=== PATIENT | male | born 1960 | race Caucasian/White ===

== ENCOUNTER 2018-01-10 09:41 | Day surgery (SDC) | payer MEDICARE ==
[~2018-01-10 09:41] MED LIST: LIDOCAINE 2% INJ 100 MG/5 ML SDV (FOR ANES.) As Ordered; PROPOFOL 200 MG/20 ML VIAL As Ordered; ROCURONIUM BROMIDE 50 MG/5 ML VIAL As Ordered
[2018-01-10] MEDS ORDERED: ROPIvacaine 0.5% 30 ML INJECTION (J2795 PER 1MG) (09:42)
[2018-01-10] MEDS ORDERED: dexameTHASONE 10 MG/1 ML VIAL PRES.FREE (J1100) (09:42)
[2018-01-10] MEDS ORDERED: EPINEPHrine INJ 1 MG/ML 1ML AMP (09:42)
[2018-01-10] MEDS: LR 1,000 ML IV (10:15)
[2018-01-10 10:29] LABS: BEDSIDE GLUCOSE 118 MG/DL (70-105)
[2018-01-10] MEDS ORDERED: MIDAZOLAM INJ 2 MG/2 ML VIAL (J2250) As Ordered (10:45)
[2018-01-10] MEDS ORDERED: fentaNYL 100 MCG/2 ML INJECTION (J3010) As Ordered ×2 (10:45→12:10)
[2018-01-10] MEDS: fentaNYL 100 MCG/2 ML INJECTION (J3010) IV ×2 (11:10→11:15)
[2018-01-10] MEDS: MIDAZOLAM INJ 2 MG/2 ML VIAL (J2250) IV (11:10)
[2018-01-10] MEDS ORDERED: METOCLOPRAMIDE INJ 10MG/2ML VIAL (J2765) As Ordered (12:23)
[2018-01-10] MEDS ORDERED: ePHEDrine SULFATE 25 MG/5 ML(5MG/ML) SYRINGE As Ordered (12:32)
[2018-01-10] MEDS ORDERED: GLYCOPYRROLATE INJ 0.2 MG/ML 2 ML VIAL As Ordered (13:15)
[2018-01-10] MEDS ORDERED: ONDANSETRON 4MG/2ML VIAL (J2405) As Ordered (13:15)
[2018-01-10] MEDS: EPINEPHrine 1MG/ML INJ 30ML MD-VIAL As Ordered (13:17)
[2018-01-10] MEDS ORDERED: PROPOFOL 200 MG/20 ML VIAL As Ordered (14:54)
[2018-01-10] MEDS ORDERED: LR 1,000 ML IV ×2 (16:00)
[2018-01-10] MEDS ORDERED: ONDANSETRON 4MG/2ML VIAL (J2405) IV (16:00)
[2018-01-10] MEDS ORDERED: PERCOCET 5MG/325MG TAB PO (16:00)
[2018-01-10] MEDS ORDERED: fentaNYL 100 MCG/2 ML INJECTION (J3010) IV (16:00)
[2018-01-10] MEDS ORDERED: HYDROmorphone HCL 1 MG/ML SYRINGE (J1170) IV (16:00)
== END 2018-01-10 17:05 | disposition home or self-care (01) ==
LOC: M SDC 09:41
DX: M19.011 Primary osteoarthritis, right shoulder (principal); M75.121 Complete rotator cuff tear or rupture of right shoulder, not specified as traumatic; S43.431A Superior glenoid labrum lesion of right shoulder, initial encounter; I10 Essential (primary) hypertension; E11.9 Type 2 diabetes mellitus without complications; K21.9 Gastro-esophageal reflux disease without esophagitis; Z91.018 Allergy to other foods; Z91.041 Radiographic dye allergy status
CPT/HCPCS: 29823

== ENCOUNTER → 2018-09-14 | Outpatient (CLI) | payer MEDICARE ==
[~2018-09-14] MED LIST changes: +FAMO40TA3 PO; +GEMF600T5 PO; +GLIP2.5T6 PO; +GLYB25TA PO; +HYDR-3713 PO; +HYDR25TAB PO; +IBUP200C25 PO; +INVO100T PO; +LIDO5DIS41 TD; -LIDOCAINE 2% INJ 100 MG/5 ML SDV (FOR ANES.) As Ordered; +LISI10TA4 PO; +LOVA40TA PO; +LUNE3TAB36 PO; +METF10004 PO; +MIRA3350 PO; +MORP30TASA PO; +MULTCAP PO; +NEXI40CA PO; +NUCY100T16 PO; +PAME25CA PO; -PROPOFOL 200 MG/20 ML VIAL As Ordered; -ROCURONIUM BROMIDE 50 MG/5 ML VIAL As Ordered; +SOMA350T PO; +TOPA50TA8 PO; +TOUJ1.2I SC
[2018-09-14 16:47] LABS: ALBUMIN 4.1 GM/DL (3.2-5.2); ALT/SGPT 26 U/L (12-78); BILIRUBIN,TOTAL 0.6 MG/DL (0.2-1.0); BLOOD UREA NITROGEN 17 MG/DL (7-18); CALCIUM LEVEL 9.3 MG/DL (8.5-10.1); CARBON DIOXIDE LEVEL 23 MEQ/L (21-32); CHLORIDE LEVEL 105 MEQ/L (98-107); CHOLESTEROL LEVEL 145 MG/DL (<200); CHOLESTEROL RISK RATIO 3.625 (<5); CREATININE FOR GFR 0.97 MG/DL (0.70-1.30); GLOMERULAR FILTRATION RATE > 60.0 (>56); GLUCOSE, FASTING 144 MG/DL (70-100); HDL CHOLESTEROL 40 MG/DL (>40); LDL CHOLESTEROL 65 MG/DL (<100); NON-HDL-C 105 MG/DL; SODIUM LEVEL 138 MEQ/L (136-145); TOTAL PROTEIN 7.6 GM/DL (6.4-8.2); TRIGLYCERIDES LEVEL 201 MG/DL (<150)
[2018-09-14 17:19] LABS: BASO # 0.1 10^3/uL (0.0-0.2); BASO % 0.8 % (0.0-1.0); EOS # 0.1 10^3/uL (0.0-0.50); HEMATOCRIT 45.5 % (42.0-52.0); HEMOGLOBIN 15.2 g/dl (13.5-17.5); LYMPH # 2.3 10^3/uL (1.5-4.5); LYMPH % 20.3 % (24.0-44.0); MEAN CORPUSCULAR HEMOGLOBIN 29.5 pg (27.0-33.0); MEAN CORPUSCULAR HGB CONC 33.4 g/dl (32.0-36.5); MEAN CORPUSCULAR VOLUME 88.3 fl (80.0-96.0); MONO # 0.8 10^3/uL (0.0-0.8); MONO % 7.2 % (0.0-5.0); NEUTROPHILS # 7.9 10^3/uL (1.8-7.7); NEUTROPHILS % 70.4 % (36.0-66.0); PLATELET COUNT, AUTOMATED 245 10^3/uL (150-450); RED BLOOD COUNT 5.15 10^6/uL (4.30-6.10); WHITE BLOOD COUNT 11.2 10^3/uL (4.0-10.0)
[2018-09-14 17:28] LABS: HEMOGLOBIN A1c 6.6 %
== END ==
LOC: M LRY 10:16
PROVIDERS: ATTEND Nurse Practitioner Family
DX: E11.9 Type 2 diabetes mellitus without complications (principal); I10 Essential (primary) hypertension; E78.49 Other hyperlipidemia

== ENCOUNTER → 2018-11-21 | Outpatient (REF) | payer MEDICARE | LOC: M SFHCLERA 10:04 | PROVIDERS: ATTEND Nurse Practitioner Family | DX: J02.9 Acute pharyngitis, unspecified (principal) ==

== ENCOUNTER → 2018-12-30 | Outpatient (REF) | payer MEDICARE ==
[~2018-12-30] MED LIST changes: +HYDR-2541 PO; -HYDR25TAB PO
== END ==
LOC: M SFHCLERA 10:34
PROVIDERS: ATTEND Nurse Practitioner Family
DX: J02.9 Acute pharyngitis, unspecified (principal)

== ENCOUNTER → 2020-12-14 | Outpatient (CLI) | payer MEDICARE ==
[~2020-12-14] MED LIST changes: +GLYB2.5T7 PO; -GLYB25TA PO; +HYDR-3490 PO; +JARD1TAB PO; +LISI10TA22 PO; -LISI10TA4 PO; +LOPI600T PO; +MELO15TA28 PO
== END ==
LOC: M LABSMTC 09:14
PROVIDERS: ATTEND Anesthesiology
DX: Z01.812 Encounter for preprocedural laboratory examination (principal); Z20.822 Contact with and (suspected) exposure to COVID-19

== ENCOUNTER → 2021-01-10 | Outpatient (CLI) | payer MEDICARE | LOC: M LABSMTC 10:50 | PROVIDERS: ATTEND Anesthesiology | DX: Z01.818 Encounter for other preprocedural examination (principal); Z20.822 Contact with and (suspected) exposure to COVID-19 ==

== ENCOUNTER 2021-01-15 07:21 | Day surgery (SDC) | payer MEDICARE, OTHER ==
[~2021-01-15] VITALS: Ht 177.8 cm; Wt 125.6 kg
[~2021-01-15 07:21] MED LIST changes: +NS 1,000 ML IV ONE
[2021-01-15] MEDS ORDERED: LIDOCAINE 2% 100MG/5ML SDV (FOR ANES.) As Ordered ONE (09:44)
[2021-01-15] MEDS ORDERED: propofoL 500 MG/50 ML VIAL As Ordered ONE ×2 (09:44→09:56)
[2021-01-15] MEDS ORDERED: propofoL 200 MG/20 ML VIAL As Ordered ONE (10:05)
--- NOTE | 2021-01-15 10:15 | ROOR ---
Patient Name: Raffi Cadet Procedure Date: 01/15/2021 9:29 AM Date of : 1960 Age: 60 Room: [facility] Gender: Male Note Status: Finalized Procedure: Colonoscopy Indications: High risk colon cancer surveillance: Personal history of colonic polyps Providers: Dawood CASTILLO MD Referring MD: Kayleen Aguilar NP Requesting Provider: Medicines: Monitored Anesthesia Care Complications: No immediate complications. Procedure: Pre-Anesthesia Assessment: - The heart rate, respiratory rate, oxygen saturations, blood pressure, adequacy of pulmonary ventilation, and response to care were monitored throughout the procedure. The Colonoscope was introduced through the anus and advanced to the cecum, identified by appendiceal orifice and ileocecal valve. The colonoscopy was technically difficult and complex due to a redundant colon. The patient tolerated the procedure well. The quality of the bowel preparation was good. Findings: The perianal and digital rectal examinations were normal. Three sessile polyps were found in the sigmoid colon and splenic flexure. The polyps were 5 to 7 mm in size. These polyps were removed with a cold snare. Resection and retrieval were complete. Internal hemorrhoids were found during retroflexion. The hemorrhoids were moderate. The exam was otherwise without abnormality on direct and retroflexion views. Impression: - Three 5 to 7 mm polyps in the sigmoid colon and at the splenic flexure, removed with a cold snare. Resected and retrieved. - Internal hemorrhoids. - The examination was otherwise normal on direct and retroflexion views. Recommendation: - Repeat colonoscopy in 3 years for surveillance. Procedure Code(s): --- Professional --- 20282, Colonoscopy, flexible; with removal of tumor(s), polyp(s), or other lesion(s) by snare technique Diagnosis Code(s): --- Professional --- K64.8, Other hemorrhoids K63.5, Polyp of colon Z86.010, Personal history of colonic polyps CPT copyright 2019 [employer]. All rights reserved. The codes documented in this report are preliminary and upon shank burnisher review may be revised to meet current compliance requirements. Dawood Castillo MD Dawood CASTILLO MD 01/15/2021 10:14:42 AM Electronically signed by Dawood CASTILLO MD Number of Addenda: 0 Note Initiated On: 01/15/2021 9:29 AM Estimated Blood Loss: Estimated blood loss: none.
[2021-01-15 10:30] VITALS: BP 184/108
== END 2021-01-15 10:38 | disposition home or self-care (01) ==
LOC: M OPP 07:21
PROVIDERS: ATTEND Internal Medicine Gastroenterology
DX: Z12.11 Encounter for screening for malignant neoplasm of colon (principal); Z86.010 Personal history of colon polyps; Z80.0 Family history of malignant neoplasm of digestive organs; K63.5 Polyp of colon; K64.8 Other hemorrhoids; E11.9 Type 2 diabetes mellitus without complications; F17.210 Nicotine dependence, cigarettes, uncomplicated; Z79.84 Long term (current) use of oral hypoglycemic drugs; Z79.891 Long term (current) use of opiate analgesic; Z79.899 Other long term (current) drug therapy; Z88.8 Allergy status to other drugs, medicaments and biological substances; Z91.018 Allergy to other foods; Z91.048 Other nonmedicinal substance allergy status

== ENCOUNTER → 2021-03-04 | Outpatient (CLI) | payer OTHER ==
[~2021-03-04] MED LIST changes: -NS 1,000 ML IV ONE; +PROHANCE 279.3MG/ML 15ML VIAL As Ordered ONE; +PROHANCE 279.3MG/ML 5ML VIAL As Ordered ONE
--- NOTE | 2021-03-05 09:02 | REP ---
INDICATION: MASS LIKE LESION IN KIDNEYS. COMPARISON: [facility] 02/27/2021. TECHNIQUE: Multiple sequences obtained in the axial coronal planes prior to and following the intravenous administration of 20 mL ProHance. FINDINGS: There is an enhancing solid mass in the lower pole of the right kidney consistent with renal cell carcinoma. This measures approximately 6.0 x 4.1 cm. In the mid right kidney there are 2 benign nonenhancing cysts measuring 1 cm in diameter. In the left kidney there are several benign nonenhancing cysts, the largest is bilobed and exophytic in the lower pole and measures 5.4 cm in maximum diameter. There is no hydronephrosis bilaterally. The visualized liver demonstrates diffuse fatty infiltration. The gallbladder is grossly unremarkable. There is no intrahepatic or extrahepatic biliary dilatation. The visualized spleen is unremarkable. The adrenals and pancreas demonstrate no abnormality. I see no significant adenopathy in the visualized abdomen. There is no free fluid. IMPRESSION: There is an enhancing solid mass in the lower pole of the right kidney consistent with renal cell carcinoma. This measures approximately 6.0 x 4.1 cm. Multiple bilateral renal cysts. No adenopathy. <Electronically signed by Shekhar Culp > 03/05/21 [id number]
== END ==
LOC: M RAD 07:33
PROVIDERS: ATTEND Nurse Practitioner Family
DX: N28.89 Other specified disorders of kidney and ureter (principal)
CPT/HCPCS: 74183; A9576

== ENCOUNTER → 2021-05-27 | Outpatient (CLI) | payer OTHER ==
[~2021-05-27] MED LIST changes: -PROHANCE 279.3MG/ML 15ML VIAL As Ordered ONE; -PROHANCE 279.3MG/ML 5ML VIAL As Ordered ONE
--- NOTE | 2021-05-27 15:56 | REP ---
INDICATION: RT THYROID NODULE. COMPARISON: CT cervical spine 03/05/2021. TECHNIQUE: Real-time sonographic evaluation of thyroid performed. FINDINGS: Right lobe measures 5.2 x 2.5 x 2.0 cm and left lobe 5.5 x 2.3 x 1.6 cm. In the mid right lobe there is a cyst with mild wall thickening and a few tiny echogenic foci in the wall. This measures 2.9 x 1.5 x 2.0 cm. In the left lower pole there is a hypoechoic nodule which measures 7 x 8 x 6 mm containing low-level echoes. There is an adjacent heterogeneous nodule mixed echogenicity measuring 1.2 x 1.0 x 1.0 cm. IMPRESSION: Cyst in the right lobe of the thyroid demonstrates mild wall thickening and a few echogenic punctate calcifications in the wall of the cyst. This appears benign. Extremely hypoechoic nodule in the left lower pole could represent a complex cyst or solid nodule, measuring 8 mm in maximum diameter. Utilizing TI-RADS criteria this is at most a TR 4 lesion, and given its subcentimeter size no follow-up is needed. Heterogeneous nodule in the left lower pole 1.2 cm in diameter is relatively isoechoic. This is a TR 3 lesion and since it is less than 1.5 cm no follow-up is needed. <Electronically signed by Shekhar Culp > 05/27/21 [id number]
== END ==
LOC: M RAD 15:10
PROVIDERS: ATTEND Internal Medicine Hematology & Oncology
DX: E04.2 Nontoxic multinodular goiter (principal)

== ENCOUNTER 2021-07-28 02:37 | Emergency (ER) | payer OTHER ==
[~2021-07-28] VITALS: Ht 177.8 cm; Wt 120.9 kg
--- OUTSIDE RECORDS SUMMARY | 2021-07-28 02:43 | CCD | Continuity of Care Document ---
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 Onset: 04/18/2020 Essential hypertension RYAN Ward, PNP Onset: 2019 Pure hypercholesterolemia RYAN Ward, PNP Onset: Gastroesophageal reflux disease RYAN Ward, PNP Onse t: 04/18/2020 Secondary erectile dysfunction RYAN Ward, PNP Onset : 04/18/2020 Taking medication RYAN Ward, PNP Onset: 0 Right side sciatica RYAN Ward, PNP Onset: 0 Secondary erectile dysfunction RYAN Ward, PNP Onset : 10/21/2020 Social History Type Date Description Comments Sex Unknown Tobacco Use Start: Unknown End: Quit Tobacco Use Start: Unknown Never Smoked Cigars Tobacco Use Start: Unknown Never Smoked A Pipe Tobacco Use Start: Unknown Never Used Smokeless Tobacco ETOH Use Denies alcohol use Recreational Drug Use Denies Drug Use Tobacco Use Start: Unknown End: Unknown Patient is a former smoker Allergies and adverse reactions Active Allergies Criticality Reaction | Severity Comments Date Iodinated Diagnostic Agents Unable to assess criticality 06/13/2019 Medications Active Medications SIG Qnty Indications Ordering Provide r Date Fenofibrate 145mg Tablets 1 tablet by mouth every day for triglycerides 90tabs Steve hunt MD 01/27/2021 Glipizide ER 10mg Tablets ER 24HR Take 1 Tablet By Mouth Once A Day 30tabs Tawnya lopez M.D. 01/27/2021 Trazodone HCL 50mg Tablets take 1 tab by mouth at bedtime. 30tabs Steve Riley MD 01/20/2021 Blood Pressure Kit/Oscillating/Digital Kit Use as directed to monitor blood pressure twice a day 1units Steve Riley MD 01/20/2021 Lisinopril 10mg Tablets take two tablets by mouth in the morning and 1 tab at bed time 90tabs Hira Riley MD 01/20/2021 Jardiance 25mg Tablets take one by mouth once a day 90tabs RYAN Ward, PNP 07/21/20 20 Carisoprodol 350mg Tablets 1 by mouth at bedtime as needed Unknown Blood Glucose Test Strips please provide glucose test strips, covered by pt insurance for twice daily bs test dx: e11.65 E11.65 Unknown Blood Glucose Monitoring System W/Device Kit for three times a day blood sugar testing dx: e11.65 E 11.65 Unknown Mucinex 600mg Tablets ER 12HR 1 by mouth twice a day as needed Unknown Omeprazole 20mg Capsules DR 1 by mouth every day Written by Dr Muro Unknown Topamax 50mg Tablets 1 by mouth twice a day for headaches 180tabs RYAN Ward, PNP Novolog 100Unit/ML Solution 10-15 units at bedtime per sliding scale Unknown [employer] Lancing Device Misc Unknown Hydrochlorothiazide 25mg Tablets take one tablet by mouth every day 90tabs RYAN Ward, PN P Lovastatin 40mg Tablets take one tablet by mouth every evening with meal 90tabs RYAN Ward , PNP Metformin HCL 1000mg Tablets take one tablet by mouth twice a day with food 180tabs RYAN Ward, PNP Meloxicam 15mg Tablets take one tablet by mouth every day 90tabs DURAN Ward-BC, PNP Sildenafil Citrate 20mg Tablets Take One Tablet By Mouth as Directed Unknown Pharmacist Choice Ultra Thin Lancets 31G 31G Misc Unknown Hydrocodone-Acetaminophen 5-325mg Tablets Take One Tablet By Mouth Every 4 Hours Maximum Daily Dose [address] Muro Unknown Immunizations Description No Information Available Vital Signs Date Vital Result Comment 07/13/2021 1:29pm BP Systolic 150 mmHg BP Diastolic 82 mmHg Heart Rate 76 /min Body Temperature 98.7 F Respiratory Rate 16 /min O2 % BldC Oximetry 96 % Weight 266.00 lb Weight 120.658 kg Height 70 inches 5'10" BMI (Body Mass Index) 38.2 kg/m2 BSA (Body Surface Area) 2.36 m2 04/22/2021 8:07am BP Systolic 154 mmHg BP Diastolic 92 mmHg Heart Rate 70 /min Body Temperature 98.1 F Respiratory Rate 16 /min O2 % BldC Oximetry 97 % Weight 266.50 lb Weight 120.884 kg Height 70 inches 5'10" BMI (Body Mass Index) 38.2 kg/m2 BSA (Body Surface Area) 2.36 m2 Results Test Acquired Date Facility Test Result H/L Range Note RSV Dna Probe 07/13/2021 [facility] RSV Antigen POSITIVE Abnormal Normal: Negative RSV Antigen Reenter POSITIVE Abnormal Normal: Negative 1 Laboratory test finding 07/13/2021 [facility] Coronavirus Covid-19 Not Detected Not Detected 2 Covid-19 06/12/2021 [facility] Sars-CoV-2, Juanita Not Detected Not Detected 3 Sars-CoV-2, Juanita 2 Day Tat Performed CBC With Differential 05/13/2021 [facility] White Blood Count 8.5 10 Normal 4.0-10.0 Red Blood Count 4.80 10 Normal 4.30-6.10 Hemoglobin 14.5 g/dL Normal 13.5-17.5 Hematocrit 43.8 % Normal 42.0-52.0 Mean Corpuscular Volume 91.3 fl Normal 80.0-96.0 Mean Corpuscular Hemoglobin 30.2 pg Normal 27.0-33.0 Mean Corpuscular HGB Conc 33.1 g/dL Normal 32.0-36.5 Red Cell Distribution Width 14.0 % Normal 11.5-14.5 Platelet Count, Automated 238 10 Normal 150-450 Neutrophils % 57.8 % Normal 36.0-66.0 Lymph % 27.3 % Normal 24.0-44.0 [place] % 11.2 % High 2.0-8.0 Eos % 2.3 % Normal 0.0-3.0 Baso % 1.2 % High 0.0-1.0 Immature Granulocyte % 0.2 % Normal 0-3.0 Nucleated Red Blood Cell % 0.0 % Normal 0-0 Neutrophils # 4.9 10 Normal 1.5-8.5 Lymph # 2.3 10 Normal 1.5-5.0 [place] # 1.0 10 High 0.0-0.8 Eos # 0.2 10 Normal 0.0-0.5 Baso # 0.1 10 Normal 0.0-0.2 Comprehensive Metabolic Profil 05/13/2021 [facility] Glucose, Fasting 112 mg/dL High 70-100 Blood Urea Nitrogen 31 mg/dL High 7-18 Creatinine For GFR 2.36 mg/dL High 0.70-1.30 Glomerular Filtration Rate 30.0 Low >49 4 Sodium Level 140 mEq/L Normal 136-145 Potassium Serum 3.9 mEq/L Normal 3.5-5.1 Chloride Level 109 mEq/L High 98-107 Carbon Dioxide Level 23 mEq/L Normal 21-32 Anion Gap 8 mEq/L Normal 8-16 Calcium Level 9.7 mg/dL Normal 8.8-10.2 Ast/Sgot 15 U/L Normal 7-37 Alt/SGPT 26 U/L Normal 12-78 Alkaline Phosphatase 67 U/L Normal 45-117 Bilirubin,Total 0.4 mg/dL Normal 0.2-1.0 Total Protein 8.0 GM/DL Normal 6.4-8.2 Albumin 4.3 GM/DL Normal 3.2-5.2 Albumin/Globulin Ratio 1.2 Normal Comprehensive Metabolic Panel 05/04/2021 [facility] Comprehensive Metabo (SEE NOTE) 5, 6 Sodium 139 mEq/L 134 - 153 Potassium 4.4 mEq/L 3.6 - 5.0 Chloride 105 mEq/L 98 - 107 Co2 22 mEq/L 22 - 30 Glucose 143 mg/dL High 70 - 99 BUN 26 mg/dL High 7 - 21 Creatinine 2.1 mg/dL High 0.7 - 1.5 BUN/Creat 12 8 - 27 Total Protein 6.9 g/dL 6.3 - 8.2 Albumin 4.5 g/dL 3.9 - 5.0 Globulin 2.4 GM/DL 2.4 - 3.2 A/G Ratio 1.9 0.8 - 2.0 Calcium 9.8 mg/dL 8.4 - 10.2 Total Bili <0.7 mg/dL 0.2 - 1.3 Alkaline Phos 53 U/L 38 - 126 Sgot/Ast 16 U/L 5 - 40 SGPT/Alt 12 U/L 7 - 56 Anion Gap 12.0 mmol/L 8.0 - 16.0 Age 60 yrs Non-Aa GFR 34 mL/min Afr Amer GFR 42 mL/min 7 Lipid Panel 04/22/2021 [facility] Cve Panel (SEE NOTE) 8, 9 Cholesterol 208 mg/dL High 131 - 200 Triglycerides 328 mg/dL High 35 - 160 HDL 42 mg/dL 29 - 86 LDL 123 mg/dL 65 - 175 Risk Factor 5.0 High 3.4 - 4.9 LDL/HDL 2.93 1.00 - 3.55 10 Laboratory test finding 04/22/2021 [facility] l TSH Highly Sensitive 0.57 uIU/mL 0.47 - 5.01 PSA - Diagnostic 1.05 ng/mL 0.00 - 4.00 11 Laboratory test finding 04/22/2021 [facility] Hgba1c 6.0 % 4.4 - 6.1 12 CMP W/Egfr 04/22/2021 [facility] Comprehensive Metabo (SEE NOTE) 13 Sodium 138 mEq/L 134 - 153 Potassium 4.5 mEq/L 3.6 - 5.0 Chloride 104 mEq/L 98 - 107 Co2 21 mEq/L Low 22 - 30 Glucose 134 mg/dL High 70 - 99 BUN 31 mg/dL High 7 - 21 Creatinine 2.1 mg/dL High 0.7 - 1.5 BUN/Creat 15 8 - 27 Total Protein 7.7 g/dL 6.3 - 8.2 Albumin 4.9 g/dL 3.9 - 5.0 Globulin 2.8 GM/DL 2.4 - 3.2 A/G Ratio 1.8 0.8 - 2.0 Calcium 10.4 mg/dL High 8.4 - 10.2 Total Bili <0.7 mg/dL 0.2 - 1.3 Alkaline Phos 66 U/L 38 - 126 Sgot/Ast 15 U/L 5 - 40 SGPT/Alt 11 U/L 7 - 56 Anion Gap 13.0 mmol/L 8.0 - 16.0 Age 60 yrs Non-Aa GFR 34 mL/min Afr Amer GFR 42 mL/min 14 CBC W/Auto Differential 04/22/2021 [facility] CBC W/Automated Diff (SEE NOTE) 15 WBC 8.2 10^3/uL 4.2 - 11.0 RBC 4.95 10^6/uL 4.50 - 6.30 Hemoglobin 15.0 g/dL 14.0 - 16.0 Hematocrit 45.8 % 41.0 - 51.0 MCV 92.5 fL 80.0 - 94.0 MCH 30.3 pg 27.0 - 34.0 MCHC 32.8 g/dL 31.0 - 36.0 RDW 13.7 % 11.5 - 14.8 Platelets 257 10^3/uL 150 - 450 MPV 10.8 fL High 7.4 - 10.4 Neut 68.1 % 37.0 - 80.0 Lymph 18.6 % Low 25.0 - 40.0 [place] 8.3 % High 3.0 - 8.0 Eos 2.8 % 0.0 - 7.0 Baso 1.8 % 0.0 - 2.0 %Ig 0.4 % High 0.0 - 0.0 %NRBC 0.0 % 0.0 - 0.0 #Neut 5.57 10^3/uL 2.00 - 6.90 #Lymph 1.52 10^3/uL 0.60 - 3.40 #[place] 0.68 10^3/uL 0.00 - 0.90 #Eos 0.23 10^3/uL 0.00 - 0.70 #Baso 0.15 10^3/uL 0.00 - 0.20 #Ig 0.03 10^3/uL 0.00 - 0.10 #NRBC 0.00 10^3/uL 0.00 - 0.00 Manual Diff NOT INDICATED RBC Morph NOT INDICATED CBC W/Auto Differential 01/20/2021 [facility] CBC W/Automated Diff (SEE NOTE) 16 WBC 9.3 10^3/uL 4.2 - 11.0 RBC 5.69 10^6/uL 4.50 - 6.30 Hemoglobin 17.4 g/dL High 14.0 - 16.0 Hematocrit 51.0 % 41.0 - 51.0 MCV 89.6 fL 80.0 - 94.0 MCH 30.6 pg 27.0 - 34.0 MCHC 34.1 g/dL 31.0 - 36.0 RDW 12.6 % 11.5 - 14.8 Platelets 221 10^3/uL 150 - 450 MPV 9.7 fL 7.4 - 10.4 Neut 64.4 % 37.0 - 80.0 Lymph 23.2 % Low 25.0 - 40.0 [place] 8.4 % High 3.0 - 8.0 Eos 2.3 % 0.0 - 7.0 Baso 1.4 % 0.0 - 2.0 %Ig 0.3 % High 0.0 - 0.0 %NRBC 0.0 % 0.0 - 0.0 #Neut 6.01 10^3/uL 2.00 - 6.90 #Lymph 2.16 10^3/uL 0.60 - 3.40 #[place] 0.78 10^3/uL 0.00 - 0.90 #Eos 0.21 10^3/uL 0.00 - 0.70 #Baso 0.13 10^3/uL 0.00 - 0.20 #Ig 0.03 10^3/uL 0.00 - 0.10 #NRBC 0.00 10^3/uL 0.00 - 0.00 Manual Diff NOT INDICATED RBC Morph NOT INDICATED CMP W/Egfr 01/20/2021 [facility] Comprehensive Metabo (SEE NOTE) 17 Sodium 137 mEq/L 134 - 153 Potassium 3.9 mEq/L 3.6 - 5.0 Chloride 99 mEq/L 98 - 107 Co2 25 mEq/L 22 - 30 Glucose 166 mg/dL High 70 - 99 BUN 19 mg/dL 7 - 21 Creatinine 1.0 mg/dL 0.7 - 1.5 BUN/Creat 19 8 - 27 Total Protein 7.8 g/dL 6.3 - 8.2 Albumin 4.8 g/dL 3.9 - 5.0 Globulin 3.0 GM/DL 2.4 - 3.2 A/G Ratio 1.6 0.8 - 2.0 Calcium 10.2 mg/dL 8.4 - 10.2 Total Bili 0.7 mg/dL 0.2 - 1.3 Alkaline Phos 84 U/L 38 - 126 Sgot/Ast 29 U/L 5 - 40 SGPT/Alt 29 U/L 7 - 56 Anion Gap 13.0 mmol/L 8.0 - 16.0 Age 60 yrs Non-Aa GFR >60 mL/min Afr Amer GFR >60 mL/min 18 Laboratory test finding 01/20/2021 [facility] Hgba1c 7.1 % High 4.4 - 6.1 19 Lipid Panel 01/20/2021 [facility] Cve Panel (SEE NOTE) 20 Cholesterol 182 mg/dL 131 - 200 Triglycerides 304 mg/dL High 35 - 160 HDL 44 mg/dL 29 - 86 LDL 105 mg/dL 65 - 175 Risk Factor 4.1 3.4 - 4.9 LDL/HDL 2.39 1.00 - 3.55 21 Laboratory test finding 01/20/2021 [facility] TSH Highly Sensitive 0.69 uIU/mL 0.47 - 5.01 Laboratory test finding 01/20/2021 [facility] PSA - Diagnostic 0.71 ng/mL 0.00 - 4.00 22 1 { PROCEDURAL CONTROL VALID ) { KIT LOT # [id number] ) { KIT EXP DATE 12/30/21 ) 2 This nucleic acid amplificat ion test was developed and its performance characteristics determined by [employer]. Nucleic acid amplification tests include RT-PCR and TMA. This test has not been FDA cleared or approved. This test has been authorized by FDA under an Emergency Use Authorization (EUA). This test is only authorized for the duration of time the declaration that circumstances exist justifying the authorization of the emergency use of in vitro diagnostic tests for detection of SARS-CoV-2 virus and/or diagnosis of COVID-19 infection under section 564(b)(1) of the Act, 21 U.S.C. 360bbb-3(b) (1), unless the authorizatio n is terminated or revoked sooner. When diagnostic testing is negative, the possibility of a false negative result should be considered in the context of a patient's recent exposures and the presence of clinical signs and symptoms consistent with COVID-19. An individual without symptoms of COVID-19 and who is not shedding SARS-CoV-2 virus would expect to have a negative (not detected) result in this assay. 3 This nucleic acid amplificat ion test was developed and its performance characteristics determined by [employer]. Nucleic acid amplification tests include RT-PCR and TMA. This test has not been FDA cleared or approved. This test has been authorized by FDA under an Emergency Use Authorization (EUA). This test is only authorized for the duration of time the declaration that circumstances exist justifying the authorization of the emergency use of in vitro diagnostic tests for detection of SARS-CoV-2 virus and/or diagnosis of COVID-19 infection under section 564(b)(1) of the Act, 21 U.S.C. 360bbb-3(b) (1), unless the authorizatio n is terminated or revoked sooner. When diagnostic testing is negative, the possibility of a false negative result should be considered in the context of a patient's recent exposures and the presence of clinical signs and symptoms consistent with COVID-19. An individual without symptoms of COVID-19 and who is not shedding SARS-CoV-2 virus would expect to have a negative (not detected) result in this assay. 4 Units are mL/min/1.73 m2 Chronic Kidney Disease Staging per NKF: Stage I & II GFR >=60 Normal to Mildly Decreased Stage III GFR 30-59 Moderately Decreased Stage IV GFR 15-29 Severely Decreased Stage V GFR <15 Very Little GFR Left ESRD GFR <15 on ASSOCIATE EDITOR 5 Is patient fasting? N 6 COMPREHENSIVE METABOLIC PANE L 7 Male GFR Interprentation 20-49 yrs >60 mL/min Normal 50-59 yrs >56 mL/min Normal 60-69 yrs >49 mL/min Normal 70-79yrs >42 mL/min Normal 80 and above >35 mL/min Normal Female GFR Interpretation 20-39 yrs >60 mL/min Normal 40-49 yrs >58 mL/min Normal 50-59 yrs >51 mL/min Normal 60-69 yrs >45 mL/min Normal 70-79 yrs >39 mL/min Normal 80 and above >32 mL/min Normal 8 Is patient fasting? Y 9 LIPID PANEL 10 CVE RISK CHOL/HDL LDL/HDL MEN: 1/2 AVERAGE 3.43 1.00 AVERAGE 4.97 3.55 2X AVERAGE 9.55 6.25 3X AVERAGE 23.99 7.99 WOMEN: 1/2 AVERAGE 3.27 1.47 AVERAGE 4.44 3.22 2X AVERAGE 7.05 5.03 3X AVERAGE 11.04 6.14 11 \\BLDo\\PSA INTERPRETATION\\BLD x\\ The PSA assay should not be used alone for a screening test or diagnosis for presence or absence of malignant disease. Predictions of disease recurrence should not be based solely on values obtained from serial patient serum values. The PSA result was determined by "[employer]", on the [employer] KATHERINE 6000. Values obtained with different assay methods or kits cannot be used interchangeably. 12 {A1] {HB] 13 COMPREHENSIVE METABOLIC PANE L 14 Male GFR Interprentation 20-49 yrs >60 mL/min Normal 50-59 yrs >56 mL/min Normal 60-69 yrs >49 mL/min Normal 70-79yrs >42 mL/min Normal 80 and above >35 mL/min Normal Female GFR Interpretation 20-39 yrs >60 mL/min Normal 40-49 yrs >58 mL/min Normal 50-59 yrs >51 mL/min Normal 60-69 yrs >45 mL/min Normal 70-79 yrs >39 mL/min Normal 80 and above >32 mL/min Normal 15 COMPLETE BLOOD COUNT 16 COMPLETE BLOOD COUNT 17 COMPREHENSIVE METABOLIC PANE L 18 Male GFR Interprentation 20-49 yrs >60 mL/min Normal 50-59 yrs >56 mL/min Normal 60-69 yrs >49 mL/min Normal 70-79yrs >42 mL/min Normal 80 and above >35 mL/min Normal Female GFR Interpretation 20-39 yrs >60 mL/min Normal 40-49 yrs >58 mL/min Normal 50-59 yrs >51 mL/min Normal 60-69 yrs >45 mL/min Normal 70-79 yrs >39 mL/min Normal 80 and above >32 mL/min Normal 19 {A1] {HB] 20 LIPID PANEL 21 CVE RISK CHOL/HDL LDL/HDL MEN: 1/2 AVERAGE 3.43 1.00 AVERAGE 4.97 3.55 2X AVERAGE 9.55 6.25 3X AVERAGE 23.99 7.99 WOMEN: 1/2 AVERAGE 3.27 1.47 AVERAGE 4.44 3.22 2X AVERAGE 7.05 5.03 3X AVERAGE 11.04 6.14 22 \\BLDo\\PSA INTERPRETATION\\BLD x\\ The PSA assay should not be used alone for a screening test or diagnosis for presence or absence of malignant disease. Predictions of disease recurrence should not be based solely on values obtained from serial patient serum values. The PSA result was determined by "[employer]", on the [employer] KATHERINE 6000. Values obtained with different assay methods or kits cannot be used interchangeably. Procedures Date Code Description Status 07/13/2021 09087 Office/Outpatient Established Mo d MDM 30-39 Min Completed 04/23/2021 42970 Office/Outpatient Established SF MDM 10-19 Min Completed 04/22/2021 82522 Office/Outpatient Established Mo d MDM 30-39 Min Completed 01/27/2021 66805 Office/Outpatient Established Mo d MDM 30-39 Min Completed 01/20/2021 25955 Office/Outpatient Established Mo d MDM 30-39 Min Completed 01/20/2021 03510 Electrocardiogram Complete Compl eted Medical Devices Description No Information Available Encounters Description No Information Available Assessments Date Code Description Provider 07/13/2021 R05.9 Cough, unspecified Kayleen Nevills , [facility] 07/13/2021 Z11.52 Encounter for screening for Covi d-19 Kayleen Nevills, [facility] 07/13/2021 I10 Essential (primary) hypertension Kayleen Nevills, [facility] 05/04/2021 E11.65 Type 2 diabetes mellitus with hy perglycemia [facility] 05/04/2021 E78.00 Pure hypercholesterolemia, unspe cified [facility] 04/23/2021 E11.65 Type 2 diabetes mellitus with hy perglycemia Kayleen Nevills, [facility] 04/23/2021 E78.00 Pure hypercholesterolemia, unspe cified Kayleen Nevills, [facility] 04/23/2021 I10 Essential (primary) hypertension Kayleen Nevills, [facility] 04/23/2021 K21.9 Gastro-esophageal reflux disease without esophagitis Kayleen Nevills, [facility] 04/23/2021 R91.1 Solitary pulmonary nodule Kayleen Nevills, [facility] 04/23/2021 G47.33 Obstructive sleep apnea (adult) (pediatric) Kayleen Nevills, [facility] 04/23/2021 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, except renal pelvis Kayleen Nevills, [facility] 04/23/2021 Z79.899 Other terminal 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 (current) drug t herapy Kayleen Nevills, [employer] 04/22/2021 E11.65 Type 2 diabetes mellitus with hy perglycemia Kayleen Nevills, [employer] 04/22/2021 E78.00 Pure hypercholesterolemia, unspe cified Kayleen Nevills, [employer] 04/22/2021 Z12.5 Encounter for screening for indu gnant neoplasm of prostate Kayleen Nevills, [employer] 04/22/2021 I10 Essential (primary) hypertension Kayleen Nevills, [employer] 04/22/2021 K21.9 Gastro-esophageal reflux disease without esophagitis Kayleen Nevills, [employer] 04/22/2021 R91.1 Solitary pulmonary nodule Kayleen Nevills, [facility] 04/22/2021 G47.33 Obstructive sleep apnea (adult) (pediatric) Kayleen Nevills, [employer] 04/22/2021 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, except renal pelvis Kayleen Nevills, [facility] 04/22/2021 Z79.899 Other terminal 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 (current) drug t herapy Kayleen Nevills, [employer] 01/27/2021 E11.65 Type 2 diabetes mellitus with hy perglycemia Kayleen Nevills, [employer] 01/27/2021 E78.00 Pure hypercholesterolemia, unspe cified Kayleen Nevills, [employer] 01/27/2021 I10 Essential (primary) hypertension Kayleen Nevills, [employer] 01/27/2021 N52.1 Erectile dysfunction due to dise ases classified elsewhere Kayleen Nevills, [employer] 01/27/2021 R07.89 Other chest pain Kayleen Nevills, [employer] 01/27/2021 K21.9 Gastro-esophageal reflux disease without esophagitis Kayleen Nevills, [facility] 01/27/2021 Z79.899 Other terminal 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 (current) drug t herapy Kayleen Nevills, [employer] 01/20/2021 E11.65 Type 2 diabetes mellitus with hy perglycemia Kayleen Nevills, [employer] 01/20/2021 E78.00 Pure hypercholesterolemia, unspe cified Kayleen Nevills, [employer] 01/20/2021 Z79.899 Other terminal 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 (current) drug t herapy Kayleen Nevills, [facility] 01/20/2021 Z12.5 Encounter for screening for indu gnant neoplasm of prostate Kayleen Aguilar, [facility] 01/20/2021 Z68.41 Body mass index [BMI]40.0-44.9, adult Kayleen Aguilar, [facility] 01/20/2021 N52.1 Erectile dysfunction due to dise ases classified elsewhere Kayleen Aguilar, [facility] 01/20/2021 I10 Essential (primary) hypertension Kayleen Aguilar, [facility] 01/20/2021 R07.89 Other chest pain NA Hand Plan of Treatment Future Appointment(s):* 07/30/2021 8:20 am - NA Hand at [facility] * 07/23/2021 8:00 am - [facility] 07/13/2021 - NA Hand* R05.9 Cough, unspecified* Comments:* He had the labs done to test for RSV.Continue with Tesalon Leonardo as needed for cough.Further plans to follow the lab results.We will continue to monitor. * Follow up:* Patient to be contacted as soon as results are back. IF CONDITIONS WORSEN NEEDED * Z11.52 Encounter for screening for Covid-19* Comments:* He had the swabs done to test for COVID.Further plans to follow the lab results.We will continue to monitor. * I10 Essential (primary) hypertension* Comments:* His BP was noted at 150/82.The patient was advised to continue with the current line of therapies. He will benefit from maintaining a low-sodium diet. We will continue to monitor. Functional Status Description No Information Available Mental Status Description No Information Available Referrals Refer to Reason for Referral Status Appt Date Irvin Bunch Patient requesting referral for pain management of chronic neck and back pain. Sent [address] [place] [address] [phone] Judy Golden, Patient s/p recent right nep hectomy. Post op creatinine elevated at 2.1 on two separate occasions. Please evaluate. Thank you! 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 Closed 05/13/2021 [address] [place] [address] [phone] [facility] chest 02/27/2021 bruno ws evidence for bilateral pleural plaquing consistent ith previous asbestos exposure. There is also a nodular density superior segment LLL which warrants follow up study. Please evaluate. Thank you. Closed 03/06/[address] [place] [address] [phone] Please evaluate finding of m asslike lesion in the lower pole of the right kidney and systic lesions in the left kidney per imaging. MRI of the Abdomen and Pelvis with and without contrast states most likely a large renal cell carcinoma.PT will hand deliver discs at appt. PLEASE EVALUATE AND TREAT SOON POSSIBLE. THANK YOU. Closed 03/10/2021 Ayo Giordano MD Chest pain. HTN. Current EKG showing PVC's . Closed 03/03/2021 [address] [place] [address] [phone]
--- OUTSIDE RECORDS SUMMARY | 2021-07-28 02:43 | CCD | Continuity of Care Document ---
Author Author [facility] Organization Unknown Address [address] [place] [address] [address] [place] [address] Phone [phone] Care Team Providers Care Supervising Editor Trailer Name Role Phone [facility] AUTM [phone] Michael Russ AUTM [phone] Kayleen Aguilar AUTM [phone] Problems Active Problems Provider Date Type II diabetes mellitus uncontrolled RYAN Ward P ACCOUNTING ANALYST Onset: 04/18/2020 Essential hypertension RYAN Ward PNP Onset: 2019 Pure hypercholesterolemia RYAN Ward, PNP Onset: Gastroesophageal reflux disease RYAN Ward PNP Onse t: 04/18/2020 Secondary erectile dysfunction RYAN Ward PNP Onset : 04/18/2020 Taking medication RYAN [...] SIG Qnty Indications Ordering Provide r Date Zithromax Z-Ryan 250mg Tablets take as directed. complete all of antibiotic as directed. 1tabs Steve I. Riley, MD 07/20/2021 Tessalon Perles 100mg Capsules take 1 cap by mouth every 8 hours as needed for cough 30caps Caty Riley MD 07/20/2021 Glipizide ER 10mg Tablets ER 24HR Take 1 Tablet By Mouth Once A Day 30tabs Tawnya lopez M.D. 01/27/2021 Fenofibrate 145mg Tablets 1 tablet by mouth every day for triglycerides 90tabs Steve hunt MD 01/27/2021 Trazodone HCL 50mg Tablets take 1 [...] by mouth every day 90tabs RYAN Ward, PNP 00 Sildenafil Citrate 20mg Tablets Take One Tablet [...] Date Facility Test Result H/L Range Note Laboratory test finding 07/23/2021 [facility] Hgba1c <pending> Laboratory test finding 07/23/2021 [facility] TSH Highly Sensitive <pending> RSV Dna Probe 07/13/2021 [facility] RSV Antigen POSITIVE Abnormal Normal: Negative RSV Antigen Reenter POSITIVE Abnormal Normal: Negative 1 Laboratory test finding 07/13/2021 [facility] Coronavirus Covid-19 Not Detected Not Detected 2 Covid-19 06/12/2021 [facility] Sars-CoV-2, Juanita Not Detected Not Detected 3 Sars-CoV-2, Juanita 2 Day Tat Performed CBC With Differential 05/13/2021 [facility] White Blood Count 8.5 10 Normal 4.0-10.0 [...] 36.0-66.0 Lymph % 27.3 % Normal 24.0-44.0 [place] % 11.2 % High 2.0-8.0 Eos % 2.3 % Normal 0.0-3.0 Baso % 1.2 % High 0.0-1.0 Immature Granulocyte % 0.2 % Normal 0-3.0 Nucleated Red Blood Cell % 0.0 % Normal 0-0 Neutrophils # 4.9 10 Normal 1.5-8.5 Lymph # 2.3 10 Normal 1.5-5.0 [place] # 1.0 10 High 0.0-0.8 Eos # 0.2 10 Normal 0.0-0.5 Baso # 0.1 10 Normal 0.0-0.2 Comprehensive Metabolic Profil 05/13/2021 [facility] Glucose, Fasting 112 mg/dL High 70-100 Blood [...] Ratio 1.2 Normal Comprehensive Metabolic Panel 05/04/2021 [facility] Comprehensive Metabo (SEE NOTE) 5, 6 Sodium [...] mL/min Afr Amer GFR 42 mL/min 7 CBC W/Auto Differential 04/22/2021 [facility] CBC W/Automated Diff (SEE NOTE) 8, 9 WBC 8.2 10^3/uL 4.2 - 11.0 RBC [...] Lymph 18.6 % Low 25.0 - 40.0 [place] 8.3 % High 3.0 - 8.0 Eos 2.8 % 0.0 - 7.0 Baso 1.8 % 0.0 - 2.0 %Ig 0.4 % High 0.0 - 0.0 %NRBC 0.0 % 0.0 - 0.0 #Neut 5.57 10^3/uL 2.00 - 6.90 #Lymph 1.52 10^3/uL 0.60 - 3.40 #[place] 0.68 10^3/uL 0.00 - 0.90 #Eos 0.23 10^3/uL 0.00 - 0.70 #Baso 0.15 10^3/uL 0.00 - 0.20 #Ig 0.03 10^3/uL 0.00 - 0.10 #NRBC 0.00 10^3/uL 0.00 - 0.00 Manual Diff NOT INDICATED RBC Morph NOT INDICATED CMP W/Egfr 04/22/2021 [facility] Comprehensive Metabo (SEE NOTE) 10 Sodium 138 mEq/L 134 - 153 Potassium [...] 34 mL/min Afr Amer GFR 42 mL/min 11 Laboratory test finding 04/22/2021 [facility] l Hgba1c 6.0 % 4.4 - 6.1 12 Lipid Panel 04/22/2021 [facility] Cve Panel (SEE NOTE) 13 Cholesterol 208 mg/dL High 131 - 200 Triglycerides 328 mg/dL High 35 - 160 HDL 42 mg/dL 29 - 86 LDL 123 mg/dL 65 - 175 Risk Factor 5.0 High 3.4 - 4.9 LDL/HDL 2.93 1.00 - 3.55 14 Laboratory test finding 04/22/2021 Antonio hunt TSH Highly Sensitive 0.57 uIU/mL 0.47 - 5.01 PSA - Diagnostic 1.05 ng/mL 0.00 - 4.00 15 1 { PROCEDURAL CONTROL VALID ) { KIT LOT # [id number] ) { KIT EXP DATE 12/30/21 ) 2 This nucleic acid amplificat ion test was developed and its performance characteristics determined by [employer]. Nucleic acid amplification tests include RT-PCR and [...] developed and its performance characteristics determined by [employer]. Nucleic acid amplification tests include RT-PCR and [...] Little GFR Left ESRD GFR <15 on KILN FIRER 5 Is patient fasting? N 6 COMPREHENSIVE [...] Normal 8 Is patient fasting? Y 9 COMPLETE BLOOD COUNT 10 COMPREHENSIVE METABOLIC PANE L 11 Male GFR Interprentation 20-49 yrs >60 mL/min Normal 50-59 yrs >56 mL/min Normal 60-69 yrs >49 mL/min Normal 70-79yrs >42 mL/min Normal 80 and above >35 mL/min Normal Female GFR Interpretation 20-39 yrs >60 mL/min Normal 40-49 yrs >58 mL/min Normal 50-59 yrs >51 mL/min Normal 60-69 yrs >45 mL/min Normal 70-79 yrs >39 mL/min Normal 80 and above >32 mL/min Normal 12 {A1] {HB] 13 LIPID PANEL 14 CVE RISK CHOL/HDL LDL/HDL MEN: 1/2 AVERAGE 3.43 1.00 AVERAGE 4.97 3.55 2X AVERAGE 9.55 6.25 3X AVERAGE 23.99 7.99 WOMEN: 1/2 AVERAGE 3.27 1.47 AVERAGE 4.44 3.22 2X AVERAGE 7.05 5.03 3X AVERAGE 11.04 6.14 15 \\BLDo\\PSA INTERPRETATION\\BLD x\\ The PSA assay should [...] interchangeably. Procedures Date Code Description Status 07/13/2021 46134 Office/Outpatient Established Mo d MDM 30-39 Min Completed 04/23/2021 11770 Office/Outpatient Established SF MDM 10-19 Min Completed 04/22/2021 70013 Office/Outpatient Established Mo d MDM 30-39 Min Completed 01/27/2021 45993 Office/Outpatient Established Mo d MDM 30-39 Min Completed Medical Devices Description No Information Available Encounters Description No Information Available Assessments Date Code Description Provider 07/23/2021 E11.65 Type 2 diabetes mellitus with hy perglycemia [facility] 07/23/2021 E78.00 Pure hypercholesterolemia, unspe cified [facility] 07/23/2021 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 [facility] 07/13/2021 R05.9 Cough, unspecified Kayleen Nevills , [facility] 07/13/2021 Z11.52 Encounter for screening for Covi d-19 Kayleen Nevills, [facility] 07/13/2021 I10 Essential (primary) hypertension Kayleen Nevills, [facility] 05/04/2021 E11.65 Type 2 diabetes mellitus with hy perglycemia [facility] 05/04/2021 E78.00 Pure hypercholesterolemia, unspe cified [facility] 04/23/2021 E11.65 Type 2 diabetes mellitus with hy perglycemia Kayleen Nevills, [facility] 04/23/2021 E78.00 Pure hypercholesterolemia, unspe cified Kayleen Nevills, [facility] 04/23/2021 I10 Essential (primary) hypertension Kayleen Nevills, [facility] 04/23/2021 K21.9 Gastro-esophageal reflux disease without esophagitis Kayleen Nevills, [facility] 04/23/2021 R91.1 Solitary pulmonary nodule Kayleen Nevills, [facility] 04/23/2021 G47.33 Obstructive sleep apnea (adult) (pediatric) Kayleen Nevills, DISPOSITION CLERK 04/23/2021 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, except renal pelvis Kayleen Nevills, DISPOSITION CLERK 04/23/2021 Z79.899 Other correction (current) drug t herapy Kayleen Nevills, DISPOSITION CLERK 04/22/2021 E11.65 Type 2 diabetes mellitus with hy perglycemia Kayleen Nevills, DISPOSITION CLERK 04/22/2021 E78.00 Pure hypercholesterolemia, unspe cified Kayleen Nevills, DISPOSITION CLERK 04/22/2021 Z12.5 Encounter for screening for indu gnant neoplasm of prostate Kayleen Nevills, DISPOSITION CLERK 04/22/2021 I10 Essential (primary) hypertension Kayleen Nevills, DISPOSITION CLERK 04/22/2021 K21.9 Gastro-esophageal reflux disease without esophagitis Kayleen Nevills, DISPOSITION CLERK 04/22/2021 R91.1 Solitary pulmonary nodule Kayleen Nevills, [facility] 04/22/2021 G47.33 Obstructive sleep apnea (adult) (pediatric) Kayleen Nevills, DISPOSITION CLERK 04/22/2021 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, except renal pelvis Kayleen Nevills, DISPOSITION CLERK 04/22/2021 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 Kayleen Nevills, DISPOSITION CLERK 01/27/2021 E11.65 Type 2 diabetes mellitus with hy perglycemia Kayleen Nevills, DISPOSITION CLERK 01/27/2021 E78.00 Pure hypercholesterolemia, unspe cified Kayleen Nevills, DISPOSITION CLERK 01/27/2021 I10 Essential (primary) hypertension Kayleen Nevills, DISPOSITION CLERK 01/27/2021 N52.1 Erectile dysfunction due to dise ases classified elsewhere Kayleen Nevills, [facility] 01/27/2021 R07.89 Other chest pain Kayleen Nevills, [facility] 01/27/2021 K21.9 Gastro-esophageal reflux disease without esophagitis Kayleen Nevills, [facility] 01/27/2021 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 NA Hand Plan of Treatment Future Appointment(s):* 07/30/2021 8:20 am - NA Hand at [facility] 07/13/2021 - NA Hand* R05.9 Cough, unspecified* Comments:* He had the labs done to test for RSV.Continue with Tesalon Perles as needed for cough.Further plans to follow [...] of chronic neck and back pain. Sent [address] [place] [address] [phone] Judy Golden, Patient s/p recent right nep hectomy. Post op creatinine elevated at 2.1 on two separate occasions. Please evaluate. Thank you! Sent [address] [place] [address] [phone] [facility] Please see this pleasant 60 y/o male s/p Right Nephrectomy for a [id number] clear cell renal cell 03/30/21. Closed 05/13/2021 [address] [place] [address] [phone] [facility] chest 02/27/2021 bruno ws evidence for bilateral pleural plaquing consistent ith previous asbestos exposure. There is also a nodular density superior segment LLL which warrants follow up study. Please evaluate. Thank you. Closed 03/06/[address] [place] [address] [phone] Please evaluate finding of m asslike lesion in the lower pole of the right kidney and systic lesions in the left kidney per imaging. MRI of the Abdomen and Pelvis with and without contrast states most likely a large renal cell carcinoma.[facility] PLEASE EVALUATE AND TREAT SOON POSSIBLE. THANK YOU. Closed 03/10/2021
--- OUTSIDE RECORDS SUMMARY | 2021-07-28 02:43 | CCD | Continuity of Care Document ---
Author Author [facility] Organization Unknown Address [address] [place] [address] Phone [phone] Care Team Providers Care Financial Operations Clerk Name Role Phone [facility] Nurse Practitioners AUTM Michael Russ AUTM [phone] Kayleen Aguilar AUTM [phone] Problems Active Problems Provider Date Type II diabetes mellitus uncontrolled RYAN Ward, P CHIEF FINANCIAL OFFICER Onset: 04/18/2020 Essential hypertension RYAN Ward, PNP [...] H/L Range Note RSV Dna Probe 07/13/2021 [facility] RSV Antigen POSITIVE Abnormal Normal: Negative RSV Antigen Reenter POSITIVE Abnormal Normal: Negative 1 Laboratory test finding 07/13/2021 [facility] Coronavirus Covid-19 Not Detected Not Detected 2 Covid-19 06/12/2021 [facility] Sars-CoV-2, Juanita Not Detected Not Detected 3 Sars-CoV-2, Juanita 2 Day Tat Performed CBC With Differential 05/13/2021 [facility] White Blood Count 8.5 10 Normal 4.0-10.0 [...] 36.0-66.0 Lymph % 27.3 % Normal 24.0-44.0 [place] % 11.2 % High 2.0-8.0 Eos % 2.3 % Normal 0.0-3.0 Baso % 1.2 % High 0.0-1.0 Immature Granulocyte % 0.2 % Normal 0-3.0 Nucleated Red Blood Cell % 0.0 % Normal 0-0 Neutrophils # 4.9 10 Normal 1.5-8.5 Lymph # 2.3 10 Normal 1.5-5.0 [place] # 1.0 10 High 0.0-0.8 Eos # 0.2 10 Normal 0.0-0.5 Baso # 0.1 10 Normal 0.0-0.2 Comprehensive Metabolic Profil 05/13/2021 [facility] Glucose, Fasting 112 mg/dL High 70-100 Blood [...] Ratio 1.2 Normal Comprehensive Metabolic Panel 05/04/2021 [facility] Comprehensive Metabo (SEE NOTE) 5, 6 [...] GFR 42 mL/min 7 Lipid Panel 04/22/2021 [facility] Cve Panel (SEE NOTE) 8, 9 Cholesterol 208 mg/dL High 131 - 200 Triglycerides 328 mg/dL High 35 - 160 HDL 42 mg/dL 29 - 86 LDL 123 mg/dL 65 - 175 Risk Factor 5.0 High 3.4 - 4.9 LDL/HDL 2.93 1.00 - 3.55 10 Laboratory test finding 04/22/2021 [facility] l TSH Highly Sensitive 0.57 uIU/mL 0.47 - 5.01 PSA - Diagnostic 1.05 ng/mL 0.00 - 4.00 11 Laboratory test finding 04/22/2021 [facility] l Hgba1c 6.0 % 4.4 - 6.1 12 CMP W/Egfr 04/22/2021 [facility] Comprehensive Metabo (SEE NOTE) 13 Sodium [...] 42 mL/min 14 CBC W/Auto Differential 04/22/2021 [facility] CBC W/Automated Diff (SEE NOTE) 15 WBC [...] Lymph 18.6 % Low 25.0 - 40.0 Cannon 8.3 % High 3.0 - 8.0 Eos 2.8 % 0.0 - 7.0 Baso 1.8 % 0.0 - 2.0 %Ig 0.4 % High 0.0 - 0.0 %NRBC 0.0 % 0.0 - 0.0 #Neut 5.57 10^3/uL 2.00 - 6.90 #Lymph 1.52 10^3/uL 0.60 - 3.40 #Cannon 0.68 10^3/uL 0.00 - 0.90 #Eos 0.23 10^3/uL 0.00 - 0.70 #Baso 0.15 10^3/uL 0.00 - 0.20 #Ig 0.03 10^3/uL 0.00 - 0.10 #NRBC 0.00 10^3/uL 0.00 - 0.00 Manual Diff NOT INDICATED RBC Morph NOT INDICATED CBC W/Auto Differential 01/20/2021 [facility] CBC W/Automated Diff (SEE NOTE) 16 WBC [...] Lymph 23.2 % Low 25.0 - 40.0 [place] 8.4 % High 3.0 - 8.0 Eos 2.3 % 0.0 - 7.0 Baso 1.4 % 0.0 - 2.0 %Ig 0.3 % High 0.0 - 0.0 %NRBC 0.0 % 0.0 - 0.0 #Neut 6.01 10^3/uL 2.00 - 6.90 #Lymph 2.16 10^3/uL 0.60 - 3.40 #[place]annon 0.78 10^3/uL 0.00 - 0.90 #Eos 0.21 10^3/uL 0.00 - 0.70 #Baso 0.13 10^3/uL 0.00 - 0.20 #Ig 0.03 10^3/uL 0.00 - 0.10 #NRBC 0.00 10^3/uL 0.00 - 0.00 Manual Diff NOT INDICATED RBC Morph NOT INDICATED CMP W/Egfr 01/20/2021 [facility] Comprehensive Metabo (SEE NOTE) 17 Sodium [...] >60 mL/min 18 Laboratory test finding 01/20/2021 [facility] Hgba1c 7.1 % High 4.4 - 6.1 19 Lipid Panel 01/20/2021 [facility] Cve Panel (SEE NOTE) 20 Cholesterol 182 mg/dL 131 - 200 Triglycerides 304 mg/dL High 35 - 160 HDL 44 mg/dL 29 - 86 LDL 105 mg/dL 65 - 175 Risk Factor 4.1 3.4 - 4.9 LDL/HDL 2.39 1.00 - 3.55 21 Laboratory test finding 01/20/2021 [facility] TSH Highly Sensitive 0.69 uIU/mL 0.47 - 5.01 Laboratory test finding 01/20/2021 [facility] PSA - Diagnostic 0.71 ng/mL 0.00 - 4.00 22 1 { PROCEDURAL CONTROL VALID ) { KIT LOT # [id number] ) { KIT EXP DATE 12/30/21 ) 2 This nucleic acid amplificat ion test was developed and its performance characteristics determined by [employer]. Nucleic acid amplification tests include RT-PCR and [...] developed and its performance characteristics determined by [employer]. Nucleic acid amplification tests include RT-PCR and [...] Little GFR Left ESRD GFR <15 on CHIEF KNOWLEDGE OFFICER 5 Is patient fasting? N 6 COMPREHENSIVE [...] result was determined by "[employer]", on the [employer] KATHERINE 6000. Values obtained with different assay [...] interchangeably. Procedures Date Code Description Status 07/13/2021 29423 Office/Outpatient Established Mo d MDM 30-39 Min Completed 04/23/2021 57303 Office/Outpatient Established SF MDM 10-19 Min Completed 04/22/2021 25613 Office/Outpatient Established Mo d MDM 30-39 Min Completed 01/27/2021 13102 Office/Outpatient Established Mo d MDM 30-39 Min Completed 01/20/2021 85163 Office/Outpatient Established Mo d MDM 30-39 Min Completed 01/20/2021 53523 Electrocardiogram Complete Compl eted Medical Devices Description No Information Available Encounters Description No Information Available Assessments Date Code Description Provider 07/13/2021 R05.9 Cough, unspecified Kayleen Nevills , [facility] 07/13/2021 Z11.52 Encounter for screening for Covi d-19 Kayleen Nevills, [facility] 07/13/2021 I10 Essential (primary) hypertension Kayleen Nevills, [facility] 05/04/2021 E11.65 Type 2 diabetes mellitus with hy perglycemia [facility] 05/04/2021 E78.00 Pure hypercholesterolemia, unspe cified [facility] 04/23/2021 E11.65 Type 2 diabetes mellitus with hy perglycemia Kayleen Nevills, [facility] 04/23/2021 E78.00 Pure hypercholesterolemia, unspe cified Kayleen Nevills, [facility] 04/23/2021 I10 Essential (primary) hypertension Kayleen Nevills, [facility] 04/23/2021 K21.9 Gastro-esophageal reflux disease without esophagitis Kayleen Nevills, [facility] 04/23/2021 R91.1 Solitary pulmonary nodule Kayleen Nevills, [facility] 04/23/2021 G47.33 Obstructive sleep apnea (adult) (pediatric) Kayleen Nevills, [facility] 04/23/2021 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, except renal pelvis Kayleen Nevills, [facility] 04/23/2021 Z79.899 Other terminal gauger (current) drug t herapy Kayleen Nevills, [facility] 04/22/2021 E11.65 Type 2 diabetes mellitus with hy perglycemia Kayleen Nevills, [facility] 04/22/2021 E78.00 Pure hypercholesterolemia, unspe cified Kayleen Nevills, [facility] 04/22/2021 Z12.5 Encounter for screening for indu gnant neoplasm of prostate Kayleen Nevills, [facility] 04/22/2021 I10 Essential (primary) hypertension Kayleen Nevills, [facility] 04/22/2021 K21.9 Gastro-esophageal reflux disease without esophagitis Kayleen Nevills, [facility] 04/22/2021 R91.1 Solitary pulmonary nodule Kayleen Nevills, [facility] 04/22/2021 G47.33 Obstructive sleep apnea (adult) (pediatric) Kayleen Nevills, [facility] 04/22/2021 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, except renal pelvis Kayleen Nevills, [facility] 04/22/2021 Z79.899 Other terminal gauger (current) drug t herapy Kayleen Nevills, [facility] 01/27/2021 E11.65 Type 2 diabetes mellitus with hy perglycemia Kayleen Nevills, [facility] 01/27/2021 E78.00 Pure hypercholesterolemia, unspe cified Kayleen Nevills, [facility] 01/27/2021 I10 Essential (primary) hypertension Kayleen Nevills, [facility] 01/27/2021 N52.1 Erectile dysfunction due to dise ases classified elsewhere Kayleen Nevills, [facility] 01/27/2021 R07.89 Other chest pain Kayleen Nevills, [facility] 01/27/2021 K21.9 Gastro-esophageal reflux disease without esophagitis Kayleen Nevills, [facility] 01/27/2021 Z79.899 Other terminal gauger (current) drug t herapy Kayleen Nevills, [facility] 01/20/2021 E11.65 Type 2 diabetes mellitus with hy perglycemia Kayleen Nevills, [facility] 01/20/2021 E78.00 Pure hypercholesterolemia, unspe cified Kayleen Nevills, [facility] 01/20/2021 Z79.899 Other terminal gauger (current) drug t herapy Kayleen Nevills, [facility] 01/20/2021 Z12.5 Encounter for screening for indu gnant neoplasm of prostate Kayleen Aguilar, [facility] 01/20/2021 Z68.41 Body mass index [BMI]40.0-44.9, adult Kayleen Aguilar, [facility] 01/20/2021 N52.1 Erectile dysfunction due to dise ases classified elsewhere Kayleen Aguilar, [facility] 01/20/2021 I10 Essential (primary) hypertension Kayleen Aguilar, [facility] 01/20/2021 R07.89 Other chest pain NA Hand Plan of Treatment Future Appointment(s):* 07/30/2021 8:20 am - NA Hand at [facility] * 07/23/2021 8:00 am - [facility] 07/13/2021 - NA Hand* R05.9 Cough, unspecified* [...] of chronic neck and back pain. Sent [address] [place] [address] [phone] Judy Golden, Patient s/p recent right nep hectomy. Post op creatinine elevated at 2.1 on two separate occasions. Please evaluate. Thank you! Sent [id number] [place] [address] [phone] [facility] Please see this pleasant 60 y/o male s/p Right Nephrectomy for a [id number] clear cell renal cell 03/30/21. Closed 05/13/2021 [address] [place] [address] [phone] [facility] chest 02/27/2021 bruno ws evidence for bilateral pleural plaquing consistent ith previous asbestos exposure. There is also a nodular density superior segment LLL which warrants follow up study. Please evaluate. Thank you. Closed 03/06/[address] [place] [address] [phone] Please evaluate finding of m asslike lesion [...] EKG showing PVC's . Closed 03/03/2021 [address] [place] [address] [phone]
--- OUTSIDE RECORDS SUMMARY | 2021-07-28 02:43 | CCD | Continuity of Care Document ---
Author Author Raffi AGUILAR TRAINING AND DEVELOPMENT OFFICER Organization Unknown Address [address] [place] [address] Phone [phone] Care Team Providers Care Front Office Clerk Name Role Phone [facility] Nurse Practitioners AUTM [phone] Michael Russ AUTM [phone] Kayleen Aguilar AUTM [phone] Problems Active Problems Provider Date Type II diabetes mellitus uncontrolled RYAN Ward, P FIVE PIECE EXPANSION MAKER HAND Onset: 04/18/2020 Essential hypertension RYAN Ward, PNP [...] H/L Range Note RSV Dna Probe 07/13/2021 [facility] RSV Antigen POSITIVE Abnormal Normal: Negative RSV Antigen Reenter POSITIVE Abnormal Normal: Negative 1 Laboratory test finding 07/13/2021 [facility] Coronavirus Covid-19 Not Detected Not Detected 2 Laboratory test finding 07/13/2021 [facility] Covid-19 <pending> Covid-19 06/12/2021 [facility] Sars-CoV-2, Juanita Not Detected Not Detected 3 Sars-CoV-2, Juanita 2 Day Tat Performed CBC With Differential 05/13/2021 [facility] White Blood Count 8.5 10 Normal 4.0-10.0 [...] 36.0-66.0 Lymph % 27.3 % Normal 24.0-44.0 Jones % 11.2 % High 2.0-8.0 Eos % 2.3 % Normal 0.0-3.0 Baso % 1.2 % High 0.0-1.0 Immature Granulocyte % 0.2 % Normal 0-3.0 Nucleated Red Blood Cell % 0.0 % Normal 0-0 Neutrophils # 4.9 10 Normal 1.5-8.5 Lymph # 2.3 10 Normal 1.5-5.0 Jones # 1.0 10 High 0.0-0.8 Eos # 0.2 10 Normal 0.0-0.5 Baso # 0.1 10 Normal 0.0-0.2 Comprehensive Metabolic Profil 05/13/2021 [facility] Glucose, Fasting 112 mg/dL High 70-100 Blood [...] Ratio 1.2 Normal Comprehensive Metabolic Panel 05/04/2021 [facility] Comprehensive Metabo (SEE NOTE) 5, 6 Sodium [...] GFR 42 mL/min 7 Lipid Panel 04/22/2021 [facility] Cve Panel (SEE NOTE) 8, 9 Cholesterol 208 mg/dL High 131 - 200 Triglycerides 328 mg/dL High 35 - 160 HDL 42 mg/dL 29 - 86 LDL 123 mg/dL 65 - 175 Risk Factor 5.0 High 3.4 - 4.9 LDL/HDL 2.93 1.00 - 3.55 10 Laboratory test finding 04/22/2021 [facility] TSH Highly Sensitive 0.57 uIU/mL 0.47 - 5.01 PSA - Diagnostic 1.05 ng/mL 0.00 - 4.00 11 Laboratory test finding 04/22/2021 [facility] l Hgba1c 6.0 % 4.4 - 6.1 12 CMP W/Egfr 04/22/2021 [facility] Comprehensive Metabo (SEE NOTE) 13 Sodium 138 [...] 42 mL/min 14 CBC W/Auto Differential 04/22/2021 [facility] l CBC W/Automated Diff (SEE NOTE) 15 WBC [...] Lymph 18.6 % Low 25.0 - 40.0 Jones 8.3 % High 3.0 - 8.0 Eos 2.8 % 0.0 - 7.0 Baso 1.8 % 0.0 - 2.0 %Ig 0.4 % High 0.0 - 0.0 %NRBC 0.0 % 0.0 - 0.0 #Neut 5.57 10^3/uL 2.00 - 6.90 #Lymph 1.52 10^3/uL 0.60 - 3.40 #Jones 0.68 10^3/uL 0.00 - 0.90 #Eos 0.23 10^3/uL 0.00 - 0.70 #Baso 0.15 10^3/uL 0.00 - 0.20 #Ig 0.03 10^3/uL 0.00 - 0.10 #NRBC 0.00 10^3/uL 0.00 - 0.00 Manual Diff NOT INDICATED RBC Morph NOT INDICATED CBC W/Auto Differential 01/20/2021 [facility] CBC W/Automated Diff (SEE NOTE) 16 [...] Lymph 23.2 % Low 25.0 - 40.0 Jones 8.4 % High 3.0 - 8.0 Eos 2.3 % 0.0 - 7.0 Baso 1.4 % 0.0 - 2.0 %Ig 0.3 % High 0.0 - 0.0 %NRBC 0.0 % 0.0 - 0.0 #Neut 6.01 10^3/uL 2.00 - 6.90 #Lymph 2.16 10^3/uL 0.60 - 3.40 #Jones 0.78 10^3/uL 0.00 - 0.90 #Eos 0.21 10^3/uL 0.00 - 0.70 #Baso 0.13 10^3/uL 0.00 - 0.20 #Ig 0.03 10^3/uL 0.00 - 0.10 #NRBC 0.00 10^3/uL 0.00 - 0.00 Manual Diff NOT INDICATED RBC Morph NOT INDICATED C[facility] 17 Sodium 137 mEq/L 134 [...] >60 mL/min 18 Laboratory test finding 01/20/2021 [facility] Hgba1c 7.1 % High 4.4 - 6.1 19 Lipid Panel 01/20/2021 [facility] Cve Panel (SEE NOTE) 20 Cholesterol 182 mg/dL 131 - 200 Triglycerides 304 mg/dL High 35 - 160 HDL 44 mg/dL 29 - 86 LDL 105 mg/dL 65 - 175 Risk Factor 4.1 3.4 - 4.9 LDL/HDL 2.39 1.00 - 3.55 21 Laboratory test finding 01/20/2021 [facility] TSH Highly Sensitive 0.69 uIU/mL 0.47 - 5.01 Laboratory test finding 01/20/2021 [facility] l PSA - Diagnostic 0.71 ng/mL 0.00 - 4.00 22 1 { PROCEDURAL CONTROL VALID ) { KIT LOT # [id number] ) { KIT EXP DATE 12/30/21 ) 2 This nucleic acid amplificat ion test was developed and its performance characteristics determined by [employer]. Nucleic acid amplification tests include RT-PCR and [...] developed and its performance characteristics determined by [employer]. Nucleic acid amplification tests include RT-PCR and [...] Little GFR Left ESRD GFR <15 on SUPERVISOR STEEL DIVISION 5 Is patient fasting? N 6 COMPREHENSIVE [...] result was determined by "[employer]", on the Re[employer]er KATHERINE 6000. Values obtained with different assay [...] interchangeably. Procedures Date Code Description Status 07/13/2021 08096 Office/Outpatient Established Mo d MDM 30-39 Min Completed 04/23/2021 53552 Office/Outpatient Established SF MDM 10-19 Min Completed 04/22/2021 14931 Office/Outpatient Established Mo d MDM 30-39 Min Completed 01/27/2021 01799 Office/Outpatient Established Mo d MDM 30-39 Min Completed 01/20/2021 37575 Office/Outpatient Established Mo d MDM 30-39 Min Completed 01/20/2021 47972 Electrocardiogram Complete Compl eted Medical Devices Description No Information Available Encounters Type Date Location Provider Dx Diagnosis Office Visit 07/13/2021 1:20p [facility] Kayleen rodríguez, [facility] R05.9 Cough, unspecified Z11.52 Encounter for screening for Covid-19 I10 Essential (primary) hyperten karyn Assessments Date Code Description Provider 07/13/2021 R05.9 Cough, unspecified Kayleen Aguilar , [facility] 07/13/2021 Z11.52 Encounter for screening for Covi d-19 Kayleen Jordanills, [facility] 07/13/2021 I10 Essential (primary) hypertension Kayleen Nevills, [facility] 05/04/2021 E11.65 Type 2 diabetes mellitus with hy perglycemia [facility] 05/04/2021 E78.00 Pure hypercholesterolemia, unspe cified [facility] 04/23/2021 E11.65 Type 2 diabetes mellitus with hy perglycemia Kayleen Nevills, [facility] 04/23/2021 E78.00 Pure hypercholesterolemia, unspe cified Kayleen Nevills, [facility] 04/23/2021 I10 Essential (primary) hypertension Kayleen Nevills, [facility] 04/23/2021 K21.9 Gastro-esophageal reflux disease without esophagitis Kayleen Nevills, TRAINING AND DEVELOPMENT OFFICER 04/23/2021 R91.1 Solitary pulmonary nodule Kayleen Nevills, TRAINING AND DEVELOPMENT OFFICER 04/23/2021 G47.33 Obstructive sleep apnea (adult) (pediatric) Kayleen Nevills, TRAINING AND DEVELOPMENT OFFICER 04/23/2021 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, except renal pelvis Kayleen Nevills, TRAINING AND DEVELOPMENT OFFICER 04/23/2021 Z79.899 Other half-way (current) drug t herapy Kayleen Nevills, TRAINING AND DEVELOPMENT OFFICER 04/22/2021 E11.65 Type 2 diabetes mellitus with hy perglycemia Kayleen Nevills, TRAINING AND DEVELOPMENT OFFICER 04/22/2021 E78.00 Pure hypercholesterolemia, unspe cified Kayleen Nevills, TRAINING AND DEVELOPMENT OFFICER 04/22/2021 Z12.5 Encounter for screening for indu gnant neoplasm of prostate Kayleen Nevills, TRAINING AND DEVELOPMENT OFFICER 04/22/2021 I10 Essential (primary) hypertension Kayleen Nevills, TRAINING AND DEVELOPMENT OFFICER 04/22/2021 K21.9 Gastro-esophageal reflux disease without esophagitis Kayleen Nevills, TRAINING AND DEVELOPMENT OFFICER 04/22/2021 R91.1 Solitary pulmonary nodule Kayleen Nevills, TRAINING AND DEVELOPMENT OFFICER 04/22/2021 G47.33 Obstructive sleep apnea (adult) (pediatric) Kayleen Nevills, TRAINING AND DEVELOPMENT OFFICER 04/22/2021 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, except renal pelvis Kayleen Nevills, TRAINING AND DEVELOPMENT OFFICER 04/22/2021 Z79.899 Other half-way (current) drug t herapy Kayleen Nevills, TRAINING AND DEVELOPMENT OFFICER 01/27/2021 E11.65 Type 2 diabetes mellitus with hy perglycemia Kayleen Nevills, TRAINING AND DEVELOPMENT OFFICER 01/27/2021 E78.00 Pure hypercholesterolemia, unspe cified Kayleen Nevills, TRAINING AND DEVELOPMENT OFFICER 01/27/2021 I10 Essential (primary) hypertension Kayleen Nevills, TRAINING AND DEVELOPMENT OFFICER 01/27/2021 N52.1 Erectile dysfunction due to dise ases classified elsewhere Kayleen Nevills, TRAINING AND DEVELOPMENT OFFICER 01/27/2021 R07.89 Other chest pain Kayleen Nevills, TRAINING AND DEVELOPMENT OFFICER 01/27/2021 K21.9 Gastro-esophageal reflux disease without esophagitis Kayleen Nevills, TRAINING AND DEVELOPMENT OFFICER 01/27/2021 Z79.899 Other intermediate card tender (current) drug t herapy Kayleen Nevills, TRAINING AND DEVELOPMENT OFFICER 01/20/2021 E11.65 Type 2 diabetes mellitus with hy perglycemia Kayleen Nevills, [facility] 01/20/2021 E78.00 Pure hypercholesterolemia, unspe cified Kayleen Aguilar, [facility] 01/20/2021 Z79.899 Other half-way (current) drug t herapy Kayleen Aguilar, [facility] 01/20/2021 Z12.5 Encounter for screening for indu gnant neoplasm of prostate Kayleensurya Jordanills, [facility] 01/20/2021 Z68.41 Body mass index [BMI]40.0-44.9, adult Kayleen Aguilar, [facility] 01/20/2021 N52.1 Erectile dysfunction due to dise ases classified elsewhere Kayleensurya Jordanills, [facility] 01/20/2021 I10 Essential (primary) hypertension Kayleen Aguilar, [facility] 01/20/2021 R07.89 Other chest pain Kayleen NikkirenéeNA Plan of Treatment Future Appointment(s):* 07/30/2021 8:20 am - NA Hand at [facility] * 07/23/2021 8:00 am - [facility] at [facility] 07/13/2021 - Kayleen NA Aguilar* R05.9 Cough, unspecified* Comments:* He had the [...] of chronic neck and back pain. Sent [address] [place] [address] [phone] Judy Golden, Patient s/p recent right nep hectomy. Post op creatinine elevated at 2.1 on two separate occasions. Please evaluate. Thank you! Sent [address] [place] [address] [phone] [facility] Please see this pleasant 60 y/o male s/p Right Nephrectomy for a [id number] clear cell renal cell 03/30/21. Closed 05/13/2021 [address] [place] [address] [phone] [facility] chest 02/27/2021 bruno ws evidence for bilateral pleural plaquing consistent ith previous asbestos exposure. There is also a nodular density superior segment LLL which warrants follow up study. Please evaluate. Thank you. Closed 03/06/[address] [place] [address] [phone] Please evaluate finding of m asslike lesion [...] Current EKG showing PVC's . Closed 03/03/[address] [place] [address] [phone]
--- OUTSIDE RECORDS SUMMARY | 2021-07-28 02:44 | CCD | Continuity of Care Document ---
Author Author Raffi AGUILAR EQUINE MANAGER Organization Unknown Address [address] [place] [address] Phone [phone] Care Team Providers Care Hospital Account Manager Name Role Phone [facility] Nurse Practitioners AUTM [phone] Michael Russ AUTM [phone] Kayleen Aguilar AUTM [phone] Problems Active Problems Provider Date Type II diabetes mellitus uncontrolled RYAN Ward, P APPLICATION SOFTWARE ENGINEER Onset: 04/18/2020 Essential hypertension RYAN Ward, PNP [...] Result H/L Range Note Laboratory test finding 07/13/2021 [facility] RSV Antigen By Dfa <pending> Laboratory test finding 07/13/2021 [facility] Covid-19 <pending> Covid-19 06/12/2021 [facility] Sars-CoV-2, Juanita Not Detected Not Detected 1 Sars-CoV-2, Juanita 2 Day Tat Performed CBC With Differential 05/13/2021 [facility] White Blood Count 8.5 10 Normal 4.0-10.0 [...] 36.0-66.0 Lymph % 27.3 % Normal 24.0-44.0 Grady % 11.2 % High 2.0-8.0 Eos % 2.3 % Normal 0.0-3.0 Baso % 1.2 % High 0.0-1.0 Immature Granulocyte % 0.2 % Normal 0-3.0 Nucleated Red Blood Cell % 0.0 % Normal 0-0 Neutrophils # 4.9 10 Normal 1.5-8.5 Lymph # 2.3 10 Normal 1.5-5.0 Grady # 1.0 10 High 0.0-0.8 Eos # 0.2 10 Normal 0.0-0.5 Baso # 0.1 10 Normal 0.0-0.2 Comprehensive Metabolic Profil 05/13/2021 [facility] Glucose, Fasting 112 mg/dL High 70-100 Blood Urea Nitrogen 31 mg/dL High 7-18 Creatinine For GFR 2.36 mg/dL High 0.70-1.30 Glomerular Filtration Rate 30.0 Low >49 2 Sodium Level 140 mEq/L Normal 136-145 Potassium [...] Ratio 1.2 Normal Comprehensive Metabolic Panel 05/04/2021 [facility] Comprehensive Metabo (SEE NOTE) 3, 4 Sodium 139 mEq/L 134 - 153 Potassium [...] 34 mL/min Afr Amer GFR 42 mL/min 5 Laboratory test finding 04/22/2021 [facility] TSH Highly Sensitive 0.57 uIU/mL 0.47 - 5.01 6 PSA - Diagnostic 1.05 ng/mL 0.00 - 4.00 7 Lipid Panel 04/22/2021 [facility] Cve Panel (SEE NOTE) 8 Cholesterol 208 mg/dL High 131 - 200 Triglycerides 328 mg/dL High 35 - 160 HDL 42 mg/dL 29 - 86 LDL 123 mg/dL 65 - 175 Risk Factor 5.0 High 3.4 - 4.9 LDL/HDL 2.93 1.00 - 3.55 9 Laboratory test finding 04/22/2021 [facility] Hgba1c 6.0 % 4.4 - 6.1 10 CMP W/Egfr 04/22/2021 [facility] Comprehensive Metabo (SEE NOTE) 11 Sodium 138 mEq/L 134 - 153 Potassium [...] 34 mL/min Afr Amer GFR 42 mL/min 12 CBC W/Auto Differential 04/22/2021 [facility] CBC W/Automated Diff (SEE NOTE) 13 WBC 8.2 10^3/uL 4.2 - 11.0 RBC [...] Lymph 18.6 % Low 25.0 - 40.0 Grady 8.3 % High 3.0 - 8.0 Eos 2.8 % 0.0 - 7.0 Baso 1.8 % 0.0 - 2.0 %Ig 0.4 % High 0.0 - 0.0 %NRBC 0.0 % 0.0 - 0.0 #Neut 5.57 10^3/uL 2.00 - 6.90 #Lymph 1.52 10^3/uL 0.60 - 3.40 #Grady 0.68 10^3/uL 0.00 - 0.90 #Eos 0.23 10^3/uL 0.00 - 0.70 #Baso 0.15 10^3/uL 0.00 - 0.20 #Ig 0.03 10^3/uL 0.00 - 0.10 #NRBC 0.00 10^3/uL 0.00 - 0.00 Manual Diff NOT INDICATED RBC Morph NOT INDICATED CBC W/Auto Differential 01/20/2021 [facility] CBC W/Automated Diff (SEE NOTE) 14 WBC 9.3 10^3/uL 4.2 - 11.0 RBC [...] Lymph 23.2 % Low 25.0 - 40.0 Grady 8.4 % High 3.0 - 8.0 Eos 2.3 % 0.0 - 7.0 Baso 1.4 % 0.0 - 2.0 %Ig 0.3 % High 0.0 - 0.0 %NRBC 0.0 % 0.0 - 0.0 #Neut 6.01 10^3/uL 2.00 - 6.90 #Lymph 2.16 10^3/uL 0.60 - 3.40 #Grady 0.78 10^3/uL 0.00 - 0.90 #Eos 0.21 10^3/uL 0.00 - 0.70 #Baso 0.13 10^3/uL 0.00 - 0.20 #Ig 0.03 10^3/uL 0.00 - 0.10 #NRBC 0.00 10^3/uL 0.00 - 0.00 Manual Diff NOT INDICATED RBC Morph NOT INDICATED CMP W/Egfr 01/20/2021 [facility] Comprehensive Metabo (SEE NOTE) 15 Sodium 137 mEq/L 134 - 153 Potassium [...] >60 mL/min Afr Amer GFR >60 mL/min 16 Laboratory test finding 01/20/2021 [facility] Hgba1c 7.1 % High 4.4 - 6.1 17 Lipid Panel 01/20/2021 [facility] Cve Panel (SEE NOTE) 18 Cholesterol 182 mg/dL 131 - 200 Triglycerides 304 mg/dL High 35 - 160 HDL 44 mg/dL 29 - 86 LDL 105 mg/dL 65 - 175 Risk Factor 4.1 3.4 - 4.9 LDL/HDL 2.39 1.00 - 3.55 19 Laboratory test finding 01/20/2021 [facility] TSH Highly Sensitive 0.69 uIU/mL 0.47 - 5.01 Laboratory test finding 01/20/2021 [facility] PSA - Diagnostic 0.71 ng/mL 0.00 - 4.00 20 1 This nucleic acid amplificat ion test was developed and its performance characteristics determined by [employer]. Nucleic acid amplification tests include RT-PCR and [...] negative (not detected) result in this assay. 2 Units are mL/min/1.73 m2 Chronic Kidney Disease Staging per NKF: Stage I & II GFR >=60 Normal to Mildly Decreased Stage III GFR 30-59 Moderately Decreased Stage IV GFR 15-29 Severely Decreased Stage V GFR <15 Very Little GFR Left ESRD GFR <15 on HEADING AND PRIMING OPERATOR 3 Is patient fasting? N 4 COMPREHENSIVE METABOLIC PANE L 5 Male GFR Interprentation 20-49 yrs >60 mL/min Normal 50-59 yrs >56 mL/min Normal 60-69 yrs >49 mL/min Normal 70-79yrs >42 mL/min Normal 80 and above >35 mL/min Normal Female GFR Interpretation 20-39 yrs >60 mL/min Normal 40-49 yrs >58 mL/min Normal 50-59 yrs >51 mL/min Normal 60-69 yrs >45 mL/min Normal 70-79 yrs >39 mL/min Normal 80 and above >32 mL/min Normal 6 Is patient fasting? Y 7 \\BLDo\\PSA INTERPRETATION\\BLD x\\ The PSA assay should [...] methods or kits cannot be used interchangeably. 8 LIPID PANEL 9 CVE RISK CHOL/HDL LDL/HDL MEN: 1/2 AVERAGE 3.43 1.00 AVERAGE 4.97 3.55 2X AVERAGE 9.55 6.25 3X AVERAGE 23.99 7.99 WOMEN: 1/2 AVERAGE 3.27 1.47 AVERAGE 4.44 3.22 2X AVERAGE 7.05 5.03 3X AVERAGE 11.04 6.14 10 {A1] {HB] 11 COMPREHENSIVE METABOLIC PANE L 12 Male GFR Interprentation 20-49 yrs >60 mL/min Normal 50-59 yrs >56 mL/min Normal 60-69 yrs >49 mL/min Normal 70-79yrs >42 mL/min Normal 80 and above >35 mL/min Normal Female GFR Interpretation 20-39 yrs >60 mL/min Normal 40-49 yrs >58 mL/min Normal 50-59 yrs >51 mL/min Normal 60-69 yrs >45 mL/min Normal 70-79 yrs >39 mL/min Normal 80 and above >32 mL/min Normal 13 COMPLETE BLOOD COUNT 14 COMPLETE BLOOD COUNT 15 COMPREHENSIVE METABOLIC PANE L 16 Male GFR Interprentation 20-49 yrs >60 mL/min Normal 50-59 yrs >56 mL/min Normal 60-69 yrs >49 mL/min Normal 70-79yrs >42 mL/min Normal 80 and above >35 mL/min Normal Female GFR Interpretation 20-39 yrs >60 mL/min Normal 40-49 yrs >58 mL/min Normal 50-59 yrs >51 mL/min Normal 60-69 yrs >45 mL/min Normal 70-79 yrs >39 mL/min Normal 80 and above >32 mL/min Normal 17 {A1] {HB] 18 LIPID PANEL 19 CVE RISK CHOL/HDL LDL/HDL MEN: 1/2 AVERAGE 3.43 1.00 AVERAGE 4.97 3.55 2X AVERAGE 9.55 6.25 3X AVERAGE 23.99 7.99 WOMEN: 1/2 AVERAGE 3.27 1.47 AVERAGE 4.44 3.22 2X AVERAGE 7.05 5.03 3X AVERAGE 11.04 6.14 20 \\BLDo\\PSA INTERPRETATION\\BLD x\\ The PSA assay should [...] used interchangeably. Procedures Date Code Description Status 04/23/2021 68555 Office/Outpatient Established SF MDM 10-19 Min Completed 04/22/2021 44253 Office/Outpatient Established Mo d MDM 30-39 Min Completed 01/27/2021 55285 Office/Outpatient Established Mo d MDM 30-39 Min Completed 01/20/2021 75894 Office/Outpatient Established Mo d MDM 30-39 Min Completed 01/20/2021 29018 Electrocardiogram Complete Compl eted Medical Devices Description No Information Available Encounters Description No Information Available Assessments Date Code Description Provider 07/13/2021 R05.9 Cough, unspecified Kayleen Aguilar , [facility] 07/13/2021 Z11.52 Encounter for screening for Covi d-19 Kayleen Aguilar, [facility] 07/13/2021 I10 Essential (primary) hypertension Kayleen Nevills, EQUINE MANAGER 05/04/2021 E11.65 Type 2 diabetes mellitus with hy perglycemia [facility] 05/04/2021 E78.00 Pure hypercholesterolemia, unspe cified [facility] 04/23/2021 E11.65 Type 2 diabetes mellitus with hy perglycemia Kayleen Nevills, EQUINE MANAGER 04/23/2021 E78.00 Pure hypercholesterolemia, unspe cified Kayleen Nevills, EQUINE MANAGER 04/23/2021 I10 Essential (primary) hypertension Kayleen Nevills, EQUINE MANAGER 04/23/2021 K21.9 Gastro-esophageal reflux disease without esophagitis Kayleen Nevills, EQUINE MANAGER 04/23/2021 R91.1 Solitary pulmonary nodule Kayleen Nevills, EQUINE MANAGER 04/23/2021 G47.33 Obstructive sleep apnea (adult) (pediatric) Kayleen Nevills, EQUINE MANAGER 04/23/2021 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, except renal pelvis Kayleen Nevills, EQUINE MANAGER 04/23/2021 Z79.899 Other terminal operations supervisor (current) drug t herapy Kayleen Nevills, EQUINE MANAGER 04/22/2021 E11.65 Type 2 diabetes mellitus with hy perglycemia Kayleen Nevills, EQUINE MANAGER 04/22/2021 E78.00 Pure hypercholesterolemia, unspe cified Kayleen Nevills, EQUINE MANAGER 04/22/2021 Z12.5 Encounter for screening for indu gnant neoplasm of prostate Kayleen Nevills, EQUINE MANAGER 04/22/2021 I10 Essential (primary) hypertension Kayleen Nevills, EQUINE MANAGER 04/22/2021 K21.9 Gastro-esophageal reflux disease without esophagitis Kayleen Nevills, EQUINE MANAGER 04/22/2021 R91.1 Solitary pulmonary nodule Kayleen Nevills, EQUINE MANAGER 04/22/2021 G47.33 Obstructive sleep apnea (adult) (pediatric) Kayleen Nevills, EQUINE MANAGER 04/22/2021 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, except renal pelvis Kayleen Nevills, EQUINE MANAGER 04/22/2021 Z79.899 Other terminal operations supervisor (current) drug t herapy Kayleen Nevills, EQUINE MANAGER 01/27/2021 E11.65 Type 2 diabetes mellitus with hy perglycemia Kayleen Nevills, EQUINE MANAGER 01/27/2021 E78.00 Pure hypercholesterolemia, unspe cified Kayleen Nevills, [facility] 01/27/2021 I10 Essential (primary) hypertension Kayleen Nevills, [facility] 01/27/2021 N52.1 Erectile dysfunction due to dise ases classified elsewhere Kayleen Nevills, [facility] 01/27/2021 R07.89 Other chest pain Kayleen Nevills, [facility] 01/27/2021 K21.9 Gastro-esophageal reflux disease without esophagitis Kayleen Nevills, [facility] 01/27/2021 Z79.899 Other care home (current) drug t herapy Kayleen Nevills, [facility] 01/20/2021 E11.65 Type 2 diabetes mellitus with hy perglycemia Kayleen Nevills, [facility] 01/20/2021 E78.00 Pure hypercholesterolemia, unspe cified Kayleen Nevills, [facility] 01/20/2021 Z79.899 Other terminal operations supervisor (current) drug t herapy Kayleen Nevills, [facility] 01/20/2021 Z12.5 Encounter for screening for indu gnant neoplasm of prostate Kayleen Nevills, [facility] 01/20/2021 Z68.41 Body mass index [BMI]40.0-44.9, adult Kayleen Nevills, [facility] 01/20/2021 N52.1 Erectile dysfunction due to dise ases classified elsewhere Kayleen Nevills, [facility] 01/20/2021 I10 Essential (primary) hypertension Kayleen Nevills, [facility] 01/20/2021 R07.89 Other chest pain Kayleen Nevills, EQUINE MANAGER Plan of Treatment Future Appointment(s):* 07/30/2021 8:20 am - Kayleen Aguilar EQUINE MANAGER at [facility] * 07/23/2021 8:00 am - [facility] 07/13/2021 - Kayleen Nevills, EQUINE MANAGER* R05.9 Cough, unspecified* Comments:* He had the labs done to test for RSV.Further plans to follow the lab results.We will continue to monitor. * Z11.52 Encounter for screening for Covid-19* [...] chronic neck and back pain. Sent [address] [place] [address] [phone] ChantelArsenio faustkira Campos, Patient s/p recent right nep hectomy. Post op creatinine elevated at 2.1 on two separate occasions. Please evaluate. Thank you! Sent [address] [place] [phone] [facility] Please see this pleasant 60 y/o male s/p Right Nephrectomy for a [id number] clear cell renal cell 03/30/21. Closed 05/13/2021 [address] [place] [address] [phone] [facility] chest 02/27/2021 bruno ws evidence for bilateral pleural plaquing consistent ith previous asbestos exposure. There is also a nodular density superior segment LLL which warrants follow up study. Please evaluate. Thank you. Closed 03/06/[address] [place] [address] [phone] Please evaluate finding of m asslike lesion [...] EKG showing PVC's . Closed 03/03/2021 [address] [place] [address] [phone]
--- OUTSIDE RECORDS SUMMARY | 2021-07-28 02:44 | CCD | Continuity of Care Document ---
Author Author Raffi AGUILAR WARE CLEANER Organization Unknown Address [address] [place] [address] Phone [phone] Care Team Providers Care Crop Production Advisor Name Role Phone [facility] Nurse Practitioners AUTM Michael Russ AUTM [phone] Kayleen Aguilar AUTM [phone] Problems Active Problems Provider Date Type II diabetes mellitus uncontrolled RYAN Ward, P CANOPY INSPECTOR Onset: 04/18/2020 Essential hypertension RYAN Ward, PNP [...] H/L Range Note RSV Dna Probe 07/13/2021 [facility] RSV Antigen POSITIVE Abnormal Normal: Negative RSV Antigen Reenter POSITIVE Abnormal Normal: Negative 1 Laboratory test finding 07/13/2021 [facility] Covid-19 <pending> Covid-19 06/12/2021 [facility] Sars-CoV-2, Juanita Not Detected Not Detected 2 Sars-CoV-2, Juanita 2 Day Tat Performed CBC With Differential 05/13/2021 [facility] White Blood Count 8.5 10 [...] 36.0-66.0 Lymph % 27.3 % Normal 24.0-44.0 Montgomery % 11.2 % High 2.0-8.0 Eos % 2.3 % Normal 0.0-3.0 Baso % 1.2 % High 0.0-1.0 Immature Granulocyte % 0.2 % Normal 0-3.0 Nucleated Red Blood Cell % 0.0 % Normal 0-0 Neutrophils # 4.9 10 Normal 1.5-8.5 Lymph # 2.3 10 Normal 1.5-5.0 Montgomery # 1.0 10 High 0.0-0.8 Eos # 0.2 10 Normal 0.0-0.5 Baso # 0.1 10 Normal 0.0-0.2 Comprehensive Metabolic Profil 05/13/2021 [facility] Glucose, Fasting 112 mg/dL High 70-100 Blood Urea Nitrogen 31 mg/dL High 7-18 Creatinine For GFR 2.36 mg/dL High 0.70-1.30 Glomerular Filtration Rate 30.0 Low >49 3 Sodium Level 140 mEq/L Normal 136-145 Potassium [...] Ratio 1.2 Normal Comprehensive Metabolic Panel 05/04/2021 [facility] Comprehensive Metabo (SEE NOTE) 4, 5 Sodium 139 mEq/L 134 - 153 Potassium [...] 34 mL/min Afr Amer GFR 42 mL/min 6 Lipid Panel 04/22/2021 [facility] Cve Panel (SEE NOTE) 7, 8 Cholesterol 208 mg/dL High 131 - 200 Triglycerides 328 mg/dL High 35 - 160 HDL 42 mg/dL 29 - 86 LDL 123 mg/dL 65 - 175 Risk Factor 5.0 High 3.4 - 4.9 LDL/HDL 2.93 1.00 - 3.55 9 Laboratory test finding [facility] TSH Highly Sensitive 0.57 uIU/mL 0.47 - 5.01 PSA - Diagnostic 1.05 ng/mL 0.00 - 4.00 10 Laboratory test finding 04/22/2021 [facility] Hgba1c 6.0 % 4.4 - 6.1 11 CMP W/Egfr 04/22/2021 [facility] Comprehensive Metabo (SEE NOTE) 12 Sodium 138 mEq/L 134 - 153 Potassium [...] 34 mL/min Afr Amer GFR 42 mL/min 13 CBC W/Auto Differential 04/22/2021 [facility] CBC W/Automated Diff (SEE NOTE) 14 WBC 8.2 10^3/uL 4.2 - 11.0 RBC [...] Lymph 18.6 % Low 25.0 - 40.0 Montgomery 8.3 % High 3.0 - 8.0 Eos 2.8 % 0.0 - 7.0 Baso 1.8 % 0.0 - 2.0 %Ig 0.4 % High 0.0 - 0.0 %NRBC 0.0 % 0.0 - 0.0 #Neut 5.57 10^3/uL 2.00 - 6.90 #Lymph 1.52 10^3/uL 0.60 - 3.40 #Montgomery 0.68 10^3/uL 0.00 - 0.90 #Eos 0.23 10^3/uL 0.00 - 0.70 #Baso 0.15 10^3/uL 0.00 - 0.20 #Ig 0.03 10^3/uL 0.00 - 0.10 #NRBC 0.00 10^3/uL 0.00 - 0.00 Manual Diff NOT INDICATED RBC Morph NOT INDICATED CBC W/Auto Differential 01/20/2021 [facility] CBC W/Automated Diff (SEE NOTE) 15 WBC 9.3 10^3/uL 4.2 - 11.0 RBC [...] Lymph 23.2 % Low 25.0 - 40.0 Montgomery 8.4 % High 3.0 - 8.0 Eos 2.3 % 0.0 - 7.0 Baso 1.4 % 0.0 - 2.0 %Ig 0.3 % High 0.0 - 0.0 %NRBC 0.0 % 0.0 - 0.0 #Neut 6.01 10^3/uL 2.00 - 6.90 #Lymph 2.16 10^3/uL 0.60 - 3.40 #Montgomery 0.78 10^3/uL 0.00 - 0.90 #Eos 0.21 10^3/uL 0.00 - 0.70 #Baso 0.13 10^3/uL 0.00 - 0.20 #Ig 0.03 10^3/uL 0.00 - 0.10 #NRBC 0.00 10^3/uL 0.00 - 0.00 Manual Diff NOT INDICATED RBC Morph NOT INDICATED CMP W/Egfr 01/20/2021 [facility] Comprehensive Metabo (SEE NOTE) 16 Sodium 137 mEq/L 134 - 153 Potassium [...] >60 mL/min Afr Amer GFR >60 mL/min 17 Laboratory test finding 01/20/2021 [facility] Hgba1c 7.1 % High 4.4 - 6.1 18 Lipid Panel 01/20/2021 [facility] Cve Panel (SEE NOTE) 19 Cholesterol 182 mg/dL 131 - 200 Triglycerides 304 mg/dL High 35 - 160 HDL 44 mg/dL 29 - 86 LDL 105 mg/dL 65 - 175 Risk Factor 4.1 3.4 - 4.9 LDL/HDL 2.39 1.00 - 3.55 20 Laboratory test finding 01/20/2021 [facility] TSH Highly Sensitive 0.69 uIU/mL 0.47 - 5.01 Laboratory test finding 01/20/2021 [facility] PSA - Diagnostic 0.71 ng/mL 0.00 - 4.00 21 1 { PROCEDURAL CONTROL VALID ) { KIT LOT # [id number] ) { KIT EXP DATE 12/30/21 ) 2 This nucleic acid amplificat ion test was developed and its performance characteristics determined by [employer]. Nucleic acid amplification tests include RT-PCR and [...] (not detected) result in this assay. 3 Units are mL/min/1.73 m2 Chronic Kidney Disease Staging per NKF: Stage I & II GFR >=60 Normal to Mildly Decreased Stage III GFR 30-59 Moderately Decreased Stage IV GFR 15-29 Severely Decreased Stage V GFR <15 Very Little GFR Left ESRD GFR <15 on WATER RESOURCE AGENT 4 Is patient fasting? N 5 COMPREHENSIVE METABOLIC PANE L 6 Male GFR Interprentation 20-49 yrs >60 mL/min Normal 50-59 yrs >56 mL/min Normal 60-69 yrs >49 mL/min Normal 70-79yrs >42 mL/min Normal 80 and above >35 mL/min Normal Female GFR Interpretation 20-39 yrs >60 mL/min Normal 40-49 yrs >58 mL/min Normal 50-59 yrs >51 mL/min Normal 60-69 yrs >45 mL/min Normal 70-79 yrs >39 mL/min Normal 80 and above >32 mL/min Normal 7 Is patient fasting? Y 8 LIPID PANEL 9 CVE RISK CHOL/HDL LDL/HDL MEN: 1/2 AVERAGE 3.43 1.00 AVERAGE 4.97 3.55 2X AVERAGE 9.55 6.25 3X AVERAGE 23.99 7.99 WOMEN: 1/2 AVERAGE 3.27 1.47 AVERAGE 4.44 3.22 2X AVERAGE 7.05 5.03 3X AVERAGE 11.04 6.14 10 \\BLDo\\PSA INTERPRETATION\\BLD x\\ The PSA assay should [...] methods or kits cannot be used interchangeably. 11 {A1] {HB] 12 COMPREHENSIVE METABOLIC PANE L 13 Male GFR Interprentation 20-49 yrs >60 mL/min Normal 50-59 yrs >56 mL/min Normal 60-69 yrs >49 mL/min Normal 70-79yrs >42 mL/min Normal 80 and above >35 mL/min Normal Female GFR Interpretation 20-39 yrs >60 mL/min Normal 40-49 yrs >58 mL/min Normal 50-59 yrs >51 mL/min Normal 60-69 yrs >45 mL/min Normal 70-79 yrs >39 mL/min Normal 80 and above >32 mL/min Normal 14 COMPLETE BLOOD COUNT 15 COMPLETE BLOOD COUNT 16 COMPREHENSIVE METABOLIC PANE L 17 Male GFR Interprentation 20-49 yrs >60 mL/min Normal 50-59 yrs >56 mL/min Normal 60-69 yrs >49 mL/min Normal 70-79yrs >42 mL/min Normal 80 and above >35 mL/min Normal Female GFR Interpretation 20-39 yrs >60 mL/min Normal 40-49 yrs >58 mL/min Normal 50-59 yrs >51 mL/min Normal 60-69 yrs >45 mL/min Normal 70-79 yrs >39 mL/min Normal 80 and above >32 mL/min Normal 18 {A1] {HB] 19 LIPID PANEL 20 CVE RISK CHOL/HDL LDL/HDL MEN: 1/2 AVERAGE 3.43 1.00 AVERAGE 4.97 3.55 2X AVERAGE 9.55 6.25 3X AVERAGE 23.99 7.99 WOMEN: 1/2 AVERAGE 3.27 1.47 AVERAGE 4.44 3.22 2X AVERAGE 7.05 5.03 3X AVERAGE 11.04 6.14 21 \\BLDo\\PSA INTERPRETATION\\BLD x\\ The PSA assay should [...] interchangeably. Procedures Date Code Description Status 07/13/2021 97798 Office/Outpatient Established Mo d MDM 30-39 Min Completed 04/23/2021 73288 Office/Outpatient Established SF MDM 10-19 Min Completed 04/22/2021 14772 Office/Outpatient Established Mo d MDM 30-39 Min Completed 01/27/2021 85822 Office/Outpatient Established Mo d MDM 30-39 Min Completed 01/20/2021 34347 Office/Outpatient Established Mo d MDM 30-39 Min Completed 01/20/2021 13318 Electrocardiogram Complete Compl eted Medical Devices Description No Information Available Encounters Type Date Location Provider Dx Diagnosis Office Visit 07/13/2021 1:20p [facility] Kayleen Ne vills, WARE CLEANER R05.9 Cough, unspecified Z11.52 Encounter for screening for Covid-19 I10 Essential (primary) hyperten karyn Assessments Date Code Description Provider 07/13/2021 R05.9 Cough, unspecified Kayleen Nevills , WARE CLE[employer]ER 07/13/2021 Z11.52 Encounter for screening for Covi d-19 Kayleen Nevills, [employer] CLE[employer]ER 07/13/2021 I10 Essential (primary) hypertension Kayleen Nevills, W[employer] CLE[employer]ER 05/04/2021 E11.65 Type 2 diabetes mellitus with hy perglycemia [facility] 05/04/2021 E78.00 Pure hypercholesterolemia, unspe cified [facility] 04/23/2021 E11.65 Type 2 diabetes mellitus with hy perglycemia Kayleen Nevills, W[employer] CLE[employer]ER 04/23/2021 E78.00 Pure hypercholesterolemia, unspe cified Kayleen Nevills, [employer] 04/23/2021 I10 Essential (primary) hypertension Kayleen Nevills, [employer] CLE[employer]ER 04/23/2021 K21.9 Gastro-esophageal reflux disease without esophagitis Kayleen Nevills, W[employer] CLE[employer]ER 04/23/2021 R91.1 Solitary pulmonary nodule Kayleen Nevills, W[employer] CLE[employer]ER 04/23/2021 G47.33 Obstructive sleep apnea (adult) (pediatric) Kayleen Nevills, W[employer] CLE[employer]ER 04/23/2021 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, except renal pelvis Kayleen Nevills, W[employer] CLE[employer]ER 04/23/2021 Z79.899 Other detention (current) drug t herapy Kayleen Nevills, WARE CLE[employer]ER 04/22/2021 E11.65 Type 2 diabetes mellitus with hy perglycemia Kayleen Nevills, W[employer] CLE[employer]ER 04/22/2021 E78.00 Pure hypercholesterolemia, unspe cified Kayleen Nevills, [employer] CLE[employer]ER 04/22/2021 Z12.5 Encounter for screening for indu gnant neoplasm of prostate Kayleen Nevills, W[employer] CLE[employer]ER 04/22/2021 I10 Essential (primary) hypertension Kayleen Nevills, W[employer] CLE[employer]ER 04/22/2021 K21.9 Gastro-esophageal reflux disease without esophagitis Kayleen Nevills, W[employer] CLE[employer]ER 04/22/2021 R91.1 Solitary pulmonary nodule Kayleen Nevills, [employer] CLE[employer]ER 04/22/2021 G47.33 Obstructive sleep apnea (adult) (pediatric) Kayleen Nevills, W[employer] CLE[employer]ER 04/22/2021 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, except renal pelvis Kayleen Nevills, [facility] 04/22/2021 Z79.899 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 (current) drug t 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 Kayleen Nevills, [facility] 01/27/2021 E11.65 Type 2 diabetes mellitus with hy perglycemia Kayleen Nevills, [facility] 01/27/2021 E78.00 Pure hypercholesterolemia, unspe cified Kayleen Nevills, [facility] 01/27/2021 I10 Essential (primary) hypertension Kayleen Nevills, [facility] 01/27/2021 N52.1 Erectile dysfunction due to dise ases classified elsewhere Kayleen Nevills, [facility] 01/27/2021 R07.89 Other chest pain Kayleen Nevills, [facility] 01/27/2021 K21.9 Gastro-esophageal reflux disease without esophagitis Kayleen Nevills, [facility] 01/27/2021 Z79.899 Other 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 (current) drug t 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 Kayleen Nevills, [facility] 01/20/2021 E11.65 Type 2 diabetes mellitus with hy perglycemia Kayleen Nevills, [facility] 01/20/2021 E78.00 Pure hypercholesterolemia, unspe cified Kayleen Nevills, [facility] 01/20/2021 Z79.899 Other detention (current) drug t herapy Kayleen Nevills, [facility] 01/20/2021 Z12.5 Encounter for screening for indu gnant neoplasm of prostate Kayleen Nevills, [facility] 01/20/2021 Z68.41 Body mass index [BMI]40.0-44.9, adult Kayleen Nevills, [facility] 01/20/2021 N52.1 Erectile dysfunction due to dise ases classified elsewhere Kayleen Nevills, [facility] 01/20/2021 I10 Essential (primary) hypertension Kayleen Nevills, [facility] 01/20/2021 R07.89 Other chest pain Kayleen Nevills, [employer] CLE[employer]ER Plan of Treatment Future Appointment(s):* 07/30/2021 8:20 am - Kayleen Aguilar, WARE CLEANER at [facility] * 07/23/2021 8:00 am - [facility] at [facility] 07/13/2021 - KayleenNA Mcmillan* R05.9 Cough, unspecified* Comments:* He had the [...] chronic neck and back pain. Sent [address] [place] [address] [phone] Judy Golden, Patient s/p recent right nep hectomy. Post op creatinine elevated at 2.1 on two separate occasions. Please evaluate. Thank you! 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 Closed 05/13/2021 [address] [place] [address] [phone] [facility] chest 02/27/2021 bruno ws evidence for bilateral pleural plaquing consistent ith previous asbestos exposure. There is also a nodular density superior segment LLL which warrants follow up study. Please evaluate. Thank you. Closed 03/06/[address] [place] [address] [phone] Please evaluate finding of m asslike lesion [...] Current EKG showing PVC's . Closed 03/03/[address] [place] [address] [phone]
--- OUTSIDE RECORDS SUMMARY | 2021-07-28 02:44 | CCD | Continuity of Care Document ---
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 01/27/2021 Trazodone HCL 50mg Tablets take [...] Available Vital Signs Date Vital Result Comment 04/22/2021 8:07am BP Systolic 154 mmHg BP Diastolic 92 mmHg Heart Rate 70 /min Body Temperature 98.1 F Respiratory Rate 16 /min O2 % BldC Oximetry 97 % Weight 266.50 lb Weight 120.884 kg Height 70 inches 5'10" BMI (Body Mass Index) 38.2 kg/m2 BSA (Body Surface Area) 2.36 m2 01/27/2021 9:03am BP Systolic 148 mmHg BP Diastolic 80 mmHg Heart Rate 78 /min Body Temperature 96.4 F Respiratory Rate 18 /min O2 % BldC Oximetry 97 % Weight 283.00 lb Weight 128.369 kg Height 70 inches 5'10" BMI (Body Mass Index) 40.6 kg/m2 BSA (Body Surface Area) 2.42 m2 Results Test Acquired Date Facility Test Result H/L Range Note Comprehensive Metabolic Profil 05/13/2021 [facility] Glucose, Fasting 112 mg/dL High 70-100 Blood Urea Nitrogen 31 mg/dL High 7-18 Creatinine For GFR 2.36 mg/dL High 0.70-1.30 Glomerular Filtration Rate 30.0 Low >49 1 Sodium Level 140 mEq/L Normal 136-145 Potassium [...] GM/DL Normal 3.2-5.2 Albumin/Globulin Ratio 1.2 Normal CBC With Differential 05/13/2021 [facility] White Blood Count 8.5 10 Normal [...] 36.0-66.0 Lymph % 27.3 % Normal 24.0-44.0 Ector % 11.2 % High 2.0-8.0 Eos % 2.3 % Normal 0.0-3.0 Baso % 1.2 % High 0.0-1.0 Immature Granulocyte % 0.2 % Normal 0-3.0 Nucleated Red Blood Cell % 0.0 % Normal 0-0 Neutrophils # 4.9 10 Normal 1.5-8.5 Lymph # 2.3 10 Normal 1.5-5.0 Ector # 1.0 10 High 0.0-0.8 Eos # 0.2 10 Normal 0.0-0.5 Baso # 0.1 10 Normal 0.0-0.2 [facility] (SEE NOTE) 2, 3 Sodium 139 mEq/L 134 - 153 Potassium [...] 34 mL/min Afr Amer GFR 42 mL/min 4 CBC W/Auto Differential 04/22/2021 [facility] CBC W/Automated Diff (SEE NOTE) 5, 6 WBC 8.2 10^3/uL 4.2 - 11.0 RBC [...] Lymph 18.6 % Low 25.0 - 40.0 Ector 8.3 % High 3.0 - 8.0 Eos 2.8 % 0.0 - 7.0 Baso 1.8 % 0.0 - 2.0 %Ig 0.4 % High 0.0 - 0.0 %NRBC 0.0 % 0.0 - 0.0 #Neut 5.57 10^3/uL 2.00 - 6.90 #Lymph 1.52 10^3/uL 0.60 - 3.40 #Ector 0.68 10^3/uL 0.00 - 0.90 #Eos 0.23 10^3/uL 0.00 - 0.70 #Baso 0.15 10^3/uL 0.00 - 0.20 #Ig 0.03 10^3/uL 0.00 - 0.10 #NRBC 0.00 10^3/uL 0.00 - 0.00 Manual Diff NOT INDICATED RBC Morph NOT INDICATED CMP W/Egfr 04/22/2021 [facility] Metabo (SEE NOTE) 7 Sodium 138 mEq/L 134 - 153 Potassium [...] 34 mL/min Afr Amer GFR 42 mL/min 8 Laboratory test finding 04/22/2021 [facility] Hgba1c 6.0 % 4.4 - 6.1 9 Lipid Panel 04/22/2021 [facility] Cve Panel (SEE NOTE) 10 Cholesterol 208 mg/dL High 131 - 200 Triglycerides 328 mg/dL High 35 - 160 HDL 42 mg/dL 29 - 86 LDL 123 mg/dL 65 - 175 Risk Factor 5.0 High 3.4 - 4.9 LDL/HDL 2.93 1.00 - 3.55 11 Laboratory test finding 04/22/2021 [facility] TSH Highly Sensitive 0.57 uIU/mL 0.47 - 5.01 PSA - Diagnostic 1.05 ng/mL 0.00 - 4.00 12 Laboratory test finding 01/20/2021 [facility] PSA - Diagnostic 0.71 ng/mL 0.00 - 4.00 13 Laboratory test finding 01/20/2021 [facility] TSH Highly Sensitive 0.69 uIU/mL 0.47 - 5.01 Lipid Panel 01/20/2021 [facility] Cve Panel (SEE NOTE) 14 Cholesterol 182 mg/dL 131 - 200 Triglycerides 304 mg/dL High 35 - 160 HDL 44 mg/dL 29 - 86 LDL 105 mg/dL 65 - 175 Risk Factor 4.1 3.4 - 4.9 LDL/HDL 2.39 1.00 - 3.55 15 Laboratory test finding 01/20/2021 [facility] Hgba1c 7.1 % High 4.4 - 6.1 16 C[facility] W[facility]Egfr [facility] 17 Sodium 137 mEq/L 134 [...] mL/min Afr Amer GFR >60 mL/min 18 CBC W/Auto Differential 01/20/2021 [facility] CBC W/Automated Diff (SEE NOTE) 19 WBC 9.3 10^3/uL 4.2 - 11.0 RBC [...] Lymph 23.2 % Low 25.0 - 40.0 Ector 8.4 % High 3.0 - 8.0 Eos 2.3 % 0.0 - 7.0 Baso 1.4 % 0.0 - 2.0 %Ig 0.3 % High 0.0 - 0.0 %NRBC 0.0 % 0.0 - 0.0 #Neut 6.01 10^3/uL 2.00 - 6.90 #Lymph 2.16 10^3/uL 0.60 - 3.40 #Ector 0.78 10^3/uL 0.00 - 0.90 #Eos 0.21 10^3/uL 0.00 - 0.70 #Baso 0.13 10^3/uL 0.00 - 0.20 #Ig 0.03 10^3/uL 0.00 - 0.10 #NRBC 0.00 10^3/uL 0.00 - 0.00 Manual Diff NOT INDICATED RBC Morph NOT INDICATED 1 Units are mL/min/1.73 m2 Chronic Kidney Disease Staging per NKF: Stage I & II GFR >=60 Normal to Mildly Decreased Stage III GFR 30-59 Moderately Decreased Stage IV GFR 15-29 Severely Decreased Stage V GFR <15 Very Little GFR Left ESRD GFR <15 on ENTRY WRITER 2 Is patient fasting? N 3 COMPREHENSIVE METABOLIC PANE L 4 Male GFR Interprentation 20-49 yrs >60 mL/min Normal 50-59 yrs >56 mL/min Normal 60-69 yrs >49 mL/min Normal 70-79yrs >42 mL/min Normal 80 and above >35 mL/min Normal Female GFR Interpretation 20-39 yrs >60 mL/min Normal 40-49 yrs >58 mL/min Normal 50-59 yrs >51 mL/min Normal 60-69 yrs >45 mL/min Normal 70-79 yrs >39 mL/min Normal 80 and above >32 mL/min Normal 5 Is patient fasting? Y 6 COMPLETE BLOOD COUNT 7 COMPREHENSIVE METABOLIC PANE L 8 Male GFR Interprentation 20-49 yrs >60 mL/min Normal 50-59 yrs >56 mL/min Normal 60-69 yrs >49 mL/min Normal 70-79yrs >42 mL/min Normal 80 and above >35 mL/min Normal Female GFR Interpretation 20-39 yrs >60 mL/min Normal 40-49 yrs >58 mL/min Normal 50-59 yrs >51 mL/min Normal 60-69 yrs >45 mL/min Normal 70-79 yrs >39 mL/min Normal 80 and above >32 mL/min Normal 9 {A1] {HB] 10 LIPID PANEL 11 CVE RISK CHOL/HDL LDL/HDL MEN: 1/2 AVERAGE 3.43 1.00 AVERAGE 4.97 3.55 2X AVERAGE 9.55 6.25 3X AVERAGE 23.99 7.99 WOMEN: 1/2 AVERAGE 3.27 1.47 AVERAGE 4.44 3.22 2X AVERAGE 7.05 5.03 3X AVERAGE 11.04 6.14 12 \\BLDo\\PSA INTERPRETATION\\BLD x\\ The PSA assay should [...] methods or kits cannot be used interchangeably. 13 \\BLDo\\PSA INTERPRETATION\\BLD x\\ The PSA assay should [...] methods or kits cannot be used interchangeably. 14 LIPID PANEL 15 CVE RISK CHOL/HDL LDL/HDL MEN: 1/2 AVERAGE 3.43 1.00 AVERAGE 4.97 3.55 2X AVERAGE 9.55 6.25 3X AVERAGE 23.99 7.99 WOMEN: 1/2 AVERAGE 3.27 1.47 AVERAGE 4.44 3.22 2X AVERAGE 7.05 5.03 3X AVERAGE 11.04 6.14 16 {A1] {HB] 17 COMPREHENSIVE METABOLIC PANE L 18 Male [...] 80 and above >32 mL/min Normal 19 COMPLETE BLOOD COUNT Procedures Date Code Description Status 04/23/2021 34591 Office/Outpatient Established SF MDM 10-19 Min Completed 04/22/2021 92927 Office/Outpatient Established Mo d MDM 30-39 Min Completed 01/27/2021 38171 Office/Outpatient Established Mo d MDM 30-39 Min Completed 01/20/2021 26653 Office/Outpatient Established Mo d MDM 30-39 Min Completed 01/20/2021 11088 Electrocardiogram Complete Compl eted Medical Devices Description No Information Available Encounters Description No Information Available Assessments Date Code Description Provider 05/04/2021 E11.65 Type 2 diabetes mellitus with hy perglycemia [facility] 05/04/2021 E78.00 Pure hypercholesterolemia, unspe cified [facility] 04/23/2021 E11.65 Type 2 diabetes mellitus with hy perglycemia Kayleen Nevills, [facility] 04/23/2021 E78.00 Pure hypercholesterolemia, unspe cified Kayleen Nevills, [facility] 04/23/2021 I10 Essential (primary) hypertension Kayleen Nevills, [facility] 04/23/2021 K21.9 Gastro-esophageal reflux disease without esophagitis Kayleen Nevills, [facility] 04/23/2021 R91.1 Solitary pulmonary nodule Kayleen Nevills, [facility] 04/23/2021 G47.33 Obstructive sleep apnea (adult) (pediatric) Kayleen Nevills, [facility] 04/23/2021 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, except renal pelvis Kayleen Nevills, [facility] 04/23/2021 Z79.899 Other mcc (current) drug t herapy Kayleen Nevills, [facility] 04/22/2021 E11.65 Type 2 diabetes mellitus with hy perglycemia Kayleen Nevills, [facility] 04/22/2021 E78.00 Pure hypercholesterolemia, unspe cified Kayleen Nevills, [facility] 04/22/2021 Z12.5 Encounter for screening for indu gnant neoplasm of prostate Kayleen Nevills, [facility] 04/22/2021 I10 Essential (primary) hypertension Kayleen Nevills, [facility] 04/22/2021 K21.9 Gastro-esophageal reflux disease without esophagitis Kayleen Nevills, [facility] 04/22/2021 R91.1 Solitary pulmonary nodule Kayleen Nevills, [facility] 04/22/2021 G47.33 Obstructive sleep apnea (adult) (pediatric) Kayleen Nevills, [facility] 04/22/2021 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, except renal pelvis Kayleen Nevills, [facility] 04/22/2021 Z79.899 Other mcc (current) drug t herapy Kayleen Nevills, [facility] 01/27/2021 E11.65 Type 2 diabetes mellitus with hy perglycemia Kayleen Nevills, [facility] 01/27/2021 E78.00 Pure hypercholesterolemia, unspe cified Kayleen Nevills, [facility] 01/27/2021 I10 Essential (primary) hypertension Kayleen Nevills, [facility] 01/27/2021 N52.1 Erectile dysfunction due to dise ases classified elsewhere Kayleen Nevills, [facility] 01/27/2021 R07.89 Other chest pain Kayleen Nevills, [facility] 01/27/2021 K21.9 Gastro-esophageal reflux disease without esophagitis Kayleen Nevills, [facility] 01/27/2021 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 Kayleen Nevills, [facility] 01/20/2021 E11.65 Type 2 diabetes mellitus with hy perglycemia Kayleen Nevills, [facility] 01/20/2021 E78.00 Pure hypercholesterolemia, unspe cified Kayleen Nevills, [facility] 01/20/2021 Z79.899 Other mcc (current) drug t herapy Kayleen Nevills, [facility] 01/20/2021 Z12.5 Encounter for screening for indu gnant neoplasm of prostate Kayleen Nevills, [facility] 01/20/2021 Z68.41 Body mass index [BMI]40.0-44.9, adult Kayleen Nevills, [facility] 01/20/2021 N52.1 Erectile dysfunction due to dise ases classified elsewhere Kayleen Nevills, [facility] 01/20/2021 I10 Essential (primary) hypertension Kayleen Nevills, [facility] 01/20/2021 R07.89 Other chest pain Kayleen Nevills, [employer] Plan of Treatment Future Appointment(s):* 07/30/2021 8:20 am - [facility] * 07/23/2021 8:00 am - [facility] 04/23/2021 - KayleenNA Mcmillan* E11.65 Type 2 diabetes mellitus with hyperglycemia* Comments:* His fasting glucose is high at 134 with an A1c at 6.The patient was advised to continue with his current medication regimen. He will benefit from maintaining a diabetic diet and a regular exercise regimen. We will continue to monitor. * Follow up:* FU in 3 months, fasting labs a week prior. * E78.00 Pure hypercholesterolemia, unspecified* Comments:* Labs reviewed with the patient in detail.Lipid panel showed:CHOL high at 208.TRG high at 328.HDL at 42.LDL at 123.He will continue with his current regimen. He was encouraged to maintain a low cholesterol diet and a regular exercise regimen. We will continue to monitor.Total Cholesterol and TRG elevated, discussed dietary changes to improve, avoiding meat and dairy products, avoiding processed f oodsDecrease saturated Fats (meat, dairy products and processed foods)Increase Unsaturated fats (fish, plants, nuts, seeds, beans and vegetable oils)Increase aerobic exerciseIncrease water intake Read Labels * Follow up:* FU in 3 months, fasting labs a week prior. * I10 Essential (primary) hypertension* Comments:* The patient was advised to continue with the current line of therapies. He will benefit from maintaining a low-sodium diet. We will continue to monitor. * K21.9 Gastro-esophageal reflux disease without esophagitis* Comments:* The patient was advised to continue with current medication. Avoid spicy food and control diet as advised. * R91.1 Solitary pulmonary nodule* Comments:* He was seen by Pulmonary on 03/06/[address] scan which showed calcified pleural plaques without significant fibrosis. There is one 5 mm nodule subpleural on the left. His spirometry showed obstruction with air trapping versus true concomitant restriction.To have labs and CT chest as per Pulmonary.Plan of care as per Pulmonary. * G47.33 Obstructive sleep apnea (adult) (pediatric)* Comments:* He was advised to continue CPAP for improvement in his symptoms by Pulmonary. * C64.1 Malignant neoplasm of right kidney, except renal pelvis* Comments:* He was seen by Urology on 04/15/21 for 2 weeks S/P right robotic assisted laparo scopic nephrectomy.He had excellent postop course. Skin domi were removed and Steri-Strips applied. FU in [address] scan of chest, abdomen and pelvis w/o contrast. Referred to Medical Oncology for their recommendations. * Follow up:* Fasting labs in 2 weeks to asses kidney function. 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 We will continue to monitor through periodic blood work. * Follow up:* FU in 3 months, fasting labs a week prior. Functional Status Description No Information Available Mental Status Description No Information Available Referrals Refer to Reason for Referral Status Appt Date Arsenio Goldenkira Oswaldonolvia, Patient s/p recent right nep hectomy. Post op creatinine elevated at 2.1 on two separate occasions. Please evaluate. Thank you! Sent [id number] [place] [address] [phone] [facility] Please see this pleasant 60 y/o male s/p Right Nephrectomy for a [id number] clear cell renal cell 03/30/21. Sent 05/13/2021 [address] [place] [address] [phone] [facility] chest 02/27/2021 bruno ws evidence for bilateral pleural plaquing consistent ith previous asbestos exposure. There is also a nodular density superior segment LLL which warrants follow up study. Please evaluate. Thank you. Closed 03/06/[address] [place] [address] [phone] Please evaluate finding of m asslike lesion [...] EKG showing PVC's . Closed 03/03/2021 [address] [place], [place] [address] [phone]
--- OUTSIDE RECORDS SUMMARY | 2021-07-28 02:44 | CCD | Continuity of Care Document ---
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 Onset: 04/18/2020 Essential hypertension RYAN Ward, [...] Date Facility Test Result H/L Range Note Covid-19 06/12/2021 [facility] Sars-CoV-2, Juanita Not Detected Not Detected 1 Sars-CoV-2, Juanita 2 Day Tat Performed CBC With Differential 05/13/2021 [facility] White Blood Count 8.5 10 Normal [...] 36.0-66.0 Lymph % 27.3 % Normal 24.0-44.0 Aiken % 11.2 % High 2.0-8.0 Eos % 2.3 % Normal 0.0-3.0 Baso % 1.2 % High 0.0-1.0 Immature Granulocyte % 0.2 % Normal 0-3.0 Nucleated Red Blood Cell % 0.0 % Normal 0-0 Neutrophils # 4.9 10 Normal 1.5-8.5 Lymph # 2.3 10 Normal 1.5-5.0 Aiken # 1.0 10 High 0.0-0.8 Eos # 0.2 10 Normal 0.0-0.5 Baso # 0.1 10 Normal 0.0-0.2 Comprehensive Metabolic Profil 05/13/2021 [facility] Glucose, Fasting 112 mg/dL High 70-100 [...] Ratio 1.2 Normal Comprehensive Metabolic Panel 05/04/2021 [facility] Comprehensive Metabo (SEE NOTE) 3, 4 Sodium [...] mL/min Afr Amer GFR 42 mL/min 5 CBC W/Auto Differential 04/22/2021 [facility] l CBC W/Automated Diff (SEE NOTE) 6, 7 WBC 8.2 10^3/uL 4.2 - 11.0 RBC [...] Lymph 18.6 % Low 25.0 - 40.0 Aiken 8.3 % High 3.0 - 8.0 Eos 2.8 % 0.0 - 7.0 Baso 1.8 % 0.0 - 2.0 %Ig 0.4 % High 0.0 - 0.0 %NRBC 0.0 % 0.0 - 0.0 #Neut 5.57 10^3/uL 2.00 - 6.90 #Lymph 1.52 10^3/uL 0.60 - 3.40 #Aiken 0.68 10^3/uL 0.00 - 0.90 #Eos 0.23 10^3/uL 0.00 - 0.70 #Baso 0.15 10^3/uL 0.00 - 0.20 #Ig 0.03 10^3/uL 0.00 - 0.10 #NRBC 0.00 10^3/uL 0.00 - 0.00 Manual Diff NOT INDICATED RBC Morph NOT INDICATED CMP W/Egfr 04/22/2021 [facility] Comprehensive Metabo (SEE NOTE) 8 Sodium 138 mEq/L 134 - 153 Potassium [...] 34 mL/min Afr Amer GFR 42 mL/min 9 Laboratory test finding 04/22/2021 [facility] l Hgba1c 6.0 % 4.4 - 6.1 10 Lipid Panel 04/22/2021 [facility] Cve Panel (SEE NOTE) 11 Cholesterol 208 mg/dL High 131 - 200 Triglycerides 328 mg/dL High 35 - 160 HDL 42 mg/dL 29 - 86 LDL 123 mg/dL 65 - 175 Risk Factor 5.0 High 3.4 - 4.9 LDL/HDL 2.93 1.00 - 3.55 12 Laboratory test finding 04/22/2021 [facility] l TSH Highly Sensitive 0.57 uIU/mL 0.47 - 5.01 PSA - Diagnostic 1.05 ng/mL 0.00 - 4.00 13 Laboratory test finding 01/20/2021 [facility] l PSA - Diagnostic 0.71 ng/mL 0.00 - 4.00 14 Laboratory test finding 01/20/2021 [facility] TSH Highly Sensitive 0.69 uIU/mL 0.47 - 5.01 Lipid Panel 01/20/2021 [facility] Cve Panel (SEE NOTE) 15 Cholesterol 182 mg/dL 131 - 200 Triglycerides 304 mg/dL High 35 - 160 HDL 44 mg/dL 29 - 86 LDL 105 mg/dL 65 - 175 Risk Factor 4.1 3.4 - 4.9 LDL/HDL 2.39 1.00 - 3.55 16 Laboratory test finding 01/20/2021 [facility] Hgba1c 7.1 % High 4.4 - 6.1 17 CMP W/Egfr 01/20/2021 [facility] Comprehensive Metabo (SEE NOTE) 18 Sodium 137 mEq/L 134 - 153 Potassium [...] >60 mL/min Afr Amer GFR >60 mL/min 19 CBC W/Auto Differential 01/20/2021 [facility] CBC W/Automated Diff (SEE NOTE) 20 WBC 9.3 10^3/uL 4.2 - 11.0 RBC [...] Lymph 23.2 % Low 25.0 - 40.0 Aiken 8.4 % High 3.0 - 8.0 Eos 2.3 % 0.0 - 7.0 Baso 1.4 % 0.0 - 2.0 %Ig 0.3 % High 0.0 - 0.0 %NRBC 0.0 % 0.0 - 0.0 #Neut 6.01 10^3/uL 2.00 - 6.90 #Lymph 2.16 10^3/uL 0.60 - 3.40 #Aiken 0.78 10^3/uL 0.00 - 0.90 #Eos 0.21 10^3/uL 0.00 - 0.70 #Baso 0.13 10^3/uL 0.00 - 0.20 #Ig 0.03 10^3/uL 0.00 - 0.10 #NRBC 0.00 10^3/uL 0.00 - 0.00 Manual Diff NOT INDICATED RBC Morph NOT INDICATED 1 This nucleic acid amplificat ion test was developed and its performance characteristics determined by [employer]. Nucleic acid amplification tests include RT-PCR and [...] Little GFR Left ESRD GFR <15 on MARK UP DESIGNER 3 Is patient fasting? N 4 COMPREHENSIVE [...] Normal 6 Is patient fasting? Y 7 COMPLETE BLOOD COUNT 8 COMPREHENSIVE METABOLIC PANE L 9 Male GFR Interprentation 20-49 yrs >60 mL/min Normal 50-59 yrs >56 mL/min Normal 60-69 yrs >49 mL/min Normal 70-79yrs >42 mL/min Normal 80 and above >35 mL/min Normal Female GFR Interpretation 20-39 yrs >60 mL/min Normal 40-49 yrs >58 mL/min Normal 50-59 yrs >51 mL/min Normal 60-69 yrs >45 mL/min Normal 70-79 yrs >39 mL/min Normal 80 and above >32 mL/min Normal 10 {A1] {HB] 11 LIPID PANEL 12 CVE RISK CHOL/HDL LDL/HDL MEN: 1/2 AVERAGE 3.43 1.00 AVERAGE 4.97 3.55 2X AVERAGE 9.55 6.25 3X AVERAGE 23.99 7.99 WOMEN: 1/2 AVERAGE 3.27 1.47 AVERAGE 4.44 3.22 2X AVERAGE 7.05 5.03 3X AVERAGE 11.04 6.14 13 \\BLDo\\PSA INTERPRETATION\\BLD x\\ The PSA assay should not be used alone for a screening test or diagnosis for presence or absence of malignant disease. Predictions of disease recurrence should not be based solely on values obtained from serial patient serum values. The PSA result was determined by "[employer]", on the [employer] KATHERINE 6000. Values obtained with different assay methods or kits cannot be used interchangeably. 14 \\BLDo\\PSA INTERPRETATION\\BLD x\\ The PSA assay should [...] methods or kits cannot be used interchangeably. 15 LIPID PANEL 16 CVE RISK CHOL/HDL LDL/HDL MEN: 1/2 AVERAGE 3.43 1.00 AVERAGE 4.97 3.55 2X AVERAGE 9.55 6.25 3X AVERAGE 23.99 7.99 WOMEN: 1/2 AVERAGE 3.27 1.47 AVERAGE 4.44 3.22 2X AVERAGE 7.05 5.03 3X AVERAGE 11.04 6.14 17 {A1] {HB] 18 COMPREHENSIVE METABOLIC PANE L 19 Male GFR Interprentation 20-49 yrs >60 mL/min Normal 50-59 yrs >56 mL/min Normal 60-69 yrs >49 mL/min Normal 70-79yrs >42 mL/min Normal 80 and above >35 mL/min Normal Female GFR Interpretation 20-39 yrs >60 mL/min Normal 40-49 yrs >58 mL/min Normal 50-59 yrs >51 mL/min Normal 60-69 yrs >45 mL/min Normal 70-79 yrs >39 mL/min Normal 80 and above >32 mL/min Normal 20 COMPLETE BLOOD COUNT Procedures Date Code Description Status 04/23/2021 13679 Office/Outpatient Established SF MDM 10-19 Min Completed 04/22/2021 88566 Office/Outpatient Established Mo d MDM 30-39 Min Completed 01/27/2021 22871 Office/Outpatient Established Mo d MDM 30-39 Min Completed 01/20/2021 04325 Office/Outpatient Established Mo d MDM 30-39 Min Completed 01/20/2021 04554 Electrocardiogram Complete Compl eted Medical Devices Description No Information Available Encounters Description No Information Available Assessments Date Code Description Provider 05/04/2021 E11.65 Type 2 diabetes mellitus with hy perglycemia [facility] 05/04/2021 E78.00 Pure hypercholesterolemia, unspe cified [facility] 04/23/2021 E11.65 Type 2 diabetes mellitus with hy perglycemia Kayleen Aguilar, [facility] 04/23/2021 E78.00 Pure hypercholesterolemia, unspe cified Kayleen Aguilar, [facility] 04/23/2021 I10 Essential (primary) hypertension Kayleen Aguilar, [facility] 04/23/2021 K21.9 Gastro-esophageal reflux disease without esophagitis Kayleen Nevills, P[employer] M[employer]ER OPERATOR 04/23/2021 R91.1 Solitary pulmonary nodule Kayleen Nevills, PULVI MIXER OPERATOR 04/23/2021 G47.33 Obstructive sleep apnea (adult) (pediatric) Kayleen Nevills, PULVI MIXER OPERATOR 04/23/2021 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, except renal pelvis Kayleen Nevills, P[employer] MIXER OPERATOR 04/23/2021 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 Kayleen Nevills, PULVI MIXER OPERATOR 04/22/2021 E11.65 Type 2 diabetes mellitus with hy perglycemia Kayleen Nevills, PULVI MIXER OPERATOR 04/22/2021 E78.00 Pure hypercholesterolemia, unspe cified Kayleen Nevills, [employer] M[employer] OPERATOR 04/22/2021 Z12.5 Encounter for screening for indu gnant neoplasm of prostate Kayleen Nevills, PULVI MIXER OPERATOR 04/22/2021 I10 Essential (primary) hypertension Kayleen Nevills, [employer] M[employer]ER OPERATOR 04/22/2021 K21.9 Gastro-esophageal reflux disease without esophagitis Kayleen Nevills, P[employer] MIXER OPERATOR 04/22/2021 R91.1 Solitary pulmonary nodule Kayleen Nevills, PULVI MIXER OPERATOR 04/22/2021 G47.33 Obstructive sleep apnea (adult) (pediatric) Kayleen Nevills, PULVI MIXER OPERATOR 04/22/2021 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, except renal pelvis Kayleen Nevills, PULVI MIXER OPERATOR 04/22/2021 Z79.899 Other correction (current) drug t herapy Kayleen Nevills, PULVI MIXER OPERATOR 01/27/2021 E11.65 Type 2 diabetes mellitus with hy perglycemia Kayleen Nevills, PULVI MIXER OPERATOR 01/27/2021 E78.00 Pure hypercholesterolemia, unspe cified Kayleen Nevills, PULVI MIXER OPERATOR 01/27/2021 I10 Essential (primary) hypertension Kayleen Nevills, PULVI MIXER OPERATOR 01/27/2021 N52.1 Erectile dysfunction due to dise ases classified elsewhere Kayleen Nevills, PULVI MIXER OPERATOR 01/27/2021 R07.89 Other chest pain Kayleen Nevills, PULVI MIXER OPERATOR 01/27/2021 K21.9 Gastro-esophageal reflux disease without esophagitis Kayleen Nevills, [employer] MIXER OPERATOR 01/27/2021 Z79.899 Other correction (current) drug t herapy Kayleen Aguilar, [facility] 01/20/2021 E11.65 Type 2 diabetes mellitus with hy perglycemia Kayleen Aguilar, [facility] 01/20/2021 E78.00 Pure hypercholesterolemia, unspe cified Kayleen Aguilar, [facility] 01/20/2021 Z79.899 Other correction (current) drug t herapy Kayleen Aguilar, [facility] 01/20/2021 Z12.5 Encounter for screening for indu gnant neoplasm of prostate Kayleen Aguilar, [facility] 01/20/2021 Z68.41 Body mass index [BMI]40.0-44.9, adult Kayleen Aguilar, [facility] 01/20/2021 N52.1 Erectile dysfunction due to dise ases classified elsewhere Kayleen Aguilar, [facility] 01/20/2021 I10 Essential (primary) hypertension Kayleen Aguilar, [facility] 01/20/2021 R07.89 Other chest pain NA Hand Plan of Treatment Future Appointment(s):* 07/30/2021 8:20 am - NA Hand at [facility] * 07/23/2021 8:00 am - [facility] 04/23/2021 - NA Hand* E11.65 Type 2 diabetes mellitus with hyperglycemia* [...] to asses kidney function. * Z79.899 Other correction (current) drug therapy* Comments:* Patient to continue to follow the current plan of care and to look for any new or worsening symptoms. We will continue to monitor through periodic blood work. * Follow up:* FU in 3 months, fasting labs a week prior. Functional Status Description No Information Available Mental Status Description No Information Available Referrals Refer to Dr Reason for Referral Status Appt Date Judy Golden, Patient s/p recent right nep hectomy. Post op creatinine elevated at 2.1 on two separate occasions. Please evaluate. Thank you! 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 Closed 05/13/2021 [address] [place] [address] [phone] [facility] chest 02/27/2021 bruno ws evidence for bilateral pleural plaquing consistent ith previous asbestos exposure. There is also a nodular density superior segment LLL which warrants follow up study. Please evaluate. Thank you. Closed 03/06/[address] [place] [address] [phone] Please evaluate finding of m asslike lesion [...] EKG showing PVC's . Closed 03/03/2021 [address] [place] [address] [phone]
--- OUTSIDE RECORDS SUMMARY | 2021-07-28 02:44 | CCD | Continuity of Care Document ---
Author Author Rosa SHAH ANP- C. U.N.P. Organization Unknown Address [address] [place] [address] [address] [place] [address] Phone [phone] Care Team Providers Care [employer] Name Role Phone Ayo Giordano M.D. AUTM [phone] Kayleen Aguilar NP AUTM [phone] Problems Active Problems Provider Date Diabetes mellitus David Toth MD Onset: 03/10/2021 Social History Type Date Description Comments Sex Male Tobacco Use Reviewed: 03/10/21 Never Smoked Cigarettes Smoking Status Reviewed: 04/15/21 Never Smoked Cigarettes ETOH Use Currently consumes alcohol Allergies, Adverse Reactions, Alerts Active Allergies Criticality Reaction | Severity Comments Date Injected Iodine Unable to assess criticality 03/10/2021 Medications Active Medications SIG Qnty Indications Ordering Provide r Date Colace 100mg Capsules 1 by mouth twice a day start after surgery 30caps David Toth MD 03/24 Glipizide ER 10mg Tablets ER 24HR Unknown Carisoprodol 350mg Tablets Take One Tablet By Mouth Three Times A Day Maximum Daily Dose 3 Tablets Unknown Hydrocodone-Acetaminophen 5-325mg Tablets Unknown Trazodone HCL 50mg Tablets Take Three Tablets By Mouth AT Bedtime Unknown Lisinopril 10mg Tablets Take Two Tablets By Mouth Once Daily Unknown Jardiance 25mg Tablets Take One Tablet By Mouth Every Day Unknown Omeprazole 20mg Capsules DR Take One Capsule By Mouth Twice A Day Unknown Fenofibrate 145mg Tablets Take One Tablet By Mouth Every Day For Triglycerides Unknown Lovastatin 40mg Tablets Take One Tablet By Mouth Every Evening With A Meal Unknown Meloxicam 15mg Tablets Take One Tablet By Mouth Every Day Unknown Metformin HCL 1000mg Tablets Margret Martini NP Topiramate 50mg Tablets Take One Tablet By Mouth Twice A Day For Headaches Unknown Immunizations Description No Information Available Vital Signs Date Vital Result Comment 04/15/2021 2:20pm Height 70 inches 5'10" Weight 266.00 lb Weight 120.658 kg BMI (Body Mass Index) 38.2 kg/m2 BP Systolic 159 mmHg BP Diastolic 100 mmHg Heart Rate 71 /min Body Temperature 98.1 F 03/10/2021 2:24pm Height 70 inches Weight 280.00 lb Weight 127.008 kg BMI (Body Mass Index) 40.2 kg/m2 BP Systolic 184 mmHg BP Diastolic 81 mmHg Heart Rate 80 /min Results Test Acquired Date Facility Test Result H/L Range Note 230 Ua Routine 04/15/2021 [facility] REF TO DR ADDRESS ON ORDER FOR (699)- - Ua Glucose >=1000 mg/dL Ua Protein Negative Ua Nitrite Negative Ua Leuko Negative Ua Blood Trace-intact Ua Color Not Entered Ua Ketones Negative Ua Clarity Not Entered Ua Specific [place] 1.010 1.003-1.030 Ua PH 5.5 5.0-7.5 Ua Bilirubin Negative Ua Urobilinogen 0.2 E.U./dL 0.0-1.0 Basic Metabolic Panel 04/15/2021 [facility] [address] [place] [address] [phone] Creatinine 2.66 mg/dL High 0.72-1.25 Glucose 64.0 mg/dL Low 70.0-99.0 Co2 21.0 mmol/L Low 22.0-31.0 Calcium 10.1 mg/dL 8.4-10.2 BUN 35.0 mg/dL High 7.0-24.0 BUN/Creat Ratio 13.2 Na 140.0 mmol/L 136.0-145.0 K 4.2 mmol/L 3.6-5.2 Cl 107.0 mmol/L 98.0-107.0 Anion Gap 16.2 eGFR - Descent 29.0 Low >60.0 eGFR -- Non- Descent 23.9 Low >60.0 Laboratory test finding 03/30/2021 [facility] [address] [place] [address] [phone] Surgical Pathology LABORATORY [facility] <SEE NOTE> 1 Urinalysis 03/26/[address] [address] [phone] Urinalysis (SEE NOTE) 2 Source Clean Catch Color yellow Normal: Yellow Clarity clear Normal: Clear Spec [place] 1.015 1.001 - 1.030 pH 6.5 5 - 9 Glucose 1000 Abnormal Normal: Negative Bilirubin NEG Normal: Negative Ketone NEG Normal: Negative Protein 30 Normal: Negative Nitrite Negative Normal: Negative Blood NEG Normal: Negative Leuk Est NEG Normal: Negative Urobilinogen NOR less than 1.0 mg/dL Microscopic See Below Epithelial FEW Normal: None Seen Mucous Trace Normal: None Seen Urine Culture 03/26/[address] [address] [phone] Culture Urine (SEE NOTE) 3 Comprehensive Metabolic Panel 03/26/2021 [facility] [address] [place] [address] [phone] Comprehensive Metabo (SEE NOTE) 4 Sodium 141 mEq/L 134 - 153 Potassium 3.8 mEq/L 3.6 - 5.0 Chloride 105 mEq/L 98 - 107 Co2 24 mEq/L 22 - 30 Glucose 129 mg/dL High 70 - 99 BUN 15 mg/dL 7 - 21 Creatinine 0.9 mg/dL 0.7 - 1.5 BUN/Creat 17 8 - 27 Total Protein 7.4 g/dL 6.3 - 8.2 Albumin 4.7 g/dL 3.9 - 5.0 Globulin 2.7 GM/DL 2.4 - 3.2 A/G Ratio 1.7 0.8 - 2.0 Calcium 9.8 mg/dL 8.4 - 10.2 Total Bili <0.7 mg/dL 0.2 - 1.3 Alkaline Phos 59 U/L 38 - 126 Sgot/Ast 23 U/L 5 - 40 SGPT/Alt 24 U/L 7 - 56 Anion Gap 12.0 mmol/L 8.0 - 16.0 Age 60 yrs Non-Aa GFR >60 mL/min Afr Amer GFR >60 mL/min 5 PT/PTT 03/26/[address] [facility] [address] [place] [address] [phone] Protime 12.0 seconds 11.0 - 15.5 Inr 0.88 Low 0.93 - 1.23 PTT 28.8 seconds 24.8 - 36.7 6 CBC W/Automated Diff 03/26/[address] [address] [phone] CBC W/Automated Diff (SEE NOTE) 7 WBC 7.8 10^3/uL 4.2 - 11.0 RBC 5.24 10^6/uL 4.50 - 6.30 Hemoglobin 15.9 g/dL 14.0 - 16.0 Hematocrit 46.5 % 41.0 - 51.0 MCV 88.7 fL 80.0 - 94.0 MCH 30.3 pg 27.0 - 34.0 MCHC 34.2 g/dL 31.0 - 36.0 RDW 13.1 % 11.5 - 14.8 Platelets 222 10^3/uL 150 - 450 MPV 9.4 fL 7.4 - 10.4 Neut 68.3 % 37.0 - 80.0 Lymph 20.2 % Low 25.0 - 40.0 [place] 8.7 % High 3.0 - 8.0 Eos 1.5 % 0.0 - 7.0 Baso 1.2 % 0.0 - 2.0 %Ig 0.1 % High 0.0 - 0.0 %NRBC 0.0 % 0.0 - 0.0 #Neut 5.31 10^3/uL 2.00 - 6.90 #Lymph 1.57 10^3/uL 0.60 - 3.40 #Woodford 0.68 10^3/uL 0.00 - 0.90 #Eos 0.12 10^3/uL 0.00 - 0.70 #Baso 0.09 10^3/uL 0.00 - 0.20 #Ig 0.01 10^3/uL 0.00 - 0.10 #NRBC 0.00 10^3/uL 0.00 - 0.00 Manual Diff NOT INDICATED RBC Morph NOT INDICATED 230 Ua Routine 03/10/2021 [facility] REF TO DR ADDRESS ON ORDER FOR (315)- - Ua Glucose >=1000 mg/dL Ua Protein Negative Ua Nitrite Negative Ua Leuko Negative Ua Blood Negative Ua Color Not Entered Ua Ketones Negative Ua Clarity Not Entered Ua Specific [place] 1.020 1.003-1.030 Ua PH 5.0 5.0-7.5 Ua Bilirubin Negative Ua Urobilinogen 0.2 E.U./dL 0.0-1.0 1 LABORATORY [facility] [address] [place] [address] SURGICAL PATHOLOGY REPORT Patient Name:ROSA CADET :1960 Received:03/30/2021 Specimen(s) Received: A: Right renal hilar tissue B: Right kidney Clinical Diagnosis and History: Enhancing solid mass in the lower pole of the right kidney, 6.0 x 4.1 cm. DIAGNOSIS: A) RIGHT RENAL HILAR TISSUE, EXCISION - ADIPOSE TISSUE WITH ONE LYMPH NODE, NEGATIVE FOR MALIGNANCY (0/1). 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 CASE SUMMARY: SPECIMEN LATERALITY: RIGHT. TUMOR SITE: LOWER POLE. TUMOR SIZE: 5.0 CM. TUMOR FOCALITY: UNIFOCAL. HISTOLOGIC TYPE: CLEAR CELL RENAL CELL CARCINOMA. SARCOMATOID FEATURES: NOT IDENTIFIED. RHABDOID FEATURES: NOT IDENTIFIED. HISTOLOGIC GRADE (WHO / ISUP Grade): GRADE 1. TUMOR NECROSIS: NOT IDENTIFIED. TUMOR EXTENSION: LIMITED TO KIDNEY. MARGINS: PERINEPHRIC FAT: NEGATIVE. RENAL SINUS SOFT TISSUE: NEGATIVE. URETERAL MARGINS: NEGATIVE. RENAL VEIN MARGIN: NEGATIVE. RENAL ARTERY MARGIN: NEGATIVE. GEROTA'S FASCIAL MARGIN: NEGATIVE. LYMPHOVASCULAR INVASION: NOT IDENTIFIED. REGIONAL LYMPH NODES (INCLUDING PART A): NUMBER OF LYMPH NODES INVOLVED: 0. NUMBER OF LYMPH NODES EXAMINED: 1. PATHOLOGIC STAGE CLASSIFICATION (pTNM, AJCC 8TH EDITION): pT1b pN0 OTHER FINDINGS IN NON-NEOPLASTIC KIDNEY: 1. TWO SEPARATE URETERS, SUGGESTIVE OF DUPLEX KIDNEY. 2. MILD ARTERIOLAR NEPHROSCLEROSIS. 3. CHRONIC INFLAMMATION. GROSS DESCRIPTION: Specimen A received in formalin labeled "right renal hilar tissue" is an irregular cauterized portion of yellow to brown soft tissue measuring 2.5 x 2.0 x 1.0 cm. There is a moderate to abundant amount of cautery artifact. The cut surface is yellow, glistening, lobulated adipose tissue. No identifiable structures are found grossly. The specimen is sectioned and entirely submitted for microscopic examination. (1 block) Specimen B received in formalin labeled "right kidney" is a right radical nephrectomy weighing 880 gm. There is an abundant amount of attached perinephric fat and along the superior pole a portion of the perinephric fat is torn. The specimen measures 20 cm from superior to inferior, 15 cm from medial to lateral and 8 cm from anterior to deep. There is Gerota's fascia along the anterior to superior portion that is unremarkable, machado-velasco and measures 8.0 x 3.5 cm. There are two ureters identified. The first ureter is associated with the superior pole, measures 8 cm from the hilum, 0.5 cm in length and the mucosa is glistening, striated, machado-velasco. The second ureter is located 1.5 cm lateral to the first, measures 4 cm in length from the hilum, 0.5 cm in diameter and has a glistening, striated, machado-velasco mucosal surface. The second is associated with the mid to inferior portion of the kidney. There is one renal vein and one renal artery both measuring 0.5 cm in length from the hilum and the renal vein mucosa is smooth, glistening, velasco. There is minimal atherosclerosis of the renal artery. Located in the inferior pole of the kidney, toward the superficial aspect, is a cystic tumor measuring 5.0 x 4.5 cm. The tumor is mottled, orange-ye llow to machado-red and possibly involves the renal sinus grossly. Portions of the tumor are encapsulated, extend toward the hilar adipose tissue, inferior parenchyma and superficial parenchyma, however, the tumor is still confined to the kidney. The tumor compress the second/inferior ureter and comes to within 3.7 cm of the renal vein margin. There is minimal necrosis found within the tumor. The inferior renal pelvis is glistening, machado-pink and the surrounding uninvolved parenchyma is machado-pink with a well demarcated corticomedullary junction averaging 0.9 cm in greatest dimension. The renal parenchyma associated with each pelvis is homogeneous, red-brown and appears to coalesce in the mid portion. The cut surface of the superior renal pelvis is slightly misshapen, however, no additional anomalies are found. There are no hilar lymph nodes found. The adrenal gland is not present. [employer] Sales[employer] sections are submitted for microscopic examination as follows: UM - superior ureter margin; VM - vascular margin; UM2 - inferior ureter margin; T - tumor (4 - tumor to inferior pelvis, 5,6 - tumor to sinus fat, 7 - tumor to superficial perpendicular, 8 - tumor to lateral, 9 - tumor to media l/hilar tissue); SP - superior pelvis; IP - inferior pelvis; R - random, mid. (12 blocks) alicia banuelos/[facility] Reported: 04/01/2021 Electronically Signed Out By John Joseph MD [facility] [place] [address] Technical component performed at [facility], Histopathology, [address] [place] [address], [facility]. Reported at [facility], [address] [place] [address], [facility]. This report may include immunohistochemical or in-situ hybridization results. Testing was developed and the performance characteristics [facility], as required by CLIA '88. The FDA has determined that approval for specific use is not necessary for clinical use. The quality of Hematoxylin and Eosin stains and as applicable, for all immunohistochemical and/or special stains, including positive and negative controls, were reviewed and considered appropriate. ICD codes: C64.1 CPT4 codes: A: 44616J B: 06639F 2 URINALYSIS 3 _CULTURE URINE_ ^$[id number] ^^[id number] $$[id number] ^^[id number] $$081326 $$672620 $$770591 $$619710 $$411543 $$857278 $$039684 $$889191 $$644473 $$463305 $$999622 $$459666 $$286692 $$327796 $$169408 $$949732 $$456504 $$217163 $$048497 $$168763 $$166522 $$434455 $$927912 ^^758562 $$853197 $$254185 $$050024 -- Continued on next page -- Patient: KERLINE Banda Order: [id number] Page 2 Culture: CULTURE URINE Status: Final -- Continued on next page -- Patient: KERLINE Banda Order: [id number] Page 2 Culture: CULTURE URINE Status: Prelim $$[id number] $$[id number] REPORTED DATE/TIME: 03/29/2021 15:05 Culture: CULTURE URINE Status: Final Urine Culture,Comprehensive: P1 No growth in 36 - 48 hours. Previous result entered on 03/28/2021 10:46 ET No growth after 18-24 hours. P1 Test performed by: [facility] #: [id number] [address] [place] [address] [id number] [facility] [address] [employer] Test Lead : William He MD NPI #: [employer] Teacher : 03/28/21.1157.XMT.SENT REF 03/30/21.0624.XMT.SENT REF 4 COMPREHENSIVE METABOLIC PANE L 5 Male [...] 80 and above >32 mL/min Normal 6 \\BLDo\\INR INTERPRETATION\\BLD x\\ Therapeutic range for Coumadin and related oral anticoagulants. -International Normalized Ratio (INR): 2 .0 - 3.0 for Venous Thrombosis, Pulmonary Embolus, Tissue heart valves, Acute PR Atrial Fibrillation, Valvular heart disease and recurrent Systemic Embolism. -International Normalized Ratio (INR): 2 .5 - 3.5 for Mechanical Prosthetic valve. 7 COMPLETE BLOOD COUNT Procedures Date Code Description Status 03/30/2021 67943 Radical Laparoscopic Nephrectomy W/REM Gerotas Fascia/Lymph Nodes Completed 03/10/2021 57648 Office/Outpatient New Moderate M DM 45-59 Minutes Completed Medical Devices Description No Information Available Encounters Type Date Location Provider Dx Diagnosis Office Visit 04/15/2021 3:15p [facility]/ [facility] Urol mac Toth MD C64.1 Malignant neoplasm of right kidney, except renal pelvis Office Visit 03/10/2021 3:00p [facility]/ [facility] Urol mac Toth MD D49.511 Neoplasm of unspecified beha vior of right kidney Assessments Date Code Description Provider 04/15/2021 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, except renal pelvis Ellen Shah, DURAN-BC C.U.N.P. 04/15/2021 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, except renal pelvis David Toth MD 04/15/2021 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, except renal pelvis Pablo Enciso MD 03/30/2021 D49.511 Neoplasm of unspecified behavior of right kidney David Toth MD 03/10/2021 D49.511 Neoplasm of unspecified behavior of right kidney David Toth MD Plan of Treatment Future Appointment(s):* 07/15/2021 3:45 pm - David Toth MD at [facility]/ [facility] Urology 04/15/2021 - David Toth MD* C64.1 Malignant neoplasm of right kidney, except renal pelvis* New Labs:* Comprehensive Metabolic Panel, Ordered: 04/15/21 * New Xrays:* CT Chest W/O Contrast, Scheduled: 07/15/21 * CT Abdomen And Pelvis W/O Contrast, Scheduled: 07/15/21 Functional Status Description No Information Available Mental Status Description No Information Available Referrals Refer to Reason for Referral Status Appt Date David Toth M.D. Milan Rodriguez @ [facility] Medic are [phone] Patient has benefits for inpatient surgery-hospital Covered @ 100% CPT 96201, 13746 (83514, 96461, 22645, 76569)-valid, billable-auth required as inpatient Ref# [id number] Authorization is through Clinical intake dept [phone] Per Qasim Santiago @ [employer] [phone] rep built case for me, case# [id number] Per Theresa He(nurse reviewer)[facility] CPT 61084, 30358 (68996, 36178, 42652, 09360)- Approved Auth# [id number] Valid: 03/30/21-06/29/21 03/19/21 MW Created [facility] Urology [address] [place] [phone]
--- OUTSIDE RECORDS SUMMARY | 2021-07-28 02:46 | CCD ---
Author Author [facility] Organization [facility] Address Unknown Phone Unavailable Care Team Providers Care Medical Insurance Claims Processor Name Role Phone Tulio TOTH MD Unavailable Unavailable NICKTulio WYMAN MD Unavailable Unavailable NICKTulio MD Unavailable Unavailable NICKTulio MD Unavailable Unavailable NICKTulio MD Unavailable Unavailable NICKTulio MD Unavailable Unavailable NICKTulio MD Unavailable Unavailable NICKTulio MD Unavailable Unavailable NICKTulio MD Unavailable Unavailable NICKTulio MD Unavailable Unavailable NICKTulio MD Unavailable Unavailable NICKTulio WYMAN MD Unavailable Unavailable NICKTulio WYMAN MD Unavailable Unavailable NICKTulio WYMAN MD Unavailable Unavailable NICKTulio WYMAN MD Unavailable Unavailable NICKTulio MD Unavailable Unavailable NICKTulio MD Unavailable Unavailable NICKTulio MD Unavailable Unavailable NICKTulio WYMAN MD Unavailable Unavailable NICKTulio WYMAN MD Unavailable Unavailable NICKTulio MD Unavailable Unavailable NICKTulio WYMAN MD Unavailable Unavailable NICKTulio MD Unavailable Unavailable NICKTuloi MD Unavailable Unavailable NICKTulio WYMAN MD Unavailable Unavailable NICKTulio WYMAN MD Unavailable Unavailable NICKTulio WYMAN MD Unavailable Unavailable NICKTulio WYMAN MD Unavailable Unavailable NICKTulio WYMAN MD Unavailable Unavailable NICKTulio WYMAN MD Unavailable Unavailable NICKTulio MD Unavailable Unavailable NICKTulio MD Unavailable Unavailable NICK, Tulio SPENCE MD Unavailable Unavailable NICK, A BEBE MD Unavailable Unavailable NICK, A BEBE MD Unavailable Unavailable NICK, A BEBE MD Unavailable Unavailable NICK, A BEBE MD Unavailable Unavailable NICK, Tulio POLOEY MD Unavailable Unavailable NICK, A BEBE MD Unavailable Unavailable NICK, A BEBE MD Unavailable Unavailable NICK, A BEBE MD Unavailable Unavailable NICK, A BEBE MD Unavailable Unavailable NICK, A BEBE MD Unavailable Unavailable NICK, A BEBE MD Unavailable Unavailable NICK, A BEBE MD Unavailable Unavailable NICK, A BEBE MD Unavailable Unavailable NICK, A BEBE MD Unavailable Unavailable NICK, A BEBE MD Unavailable Unavailable NICK, A BEBE MD Unavailable Unavailable NICK, A BEBE MD Unavailable Unavailable NICK, A BEBE MD Unavailable Unavailable NICK, Tulio POLOEY MD Unavailable Unavailable NICK, A BEBE MD Unavailable Unavailable NICK, A BEBE MD Unavailable Unavailable NICK, A BEBE MD Unavailable Unavailable NICK, Tulio SPENCE MD Unavailable Unavailable NICK, Tulio SPENCE MD Unavailable Unavailable NICK, Tulio SPENCE MD Unavailable Unavailable NICK, Tulio SPENCE MD Unavailable Unavailable NICK, Tulio SPENCE MD Unavailable Unavailable NICK, A BEBE MD Unavailable Unavailable NICK, A BEBE MD Unavailable Unavailable NICK, Tulio SPENCE MD Unavailable Unavailable NICK, Tulio SPENCE MD Unavailable Unavailable NICK, Tulio SPENCE MD Unavailable Unavailable NICK, Tulio POLOEY MD Unavailable Unavailable NICK, A BEBE MD Unavailable Unavailable NICK, A BEBE MD Unavailable Unavailable NICK, Tulio POLOEY Unavailable Unavailable NICK, Tulio SPENCE MD Unavailable Unavailable NICK, Tulio SPENCE MD Unavailable Unavailable NICK, Tulio SPENCE MD Unavailable Unavailable NICK, Tulio SPENCE MD Unavailable Unavailable NICK, Tulio SPENCE MD Unavailable Unavailable NICK, Tulio POLOEY MD Unavailable Unavailable NICK, A BEBE MD Unavailable Unavailable NICK, A BEBE MD Unavailable Unavailable NICK, Tulio SPENCE MD Unavailable Unavailable NICK, Tulio SPENCE MD Unavailable Unavailable NICK, Tulio SPENCE MD Unavailable Unavailable NICK, A BEBE MD Unavailable Unavailable NICK, A BEBE MD Unavailable Unavailable NICK, A BEBE MD Unavailable Unavailable Nevills, C Kayleen CLOTHES WRINGER Unavailable Unavailable Nevills, C Kayleen CLOTHES WRINGER Unavailable Unavailable Nevills, C Kayleen CLOTHES WRINGER Unavailable Unavailable Nevills, C Kayleen CLOTHES WRINGER Unavailable Unavailable Nevills, C Kayleen CLOTHES WRINGER Unavailable Unavailable Nevills, C Kayleen CLOTHES WRINGER Unavailable Unavailable Nevills, C Kayleen CLOTHES WRINGER Unavailable Unavailable Nevills, C Kayleen CLOTHES WRINGER Unavailable Unavailable Nevills, C Kayleen CLOTHES WRINGER Unavailable Unavailable Nevills, C Kayleen CLOTHES WRINGER Unavailable Unavailable Nevills, C Kayleen CLOTHES WRINGER Unavailable Unavailable Nevills, C Kayleen CLOTHES WRINGER Unavailable Unavailable Nevills, C Kayleen CLOTHES WRINGER Unavailable Unavailable Nevills, C Kayleen CLOTHES WRINGER Unavailable Unavailable Nevills, C Kayleen CLOTHES WRINGER Unavailable Unavailable Nevills, C Kayleen CLOTHES WRINGER Unavailable Unavailable Nevills, C Kayleen CLOTHES WRINGER Unavailable Unavailable Nevills, C Kayleen CLOTHES WRINGER Unavailable Unavailable Nevills, C Kayleen CLOTHES WRINGER Unavailable Unavailable Nevills, C Kayleen CLOTHES WRINGER Unavailable Unavailable Nevills, C Kayleen CLOTHES WRINGER Unavailable Unavailable Nevills, C Kayleen CLOTHES WRINGER Unavailable Unavailable Nevills, C Kayleen CLOTHES WRINGER Unavailable Unavailable Nevills, C Kayleen CLOTHES WRINGER Unavailable Unavailable Nevills, C Kayleen CLOTHES WRINGER Unavailable Unavailable Nevills, C Kayleen CLOTHES WRINGER Unavailable Unavailable Nevills, C Kayleen CLOTHES WRINGER Unavailable Unavailable Nevills, C Kayleen CLOTHES WRINGER Unavailable Unavailable Nevills, C Kayleen CLOTHES WRINGER Unavailable Unavailable Nevills, C Kayleen CLOTHES WRINGER Unavailable Unavailable Nevills, C Kayleen CLOTHES WRINGER Unavailable Unavailable Nevills, C Kayleen CLOTHES WRINGER Unavailable Unavailable Nevills, C Kayleen CLOTHES WRINGER Unavailable Unavailable Nevills, C Kayleen CLOTHES WRINGER Unavailable Unavailable CANNON, Patrick URRUTIA MD Unavailable Unavailable CANNON, Patrick URRUTIA MD Unavailable Unavailable CANNON, Patrick URRUTIA MD Unavailable Unavailable CANNON, Patrick URRUTIA MD Unavailable Unavailable CANNON, Patrick URRUTIA MD Unavailable Unavailable CANNON, Patrick URRUTIA MD Unavailable Unavailable CANNON, Patrick URRUTIA MD Unavailable Unavailable CANNON, Patrick URRUTIA MD Unavailable Unavailable CANNON, Patrick URRUTIA MD Unavailable Unavailable KRYSENOJordan GriffinER PA Unavailable Unavailable SYMENOJordan GriffinER PA Unavailable Unavailable SYMENOJordan GriffinER PA Unavailable Unavailable SYMENOElias G CHRISTOPHER PA Unavailable Unavailable SYMENOW G KOTAER PA Unavailable Unavailable SYMENOElias G QUITAOPHER PA Unavailable Unavailable SYMENOW G CHRISTOPHER PA Unavailable Unavailable SYMENOW, G CHRISTOPHER PA Unavailable Unavailable SYMENOW G CHRISTOPHER PA Unavailable Unavailable SYMENOW G CHRISTOPHER PA Unavailable Unavailable SYMENOW G CHRISTOPHER PA Unavailable Unavailable SYMENOW G CHRISTOPHER PA Unavailable Unavailable SYMENOW, G CHRISTOPHER PA Unavailable Unavailable SYMENOW, G CHRISTOPHER PA Unavailable Unavailable SYMENOW, G CHRISTOPHER PA Unavailable Unavailable SYMENOW, G CHRISTOPHER PA Unavailable Unavailable NICK, Tulio SPENCE MD Unavailable Unavailable NICK, Tulio SPENCE MD Unavailable Unavailable NICK, Tulio SPENCE MD Unavailable Unavailable NICK, A BEBE MD Unavailable Unavailable NICK, A BEBE MD Unavailable Unavailable NICK, A BEBE MD Unavailable Unavailable NICK, A BEBE VACA Unavailable Unavailable NICK, A BEBE MD Unavailable Unavailable NICK, A BEBE MD Unavailable Unavailable NICK, A BEBE MD Unavailable Unavailable NICK, A BEBE MD Unavailable Unavailable NICK, A BEBE MD Unavailable Unavailable NICK, A BEBE MD Unavailable Unavailable NICK, A BEBE MD Unavailable Unavailable NICK, A BEBE MD Unavailable Unavailable NICK, Tulio SPENCE MD Unavailable Unavailable NICK, A BEBE MD Unavailable Unavailable NICK, A BEBE VACA Unavailable Unavailable NICK, A BEBE MD Unavailable Unavailable NICK, Tulio SPENCE MD Unavailable Unavailable NICK, Tulio SPENCE MD Unavailable Unavailable NICK, Tulio SPENCE MD Unavailable Unavailable NICK, Tulio SPENCE MD Unavailable Unavailable NICK, Tulio SPENCE MD Unavailable Unavailable NICK, Tulio SPENCE MD Unavailable Unavailable NICK, A BEBE MD Unavailable Unavailable NICK, Tulio SPENCE MD Unavailable Unavailable NICK, Tulio SPENCE MD Unavailable Unavailable NICK, Tulio SPENCE MD Unavailable Unavailable NICK, Tulio SPENCE MD Unavailable Unavailable NICK, Tulio SPENCE MD Unavailable Unavailable NICK, Tulio SPENCE MD Unavailable Unavailable NICK, A BEBE MD Unavailable Unavailable NICK, Tulio SPENCE MD Unavailable Unavailable NICK, Tulio SPENCE MD Unavailable Unavailable NICK, Tulio SPENCE MD Unavailable Unavailable NICK, Tulio SPENCE MD Unavailable Unavailable NICK, Tulio SPENCE MD Unavailable Unavailable NICK, Tulio SPENCE MD Unavailable Unavailable NICK, Tulio SPENCE MD Unavailable Unavailable NICK, A BEBE VACA Unavailable Unavailable NICK, Tulio SPENCE MD Unavailable Unavailable NICK, Tulio SPENCE MD Unavailable Unavailable NICK, Tulio SPENCE MD Unavailable Unavailable NICK, Tulio SPENCE MD Unavailable Unavailable NICK, Tulio SPENCE MD Unavailable Unavailable NICK, Tulio SPENCE MD Unavailable Unavailable NICK, A BEBE VACA Unavailable Unavailable NICK, Tulio SPENCE MD Unavailable Unavailable NICK, Tulio SPENCE MD Unavailable Unavailable NICK, Tulio SPENCE MD Unavailable Unavailable NICK, A BEBE MD Unavailable Unavailable NICK, A BEBE MD Unavailable Unavailable NICK, A BEBE MD Unavailable Unavailable NICK, A BEBE MD Unavailable Unavailable NICK, A BEBE MD Unavailable Unavailable NICK, A BEBE MD Unavailable Unavailable NICK, A BEBE MD Unavailable Unavailable NICK, A BEBE MD Unavailable Unavailable NICK, A BEBE MD Unavailable Unavailable NICK, A BEBE MD Unavailable Unavailable NICK, A BEBE MD Unavailable Unavailable NICK, A BEBE MD Unavailable Unavailable NICK, A BEBE MD Unavailable Unavailable NICK, A BEBE MD Unavailable Unavailable NICK, A BEBE MD Unavailable Unavailable NICK, A BEBE MD Unavailable Unavailable NICK, A BEBE MD Unavailable Unavailable NICK, A BEBE MD Unavailable Unavailable NICK, A BEBE MD Unavailable Unavailable NICK, A BEBE MD Unavailable Unavailable NICK, A BEBE MD Unavailable Unavailable NICK, A BEBE MD Unavailable Unavailable NICK, A BEBE MD Unavailable Unavailable NICK, A BEBE MD Unavailable Unavailable NICK, A BEBE MD Unavailable Unavailable NICK, A BEBE MD Unavailable Unavailable NICK, A BEBE MD Unavailable Unavailable NICK, A BEBE MD Unavailable Unavailable NICK, A BEBE MD Unavailable Unavailable NICK, A BEBE MD Unavailable Unavailable NICK, A BEBE MD Unavailable Unavailable NICK, A BEBE MD Unavailable Unavailable NICK, A BEBE MD Unavailable Unavailable NICK, A BEBE MD Unavailable Unavailable NICK, A BEBE MD Unavailable Unavailable NICK, A BEBE MD Unavailable Unavailable NICK, A BEBE MD Unavailable Unavailable NICK, A BEBE MD Unavailable Unavailable NICK, A BEBE MD Unavailable Unavailable NICK, A BEBE MD Unavailable Unavailable NICK, A BEBE MD Unavailable Unavailable NICK, A BEBE MD Unavailable Unavailable NICK, A BEBE MD Unavailable Unavailable NICK, A BEBE MD Unavailable Unavailable NICK, A BEBE MD Unavailable Unavailable NICK, A BEBE MD Unavailable Unavailable NICK, A BEBE MD Unavailable Unavailable NICK, A BEBE MD Unavailable Unavailable NICK, A BEBE MD Unavailable Unavailable NICK, A BEBE MD Unavailable Unavailable NICK, A BEBE MD Unavailable Unavailable NICK, A BEBE MD Unavailable Unavailable NICK, A BEBE MD Unavailable Unavailable NICK, A BEBE MD Unavailable Unavailable NICK, A BEBE MD Unavailable Unavailable NICK, A BEBE MD Unavailable Unavailable NICK, A BEBE MD Unavailable Unavailable NICK, Tulio POLOEY MD Unavailable Unavailable NICK, A BEBE MD Unavailable Unavailable NICK, A BEBE MD Unavailable Unavailable NICK, A BEBE MD Unavailable Unavailable NICK, A BEBE MD Unavailable Unavailable NICK, A BEBE MD Unavailable Unavailable NICK, A BEBE MD Unavailable Unavailable NICK, A BEBE MD Unavailable Unavailable NICK, A BEBE MD Unavailable Unavailable NICK, A BEBE MD Unavailable Unavailable NICK, A BEBE MD Unavailable Unavailable NICK, A BEBE MD Unavailable Unavailable NICK, A BEBE MD Unavailable Unavailable NICK, A BEBE MD Unavailable Unavailable NICK, A BEBE MD Unavailable Unavailable NICK, A BEBE MD Unavailable Unavailable NICK, A BEBE MD Unavailable Unavailable NICK, A BEBE MD Unavailable Unavailable NICK, A BEBE MD Unavailable Unavailable NICK, A BEBE MD Unavailable Unavailable NICK, A BEBE MD Unavailable Unavailable NICK, A BEBE MD Unavailable Unavailable NICK, A BEBE MD Unavailable Unavailable NICK, A BEBE MD Unavailable Unavailable NICK, A BEBE MD Unavailable Unavailable NICK, A BEBE MD Unavailable Unavailable NICK, A BEBE MD Unavailable Unavailable NICK, A BEBE MD Unavailable Unavailable NICK, A BEBE MD Unavailable Unavailable NICK, A BEBE MD Unavailable Unavailable NICK, A BEBE MD Unavailable Unavailable NICK, A BEBE MD Unavailable Unavailable NICK, A BEBE MD Unavailable Unavailable NICK, A BEBE MD Unavailable Unavailable NICK, A BEBE MD Unavailable Unavailable NICK, A BEBE MD Unavailable Unavailable NICK, A BEBE MD Unavailable Unavailable NICK, A BEBE MD Unavailable Unavailable NICK, A BEBE MD Unavailable Unavailable NICK, A BEBE MD Unavailable Unavailable NICK, A BEBE MD Unavailable Unavailable NICK, A BEBE MD Unavailable Unavailable NICK, A BEBE MD Unavailable Unavailable NICK, A BEBE MD Unavailable Unavailable NICK, A BEBE MD Unavailable Unavailable NICK, A BEBE MD Unavailable Unavailable NICK, A BEBE MD Unavailable Unavailable NICK, A BEBE MD Unavailable Unavailable NICK, A BEBE MD Unavailable Unavailable NICK, A BEBE MD Unavailable Unavailable NICK, A BEBE MD Unavailable Unavailable NICK, A BEBE MD Unavailable Unavailable NICK, A BEBE MD Unavailable Unavailable NICK, A EBBE MD Unavailable Unavailable NICK, A BEBE MD Unavailable Unavailable NICK, A BEBE MD Unavailable Unavailable Tulio TOTH MD Unavailable Unavailable Tulio TOTH MD Unavailable Unavailable Kayleen Aguilar C Unavailable Unavailable CASTRO, W TAIWO PA Unavailable Unavailable CASTRO, W TAIWO PA Unavailable Unavailable CASTRO, W TAIWO PA Unavailable Unavailable CASTRO, W TAIWO PA Unavailable Unavailable CASTRO, W TAIWO PA Unavailable Unavailable CASTRO, W TAIWO PA Unavailable Unavailable CASTRO, W TAIWO PA Unavailable Unavailable CASTRO, W TAIWO PA Unavailable Unavailable CASTRO, W TAIWO PA Unavailable Unavailable CASTRO, W TAIWO PA Unavailable Unavailable CASTRO, W TAIWO PA Unavailable Unavailable CASTRO, W TAIWO PA Unavailable Unavailable CASTRO, W TAIWO PA Unavailable Unavailable CASTRO, W TAIWO PA Unavailable Unavailable CASTRO, W TAIWO PA Unavailable Unavailable CASTRO, W TAIWO PA Unavailable Unavailable CASTRO, W TAIWO PA Unavailable Unavailable CASTRO, W TAIWO PA Unavailable Unavailable CASTRO, W TAIWO PA Unavailable Unavailable CASTRO, W TAIWO PA Unavailable Unavailable CASTRO, W TAIWO PA Unavailable Unavailable CASTRO, W TAIWO PA Unavailable Unavailable CASTRO, W TAIWO PA Unavailable Unavailable CASTRO, W TAIWO PA Unavailable Unavailable CASTRO, W TAIWO PA Unavailable Unavailable CASTRO, W TAIWO PA Unavailable Unavailable CASTRO, W TAIWO PA Unavailable Unavailable CASTRO, W TAIWO PA Unavailable Unavailable CASTRO, W TAIWO PA Unavailable Unavailable CASTRO, W TAIWO PA Unavailable Unavailable CASTRO, W TAIWO PA Unavailable Unavailable CASTRO, W TAIWO PA Unavailable Unavailable CASTRO, W TAIWO PA Unavailable Unavailable CASTRO, W TAIWO PA Unavailable Unavailable CASTRO, W TAIWO PA Unavailable Unavailable CASTRO, W TAIWO PA Unavailable Unavailable CASTRO, W TAIWO PA Unavailable Unavailable CASTRO, W TAIWO PA Unavailable Unavailable CASTRO, W TAIWO PA Unavailable Unavailable CASTRO, W TAIWO PA Unavailable Unavailable CASTRO, W TAIWO PA Unavailable Unavailable CASTRO, W TAIWO PA Unavailable Unavailable CASTRO, W TAIWO PA Unavailable Unavailable CASTRO, W TAIWO PA Unavailable Unavailable JENNIFER, LANIE DEBORAH PA Unavailable Unavailable JENNIFER, LANIE DEBORAH PA Unavailable Unavailable JENNIFER, LANIE DEBORAH PA Unavailable Unavailable JENNIFER, LANIE DEBORAH PA Unavailable Unavailable JENNIFER, LANIE DEBORAH PA Unavailable Unavailable JENNIFER, LANIE DEBORAH PA Unavailable Unavailable JENNIFER, LANIE DEBORAH PA Unavailable Unavailable JENNIFER, LANIE DBEORAH PA Unavailable Unavailable JENNIFER, LANIE DEBORAH PA Unavailable Unavailable JENNIFER, LANIE DEBORAH PA Unavailable Unavailable JENNIFER, LANIE DEBORAH PA Unavailable Unavailable JENNIFER, LANIE DEBORAH PA Unavailable Unavailable JENNIFER, LANIE DEBORAH PA Unavailable Unavailable JENNIFER, LANIE DEBORAH PA Unavailable Unavailable JENNIFER, LANIE DEBORAH PA Unavailable Unavailable JENNIFER, LANIE DEBORAH PA Unavailable Unavailable JENNIFER, LANIE DEBORAH PA Unavailable Unavailable JENNIFER, LANIE DEBORAH PA Unavailable Unavailable JENNIFER, LANIE DEBORAH PA Unavailable Unavailable JENNIFER, LANIE DEBORAH PA Unavailable Unavailable JENNIFER, LANIE DEBORAH PA Unavailable Unavailable JENNIFER, LANIE DEBORAH PA Unavailable Unavailable Vini, Melisa Margret ANP-BC Unavailable Unavailable Vini, Melisa Margret ANP-BC Unavailable Unavailable Vini, Melisa Margret ANP-BC Unavailable Unavailable Vini, Melisa Margret ANP-BC Unavailable Unavailable Vini, Melisa Margret ANP-BC Unavailable Unavailable Vini, Melisa Margret ANP-BC Unavailable Unavailable Vini, Melisa Margret ANP-BC Unavailable Unavailable Vini, Melisa Margret ANP-BC Unavailable Unavailable Vini, Melisa Margret ANP-BC Unavailable Unavailable Vini, Melisa Margret ANP-BC Unavailable Unavailable Vini, Melisa Margret ANP-BC Unavailable Unavailable Vini, Melisa Margret ANP-BC Unavailable Unavailable Vini, Melisa Margret ANP-BC Unavailable Unavailable Vini, Melisa Margret ANP-BC Unavailable Unavailable Vini, Melisa Margret ANP-BC Unavailable Unavailable Vini, Melisa Margret ANP-BC Unavailable Unavailable Vini, Melisa Margret ANP-BC Unavailable Unavailable Vini, Melisa Margret ANP-BC Unavailable Unavailable Vini, Melisa Margret ANP-BC Unavailable Unavailable Vini, Melisa Margret ANP-BC Unavailable Unavailable Vini, Melisa Margret ANP-BC Unavailable Unavailable Vini, Melisa Margret ANP-BC Unavailable Unavailable Vini, Melisa Margret ANP-BC Unavailable Unavailable Vini, Melisa Margret ANP-BC Unavailable Unavailable Vini, Melisa Margret ANP-BC Unavailable Unavailable Vini, Melisa Margret ANP-BC Unavailable Unavailable Vini, Melisa Margret ANP-BC Unavailable Unavailable Vini, Melisa Margret ANP-BC Unavailable Unavailable Vini, Melisa Margret ANP-BC Unavailable Unavailable Vini, Melisa Margret ANP-BC Unavailable Unavailable Vini, Melisa Margret ANP-BC Unavailable Unavailable Vini, Melisa Margret ANP-BC Unavailable Unavailable Vini, Melisa Margret ANP-BC Unavailable Unavailable Vini, Melisa Margret ANP-BC Unavailable Unavailable Vini, Melisa Margret ANP-BC Unavailable Unavailable Vini, Melisa Margret ANP-BC Unavailable Unavailable Vini, Melsia Margret ANP-BC Unavailable Unavailable Vini, Melisa Margret ANP-BC Unavailable Unavailable Vini, Melisa Margret ANP-BC Unavailable Unavailable Vini, Melisa Margret ANP-BC Unavailable Unavailable Vini, Melisa Margret ANP-BC Unavailable Unavailable Vini, Melisa Margret ANP-BC Unavailable Unavailable Vini, Melisa Margret ANP-BC Unavailable Unavailable Vini, Melisa Margret ANP-BC Unavailable Unavailable Vini, Melisa Margret ANP-BC Unavailable Unavailable Vini, Melisa Margret ANP-BC Unavailable Unavailable Vini, Melisa Margret ANP-BC Unavailable Unavailable Vini, Melisa Margret ANP-BC Unavailable Unavailable Vini, Melisa Margret ANP-BC Unavailable Unavailable Vini, Melisa Margret ANP-BC Unavailable Unavailable Vini, Melisa Margret ANP-BC Unavailable Unavailable Vini, Melisa Margret ANP-BC Unavailable Unavailable Vini, Melisa Margret ANP-BC Unavailable Unavailable Vini, Melisa Margret ANP-BC Unavailable Unavailable Vini, Melisa Margret ANP-BC Unavailable Unavailable Vini, Melisa Margret ANP-BC Unavailable Unavailable Vini, Melisa Margret ANP-BC Unavailable Unavailable Vini, Melisa Margret ANP-BC Unavailable Unavailable Vini, Melisa Margret ANP-BC Unavailable Unavailable Vini, Melisa Margret ANP-BC Unavailable Unavailable Vini, Melisa Margret ANP-BC Unavailable Unavailable Vini, Melisa Margret ANP-BC Unavailable Unavailable Vini, Melisa Margret ANP-BC Unavailable Unavailable Vini, Melisa Margret ANP-BC Unavailable Unavailable Vini, Melisa Margret ANP-BC Unavailable Unavailable Vini, Melisa Margret ANP-BC Unavailable Unavailable Jack Garces FINANCIAL SERVICES COUNSELOR Unavailable Unavailable Jack Garces FINANCIAL SERVICES COUNSELOR Unavailable Unavailable Jack Garces FINANCIAL SERVICES COUNSELOR Unavailable Unavailable Barter, D Mason FINANCIAL SERVICES COUNSELOR Unavailable Unavailable Barter, D Mason FINANCIAL SERVICES COUNSELOR Unavailable Unavailable Barter, D Mason FINANCIAL SERVICES COUNSELOR Unavailable Unavailable Barter, D Mason FINANCIAL SERVICES COUNSELOR Unavailable Unavailable Barter, D Mason FINANCIAL SERVICES COUNSELOR Unavailable Unavailable Barter, D Mason FINANCIAL SERVICES COUNSELOR Unavailable Unavailable Barter, D Mason FINANCIAL SERVICES COUNSELOR Unavailable Unavailable Barter, D Mason FINANCIAL SERVICES COUNSELOR Unavailable Unavailable Barter, D Mason FINANCIAL SERVICES COUNSELOR Unavailable Unavailable Barter, D Mason FINANCIAL SERVICES COUNSELOR Unavailable Unavailable Barter, D Mason FINANCIAL SERVICES COUNSELOR Unavailable Unavailable Barter, D Mason FINANCIAL SERVICES COUNSELOR Unavailable Unavailable Barter, D Mason FINANCIAL SERVICES COUNSELOR Unavailable Unavailable Barter, D Mason FINANCIAL SERVICES COUNSELOR Unavailable Unavailable Barter, D Mason FINANCIAL SERVICES COUNSELOR Unavailable Unavailable Barter, D Mason FINANCIAL SERVICES COUNSELOR Unavailable Unavailable Barter, D Mason FINANCIAL SERVICES COUNSELOR Unavailable Unavailable Barter, D Mason FINANCIAL SERVICES COUNSELOR Unavailable Unavailable Barter, D Mason FINANCIAL SERVICES COUNSELOR Unavailable Unavailable Barter, D Mason FINANCIAL SERVICES COUNSELOR Unavailable Unavailable Barter, D Mason FINANCIAL SERVICES COUNSELOR Unavailable Unavailable Barter, D Mason FINANCIAL SERVICES COUNSELOR Unavailable Unavailable Barter, D Mason FINANCIAL SERVICES COUNSELOR Unavailable Unavailable Barter, D Mason FINANCIAL SERVICES COUNSELOR Unavailable Unavailable Barter, D Mason FINANCIAL SERVICES COUNSELOR Unavailable Unavailable Barter, D Mason FINANCIAL SERVICES COUNSELOR Unavailable Unavailable Barter, D Mason FINANCIAL SERVICES COUNSELOR Unavailable Unavailable Barter, D Mason FINANCIAL SERVICES COUNSELOR Unavailable Unavailable Barter, D Mason FINANCIAL SERVICES COUNSELOR Unavailable Unavailable Barter, D Mason FINANCIAL SERVICES COUNSELOR Unavailable Unavailable Barter, D Mason FINANCIAL SERVICES COUNSELOR Unavailable Unavailable Barter, D Mason FINANCIAL SERVICES COUNSELOR Unavailable Unavailable Barter, D Mason FINANCIAL SERVICES COUNSELOR Unavailable Unavailable Barter, D Mason FINANCIAL SERVICES COUNSELOR Unavailable Unavailable Barter, D Mason FINANCIAL SERVICES COUNSELOR Unavailable Unavailable Barter, D Mason FINANCIAL SERVICES COUNSELOR Unavailable Unavailable Barter, D Mason FINANCIAL SERVICES COUNSELOR Unavailable Unavailable Barter, D Mason FINANCIAL SERVICES COUNSELOR Unavailable Unavailable Barter, D Mason FINANCIAL SERVICES COUNSELOR Unavailable Unavailable Barter, D Mason FINANCIAL SERVICES COUNSELOR Unavailable Unavailable Barter, D Mason FINANCIAL SERVICES COUNSELOR Unavailable Unavailable Barter, D Mason FINANCIAL SERVICES COUNSELOR Unavailable Unavailable Barter, D Mason FINANCIAL SERVICES COUNSELOR Unavailable Unavailable Barter, D Mason FINANCIAL SERVICES COUNSELOR Unavailable Unavailable Barter, D Mason FINANCIAL SERVICES COUNSELOR Unavailable Unavailable Barter, D Mason FINANCIAL SERVICES COUNSELOR Unavailable Unavailable Barter, D Mason FINANCIAL SERVICES COUNSELOR Unavailable Unavailable Barter, D Mason FINANCIAL SERVICES COUNSELOR Unavailable Unavailable Barter, D Mason FINANCIAL SERVICES COUNSELOR Unavailable Unavailable Barter, D Mason FINANCIAL SERVICES COUNSELOR Unavailable Unavailable MOUSTAPHA, MAQBOOL AYO MD Unavailable Unavailable MOUSTAPHA, MAQBOOL AYO Unavailable Unavailable MOUSTAPHA, MAQBOOL AYO VACA Unavailable Unavailable MOUSTAPHA, MAQBOOL AYO MD Unavailable Unavailable MOUSTAPHA, MAQBOOL AYO MD Unavailable Unavailable MOUSTAPHA, MAQBOOL AYO MD Unavailable Unavailable MOUSTAPHA, MAQBOOL AYO MD Unavailable Unavailable MOUSTAPHA, MAQBOOL AYO MD Unavailable Unavailable MOUSTAPHA, MAQBOOL AYO MD Unavailable Unavailable MOUSTAPHA, MAQBOOL AYO MD Unavailable Unavailable MOUSTAPHA, MAQBOOL AYO MD Unavailable Unavailable MOUSTAPHA, MAQBOOL AYO MD Unavailable Unavailable MOUSTAPHA, MAQBOOL AYO MD Unavailable Unavailable MOUSTAPHA, MAQBOOL AYO MD Unavailable Unavailable MOUSTAPHA, MAQBOOL AYO MD Unavailable Unavailable MOUSTAPHA, MAQBOOL AYO MD Unavailable Unavailable MOUSTAPHA, MAQBOOL AYO MD Unavailable Unavailable MOUSTAPHA, MAQBOOL AYO MD Unavailable Unavailable MOUSTAPHA, MAQBOOL AYO MD Unavailable Unavailable MOUSTAPHA, MAQBOOL AYO MD Unavailable Unavailable MOUSTAPHA, MAQBOOL AYO MD Unavailable Unavailable MOUSTAPHA, MAQBOOL AYO MD Unavailable Unavailable MOUSTAPHA, MAQBOOL AYO MD Unavailable Unavailable MOUSTAPHA, MAQBOOL AYO MD Unavailable Unavailable MOUSTAPHA, MAQBOOL AYO MD Unavailable Unavailable MOUSTAPHA, MAQBOOL AYO MD Unavailable Unavailable MOUSTAPHA, MAQBOOL AYO MD Unavailable Unavailable MOUSTAPHA, MAQBOOL AYO MD Unavailable Unavailable MOUSTAPHA, MAQBOOL AYO MD Unavailable Unavailable MOUSTAPHA, MAQBOOL AYO MD Unavailable Unavailable MOUSTAPHA, MAQBOOL AYO MD Unavailable Unavailable MOUSTAPHA, MAQBOOL AYO MD Unavailable Unavailable MOUSTAPHA, MAQBOOL AYO MD Unavailable Unavailable MOUSTAPHA, MAQBOOL AYO MD Unavailable Unavailable MOUSTAPHA, MAQBOOL AYO MD Unavailable Unavailable MOUSTAPHA, MAQBOOL AYO MD Unavailable Unavailable MOUSTAPHA, MAQBOOL AYO MD Unavailable Unavailable MOUSTAPHA, MAQBOOL AYO MD Unavailable Unavailable MOUSTAPHA, MAQBOOL AYO MD Unavailable Unavailable MOUSTAPHA, MAQBOOL AYO MD Unavailable Unavailable MOUSTAPHA, MAQBOOL AYO MD Unavailable Unavailable MOUSTAPHA, MAQBOOL AYO MD Unavailable Unavailable MOUSTAPHA, MAQBOOL AYO MD Unavailable Unavailable MOUSTAPHA, MAQBOOL AYO MD Unavailable Unavailable MOUSTAPHA, MAQBOOL AYO MD Unavailable Unavailable MOUSTAPHA, MAQBOOL AYO MD Unavailable Unavailable MOUSTAPHA, MAQBOOL AYO MD Unavailable Unavailable MOUSTAPHA, MAQBOOL AYO MD Unavailable Unavailable MOUSTAPHA, MAQBOOL AYO MD Unavailable Unavailable MOUSTAPHA, MAQBOOL AYO MD Unavailable Unavailable MOUSTAPHA, MAQBOOL AYO MD Unavailable Unavailable MOUSTAPHA, MAQBOOL AYO MD Unavailable Unavailable MOUSTAPHA, MAQBOOL AYO MD Unavailable Unavailable MOUSTAPHA, MAQBOOL AYO MD Unavailable Unavailable MOUSTAPHA, MAQBOOL AYO MD Unavailable Unavailable MOUSTAPHA, MAQBOOL AYO MD Unavailable Unavailable MOUSTAPHA, MAQBOOL AYO MD Unavailable Unavailable MOUSTAPHA, MAQBOOL AYO MD Unavailable Unavailable MOUSTAPHA, MAQBOOL AYO MD Unavailable Unavailable MOUSTAPHA, MAQBOOL AYO MD Unavailable Unavailable MOUSTAPHA, MAQBOOL AYO MD Unavailable Unavailable MOUSTAPHA, MAQBOOL AYO MD Unavailable Unavailable MOUSTAPHA, MAQBOOL AYO MD Unavailable Unavailable MOUSTAPHA, MAQBOOL AYO MD Unavailable Unavailable MOUSTAPHA, MAQBOOL AYO MD Unavailable Unavailable MOUSTAPHA, MAQBOOL AYO MD Unavailable Unavailable MOUSTAPHA, MAQBOOL AYO MD Unavailable Unavailable MOUSTAPHA, MAQBOOL AYO MD Unavailable Unavailable MOUSTAPHA, MAQBOOL AYO MD Unavailable Unavailable MOUSTAPHA, MAQBOOL AYO MD Unavailable Unavailable MOUSTAPHA, MAQBOOL AYO MD Unavailable Unavailable MOUSTAPHA, MAQBOOL AYO MD Unavailable Unavailable MOUSTAPHA, MAQBOOL AYO MD Unavailable Unavailable MOUSTAPHA, MAQBOOL AYO MD Unavailable Unavailable MOUSTAPHA, MAQBOOL AYO MD Unavailable Unavailable MOUSTAPHA, MAQBOOL AYO MD Unavailable Unavailable MOUSTAPHA, MAQBOOL AYO MD Unavailable Unavailable MOUSTAPHA, MAQBOOL AYO MD Unavailable Unavailable Nevills, C Kayleen CLOTHES WRINGER Unavailable Unavailable Nevills, C Kayleen CLOTHES WRINGER Unavailable Unavailable Nevills, C Kayleen CLOTHES WRINGER Unavailable Unavailable Nevills, C Kayleen CLOTHES WRINGER Unavailable Unavailable Nevills, C Kayleen CLOTHES WRINGER Unavailable Unavailable Nevills, C Kayleen CLOTHES WRINGER Unavailable Unavailable Nevills, C Kayleen CLOTHES WRINGER Unavailable Unavailable Nevills, C Kayleen CLOTHES WRINGER Unavailable Unavailable Nevills, C Kayleen CLOTHES WRINGER Unavailable Unavailable Nevills, C Kayleen CLOTHES WRINGER Unavailable Unavailable Nevills, C Kayleen CLOTHES WRINGER Unavailable Unavailable Nevills, C Kayleen CLOTHES WRINGER Unavailable Unavailable Nevills, C Kayleen CLOTHES WRINGER Unavailable Unavailable Nevills, C Kayleen CLOTHES WRINGER Unavailable Unavailable Nevills, C Kayleen CLOTHES WRINGER Unavailable Unavailable Nevills, C Kayleen CLOTHES WRINGER Unavailable Unavailable Nevills, C Kayleen CLOTHES WRINGER Unavailable Unavailable Nevills, C Kayleen CLOTHES WRINGER Unavailable Unavailable Nevills, C Kayleen CLOTHES WRINGER Unavailable Unavailable Nevills, C Kayleen CLOTHES WRINGER Unavailable Unavailable Nevills, C Kayleen CLOTHES WRINGER Unavailable Unavailable Nevills, C Kayleen CLOTHES WRINGER Unavailable Unavailable Nevills, C Kayleen CLOTHES WRINGER Unavailable Unavailable Nevills, C Kayleen CLOTHES WRINGER Unavailable Unavailable Nevills, C Kayleen CLOTHES WRINGER Unavailable Unavailable Nevills, C Kayleen CLOTHES WRINGER Unavailable Unavailable Nevills, C Kayleen CLOTHES WRINGER Unavailable Unavailable Nevills, C Kayleen CLOTHES WRINGER Unavailable Unavailable Nevills, C Kayleen CLOTHES WRINGER Unavailable Unavailable Nevills, C Kayleen CLOTHES WRINGER Unavailable Unavailable Nevills, C Kayleen CLOTHES WRINGER Unavailable Unavailable Nevills, C Kayleen CLOTHES WRINGER Unavailable Unavailable Nevills, C Kayleen CLOTHES WRINGER Unavailable Unavailable Nevills, C Kayleen CLOTHES WRINGER Unavailable Unavailable NICK, Tulio SPENCE MD Unavailable Unavailable NICK, Tulio SPENCE MD Unavailable Unavailable NICK, Tulio SPENCE MD Unavailable Unavailable NICK, Tulio SPENCE MD Unavailable Unavailable NICK, Tulio SPENCE MD Unavailable Unavailable NICK, Tulio SPENCE MD Unavailable Unavailable NICK, Tulio SPENCE MD Unavailable Unavailable NICK, Tulio SPENCE MD Unavailable Unavailable NICK, Tulio SPENCE MD Unavailable Unavailable NICK, Tulio SPENCE MD Unavailable Unavailable NICK, Tulio SPENCE MD Unavailable Unavailable NICK, Tulio SPENCE MD Unavailable Unavailable NICK, Tulio SPENCE MD Unavailable Unavailable NICK, Tulio SEPNCE MD Unavailable Unavailable NICK, Tulio SPENCE MD Unavailable Unavailable NICK, Tulio SPENCE MD Unavailable Unavailable NICK, Tulio SPENCE MD Unavailable Unavailable NICK, Tulio SPENCE MD Unavailable Unavailable NICK, Tulio SPENCE MD Unavailable Unavailable NICK, Tulio SPENCE MD Unavailable Unavailable NICK, Tulio SPENCE MD Unavailable Unavailable NICK, Tulio SPENCE MD Unavailable Unavailable NICK, Tulio SPENCE MD Unavailable Unavailable NICK, Tulio SPENCE MD Unavailable Unavailable NICK, Tulio SPENCE MD Unavailable Unavailable NICK, A BEBE MD Unavailable Unavailable NICK, A BEBE MD Unavailable Unavailable NICK, Tulio POLOEY MD Unavailable Unavailable NICK, A BEBE MD Unavailable Unavailable NICK, A BEBE MD Unavailable Unavailable NICK, A BEBE MD Unavailable Unavailable NICK, A BEBE MD Unavailable Unavailable NICK, A BEBE MD Unavailable Unavailable NICK, A BEBE MD Unavailable Unavailable NICK, A BEBE MD Unavailable Unavailable NICK, A BEBE MD Unavailable Unavailable NICK, A BEBE MD Unavailable Unavailable NICK, A BEBE MD Unavailable Unavailable NICK, A BEBE MD Unavailable Unavailable NICK, A BEBE MD Unavailable Unavailable NICK, A BEBE MD Unavailable Unavailable NICK, A BEBE MD Unavailable Unavailable NICK, A BEBE MD Unavailable Unavailable NICK, A BEBE MD Unavailable Unavailable NICK, A BEBE MD Unavailable Unavailable NICK, A BEBE MD Unavailable Unavailable NICK, A BEBE MD Unavailable Unavailable NICK, A BEBE MD Unavailable Unavailable NICK, A BEBE MD Unavailable Unavailable NICK, A BEBE MD Unavailable Unavailable NICK, A BEBE MD Unavailable Unavailable NICK, A BEBE MD Unavailable Unavailable NICK, A BEBE MD Unavailable Unavailable NICK, A BEBE MD Unavailable Unavailable NICK, A BEBE MD Unavailable Unavailable NICK, A BEBE MD Unavailable Unavailable NICK, A BEBE MD Unavailable Unavailable NICK, A BEBE MD Unavailable Unavailable NICK, A BEBE MD Unavailable Unavailable NICK, A BEBE MD Unavailable Unavailable NICK, A BEBE MD Unavailable Unavailable NICK, A BEBE MD Unavailable Unavailable NICK, A BEBE MD Unavailable Unavailable NICK, A BEBE MD Unavailable Unavailable NICK, A BEBE MD Unavailable Unavailable NICK, A BEBE MD Unavailable Unavailable NICK, A BEBE MD Unavailable Unavailable NICK, A BEBE MD Unavailable Unavailable NICK, A BEBE MD Unavailable Unavailable NICK, A BEBE MD Unavailable Unavailable NICK, A BEBE MD Unavailable Unavailable NICK, A BEBE MD Unavailable Unavailable NICK, A BEBE MD Unavailable Unavailable NICK, A BEBE MD Unavailable Unavailable NICK, A BEBE MD Unavailable Unavailable NICK, A BEBE MD Unavailable Unavailable NICK, A BEBE MD Unavailable Unavailable NICK, A BEBE MD Unavailable Unavailable NICK, A BEBE MD Unavailable Unavailable NICK, A BEBE MD Unavailable Unavailable NICK, A BEBE MD Unavailable Unavailable NICK, A BEBE MD Unavailable Unavailable NICK, A BEBE MD Unavailable Unavailable KRISTINE, L GERARDO PA Unavailable Unavailable KRISTINE, L GERARDO PA Unavailable Unavailable KRISTINE, L GERARDO PA Unavailable Unavailable KRISTINE, L GERARDO PA Unavailable Unavailable KRISTINE, L GERARDO PA Unavailable Unavailable KRISTINE, L GERARDO PA Unavailable Unavailable KRISTINE, L GERARDO PA Unavailable Unavailable KRISTINE, L GERARDO PA Unavailable Unavailable KRISTINE, L GERARDO PA Unavailable Unavailable KRISTINE, L GERARDO PA Unavailable Unavailable KRISTINE, L GERARDO PA Unavailable Unavailable KRISTINE, L GERARDO PA Unavailable Unavailable KRISTINE, L GERARDO PA Unavailable Unavailable KRISTINE, L GERARDO PA Unavailable Unavailable KRISTINE, L GERARDO PA Unavailable Unavailable KRISTINE, L GERARDO PA Unavailable Unavailable KRISTINE, L GERARDO PA Unavailable Unavailable KRISTINE, L GERARDO PA Unavailable Unavailable KRISTINE, L GERARDO PA Unavailable Unavailable KRISTINE, L GERARDO PA Unavailable Unavailable KRISTINE, L GERARDO PA Unavailable Unavailable KRISTINE, L GERARDO PA Unavailable Unavailable Lokesh Mena MD Unavailable Unavailable Lokesh Mena MD Unavailable Unavailable Lokesh Mena MD Unavailable Unavailable Lokesh Mena MD Unavailable Unavailable Lokesh Mena MD Unavailable Unavailable Lokesh Mena MD Unavailable Unavailable Lokesh Mena MD Unavailable Unavailable Lokesh Mena MD Unavailable Unavailable Lokesh Mena MD Unavailable Unavailable Lokesh Mena MD Unavailable Unavailable Lokesh Mena MD Unavailable Unavailable Lokesh Mena MD Unavailable Unavailable Lokesh Mena MD Unavailable Unavailable Lokesh Mena MD Unavailable Unavailable Lokesh Mena MD Unavailable Unavailable Lokesh Mena MD Unavailable Unavailable Lokesh Mena MD Unavailable Unavailable Lokesh Mena MD Unavailable Unavailable Lokesh Mena MD Unavailable Unavailable Lokesh Mena MD Unavailable Unavailable Lokesh Mena MD Unavailable Unavailable Lokesh Mena MD Unavailable Unavailable Lokesh Mena MD Unavailable Unavailable Lokesh Mena MD Unavailable Unavailable Lokesh Mena MD Unavailable Unavailable Lokesh Mena MD Unavailable Unavailable Lokesh Mena MD Unavailable Unavailable Lokesh Mena MD Unavailable Unavailable Lokesh Mena MD Unavailable Unavailable Lokesh Mena MD Unavailable Unavailable Lokesh Mena MD Unavailable Unavailable Lokesh Mena MD Unavailable Unavailable Lokesh Mena MD Unavailable Unavailable Lokesh Mena MD Unavailable Unavailable Lokesh Mena MD Unavailable Unavailable Lokesh Mena MD Unavailable Unavailable Lokesh Mena MD Unavailable Unavailable Lokesh Mena MD Unavailable Unavailable Lokesh Mena MD Unavailable Unavailable Lokesh Mena MD Unavailable Unavailable Lokesh Mena MD Unavailable Unavailable Lokesh Mena MD Unavailable Unavailable Lokesh Mena MD Unavailable Unavailable Lokesh Mena MD Unavailable Unavailable Lokesh Mena MD Unavailable Unavailable Lokesh Mena MD Unavailable Unavailable Lokesh Mena MD Unavailable Unavailable Lokesh Mena MD Unavailable Unavailable Lokesh Mena MD Unavailable Unavailable Lokesh Mena MD Unavailable Unavailable Lokesh Mena MD Unavailable Unavailable Lokesh Mena MD Unavailable Unavailable Lokesh Mena MD Unavailable Unavailable Lokesh Mena MD Unavailable Unavailable Vini, Melisa Margret ANP-BC Unavailable Unavailable Vini, Melisa Margret ANP-BC Unavailable Unavailable Vini, Mleisa Margret ANP-BC Unavailable Unavailable Vini, Melisa Margret ANP-BC Unavailable Unavailable Vini, Melisa Margret ANP-BC Unavailable Unavailable Vini, Melisa Margret ANP-BC Unavailable Unavailable Vini, Melisa Margret ANP-BC Unavailable Unavailable Vini, Melisa Margret ANP-BC Unavailable Unavailable Vini, Melisa Margret ANP-BC Unavailable Unavailable Vini, Melisa Margret ANP-BC Unavailable Unavailable Vini, Melisa Margret ANP-BC Unavailable Unavailable Vini, Melisa Margret ANP-BC Unavailable Unavailable Vini, Melisa Margret ANP-BC Unavailable Unavailable Vini, Melisa Margret ANP-BC Unavailable Unavailable Vini, Melisa Margret ANP-BC Unavailable Unavailable Vini, Melisa Margret ANP-BC Unavailable Unavailable Vini, Melisa Margret ANP-BC Unavailable Unavailable Vini, Melisa Margret ANP-BC Unavailable Unavailable Vini, Melisa Margret ANP-BC Unavailable Unavailable Vini, Melisa Margret ANP-BC Unavailable Unavailable Vini, Melisa Margret ANP-BC Unavailable Unavailable Vini, Melisa Margret ANP-BC Unavailable Unavailable Vini, Melisa Margret ANP-BC Unavailable Unavailable Vini, Melisa Margret ANP-BC Unavailable Unavailable Vini, Melisa Margret ANP-BC Unavailable Unavailable Vini, Melisa Margret ANP-BC Unavailable Unavailable Vini, Melisa Margret ANP-BC Unavailable Unavailable Vini, Melisa Margret ANP-BC Unavailable Unavailable Vini, Melisa Margret ANP-BC Unavailable Unavailable Vini, Melisa Margret ANP-BC Unavailable Unavailable Vini, Melisa Margret ANP-BC Unavailable Unavailable Vini, Melisa Margret ANP-BC Unavailable Unavailable Vini, Melisa Margret ANP-BC Unavailable Unavailable Vini, Melisa Margret ANP-BC Unavailable Unavailable Vini, Melisa Margret ANP-BC Unavailable Unavailable Vini, Melisa Margret ANP-BC Unavailable Unavailable Ivni, Melisa Margret ANP-BC Unavailable Unavailable Vini, Melisa Margret ANP-BC Unavailable Unavailable Vini, Melisa Margret ANP-BC Unavailable Unavailable Vini, Melisa Margret ANP-BC Unavailable Unavailable Vini, Melisa Margret ANP-BC Unavailable Unavailable Vini, Melisa Margret ANP-BC Unavailable Unavailable Vini, Melisa Margret ANP-BC Unavailable Unavailable Vini, Melisa Margret ANP-BC Unavailable Unavailable Vini, Melisa Margret ANP-BC Unavailable Unavailable Vini, Melisa Margret ANP-BC Unavailable Unavailable Vini, Melisa Margret ANP-BC Unavailable Unavailable Vini, Melisa Margret ANP-BC Unavailable Unavailable Vini, Melisa Margret ANP-BC Unavailable Unavailable Vini, Melisa Margret ANP-BC Unavailable Unavailable Vini, Melisa Margret ANP-BC Unavailable Unavailable Vini, Melisa Margret ANP-BC Unavailable Unavailable Vini, Melisa Margret ANP-BC Unavailable Unavailable Vini, Melisa Margret ANP-BC Unavailable Unavailable Vini, Melisa Margret ANP-BC Unavailable Unavailable Vini, Melisa Margret ANP-BC Unavailable Unavailable Vini, Melisa Margret ANP-BC Unavailable Unavailable Vini, Melisa Margret ANP-BC Unavailable Unavailable Vini, Melisa Margret ANP-BC Unavailable Unavailable Vini, Melisa Margret ANP-BC Unavailable Unavailable Vini, Melisa Margret ANP-BC Unavailable Unavailable Vini, Melisa Margret ANP-BC Unavailable Unavailable Vini, Melisa Margret ANP-BC Unavailable Unavailable Vini, Melisa Margret ANP-BC Unavailable Unavailable Vini, Melisa Margret ANP-BC Unavailable Unavailable Vini, Melisa Margret ANP-BC Unavailable Unavailable Re-disclosure Warning The records that you are about to access may contain information from federally-assisted alcohol or drug abuse programs. If such information is present, then the following federally mandated warning applies: This information has been disclosed to you from records protected by federal confidentiality rules (42 CFR part 2). The federal rules prohibit you from making any further disclosure of this information unless further disclosure is expressly permitted by the written consent of the person to whom it pertains or as otherwise permitted by 42 CFR part 2. A general authorization for the release of medical or other information is NOT sufficient for this purpose. The Federal rules restrict any use of the information to criminally investigate or prosecute any alcohol or drug abuse patient.The records that you are about to access may contain highly sensitive health information, the redisclosure of which is protected by Article 27-F of the [facility] Public Health law. If you continue you may have access to information: Regarding HIV / AIDS; Provided by facilities licensed or operated by the [facility] Office of Mental Health; or Provided by the [facility] Office for People With Developmental Disabilities. If such information is present, then the following [facility] mandated warning applies: This information has been disclosed to you from confidential records which are protected by state law. State law prohibits you from making any further disclosure of this information without the specific written consent of the person to whom it pertains, or as otherwise permitted by law. Any unauthorized further disclosure in violation of state law may result in a fine or mcfp sentence or both. A general authorization for the release of medical or other information is NOT sufficient authorization for further disc losure. Family History Family Member Name Family Member Gender Family Member Status Date o f Status Description Data Source(s) Unknown Male Problem [facility] ([facility]) Encounters Encounter Providers Location Date Indications Data Source(s ) Outpatient Attender: Kayleen Aguilar NPConsultant: Mason STRINGERP 07/23/2021 07:59:00 AM EDT - 07/23/2021 07:59:00 AM EDT [facility] Outpatient Attender: [facility] 07/13 01:20:00 PM EDT [facility] ([facility] Outpatient Attender: Kayleen Aguilar NPConsultant: Mason eddy [facility] 07/13/2021 01:03:00 PM EDT - 07/13/2021 01:03:00 PM EDT [facility] Outpatient Attender: Kayleen Aguilar NPConsultant: Mason STRINGERP 06/12/2021 11:51:00 AM EDT - 06/12/2021 12:51:00 PM EDT [facility] Outpatient Attender: Kayleen BELLAMYonsultant: Mason MONZON 05/04/2021 09:24:00 AM EDT - 05/04/2021 09:24:00 AM EDT [facility] Outpatient Attender: Kayleen BELLAMYonsultant: Mason STRINGERP 04/23/2021 10:39:00 AM EDT - 04/23/2021 10:39:00 AM EDT [facility] Outpatient Attender: Kayleen Aguilar NP [facility] 04/23 10:20:00 AM EDT [facility] ([facility]) Outpatient Attender: Kayleen Aguilar NPConsultant: Mason eddy [facility] 04/22/2021 08:02:00 AM EDT - 04/22/2021 08:02:00 AM EDT [facility] Outpatient Attender: Kayleen Aguilar CLOTHES WRINGER [facility] 04/22 08:00:00 AM EDT [facility] ([facility]) Office Visit Attender: BEBE Vera/ [facility] 04/15/2021 03:15:00 PM EDT [facility] ([facility]) Outpatient Attender: BEBE TOTH MD 03/30/2021 06:33:21 A M EDT Lab [facility] Inpatient Attender: BEBE TOTH MDAdmitter: BEBE TOTH MD 03/30/2021 05:30:00 AM EDT - 03/31/2021 01:14:00 PM EDT RIGHT KIDNEY MASS D49.511 [facility] RIGHT KIDNEY MASS D49.511 Patient discharged. [place] ( in Healthcare facility) Attender: WILLIAM TOTH MDAdmitter: BEBE TOTH MDConsultant: Kayleen Aguilar 03/30/2021 05:30:00 AM EDT [facility] Outpatient Attender: AYO GIORDANO MD [facility] 03/26 01:30:00 PM EDT [facility] ([facility]ordano [facility]) Outpatient Attender: BEBE TOTH MDConsultant: Mason Garces [employer]CIAL SERVICES COUNSELOR 03/26/2021 12:31:00 PM EDT - 03/26/2021 01:31:00 PM EDT [facility] Outpatient Attender: Kayleen Aguilar NPConsultant: Mason MONZON 03/26/2021 09:17:00 AM EDT - 03/26/2021 09:17:00 AM EDT [facility] Outpatient Attender: BEBE Vera/ [facility] 03/10/2021 03:00:00 PM EDT [facility] ([facility]) Outpatient Attender: Michael Frederick/Bernard/Jack/Milagros luna 03/06/2021 10:00:00 AM EDT [facility] ([facility] ) Unknown [address] [facility] [address] 03/05/2021 12:00:00 AM EDT eCW1 ([facility]) Outpatient Attender: AYO GIORDANO MD [facility] 03/03 02:45:00 PM EDT [facility] ([facility] Giordano [facility]) Emergency Attender: MIRNA CANNON MDA tender: GERARDO [place]: Margret [facility] 02/27/2021 08:30:00 PM EDT - 02/27/2021 10:05:[address] [facility] Patient discharged. Outpatient Attender: Kayleen Aguilar NPConsultant: Mason eddy [facility] 01/27/2021 08:57:00 AM EDT - 01/27/2021 08:57:00 AM EDT [facility] Outpatient Attender: Kayleen Aguilar NPConsultant: Mason eddy [facility] 01/20/2021 07:58:00 AM EDT - 01/20/2021 07:58:00 AM EDT [facility] Outpatient Attender: Margret GARZON-COLTonsultant: Mason mcguire [facility] 10/21/2020 08:50:00 AM [facility] - 10/21/2020 08:50:00 AM [facility] Outpatient Attender: Margret GARZON-COLTonsultant: Mason mcguire [facility] 10/14/2020 08:19:00 AM [facility] - 10/14/2020 08:19:00 AM [facility] Outpatient Attender: Margret GARZON-COLTonsultant: Mason mcguire [facility] 07/21/2020 08:39:00 AM [facility] - 07/21/2020 08:39:00 AM [facility] Emergency Attender: SALLIE [place] : [facility] 11/03/2019 09:00:00 AM EST - 11/03/2019 09:07:00 AM [facility] Patient discharged. Emergency Attender: DEBORAH LUNA 10:22:00 AM EST - 09/14/2017 11:00:00 AM [facility] Emergency Attender: TAIWO LUNA 09/2013 11:55:00 AM EDT - 05/20/2014 01:44:00 PM [facility] Emergency Attender: TAIWO LUNA 02/2014 06:52:00 PM EDT - 03/24/2014 07:49:00 PM [facility] Immunizations Vaccine Date Status Description Data Source(s) COVID-19 (Moderna), mRNA, LNP-S, PF, 100 mcg/0.5 mL do se 01/12/2021 12:00:00 AM EDT completed [facility] COVID-19 VACCINE Moderna 01/12/2021 12:00:00 AM EDT completed [facility] Vaccine Series Complete: YESThis Data wa s Submitted to [facility] Via CheckInPage. COVID-19 (Moderna), mRNA, LNP-S, PF, 100 mcg/0.5 mL do se 12/15/2020 12:00:00 AM EDT completed [facility] COVID-19 VACCINE Moderna 12/15/2020 12:00:00 AM EDT completed [facility] Vaccine Series Complete: NOThis Data was Submitted to [facility] Via CheckInPage. Medications Medication Brand Name Start Date Product Form Dose Route Admi nistrative Instructions Pharmacy Instructions Status Indications Reaction Description Data Source(s) Acetaminophen 325 MG / Hydrocodone Bitartrate 5 MG Ora l Tablet 5-325 mg HYDROCODONE/ACETAMINOPHEN 07/22/2021 12:00:00 AM EDT tablet 180 TAKE 2 TABLETS BY MOUTH 3 TIMES A DAY MAXIMUM DAILY DOSE = 6 TABLETS TAKE 2 TABLETS BY MOUTH 3 TIMES A DAY MAXIMUM DAILY DOSE = 6 TABLETS SOLD: 07/23/2021 [facility] Zithromax Z-Ryan Zithromax Z-Ryan 07/20/2021 12:00:00 AM EDT active [facility] ([facility]) benzonatate 100 MG Oral Capsule [Margarita Patterson] Tessalon P erles 07/20/2021 12:00:00 AM EDT ORAL active M EDENT ([facility]) benzonatate 100 MG Oral Capsule BENZONATATE 07/20/2021 12:00:00 AM EDT capsule 30 TAKE ONE CAPSULE BY MOUTH EVERY 8 HOURS NEEDED FOR COUGH TAKE ONE CAPSULE BY MOUTH EVERY 8 HOURS NEEDED FOR COUGH SOLD: 07/20/2021 [facility] 250 mg 07/20/2021 12:00:00 AM EDT tablet 6 TAKE BY MOUTH DIRECTED COMPLETE ALL OF ANTIBIOTIC DIRECTED TAKE BY MOUTH DIRECTED COMPLETE ALL O F ANTIBIOTIC DIRECTED SOLD: 07/20/2021 [facility] 350 mg 07/17/2021 12:00:00 AM EDT tablet 90 TAKE 1 TABLET BY MOUTH 3 TIMES A DAY MAXIMUM DAILY DOSE = 3 TABLETS TAKE 1 TABLET BY MOUTH 3 TIMES A DAY MAX IMUM DAILY DOSE = 3 TABLETS SOLD: 07/17/2021 [facility] Acetaminophen 325 MG / Hydrocodone Bitartrate 5 MG Ora l Tablet 5-325 mg HYDROCODONE/ACETAMINOPHEN 07/12/2021 12:00:00 AM EDT tablet 60 TAKE ONE TABLET BY MOUTH EVERY 4 HOURS MAXIMUM DAILY DOSE = 6 TABLETS TAKE ONE TABLET BY MOUTH EVERY 4 HOURS MAXIMUM DAILY DOSE = 6 TABLETS SOLD: 07/13/2021 [facility] Acetaminophen 325 MG / Hydrocodone Bitartrate 5 MG Ora l Tablet 5-325 mg HYDROCODONE/ACETAMINOPHEN 06/18/2021 12:00:00 AM EDT tablet 120 TAKE ONE TABLET BY MOUTH EVERY 6 HOURS . MAXIMUM DAILY DOSE = 4 TABLETS TAKE ONE TABLET BY MOUTH EVERY 6 HOURS . MAXIMUM DAILY DOSE = 4 TABLETS SOLD: 06/18/2021 [facility] 350 mg 06/18/2021 12:00:00 AM EDT tablet 90 TAKE ONE TABLET BY MOUTH THREE TIMES A DAY , MAXIMUM DAILY DOSE = 3 TABLETS TAKE ONE TABLET BY MOUTH THREE TIMES A DAY , MAXIMUM DAILY DOSE = 3 TABLETS SOLD: 06/18/2021 [facility] 20 mg 06/02/2021 12:00:00 AM EDT capsule,delayed release (DR/EC) 60 TAKE ONE CAPSULE BY MOUTH TWICE A DAY MAXIMUM DAILY DOSE = 2 CAPSULES TAKE ONE CAPSULE BY MOUTH TWICE A DAY MAXIMUM DAILY DOSE = 2 CAPSULES SOLD: 06/02/2021 [facility] 20 mg 06/02/2021 12:00:00 AM EDT capsule,delayed release (DR/EC) 60 TAKE ONE CAPSULE BY MOUTH TWICE A DAY MAXIMUM DAILY DOSE = 2 CAPSULES TAKE ONE CAPSULE BY MOUTH TWICE A DAY MAXIMUM DAILY DOSE = 2 CAPSULES SOLD: 06/29/2021 [facility] 10 mg 05/20/2021 12:00:00 AM EDT tablet extended release 24hr 30 TAKE 1 TABLET BY MOUTH ONCE A DAY TAKE 1 TABLET BY MOUTH ONCE A DAY SOLD: 06/28/2021 [facility] 10 mg 05/20/2021 12:00:00 AM EDT tablet extended release 24hr 30 TAKE 1 TABLET BY MOUTH ONCE A DAY TAKE 1 TABLET BY MOUTH ONCE A DAY SOLD: 05/31/2021 [facility] 350 mg 05/18/2021 12:00:00 AM EDT tablet 90 TAKE 1 TABLET BY MOUTH 3 TIMES A DAY MAXIMUM DAILY DOSE = 3 TABLETS TAKE 1 TABLET BY MOUTH 3 TIMES A DAY MAX IMUM DAILY DOSE = 3 TABLETS SOLD: 05/18/2021 [facility] Acetaminophen 325 MG / Hydrocodone Bitartrate 5 MG Ora l Tablet 5-325 mg HYDROCODONE/ACETAMINOPHEN 05/18/2021 12:00:00 AM EDT tablet 180 TAKE 1 TABLET BY MOUTH EVERY 4 HOURS MAX DAILY DOSE = 6 TABLETS TAKE 1 TABLET BY MOUTH EVERY 4 HOURS MAX DAILY DOSE = 6 TABLETS SOLD: 05/18/2021 [facility] 10 mg 04/22/2021 12:00:00 AM EDT tablet 90 TAKE TWO TABLETS BY MOUTH EVERY MORNING & 1 AT BEDTIME TAKE TWO TABLETS BY MOUTH EVERY MORNING & 1 AT BEDTIME SOLD: 06/24/2021 [facility] 10 mg 04/22/2021 12:00:00 AM EDT tablet 90 TAKE TWO TABLETS BY MOUTH EVERY MORNING & 1 AT BEDTIME TAKE TWO TABLETS BY MOUTH EVERY MORNING & 1 AT BEDTIME SOLD: 04/22/2021 [facility] Acetaminophen 325 MG / Hydrocodone Bitartrate 5 MG Ora l Tablet 5-325 mg HYDROCODONE/ACETAMINOPHEN 04/18/2021 12:00:00 AM EDT tablet 180 TAKE ONE TABLET BY MOUTH EVERY 4 HOURS MAXIMUM DAILY DOSE = 6 TABLETS TAKE ONE TABLET BY MOUTH EVERY 4 HOURS MAXIMUM DAILY DOSE = 6 TABLETS SOLD: 04/18/2021 [facility] 350 mg 04/18/2021 12:00:00 AM EDT tablet 90 TAKE ONE TABLET BY MOUTH THREE TIMES A DAY MAXIMUM DAILY DOSE = 3 TABLETS TAKE ONE TABLET BY MOUTH THREE TIMES A DAY MAXIMUM DAILY DOSE = 3 TABLETS SOLD: 04/18/2021 [facility] Technetium TC 99M Sestamibi 03/27/2021 12:00:00 AM EDT completed [facility] (Ayo Giordano MD) Medication administered onsite Dobutamine IV Injection 250MG 03/27/2021 12:00:00 AM EDT completed [facility] (Ayo osuna MD) Medication administered onsite Docusate Sodium 100 MG Oral Capsule [Colace] Colace 02/2021 12:00:00 AM EDT ORAL active [facility] ( [facility]) 350 mg 03/19/2021 12:00:00 AM EDT tablet 90 TAKE ONE TABLET BY MOUTH THREE TIMES A DAY MAXIMUM DAILY DOSE = 3 TABLETS TAKE ONE TABLET BY MOUTH THREE TIMES A DAY MAXIMUM DAILY DOSE = 3 TABLETS SOLD: 03/20/2021 [facility] Acetaminophen 325 MG / Hydrocodone Bitartrate 5 MG Ora l Tablet 5-325 mg HYDROCODONE/ACETAMINOPHEN 03/19/2021 12:00:00 AM EDT tablet 180 TAKE ONE TABLET BY MOUTH EVERY 4 HOURS MAXIMUM DAILY DOSE = 6 TABLETS TAKE ONE TABLET BY MOUTH EVERY 4 HOURS MAXIMUM DAILY DOSE = 6 TABLETS SOLD: 03/20/2021 [facility] 10 mg 03/18/2021 12:00:00 AM EDT tablet 60 TAKE TWO TABLETS BY MOUTH ONCE DAILY TAKE TWO TABLETS BY MOUTH ONCE DAILY SOLD: 03/20/2021 [facility] Acetaminophen 325 MG / Hydrocodone Bitartrate 5 MG Ora l Tablet 5-325 mg HYDROCODONE/ACETAMINOPHEN 02/18/2021 12:00:00 AM EDT tablet 180 TAKE 1 TABLET BY MOUTH EVERY 4 HOURS MAX DAILY DOSE = 6 TABLETS TAKE 1 TABLET BY MOUTH EVERY 4 HOURS MAX DAILY DOSE = 6 TABLETS SOLD: 02/19/2021 [facility] 350 mg 02/18/2021 12:00:00 AM EDT tablet 90 TAKE ONE TABLET BY MOUTH THREE TIMES A DAY MAXIMUM DAILY DOSE = 3 TABLETS TAKE ONE TABLET BY MOUTH THREE TIMES A DAY MAXIMUM DAILY DOSE = 3 TABLETS SOLD: 02/19/2021 [facility] 10 mg 01/28/2021 12:00:00 AM EDT tablet extended release 24hr 30 TAKE 1 TABLET BY MOUTH ONCE A DAY TAKE 1 TABLET BY MOUTH ONCE A DAY SOLD: 04/22/2021 [facility] 10 mg 01/28/2021 12:00:00 AM EDT tablet extended release 24hr 30 TAKE 1 TABLET BY MOUTH ONCE A DAY TAKE 1 TABLET BY MOUTH ONCE A DAY SOLD: 03/20/2021 [facility] 145 mg 01/28/2021 12:00:00 AM EDT tablet 90 TAKE ONE TABLET BY MOUTH EVERY DAY FOR TRIGLYCERIDES TAKE ONE TABLET BY MOUTH EVERY DAY FOR TRIGLYCERIDES S OLD: 01/29/2021 [facility] 10 mg 01/28/2021 12:00:00 AM EDT tablet extended release 24hr 30 TAKE 1 TABLET BY MOUTH ONCE A DAY TAKE 1 TABLET BY MOUTH ONCE A DAY SOLD: 01/29/2021 [facility] 24 HR Glipizide 10 MG Extended Release Oral Tablet Glipizide ER 01/27/2021 12:00:00 AM EDT active M [facility] ([facility]) Fenofibrate 145 MG Oral Tablet Fenofibrate 01/27/2021 12:00:00 AM EDT ORAL active [facility] ([facility]) 50 mg 01/20/2021 12:00:00 AM EDT tablet 90 TAKE THREE TABLETS BY MOUTH AT BEDTIME TAKE THREE TABLETS BY MOUTH AT BEDTIME SOLD: 01/21/2021 [facility] 50 mg 01/20/2021 12:00:00 AM EDT tablet 90 TAKE THREE TABLETS BY MOUTH AT BEDTIME TAKE THREE TABLETS BY MOUTH AT BEDTIME SOLD: 03/20/2021 [facility] 10 mg 01/20/2021 12:00:00 AM EDT tablet 60 TAKE TWO TABLETS BY MOUTH ONCE DAILY TAKE TWO TABLETS BY MOUTH ONCE DAILY SOLD: 02/19/2021 [facility] 50 mg 01/20/2021 12:00:00 AM EDT tablet 90 TAKE THREE TABLETS BY MOUTH AT BEDTIME TAKE THREE TABLETS BY MOUTH AT BEDTIME SOLD: 04/21/2021 [facility] Trazodone Hydrochloride 50 MG Oral Tablet Trazodone HCL 01/20/2021 12:00:00 AM EDT ORAL active [facility] ([facility]) Blood Pressure Kit/Oscillating/Digital 01/20/2021 12:00:00 AM ED T active [facility] ([facility]) Lisinopril 10 MG Oral Tablet Lisinopril 01/20/2021 12:00:00 AM EDT ORAL active [facility] ([facility]) 50 mg 01/20/2021 12:00:00 AM EDT tablet 90 TAKE THREE TABLETS BY MOUTH AT BEDTIME TAKE THREE TABLETS BY MOUTH AT BEDTIME SOLD: 05/31/2021 [facility] 10 mg 01/20/2021 12:00:00 AM EDT tablet 60 TAKE TWO TABLETS BY MOUTH ONCE DAILY TAKE TWO TABLETS BY MOUTH ONCE DAILY SOLD: 01/21/2021 [facility] 50 mg 01/20/2021 12:00:00 AM EDT tablet 90 TAKE THREE TABLETS BY MOUTH AT BEDTIME TAKE THREE TABLETS BY MOUTH AT BEDTIME SOLD: 06/28/2021 [facility] Acetaminophen 325 MG / Hydrocodone Bitartrate 5 MG Ora l Tablet 5-325 mg HYDROCODONE/ACETAMINOPHEN 01/20/2021 12:00:00 AM EDT tablet 180 TAKE ONE TABLET BY MOUTH EVERY 4 HOURS MAXIMUM DAILY DOSE = 6 TABLETS TAKE ONE TABLET BY MOUTH EVERY 4 HOURS MAXIMUM DAILY DOSE = 6 TABLETS SOLD: 01/21/2021 [facility] 50 mg 01/20/2021 12:00:00 AM EDT tablet 90 TAKE THREE TABLETS BY MOUTH AT BEDTIME TAKE THREE TABLETS BY MOUTH AT BEDTIME SOLD: 02/19/2021 [facility] 350 mg 01/20/2021 12:00:00 AM EDT tablet 90 TAKE ONE TABLET BY MOUTH THREE TIMES A DAY MAXIMUM DAILY DOSE = 3 TABLETS TAKE ONE TABLET BY MOUTH THREE TIMES A DAY MAXIMUM DAILY DOSE = 3 TABLETS SOLD: 01/21/2021 [facility] 350 mg 12/23/2020 12:00:00 AM EDT tablet 90 TAKE 1 TABLET BY MOUTH 3 TIMES A DAY MAXIMUM DAILY DOSE = 3 TABLETS TAKE 1 TABLET BY MOUTH 3 TIMES A DAY MAX IMUM DAILY DOSE = 3 TABLETS SOLD: 12/23/2020 [facility] 5-325 mg 12/23/2020 12:00:00 AM EDT tablet 180 TAKE ONE TABLET BY MOUTH EVERY 4 HOURS MAXIMUM DAILY DOSE = 6 TABLETS TAKE ONE TABLET BY MOUTH EVERY 4 HOURS MAXIMUM DAILY DOSE = 6 TABLETS SOLD: 12/23/2020 [facility] 5-325 mg 11/21/2020 12:00:00 AM EST tablet 180 TAKE ONE TABLET BY MOUTH EVERY 4 HOURS MAXIMUM DAILY DOSE = 6 TABLETS TAKE ONE TABLET BY MOUTH EVERY 4 HOURS MAXIMUM DAILY DOSE = 6 TABLETS SOLD: 11/22/2020 [facility] 20 mg 11/21/2020 12:00:00 AM EST capsule,delayed release (DR/EC) 60 TAKE ONE CAPSULE BY MOUTH TWICE A DAY TAKE ONE CAPSULE BY MOUTH TWICE A DAY SOLD: 03/20/2021 [facility] 20 mg 11/21/2020 12:00:00 AM EST capsule,delayed release (DR/EC) 60 TAKE ONE CAPSULE BY MOUTH TWICE A DAY TAKE ONE CAPSULE BY MOUTH TWICE A DAY SOLD: 01/20/2021 [facility] 20 mg 11/21/2020 12:00:00 AM EST capsule,delayed release (DR/EC) 60 TAKE ONE CAPSULE BY MOUTH TWICE A DAY TAKE ONE CAPSULE BY MOUTH TWICE A DAY SOLD: 12/23/2020 [facility] 20 mg 11/21/2020 12:00:00 AM EST capsule,delayed release (DR/EC) 60 TAKE ONE CAPSULE BY MOUTH TWICE A DAY TAKE ONE CAPSULE BY MOUTH TWICE A DAY SOLD: 02/19/2021 [facility] 350 mg 11/21/2020 12:00:00 AM EST tablet 90 TAKE ONE TABLET BY MOUTH THREE TIMES A DAY MAXIMUM DAILY DOSE = 3 TABLETS TAKE ONE TABLET BY MOUTH THREE TIMES A DAY MAXIMUM DAILY DOSE = 3 TABLETS SOLD: 11/22/2020 [facility] 20 mg 11/21/2020 12:00:00 AM EST capsule,delayed release (DR/EC) 60 TAKE ONE CAPSULE BY MOUTH TWICE A DAY TAKE ONE CAPSULE BY MOUTH TWICE A DAY SOLD: 11/22/2020 [facility] 20 mg 11/21/2020 12:00:00 AM EST capsule,delayed release (DR/EC) 60 TAKE ONE CAPSULE BY MOUTH TWICE A DAY TAKE ONE CAPSULE BY MOUTH TWICE A DAY SOLD: 04/22/2021 [facility] Magnesium Hydroxide 80 MG/ML Oral Suspension Milk Of Magnesi a 11/11/2020 12:00:00 AM EST ORAL active M [facility] ([facility] ) Suprep Bowel Prep Kit Suprep Bowel Prep Kit 11/11/2020 12:00:00 AM EST active [facility] ([facility], ) Carisoprodol 350 MG Oral Tablet CARISOPRODOL 10/24/2020 12:00:00 AM EST tablet 90 TAKE ONE TABLET BY MOUTH THREE TIMES A D AY MAXIMUM DAILY DOSE = 3 TABLETS TAKE ONE TABLET BY MOUTH THREE TIMES A DAY MAXIMUM DAILY DOSE = 3 TABLETS SOLD: 10/24/2020 [facility] 5-325 mg 10/24/2020 12:00:00 AM EST tablet 180 TAKE ONE TABLET BY MOUTH EVERY 4 HOURS MAXIMUM DAILY DOSE = 6 TABLETS TAKE ONE TABLET BY MOUTH EVERY 4 HOURS MAXIMUM DAILY DOSE = 6 TABLETS SOLD: 10/24/2020 [facility] 25 mg 10/09/2020 12:00:00 AM EST tablet 30 TAKE ONE TABLET BY MOUTH EVERY DAY TAKE ONE TABLET BY MOUTH EVERY DAY SOLD: 12/23/2020 [facility] 25 mg 10/09/2020 12:00:00 AM EST tablet 30 TAKE ONE TABLET BY MOUTH EVERY DAY TAKE ONE TABLET BY MOUTH EVERY DAY SOLD: 10/22/2020 [facility] 25 mg 10/09/2020 12:00:00 AM EST tablet 30 TAKE ONE TABLET BY MOUTH EVERY DAY TAKE ONE TABLET BY MOUTH EVERY DAY SOLD: 11/22/2020 [facility] 25 mg 10/09/2020 12:00:00 AM EST tablet 30 TAKE ONE TABLET BY MOUTH EVERY DAY TAKE ONE TABLET BY MOUTH EVERY DAY SOLD: 02/19/2021 [facility] 25 mg 10/09/2020 12:00:00 AM EST tablet 30 TAKE ONE TABLET BY MOUTH EVERY DAY TAKE ONE TABLET BY MOUTH EVERY DAY SOLD: 01/20/2021 [facility] 25 mg 10/09/2020 12:00:00 AM EST tablet 30 TAKE ONE TABLET BY MOUTH EVERY DAY TAKE ONE TABLET BY MOUTH EVERY DAY SOLD: 03/20/2021 [facility] 5 mg 10/03/2020 12:00:00 AM EST tablet 90 TAKE ONE TABLET BY MOUTH EVERY DAY TAKE ONE TABLET BY MOUTH EVERY DAY SOLD: 10/11/2020 [facility] 1,000 mg 10/03/2020 12:00:00 AM EST tablet 180 TAKE ONE TABLET BY MOUTH TWICE A DAY WITH FOOD TAKE ONE TABLET BY MOUTH TWICE A DAY WITH FOOD SOLD: 04/22/2021 [facility] Lovastatin 40 MG Oral Tablet LOVASTATIN 10/03/2020 12:00:00 AM EST tab let 90 TAKE ONE TABLET BY MOUTH EVERY EVENING WITH A MEAL TAKE ONE TABLET BY MOUTH EVERY EVENING WITH A MEAL SOLD: 10/22/2020 [facility] 50 mg 10/03/2020 12:00:00 AM EST tablet 180 TAKE ONE TABLET BY MOUTH TWICE A DAY FOR HEADACHES TAKE ONE TABLET BY MOUTH TWICE A DAY FOR HEADACHES VERENA [facility] Metformin hydrochloride 1000 MG Oral Tablet 1,000 mg METFORM IN HCL 10/03/2020 12:00:00 AM EST tablet 180 TAKE ONE TABLET BY MOUTH TWICE A DAY WITH FOOD TAKE ONE TABLET BY MOUTH TWICE A DAY WITH FOOD SOLD: 10/22/2020 [facility] Lovastatin 40 MG Oral Tablet LOVASTATIN 10/03/2020 12:00:00 AM EST tab let 90 TAKE ONE TABLET BY MOUTH EVERY EVENING WITH A MEAL TAKE ONE TABLET BY MOUTH EVERY EVENING WITH A MEAL SOLD: 04/22/2021 [facility] 5 mg 10/03/2020 12:00:00 AM EST tablet 90 TAKE ONE TABLET BY MOUTH EVERY DAY TAKE ONE TABLET BY MOUTH EVERY DAY SOLD: 01/20/2021 [facility] Lovastatin 40 MG Oral Tablet LOVASTATIN 10/03/2020 12:00:00 AM EST tab let 90 TAKE ONE TABLET BY MOUTH EVERY EVENING WITH A MEAL TAKE ONE TABLET BY MOUTH EVERY EVENING WITH A MEAL SOLD: 07/23/2021 [facility] 1,000 mg 10/03/2020 12:00:00 AM EST tablet 180 TAKE ONE TABLET BY MOUTH TWICE A DAY WITH FOOD TAKE ONE TABLET BY MOUTH TWICE A DAY WITH FOOD SOLD: 07/23/2021 [facility] 10 mg 10/03/2020 12:00:00 AM EST tablet 90 TAKE ONE TABLET BY MOUTH EVERY DAY TAKE ONE TABLET BY MOUTH EVERY DAY SOLD: 10/11/2020 [facility] Lovastatin 40 MG Oral Tablet LOVASTATIN 10/03/2020 12:00:00 AM EST tab let 90 TAKE ONE TABLET BY MOUTH EVERY EVENING WITH A MEAL TAKE ONE TABLET BY MOUTH EVERY EVENING WITH A MEAL SOLD: 01/20/2021 [facility] 50 mg 10/03/2020 12:00:00 AM EST tablet 180 TAKE ONE TABLET BY MOUTH TWICE A DAY FOR HEADACHES TAKE ONE TABLET BY MOUTH TWICE A DAY FOR HEADACHES VERENA [facility] 50 mg 10/03/2020 12:00:00 AM EST tablet 180 TAKE ONE TABLET BY MOUTH TWICE A DAY FOR HEADACHES TAKE ONE TABLET BY MOUTH TWICE A DAY FOR HEADACHES VERENA [facility] 1,000 mg 10/03/2020 12:00:00 AM EST tablet 180 TAKE ONE TABLET BY MOUTH TWICE A DAY WITH FOOD TAKE ONE TABLET BY MOUTH TWICE A DAY WITH FOOD SOLD: 01/20/2021 [facility] 50 mg 10/03/2020 12:00:00 AM EST tablet 180 TAKE ONE TABLET BY MOUTH TWICE A DAY FOR HEADACHES TAKE ONE TABLET BY MOUTH TWICE A DAY FOR HEADACHES VERENA [facility] 350 mg 09/22/2020 12:00:00 AM EST tablet 90 TAKE ONE TABLET BY MOUTH THREE TIMES A DAY MAXIMUM DAILY DOSE = 3 TABLETS TAKE ONE TABLET BY MOUTH THREE TIMES A DAY MAXIMUM DAILY DOSE = 3 TABLETS SOLD: 09/22/2020 [facility] 5-325 mg 09/22/2020 12:00:00 AM EST tablet 180 TAKE ONE TABLET BY MOUTH EVERY 4 HOURS MAXIMUM DAILY DOSE = 6 TABLETS TAKE ONE TABLET BY MOUTH EVERY 4 HOURS MAXIMUM DAILY DOSE = 6 TABLETS SOLD: 09/22/2020 [facility] 5-325 mg 08/20/2020 12:00:00 AM EST tablet 180 TAKE ONE TABLET BY MOUTH EVERY 4 HOURS MAXIMUM DAILY DOSE = 6 TABLETS TAKE ONE TABLET BY MOUTH EVERY 4 HOURS MAXIMUM DAILY DOSE = 6 TABLETS SOLD: 08/20/2020 [facility] 350 mg 08/20/2020 12:00:00 AM EST tablet 90 TAKE 1 TABLET BY MOUTH 3 TIMES A DAY MAXIMUM DAILY DOSE = 3 TABLETS TAKE 1 TABLET BY MOUTH 3 TIMES A DAY MAX IMUM DAILY DOSE = 3 TABLETS SOLD: 08/20/2020 [facility] 100 mg 07/31/2020 12:00:00 AM EST capsule 28 TAKE ONE CAPSULE BY MOUTH TWICE A DAY FOR 2 WEEKS TAKE ONE CAPSULE BY MOUTH TWICE A DAY FOR 2 WEEKS SOLD : 07/31/2020 [facility] 20 mg 07/29/2020 12:00:00 AM EST capsule,delayed release (DR/EC) 60 TAKE ONE CAPSULE BY MOUTH TWICE A DAY TAKE ONE CAPSULE BY MOUTH TWICE A DAY SOLD: 09/26/2020 [facility] 20 mg 07/29/2020 12:00:00 AM EST capsule,delayed release (DR/EC) 60 TAKE ONE CAPSULE BY MOUTH TWICE A DAY TAKE ONE CAPSULE BY MOUTH TWICE A DAY SOLD: 07/29/2020 [facility] 20 mg 07/29/2020 12:00:00 AM EST capsule,delayed release (DR/EC) 60 TAKE ONE CAPSULE BY MOUTH TWICE A DAY TAKE ONE CAPSULE BY MOUTH TWICE A DAY SOLD: 10/26/2020 [facility] 20 mg 07/29/2020 12:00:00 AM EST capsule,delayed release (DR/EC) 60 TAKE ONE CAPSULE BY MOUTH TWICE A DAY TAKE ONE CAPSULE BY MOUTH TWICE A DAY SOLD: 08/28/2020 [facility] empagliflozin 25 MG Oral Tablet [Jardiance] Jardiance 07/21/2020 12:00:00 AM EST ORAL active [facility] ([facility]) 5-325 mg 07/21/2020 12:00:00 AM EST tablet 180 TAKE 1 TABLET BY MOUTH EVERY 4 HOURS MAXIMUM DAILY DOSE = 6 TABLETS TAKE 1 TABLET BY MOUTH EVERY 4 HOURS MAXIMUM DAILY DOSE = 6 TABLETS SOLD: 07/21/2020 [facility] 25 mg 07/21/2020 12:00:00 AM EST tablet 14 TAKE 1 TABLET BY MOUTH ONCE A DAY FOR 14 DAYS TAKE 1 TABLET BY MOUTH ONCE A DAY FOR 14 DAYS SOLD: 07/22/2020 [facility] 350 mg 07/21/2020 12:00:00 AM EST tablet 90 TAKE 1 TABLET BY MOUTH THREE TIMES A DAY MAXIMUM DAILY DOSE = 3 TABLETS TAKE 1 TABLET BY MOUTH THREE TIMES A DAY MAXIMUM DAILY DOSE = 3 TABLETS SOLD: 07/21/2020 [facility] 25 mg 07/02/2020 12:00:00 AM EDT tablet 90 TAKE ONE TABLET BY MOUTH EVERY DAY TAKE ONE TABLET BY MOUTH EVERY DAY SOLD: 01/20/2021 [facility] 25 mg 07/02/2020 12:00:00 AM EDT tablet 90 TAKE ONE TABLET BY MOUTH EVERY DAY TAKE ONE TABLET BY MOUTH EVERY DAY SOLD: 04/22/2021 [facility] 15 mg 07/02/2020 12:00:00 AM EDT tablet 90 TAKE ONE TABLET BY MOUTH EVERY DAY TAKE ONE TABLET BY MOUTH EVERY DAY SOLD: 07/21/2020 [facility] 15 mg 07/02/2020 12:00:00 AM EDT tablet 90 TAKE ONE TABLET BY MOUTH EVERY DAY TAKE ONE TABLET BY MOUTH EVERY DAY SOLD: 10/22/2020 [facility] 15 mg 07/02/2020 12:00:00 AM EDT tablet 90 TAKE ONE TABLET BY MOUTH EVERY DAY TAKE ONE TABLET BY MOUTH EVERY DAY SOLD: 01/20/2021 [facility] 25 mg 07/02/2020 12:00:00 AM EDT tablet 90 TAKE ONE TABLET BY MOUTH EVERY DAY TAKE ONE TABLET BY MOUTH EVERY DAY SOLD: 07/21/2020 [facility] 25 mg 07/02/2020 12:00:00 AM EDT tablet 90 TAKE ONE TABLET BY MOUTH EVERY DAY TAKE ONE TABLET BY MOUTH EVERY DAY SOLD: 10/22/2020 [facility] 15 mg 07/02/2020 12:00:00 AM EDT tablet 90 TAKE ONE TABLET BY MOUTH EVERY DAY TAKE ONE TABLET BY MOUTH EVERY DAY SOLD: 04/22/2021 [facility] 5-325 mg 06/20/2020 12:00:00 AM EDT tablet 180 TAKE ONE TABLET BY MOUTH EVERY 4 HOURS MAXIMUM DAILY DOSE = 6 TABLETS TAKE ONE TABLET BY MOUTH EVERY 4 HOURS MAXIMUM DAILY DOSE = 6 TABLETS SOLD: 06/20/2020 [facility] 350 mg 06/20/2020 12:00:00 AM EDT tablet 90 TAKE ONE TABLET BY MOUTH THREE TIMES A DAY MAXIMUM DAILY DOSE = 3 TABLETS TAKE ONE TABLET BY MOUTH THREE TIMES A DAY MAXIMUM DAILY DOSE = 3 TABLETS SOLD: 06/20/2020 [facility] 300 mg 04/05/2020 12:00:00 AM EDT tablet 15 TAKE ONE TABLET BY MOUTH EVERY DAY TAKE ONE TABLET BY MOUTH EVERY DAY SOLD: 06/02/2020 [facility] 300 mg 04/05/2020 12:00:00 AM EDT tablet 5 TAKE ONE TABLET BY MOUTH EVERY DAY TAKE ONE TABLET BY MOUTH EVERY DAY SOLD: 07/07/2020 [facility] 20 mg 01/26/2020 12:00:00 AM EDT capsule,delayed release (DR/EC) 60 TAKE 1 CAPSULE BY MOUTH TWO TIMES A DAY MAXIMUM DAILY DOSE = 2 TAKE 1 CAPSULE BY MOUTH TWO TIMES A DAY MAXIMUM DAILY DOSE = 2 SOLD: 06/20/2020 [facility] Insurance Providers Payer name Policy type / Coverage type Policy ID Covered democrat ID Covered democrat's relationship to dodson Policy Dodson Plan Information [facility] () Workers Compensation [id number] Self [id number] [facility] () Workers Compensation [id number] Self [id number] [facility] Workers Compensation [id number] Self [id number] [facility] Workers Compensation [id number] Self [id number] [facility] Workers Compensation [id number] Self [id number] [facility] Workers Compensation [id number] Self [id number] [facility] Workers Compensation [id number] Self [id number] [facility] Workers Compensation [id number] Self [id number] [facility] Workers Compensation [id number] Self [id number] [facility] Workers Compensation [id number] Self [id number] [facility]) Workers Compensation [id number] Self [id number] [facility]) Workers Compensation [id number] Self [id number] [facility] Workers Compensation [id number] Self [id number] [facility] Workers Compensation [id number] Self [id number] [facility] Workers Compensation [id number] Self [id number] [facility] Workers Compensation [id number] Self [id number] [facility] Workers Compensation [id number] Self [id number] MEDICARE [id number] SP [id number] A [employer] [facility] Workers Compensation [id number] Self [id number] [employer] ([facility] Workers Compensation [id number] Self [id number] MEDICARE COMPLETE [id number] SP [id number] [facility]) Commercial [id number] Self [id number] MEDICARE COMPLETE [id number] SP [id number] [facility] [id number] 18 [id number] [employer] [place] D[place] [facility] [place] [id number] 18 [id number] [facility] MEDIC[facility] COMPLE[facility] - CLINIC [id number] 18 [id number] [employer] CP DUAL COMP -PHYSICIAN [place] [id number] 18 [id number] [employer] CP DUAL COMPL-[facility] [place] [id number] 18 [id number] ANSI-Medicare Part [id number] [employer] MEDICARE HMO [id number] ANSI-Medicare Part B [id number] ANSI-Medicare Part B [id number] SELF PAY SP UNAVAILABLE UNAVAILA BLE [facility] [id number] S [id number] ANSI-Medicare Part B [id number] HU[employer]NA GOLD PLUS -O/P [id number] 18 [id number] HU[employer]NA GOLD [id number] SP [id number] HU[employer]NA GOLD CLASSIC [id number] S [id number] [employer]NA GOLD PLUS -PHYSICIAN [id number] 1 8 [id number] MEDICARE V[place] [id number] S [id number] HUMANA HEA [id number] S [id number] MEDICARE COMPLETE [id number] SP [id number] HU[employer]NA GOLD [id number] SP [id number] [facility] MEDICARE [id number] S [id number] [facility] MEDICARE [id number] S [id number] [facility] MEDICARE DIVISION [id number] S [id number] MEDICARE - [place] [id number] S [id number] [employer] CHOICE CARE CLAIMS -PHYSICIAN [id number] 1 8 [id number] [employer] CHOICE CARE CLAIMS -CLINIC [id number] MEDICARE COMPLETE [id number] SP [id number] [facility] [place] [place] [id number] 18 [id number] [facility] [place] [id number] 18 [id number] [facility] [place] [id number] 18 [id number] [facility] [place] [place] [id number] 18 [id number] [facility] [place] [id number] 18 [id number] MEDICARE COMPLETE-UHC O [id number] S [id number] [facility] MEDICARE [id number] S [id number] Problems, Conditions, and Diagnoses Code Display Name Description Problem Type Effective Dates Data Source(s) I10 Essential (primary) hypertension Essential (primary) h ypertension Diagnosis 07/13/2021 01:03:00 PM EDT [facility] Z1152 ENCOUNTER FOR SCREENING FOR COVID-19 ENCOUNTER F OR SCREENING FOR COVID-19 Diagnosis 07/13/2021 01:03:00 PM EDT [facility] B974 Respiratory syncytial virus as the cause of diseases classified elsewhere Respiratory syncytial virus as the cause of diseases classified elsewhere Diagnosis 07/13/2021 01:03:00 PM EDT [facility] J069 Acute upper respiratory infection, unspe cified Acute upper respiratory infection, unspecified Diagnosis 07/13/2021 01:03:00 PM EDT [facility] [id number] Other snf (current) drug therapy 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 Diagnosis 04/23/2021 10:39:00 AM [facility] C641 Malignant neoplasm of right kidney, exce pt renal pelvis Malignant neoplasm of right kidney, except renal pelvis Diagnosis 04/23/2021 10:39:00 AM T [facility] G4733 Obstructive sleep apnea (adult) (pediatr ic) Obstructive sleep apnea (adult) (pediatric) Diagnosis 04/23/2021 10:39:00 AM T [facility] R911 Solitary pulmonary nodule Solitary pulmonary nodule Di agnosis 04/23/2021 10:39:00 AM T [facility] K219 Gastro-esophageal reflux disease without esophagitis Gastro-esophageal reflux disease without esophagitis Diagnosis 04/23/2021 10:39:00 AM ED [facility] E7800 Pure hypercholesterolemia, unspecified P ure hypercholesterolemia, unspecified Diagnosis 04/23/2021 10:39:00 AM [facility] E1165 Type 2 diabetes mellitus with hyperglyce lisbeth Type 2 diabetes mellitus with hyperglycemia Diagnosis 04/23/2021 10:39:00 AM [facility] Z125 Encounter for screening for malignant ne oplasm of prostate Encounter for screening for malignant neoplasm of prostate Diagnosis 08:02:00 AM [facility] E60241 Neoplasm of unspecified behavior of righ t kidney Neoplasm of unspecified behavior of right kidney Diagnosis 03/26/2021 12:31:00 PM [facility] R7989 Other specified abnormal findings of blo od chemistry Other specified abnormal findings of blood chemistry Diagnosis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 Is patient fasting? N Sgot/Ast 16 U/L 5-40 [facility] ([facility]) Is patient fasting? N SGPT/Alt 12 U/L 7-56 [facility] ([facility]) Is patient fasting? N Anion Gap 12.0 mmol/L 8.0-16.0 [facility] ([facility]) Is patient fasting? N Age 60 yrs [facility] ([facility]) Is patient fasting? N Non-Aa GFR 34 mL/min [facility] ([facility]) Is patient fasting? N Afr Amer GFR 42 mL/min [facility] ([facility]) Is patient fasting? N ID Date Data Source [id number] 04/22/2021 08:41:00 AM EDT [facility] ([facility]) Name Value Range Interpretation Code Description Data Jaylyn rce(s) Supporting Document(s) Thyrotropin [Units/volume] in Serum or Plasma 0.57 uIU/mL 0.47-5.01 [facility] ([facility]) Is patient fasting? Y Prostate specific Ag [Mass/volume] in Serum or Plasma 1.05 ng/mL 0.00 -4.00 [facility] ([facility]) Is patient fasting? Y ID Date Data Source [id number] 04/22/2021 08:41:00 AM EDT [facility] ([facility]) Name Value Range Interpretation Code Description Data Jaylyn rce(s) Supporting Document(s) Cve Panel Laboratory test result [facility] ([facility]) Is patient fasting? Y Triglycerides 328 mg/dL 35-160 Above high normal [facility] ([facility]) Is patient fasting? Y Cholesterol 208 mg/dL 131-200 Above high normal [facility] ([facility]) Is patient fasting? Y HDL 42 mg/dL 29-86 [facility] ([facility]) Is patient fasting? Y LDL 123 mg/dL 65-175 [facility] ([facility]) Is patient fasting? Y Risk Factor 5.0 3.4-4.9 Above high normal [facility] ([facility]) Is patient fasting? Y LDL/HDL 2.93 1.00-3.55 [facility] ([facility]) Is patient fasting? Y ID Date Data Source [id number] 04/22/2021 08:41:00 AM EDT [facility] ([facility]) Name Value Range Interpretation Code Description Data Jaylyn rce(s) Supporting Document(s) Hemoglobin A1c/Hemoglobin.total in Blood 6.0 % 4.4-6.1 [facility] ([facility]) Is patient fasting? Y ID Date Data Source [id number] 04/22/2021 08:41:00 AM EDT [facility] ([facility]) Name Value Range Interpretation Code Description Data Jaylyn rce(s) Supporting Document(s) Comprehensive [employer] Laboratory test result [facility] ([facility]) Is patient fasting? Y Sodium 138 meq/L 134-153 [facility] ([facility]) Is patient fasting? Y Potassium 4.5 meq/L 3.6-5.0 [facility] ([facility]) Is patient fasting? Y Chloride 104 meq/L 98-107 [facility] ([facility]) Is patient fasting? Y Co2 21 meq/L 22-30 Below low normal [facility] ([facility]) Is patient fasting? Y Glucose 134 mg/dL 70-99 Above high normal [facility] ([facility]) Is patient fasting? Y BUN 31 mg/dL 7-21 Above high normal [facility] ([facility]) Is patient fasting? Y Creatinine 2.1 mg/dL 0.7-1.5 Above high normal [facility] ([facility]) Is patient fasting? Y BUN/Creat 15 8-27 [facility] ([facility]) Is patient fasting? Y Total Protein 7.7 g/dL 6.3-8.2 [facility] ([facility]) Is patient fasting? Y Albumin 4.9 g/dL 3.9-5.0 [facility] ([facility]) Is patient fasting? Y Globulin 2.8 GM/DL 2.4-3.2 [facility] ([facility]) Is patient fasting? Y A/G Ratio 1.8 0.8-2.0 [facility] ([facility]) Is patient fasting? Y Calcium 10.4 mg/dL 8.4-10.2 Above high normal [facility] ([facility]) Is patient fasting? Y Total Bili Laboratory test result 0.2-1.3 [facility] ([facility]) Is patient fasting? Y Sgot/Ast 15 U/L 5-40 [facility] ([facility]) Is patient fasting? Y Alkaline Phos 66 U/L 38-126 [facility] ([facility]) Is patient fasting? Y SGPT/Alt 11 U/L 7-56 [facility] ([facility]) Is patient fasting? Y Anion Gap 13.0 mmol/L 8.0-16.0 [facility] ([facility]) Is patient fasting? Y Age 60 yrs [facility] ([facility]) Is patient fasting? Y Non-Aa GFR 34 mL/min [facility] ([facility]) Is patient fasting? Y Afr Amer GFR 42 mL/min [facility] ([facility]) Is patient fasting? Y ID Date Data Source [id number] 04/22/2021 08:41:00 AM EDT [facility] ([facility]) Name Value Range Interpretation Code Description Data Jaylyn rce(s) Supporting Document(s) CBC W/Automated Diff Laboratory test result [facility] ([facility]) Is patient fasting? Y WBC 8.2 10^3/uL 4.2-11.0 [facility] ([facility]) Is patient fasting? Y RBC 4.95 10^6/uL 4.50-6.30 [facility] ([facility]) Is patient fasting? Y Hemoglobin 15.0 g/dL 14.0-16.0 [facility] ([facility]) Is patient fasting? Y MCV 92.5 fL 80.0-94.0 [facility] ([facility]) Is patient fasting? Y Hematocrit 45.8 % 41.0-51.0 [facility] ([facility]) Is patient fasting? Y MCH 30.3 pg 27.0-34.0 [facility] ([facility]) Is patient fasting? Y MCHC 32.8 g/dL 31.0-36.0 [facility] ([facility]) Is patient fasting? Y RDW 13.7 % 11.5-14.8 [facility] ([facility]) Is patient fasting? Y MPV 10.8 fL 7.4-10.4 Above high normal [facility] ([facility]) Is patient fasting? Y Platelets 257 10^3/uL 150-450 [facility] ([facility]) Is patient fasting? Y Neut 68.1 % 37.0-80.0 [facility] ([facility]) Is patient fasting? Y [place] 8.3 % 3.0-8.0 Above high normal [facility] ([facility]) Is patient fasting? Y Lymph 18.6 % 25.0-40.0 Below low normal [facility] ( [facility]) Is patient fasting? Y Eos 2.8 % 0.0-7.0 [facility] ([facility]) Is patient fasting? Y Baso 1.8 % 0.0-2.0 [facility] ([facility]) Is patient fasting? Y %Ig 0.4 % 0.0-0.0 Above high normal [facility] ([facility]) Is patient fasting? Y %NRBC 0.0 % 0.0-0.0 [facility] ([facility]) Is patient fasting? Y #Neut 5.57 10^3/uL 2.00-6.90 [facility] ([facility]) Is patient fasting? Y #Lymph 1.52 10^3/uL 0.60-3.40 [facility] ([facility]) Is patient fasting? Y #[place] 0.68 10^3/uL 0.00-0.90 [facility] ([facility]) Is patient fasting? Y #Eos 0.23 10^3/uL 0.00-0.70 [facility] ([facility]) Is patient fasting? Y #Baso 0.15 10^3/uL 0.00-0.20 [facility] ([facility]) Is patient fasting? Y #Ig 0.03 10^3/uL 0.00-0.10 [facility] ([facility]) Is patient fasting? Y #NRBC 0.00 10^3/uL 0.00-0.00 [facility] ([facility]) Is patient fasting? Y Manual Diff Laboratory test result [facility] ([facility]) Is patient fasting? Y RBC Morph Laboratory test result [facility] ([facility]) Is patient fasting? Y ID Date Data Source [id number] 04/22/2021 06:45:00 PM EDT [facility] Name Value Range Interpretation Code Description Data Jaylyn rce(s) Supporting Document(s) CVE PANEL [facility] al LIPID PANEL Cholesterol [Mass/volume] in Serum or Plasma 208 MG/DL 131 - 200 H [facility] Deprecated Triglyceride [Mass/volume] in Serum or Plasma 328 MG/DL 3 5 - 160 H [facility] HDL 42 MG/DL 29 - 86 [facility] al Cholesterol in LDL [Mass/volume] in Serum or Plasma by Direc t assay 123 mg/dL 65 - 175 [facility] Cholesterol.total/Cholesterol in HDL [Mass Ratio] in Serum o r Plasma 5.0 3.4 - 4.9 H [facility] LDL/HDL 2.93 1.00 - 3.55 [facility] ital CVE RISK CHOL/HDL LDL/HDLMEN: 1/2 AVERAGE 3.43 1.00 AVERAGE 4.97 3.55 2X AVERAGE 9.55 6.25 3X AVERAGE 23.99 7.99WOMEN: 1/2 AVERAGE 3.27 1.47 AVERAGE 4.44 3.22 2X AVERAGE 7.05 5.03 3X AVERAGE 11.04 6.14 ID Date Data Source [id number] 04/22/2021 06:45:00 PM EDT [facility] Name Value Range Interpretation Code Description Data Jaylyn rce(s) Supporting Document(s) COMPREHENSIVE METABOLIC PANEL [facility] COMPREHENSIVE METABOLIC PANEL Sodium [Moles/volume] in Serum or Plasma 138 mEq/L 134 - 153 [facility] Potassium [Moles/volume] in Serum or Plasma 4.5 mEq/L 3.6 - 5.0 [facility] Chloride [Moles/volume] in Serum or Plasma 104 mEq/L 98 - 107 [facility] Carbon dioxide, total [Moles/volume] in Serum or Plasma 21 MEQ/L 22 - 30 L [facility] Glucose [Mass/volume] in Serum or Plasma 134 MG/DL 70 - 99 H [facility] BUN 31 MG/DL 7 - 21 H [facility] al Creatinine [Mass/volume] in Serum or Plasma 2.1 MG/DL 0.7 - 1.5 H [facility] BUN/CREAT 15 8 - 27 [facility] al Protein [Mass/volume] in Serum or Plasma 7.7 G/DL 6.3 - 8.2 [facility] Albumin [Mass/volume] in Serum or Plasma 4.9 G/DL 3.9 - 5.0 [facility] Globulin [Mass/volume] in Serum by calculation 2.8 GM/DL 2.4 - 3.2 [facility] A/G RATIO 1.8 0.8 - 2.0 [facility] Calcium [Mass/volume] in Serum or Plasma 10.4 MG/DL 8.4 - 10.2 H [facility] Bilirubin.total [Mass/volume] in Serum or Plasma <0.7 MG/DL 0.2 - 1.3 [facility] Alkaline phosphatase [Enzymatic activity/volume] in Serum or Plasma 66 U/L 38 - 126 [facility] Aspartate aminotransferase [Enzymatic activity/volume] in Serum or Plasma 15 U/L 5 - 40 [facility] Alanine aminotransferase [Enzymatic activity/volume] in Seru m or Plasma 11 U/L 7 - 56 [facility] Anion gap 3 in Serum or Plasma 13.0 mmol/L 8.0 - 16.0 [facility] AGE 60 yrs [facility] 34 mL/min [facility] AFR AMER GFR 42 mL/min [facility] Male GFR In terprentation 20-49 yrs >60 mL/min Normal 50-59 yrs >56 mL/min Normal 60-69 yrs >49 mL/min Normal 70-79yrs >42 mL/min Normal 80 and above >35 mL/min Normal Female GFR Interpretation 20-39 yrs >60 mL/min Normal 40-49 yrs >58 mL/min Normal 50-59 yrs >51 mL/min Normal 60-69 yrs >45 mL/min Normal 70-79 yrs >39 mL/min Normal 80 and above >32 mL/min Normal ID Date Data Source [id number] 04/22/2021 06:24:00 PM EDT [facility] Name Value Range Interpretation Code Description Data Jaylyn rce(s) Supporting Document(s) Thyrotropin [Units/volume] in Serum or Plasma by Detec tion limit <= 0.05 mIU/L 0.57 uIU/mL 0.47 - 5.01 [facility] ID Date Data Source [id number] 04/22/2021 06:24:00 PM EDT [facility] Name Value Range Interpretation Code Description Data Jaylyn rce(s) Supporting Document(s) Prostate specific Ag [Mass/volume] in Serum or Plasma 1.05 ng/mL 0.00 - 4.00 [facility] \\BLDo\\PSA INTERPRETA TION\\BLDx\\ The PSA assay should not be used alone for a screening test or diagnosis for presence or absence of malignant disease. Predictions of disease recurrence should not be based solely on values obtained from serial patient serum values. The PSA result was determined by "[employer]", on the [employer] KATHERINE 6000. Values obtained with different assay methods or kits cannot be used interchangeably. ID Date Data Source [id number] 04/22/2021 05:59:00 PM EDT [facility] Name Value Range Interpretation Code Description Data Jaylyn rce(s) Supporting Document(s) Hemoglobin A1c/Hemoglobin.total in Blood 6.0 % 4.4 - 6.1 [facility] {A1]{HB] ID Date Data Source [id number] 04/22/2021 05:45:00 PM EDT [facility] Name Value Range Interpretation Code Description Data Jaylyn rce(s) Supporting Document(s) CBC W/AUTOMATED DIFF [facility] COMPLETE BLOOD COUNT Leukocytes [#/volume] in Blood by Automated count 8.2 10^3/uL 4.2 - 1 1.0 [facility] Erythrocytes [#/volume] in Blood by Automated count 4.95 10^6/uL 4. 50 - 6.30 [facility] Hemoglobin [Mass/volume] in Blood 15.0 g/dL 14.0 - 16.0 [facility] Hematocrit [Volume Fraction] of Blood by Automated count 45.8 % 4 1.0 - 51.0 [facility] Erythrocyte mean corpuscular volume [Entitic volume] by Auto mated count 92.5 fL 80.0 - 94.0 [facility] Erythrocyte mean corpuscular hemoglobin [Entitic mass] by Automated count 30.3 pg 27.0 - 34.0 [facility] Erythrocyte mean corpuscular hemoglobin concentration [Mass/volume] by Automated count 32.8 g/dL 31.0 - 36.0 [facility] Erythrocyte distribution width [Ratio] by Automated count 13.7 % 11.5 - 14.8 [facility] Platelets [#/volume] in Blood by Automated count 257 10^3/uL 150 - 45 0 [facility] Platelet mean volume [Entitic volume] in Blood by Automated count 10.8 fL 7.4 - 10.4 H [facility] Neutrophils/100 leukocytes in Blood by Automated count 68.1 % 37. 0 - 80.0 [facility] Lymphocytes/100 leukocytes in Blood by Manual count 18.6 % 25.0 - 40.0 L [facility] Monocytes/100 leukocytes in Blood by Automated count 8.3 % 3.0 - 8.0 H [facility] Eosinophils/100 leukocytes in Blood by Automated count 2.8 % 0.0 - 7.0 [facility] Basophils/100 leukocytes in Blood by Automated count 1.8 % 0.0 - 2.0 [facility] %IG 0.4 % 0.0 - 0.0 [facility] %NRBC 0.0 % 0.0 - 0.0 [facility] al Neutrophils [#/volume] in Blood by Automated count 5.57 10^3/uL 2.00 - 6.90 [facility] Lymphocytes [#/volume] in Blood by Automated count 1.52 10^3/uL 0.60 - 3.40 [facility] Monocytes [#/volume] in Blood by Automated count 0.68 10^3/uL 0.00 - 0.90 [facility] Eosinophils [#/volume] in Blood by Automated count 0.23 10^3/uL 0.00 - 0.70 [facility] Basophils [#/volume] in Blood by Automated count 0.15 10^3/uL 0.00 - 0.20 [facility] #IG 0.03 10^3/uL 0.00 - 0.10 [facility] #NRBC 0.00 10^3/uL 0.00 - 0.00 [facility] MANUAL DIFF NOT INDICATED [facility] RBC MORPH NOT INDICATED [facility] ID Date Data Source [id number] 04/15/2021 02:48:00 PM EDT [facility] ([facility] Name Value Range Interpretation Code Description Data Jaylyn rce(s) Supporting Document(s) Creatinine [Mass/volume] in Serum or Plasma 2.66 mg/dL 0.72-1.25 [facility] ([facility]) Glucose [Mass/volume] in Serum or Plasma 64.0 mg/dL 70.0-99.0 [facility] ([facility]) Carbon dioxide, total [Moles/volume] in Serum or Plasma 21.0 mmol/L 22.0-31.0 [facility] ([facility]) Calcium [Mass/volume] in Serum or Plasma 10.1 mg/dL 8.4-10.2 [facility] ([facility]) Urea nitrogen [Mass/volume] in Serum or Plasma 35.0 mg/dL 7.0-24.0 [facility] ([facility]) Sodium [Moles/volume] in Serum or Plasma 140.0 mmol/L 136.0-145.0 [facility] ([facility]) BUN/Creat Ratio 13.2 [facility] ([facility]) Anion gap in Serum or Plasma 16.2 [facility] ([facility]) K 4.2 mmol/L 3.6-5.2 [facility] ([facility]) Chloride [Moles/volume] in Serum or Plasma 107.0 mmol/L 98.0-107.0 [facility] ([facility]) eGFR - Descent 29.0 [facility] ([facility]) eGFR -- Non- Descent 23.9 [facility] ([facility]) ID Date Data Source [id number] 04/15/2021 02:25:00 PM EDT [facility] ([facility] Name Value Range Interpretation Code Description Data Jaylyn rce(s) Supporting Document(s) Glucose [Presence] in Urine Laboratory test result [facility] ([facility]) Protein [Presence] in Urine by Test strip Laboratory test result [facility] ([facility]) Ua Nitrite Laboratory test result [facility] ([facility]) Ua Leuko Laboratory test result [facility] ([facility]) Blood [Presence] in Urine by Visual Laboratory test result [facility] ([facility]) Color of Urine Laboratory test result [facility] ([facility]) Clarity of Urine Laboratory test result [facility] ([facility]) Ketones [Presence] in Urine by Test strip Laboratory test result [facility] ([facility]) Bilirubin.total [Presence] in Urine by Test strip Laboratory test res ult [facility] ([facility]) pH of Urine by Test strip 5.5 5.0-7.5 [facility] ([facility]) Ua Specific [place] 1.010 1.003-1.030 [facility] ([facility]) Urobilinogen [Mass/volume] in Urine by Test strip 0.2 E.U./dL 0.0-1.0 [facility] [facility] ID Date Data Source [id number] 03/31/2021 07:50:59 AM EDT [facility] Name Value Range Interpretation Code Description Data Jaylyn rce(s) Supporting Document(s) SODIUM 141 mmol/L (136-145) [facility] POTASSIUM 3.2 mmol/L (3.6-5.2) L [facility] CHLORIDE 108 mmol/L (100-108) [facility] CO2 22 mmol/L (22-31) [facility] ANION GAP 11 mmol/L (7-16) [facility] UREA NITROGEN 12 mg/dL (7-24) [facility] CREATININE 1.74 mg/dL (0.80-1.30) H [facility] BUN/CREAT RATIO 6.9 RATIO (10.0-20.0) L [facility] GLUCOSE 147 mg/dL (70-99) H [facility] CALCIUM 7.8 mg/dL (8.4-10.2) L [facility] GFR 40 ml/min/1.73m2 (>59) L [facility] GFR ( AMER) 49 ml/min/1.73m2 (>59) L [facility] GFR INTERPRETATION [facility] --NORMAL KIDNEY FUNCTION OR MILD DISEASE - GFR >OR= 60CHRONIC KIDNEY DISEASE - GFR 15 - 59RENAL FAILURE - GFR <15 Est. GFR calculation based on the MDRDstudy equation, which assumes a steadystate for creatinine. Est. GFR should notbe used for medication dosing. ID Date Data Source [id number] 03/31/2021 07:20:52 AM EDT [facility] Name Value Range Interpretation Code Description Data Jaylyn rce(s) Supporting Document(s) WBC 9.5 10*3/uL (4.1-11.0) [facility] RBC 4.64 10*6/uL (4.60-6.10) [facility] HGB 14.1 g/dL (13.5-18.0) [facility] HCT 42.1 % (41.0-53.0) [facility] MCV 90.9 fL (80.0-95.0) [facility] MCH 30.4 pg (27.0-32.0) [facility] MCHC 33.5 g/dL (32.0-36.0) [facility] RDW 13.9 % (10.5-14.5) [facility] PLT 168 10*3/uL (150-450) [facility] MPV 8.2 fL (7.1-10.7) [facility] ID Date Data Source [id number] 03/30/2021 10:03:16 PM EDT [facility] Name Value Range Interpretation Code Description Data Jaylyn rce(s) Supporting Document(s) POC GLUCOSE 141 mg/dL (70-99) H [facility] NOTIFIED NURSEPERFORMED BY CLINICAL S TAFF ID Date Data Source [id number] 03/30/2021 12:16:00 PM EDT [facility] Name Value Range Interpretation Code Description Data Jaylyn rce(s) Supporting Document(s) Surgical pathology study Laboratory test result [facility] ([facility]) [facility] [address] [place] [address] SURGICAL PATHOLOGY REPORT Patient Name:ROSA CADET :1960 [...] found. The adrenal gland is not present. Triage Clinician sections are submitted for microscopic examination as [...] R - random, mid. (12 blocks) [facility] Reported: 04/01/2021 Electronically Signed Out By John Joseph MD [facility] [place] [address] Technical component performed at [facility], [facility], Histopathology, [address] [place] [address], [phone]. Reported at [facility], [address] [place] [address], Formerly [facility], later [facility]. This report may include immunohistochemical or in-situ hybridization results. Testing was developed and the performance characteristics determined by [facility], as required by CLIA '88. The FDA has determined that approval for specific use is not necessary for clinical use. The quality of Hematoxylin and Eosin stains and as applicable, for all immunohistochemical and/or special stains, including positive and negative controls, were reviewed and considered appropriate. ICD codes: C64.1 CPT4 codes: A: 52672L B: 76048W ID Date Data Source [id number] 04/01/2021 07:01:49 PM EDT [place], [place] [address]Tel# SURGICAL PATHOLOGY REPORTPatient Name:ROSA CADET:1960Received:03/30/2021ccession #:[id number](s) Received: A: Right renal hilar tissueB: Right kidneyClinical Diagnosis and History: Enhancing solid mass in the lower pole of the right kidney, 6.0 x 4.1 cm.DIAGNOSIS:A) RIGHT RENAL HILAR TISSUE, EXCISION - ADIPOSE TISSUE WITH ONE LYMPH NODE, NEGATIVE FOR MALIGNANCY (0/1).B) RIGHT KIDNEY, RADICAL NEPHRECTOMY - CLEAR CELL [...] formalin labeled "right renal hilar tissue" is anirregular cauterized portion of yellow to brown soft tissue measuring 2.5x 2.0 x 1.0 cm. There is a moderate to abundant amount of cauteryartifact. The cut surface is yellow, glistening, lobulated adiposetissue. No identifiable structures are found grossly. The specimen issectioned and entirely submitted for microscopic examination. (1 block) Specimen B received in formalin labeled "right kidney" is a right radicalnephrectomy weighing 880 gm. There is an abundant amount of attachedperinephric fat and along the superior pole a portion of the perinephricfat is torn. The specimen measures 20 cm from superior to inferior, 15 cmfrom medial to lateral and 8 cm from anterior to deep. There is Gerota'sfascia along the anterior to superior portion that is unremarkable,machado- velasco and measures 8.0 x 3.5 cm. There are two ureters identified. The first ureter is associated with the superior pole, measures 8 cm fromthe hilum, 0.5 cm in length and the mucosa is glistening, striated,machado-velasco. The second ureter is located 1.5 cm lateral to the first,measures 4 cm in length from the hilum, 0.5 cm in diameter and has aglistening, striated, machado-velasco mucosal surface. The second is associatedwith the mid to inferior portion of the kidney. There is one renal veinand one renal artery both measuring 0.5 cm in length from the hilum andthe renal vein mucosa is smooth, glistening, velasco. There is minimalatherosclerosis of the renal artery. Located in the inferior pole of thekidney, toward the superficial aspect, is a cystic tumor measuring 5.0 x4.5 cm. The tumor is mottled, orange-yellow to machado-red and possiblyinvolves the r enal sinus grossly. Portions of the tumor are encapsulated,extend toward the hilar adipose tissue, inferior parenchyma andsuperficial parenchyma, however, the tumor is still confined to thekidney. The tumor compress the second/inferior ureter and comes to within3.7 cm of the renal vein margin. There is minimal necrosis found withinthe tumor. The inferior renal pelvis is glistening, machado-pink and thesurrounding uninvolved parenchyma is machado-pink with a well demarcatedcorticomedullary junction averaging 0.9 cm in greatest dimension. Therenal parenchyma associated with each pelvis is homogeneous, red- brown andappears to coalesce in the mid portion. The cut surface of the superiorrenal pelvis is slightly misshapen, however, no additional anomalies arefound. There are no hilar lymph nodes found. The adrenal gland is notpresent. Triage Clinician sections are submitted for microscopicexamination as follows: UM - superior ureter margin; VM - vascularmargin; UM2 - inferior ureter margin; T - tumor (4 - tumor to inferiorpelvis, 5,6 - tumor to sinus fat, 7 - tumor to superficial perpendicular,8 - tumor to lateral, 9 - tumor to medial/hilar tissue); SP - superiorpelvis; IP - inferior pelvis; R - random, mid. (12 blocks) keri/mecReported: 04/01/2021Electronically Signed Out By John Joseph MD [facility] [place], [place] [address]Technical component performed at [facility], Histopathology, [address] [place] [address], [phone].Reported at [facility], [address] [place] [address], [phone].This report may include immunohistochemical or in-situ hybridizationresults. Testing was developed and the performance characteristicsdetermined by [facility], as required byCLIA '88. The FDA has determined that approval for specific use is notnecessary for clinical use. The quality of Hematoxylin and Eosin stainsand as applicable, for all immunohistochemical and/or special stains,including positive and negative controls, were reviewed and consideredappropriate.ICD codes: C64.1CPT4 codes: A: 00233LP: 57215C Name Value Range Interpretation Code Description Data Jaylyn rce(s) Supporting Document(s) ID Date Data Source [id number] 03/31/2021 06:41:00 AM EDT [place], [place] [address]PATIENT NAME: KERLINE EDWINDATE OF : 1960REPORT: OPERATIONPATIENT NUMBER: [id number] STATUS: IPMEDICAL RECORD NUMBER: [id number] ADMISSION: 03/30/2021ATE OF DISCHARGE:ROOM: DATE OF PROCEDURE: 03/30/2021REOPERATIVE DIAGNOSIS: Right renal mass.POSTOPERATIVE DIAGNOSIS: Right renal mass.PROCEDURE PERFORMED: Right robotic-assisted laparoscopic radicalnephrectomy.SURGEON: Bebe Toth MDASSISTANT: FILEMON ValentinTHESIA: General.DRAINS: 10 mm Alhaji- Myers.COMPLICATIONS: None.INDICATION FOR OPERATION: Mr. Cadet is a 60-year-old gentleman, recentlyfound to have a 6 cm enhancing mass of the right lower pole of the kidneywhich is highly worrisome for potential malignancy. He presents today fora right robotic radical nephrectomy.DESCRIPTION OF PROCEDURE: After adequate induction of general anesthesia,a 16-Martiniquais Erazo catheter was placed into the bladder. The patient wasthen prepped and draped in usual sterile fashion in the left lateraldecubitus position. All pressure points were carefully padded. Initially,a stab incision was made in the mid epigastrium and the Veress needleplaced into the peritoneal cavity. The peritoneal cavity was insufflatedto 15 mmHg without difficulty. An 8 mm trocar port was placed just to theright of the umbilicus. The 30-degree angle downward angled lens was thenplaced into the patient's abdomen, which was carefully inspectedsystematically. No significant abnormalities were seen. Two da Vincip orts were placed in the right lower quadrant, another in the right upperquadrant, a 12-mm assistant kitchen manager port in the right lower quadrant, and finally a5-mm assistant kitchen manager port in a subxiphoid position. The da Evie robot was thendocked in a standard fashion.The colon was initially mobilized in the medial to psoas to expose Gerota'sfascia over the entire kidney. Adhesions of the liver were incised and theliver was retracted cephalad. The duodenum was then Kocherized andultimately the vena cava was exposed. The tissue just lateral to the venacava was dissected down and the main renal vein was encountered in theusual and expected location. The gonadal vein was similarly identified andit was ligated and transected. Dissection was then carried posteriorly. Ultimately, with careful and tedious dissection, the left main renal veinand artery were individually exposed and isolated. The artery was thenquadruply ligated using Weck locking hemoclips and transected. The mainrenal vein was then ligated using number 1 silk tie and multiple Wecklocking hemoclips were placed as well. The vein was transected. Dissection was then carried posteriorly. The ureter was identified,isolated, and transected after being hemoclipped. Dissection was thencarried superiorly. The adrenal was left in situ and Gerota's fasciaincised so as to allow dissection of the upper pole. Ultimately, theentire kidney was freed up.At this point, the da Evie robot was undocked. One of the right lowerquadrant incision was extended to approximately 7 cm. The fulling machine operator's handwas then placed into the abdomen and the specimen was removed and sent forpermanent section. Hemostasis was reconfirmed. The abdominal fascia wasclosed with a number 2 Ti-Cron suture in a running fashion and finally theskin edges were reapproximated using skin domi after copious irrigationof the wound. Sterile dressings were applied. A Alhaji-Myers drain whichhad been placed after removal of the specimen was secured with 2-0 nylon. The patient tolerated the procedure well and there were no intraoperativecomplications. Estimated blood loss was 200 mL. The patient was taken tothe recovery room in stable condition.DICTATED BY: Bebe Toth, MDDictated: 03/30/2021 12:00DT: 03/30/2021 12:03Job #: [id number]: [facility] computer generated reports are not confirmed orauthenticated unless they are signed by the providerElectronically Authenticated by:BEBE TOTH MD On 03/31/2021 06:41 AM EDT Name Value Range Interpretation Code Description Data Jaylyn rce(s) Supporting Document(s) ID Date Data Source [id number] 04/03/2021 12:24:04 AM EDT [facility] SPE[facility] EXP DATE 04/02/2021ATI ENT ABO/Rh O POSITIVEANTIBODY SCREEN NEGATIVETESTING SITE PERFORMED AT [address] [place], [place] [address]UNIT NUMBER [id number] COMPONENT TYPE LEUKOPOOR RED CELLS (PT B)UNIT DIVISION 00STATUS OF UNIT REL FROM ALLOCTRANSFUSION STATUS OK TO TRANSFUSECROSSMATCH RESULT COMPATIBLEUNIT NUMBER [id number] COMPONENT TYPE LEUKOPOOR RED CELLS (PT B)UNIT DIVISION 00STATUS OF UNIT REL FROM ALLOCTRANSFUSION STATUS OK TO TRANSFUSECROSSMATCH RESULT COMPATIBLE Name Value Range Interpretation Code Description Data Jaylyn rce(s) Supporting Document(s) TYPE AND SCREEN [facility] PATIENT ABO/Rh O POSITIVE ID Date Data Source [id number] 03/30/2021 06:58:49 AM EDT [facility] Name Value Range Interpretation Code Description Data Jaylyn rce(s) Supporting Document(s) SODIUM 140 mmol/L (136-145) [facility] POTASSIUM 3.7 mmol/L (3.6-5.2) [facility] CHLORIDE 106 mmol/L (100-108) [facility] CO2 24 mmol/L (22-31) [facility] ANION GAP 10 mmol/L (7-16) [facility] UREA NITROGEN 15 mg/dL (7-24) [facility] CREATININE 1.11 mg/dL (0.80-1.30) [facility] BUN/CREAT RATIO 13.5 RATIO (10.0-20.0) [facility] GLUCOSE 99 mg/dL (70-99) [facility] CALCIUM 9.3 mg/dL (8.4-10.2) [facility] TOTAL PROTEIN 7.8 g/dL (6.4-8.2) [facility] ALBUMIN 4.5 g/dL (3.2-4.5) [facility] GLOBULIN 3.3 g/dL (2.7-4.3) [facility] ALB/GLOB RATIO 1.4 RATIO [facility] ALKALINE PHOSPHATASE 51 U/L (45-117) [facility] BILIRUBIN,TOTAL 0.8 mg/dL (0.0-1.0) [facility] PLEASE NOTE:Total bilirubin results may be falselyelevated in patients taking Eltrombopag. AST (SGOT) 41 U/L (11-39) H [facility] ALT (SGPT) 43 U/L (12-78) [facility] GFR >60 ml/min/1.73m2 (>59) [facility] GFR ( AMER) >60 ml/min/1.73m2 (>59) [facility] GFR INTERPRETATION [facility] --NORMAL KIDNEY FUNCTION OR MILD DISEASE - GFR >OR= 60CHRONIC KIDNEY DISEASE - GFR 15 - 59RENAL FAILURE - GFR <15 Est. GFR calculation based on the MDRDstudy equation, which assumes a steadystate for creatinine. Est. GFR should notbe used for medication dosing. ID Date Data Source [id number] 03/30/2021 06:33:21 AM EDT [facility] Name Value Range Interpretation Code Description Data Jaylyn rce(s) Supporting Document(s) WBC 8.0 10*3/uL (4.1-11.0) [facility] RBC 5.23 10*6/uL (4.60-6.10) [facility] HGB 16.0 g/dL (13.5-18.0) [facility] HCT 47.1 % (41.0-53.0) [facility] [address] MCV 90.1 fL (80.0-95.0) [facility] MCH 30.6 pg (27.0-32.0) [facility] MCHC 34.0 g/dL (32.0-36.0) [facility] RDW 13.9 % (10.5-14.5) [facility] PLT 207 10*3/uL (150-450) [facility] MPV 7.8 fL (7.1-10.7) [facility] ID Date Data Source [id number] 03/30/2021 05:06:55 PM EDT [facility] Name Value Range Interpretation Code Description Data Jaylyn rce(s) Supporting Document(s) POC GLUCOSE 107 mg/dL (70-99) H [facility] NOTIFIED NURSEPERFORMED BY CLINICAL S TAFF ID Date Data Source [id number] 03/26/2021 12:36:00 PM EDT [facility] Name Value Range Interpretation Code Description Data Jaylyn rce(s) Supporting Document(s) CBC W/Automated Diff Laboratory test result [facility] ([facility]) COMPLETE BLOOD COUNT Hemoglobin 15.9 g/dL 14.0-16.0 [facility] WBC 7.8 10^3/uL 4.2-11.0 [facility]) RBC 5.24 10^6/uL 4.50-6.30 [facility] Hematocrit 46.5 % 41.0-51.0 [facility]) MCV 88.7 fL 80.0-94.0 [facility] MCH 30.3 pg 27.0-34.0 [facility] MCHC 34.2 g/dL 31.0-36.0 [facility] Platelets 222 10^3/uL 150-450 [facility] RDW 13.1 % 11.5-14.8 [facility] Lymph 20.2 % 25.0-40.0 [facility] Neut 68.3 % 37.0-80.0 [facility]) MPV 9.4 fL 7.4-10.4 [facility]) Eos 1.5 % 0.0-7.0 [facility]) [place] 8.7 % 3.0-8.0 [facility]) Baso 1.2 % 0.0-2.0 [facility] %Ig 0.1 % 0.0-0.0 [facility] %NRBC 0.0 % 0.0-0.0 [facility] #Neut 5.31 10^3/uL 2.00-6.90 [facility] #Lymph 1.57 10^3/uL 0.60-3.40 [facility]) #Eos 0.12 10^3/uL 0.00-0.70 [facility] #Baso 0.09 10^3/uL 0.00-0.20 [facility]) #[place] 0.68 10^3/uL 0.00-0.90 [facility]) #NRBC 0.00 10^3/uL 0.00-0.00 [facility] #Ig 0.01 10^3/uL 0.00-0.10 [facility] Manual Diff Laboratory test result M [facility] ([facility]) RBC Morph Laboratory test result [facility]) ID Date Data Source [id number] 03/26/2021 12:36:00 PM EDT [facility]) Name Value Range Interpretation Code Description Data Jaylyn rce(s) Supporting Document(s) Protime 12.0 s 11.0-15.5 [facility] Inr 0.88 0.93-1.23 [facility] PTT 28.8 s 24.8-36.7 [facility]) \\BLDo\\INR INTERPRETATION\\BLDx\\ Therapeutic range for Coumadin and related oral anticoagulants. -International Normalized Ratio (INR): 2 .0 - 3.0 for Venous Thrombosis, Pulmonary Embolus, Tissue heart valves, Acute HI Atrial Fibrillation, Valvular heart disease and recurrent Systemic Embolism. -International Normalized Ratio (INR): 2 .5 - 3.5 for Mechanical Prosthetic valve. ID Date Data Source [id number] 03/26/2021 12:36:00 PM EDT [facility]) Name Value Range Interpretation Code Description Data Jaylyn rce(s) Supporting Document(s) Sodium 141 meq/L 134-153 [facility]) Comprehensive [place] Laboratory test result [facility]) COMPREHENSIVE METABOLIC PANEL Chloride 105 meq/L 98-107 [facility]) Potassium 3.8 meq/L 3.6-5.0 [facility]) Glucose 129 mg/dL 70-99 [facility]) Co2 24 meq/L 22-30 [facility]) Creatinine 0.9 mg/dL 0.7-1.5 [facility]) BUN 15 mg/dL 7-21 [facility]) Total Protein 7.4 g/dL 6.3-8.2 [facility] BUN/Creat 17 8-27 [facility]) Globulin 2.7 GM/DL 2.4-3.2 [facility]) Albumin 4.7 g/dL 3.9-5.0 [facility]) A/G Ratio 1.7 0.8-2.0 [facility]) Total Bili Laboratory test result 0.2-1.3 [facility]) Calcium 9.8 mg/dL 8.4-10.2 [facility]) Sgot/Ast 23 U/L 5-40 [facility]) Alkaline Phos 59 U/L 38-126 [facility]) SGPT/Alt 24 U/L 7-56 [facility]) Anion Gap 12.0 mmol/L 8.0-16.0 [facility]) Age 60 yrs [facility]) Non-Aa GFR Laboratory test result [facility]) Afr Amer GFR Laboratory test result [facility]) Male GFR Interprentation 20-49 yrs >60 mL/min Normal 50-59 yrs >56 mL/min Normal 60-69 yrs >49 mL/min Normal 70-79yrs >42 mL/min Normal 80 and above >35 mL/min Normal Female GFR Interpretation 20-39 yrs >60 mL/min Normal 40-49 yrs >58 mL/min Normal 50-59 yrs >51 mL/min Normal 60-69 yrs >45 mL/min Normal 70-79 yrs >39 mL/min Normal 80 and above >32 mL/min Normal ID Date Data Source [id number] 03/26/2021 12:36:00 PM EDT [facility]) Name Value Range Interpretation Code Description Data Jaylyn rce(s) Supporting Document(s) Culture Urine Laboratory test result [facility]) _CULTURE URINE_ ^$[id number] ^^[id number] $$[id number] ^^[id number] $$[id number] $$803810 $$001209 $$147705 $$[id number] $$449722 $$695815 $$953159 $$454144 $$599509 $$570087 $$103471 $$058326 $$039356 $$988840 $$404985 $$717922 $$625210 $$237270 $$377403 $$273239 $$466257 $$591591 ^^839382 $$072498 $$842214 $$[id number] -- Continued on next page -- Patient: KERLINE Banda Order: [id number] Page 2 Culture: CULTURE URINE Status: Final -- Continued on next page -- Patient: KERLINE Banda Order: [id number] Page 2 Culture: CULTURE URINE Status: Prelim $$[id number] $$[id number] REPORTED DATE/TIME: 03/29/2021 15:05 Culture: CULTURE URINE Status: Final Urine Culture,Comprehensive: P1 No growth in 36 - 48 hours. Previous result entered on 03/28/2021 10:46 ET No growth after 18-24 hours. P1 Test performed by: [facility] Aaron REYES #: [id number] [address] [place] [id number] [facility] [address] Impregnating Helper : William He MD NPI #: Spareribs Trimmer : 03/28/[email or web address].[email or web address] REF 03/30/21.0624.XMT.SENT REF ID Date Data Source [id number] 03/26/2021 12:36:00 PM EDT [facility] Name Value Range Interpretation Code Description Data Jaylyn rce(s) Supporting Document(s) Urinalysis Laboratory test result [facility]) URINALYSIS Source Laboratory test result [facility]) Color Laboratory test result [facility]) Clarity Laboratory test result [facility]) Spec [place] 1.015 1.001-1.030 [facility] pH 6.5 5-9 [facility] Glucose 1000 Abnormal (applies to non-numeric res ults) [facility]) Bilirubin Laboratory test result [facility]) Ketone Laboratory test result [facility]) Protein 30 [facility] Nitrite Laboratory test result [facility]) Leuk Est Laboratory test result [facility] [facility]) Blood Laboratory test result [facility] ([facility]) Urobilinogen Laboratory test result [facility] ([facility]) Epithelial Laboratory test result [facility] ([facility]) Microscopic Laboratory test result [facility] ([facility]) Mucous Laboratory test result [facility] ([facility]) ID Date Data Source [id number] 03/30/2021 06:24:00 AM EDT [facility] Name Value Range Interpretation Code Description Data Jaylyn rce(s) Supporting Document(s) CULTURE URINE [facility] _CULTURE URINE_$$[id number]$$[id number]$$[id number]$$[id number]$$[id number]$$[id number]$$[id number]$$[id number]$$[id number]$$ [id number]$$[id number]$$[id number]$$[id number]$$[id number]$$[id number]$$378434$$141479$$517832$$762088$$ 547324$$214321$$151198$$545642$$047089$$[id number]$$[id number]$$[id number] -- Continued on next page --Patient: KERLINE LEE L Order: [id number] Page 2Culture: CULTURE URINE Status: Final ==== -- Continued on next page --Patient: KERLINE Banda Order: [id number] Page 2Culture: CULTURE URINE Status: Prelim =====$$[id number]$$[id number] DATE/TIME: 03/29/2021 15:05Culture: CULTURE URINE Status: FinalUrine Culture,Comprehensive: P1No growth in 36 - 48 hours. Previous result entered on 03/28/2021 10:46 ET No growth after 18-24 hours.P1 Test performed by: [facility] REYES #: [id number] [address] [place] [address] [phone] [facility] [id number] Director : William He MD NPI #:Lab Di lorenza : 03/28/21.1157.XMT.SENT REF 03/30/21.0624.XMT.SENT REF ID Date Data Source [id number] 03/26/2021 02:21:00 PM EDT [facility] Name Value Range Interpretation Code Description Data Jaylyn rce(s) Supporting Document(s) URINALYSIS [facility] URINALYSIS SOURCE [place] [facility] COLOR yellow NORMAL: Yellow [facility] CLARITY clear NORMAL: Clear [facility] Specific gravity of Urine by Test strip 1.015 1.001 - 1.030 [facility] pH 6.5 5 - 9 [facility] Glucose [Mass/volume] in Urine by Test strip 1000 NORMAL: Negat анна A [facility] Bilirubin.total [Presence] in Urine by Test strip NEG NORMAL: Negative [facility] Ketones [Presence] in Urine by Test strip NEG NORMAL: Negative [facility] Protein [Mass/volume] in Urine by Test strip 30 NORMAL: Negat анна [facility] Nitrite [Presence] in Urine by Test strip Negative NORMAL: Negative [facility] BLOOD NEG NORMAL: Negative [facility] LEUK EST NEG NORMAL: Negative [facility] Urobilinogen [Mass/volume] in Urine by Test strip NOR less zohaib n 1.0 mg/dL [facility] MICROSCOPIC See Below [facility] ital EPITHELIAL FEW NORMAL: NONE SEEN [facility] Mucus [Presence] in Urine sediment by Light microscopy Trace NORMAL: NONE SEEN [facility] ID Date Data Source [id number] 03/26/2021 01:38:00 PM EDT [facility] Name Value Range Interpretation Code Description Data Jaylyn rce(s) Supporting Document(s) COMPREHENSIVE METABOLIC PANEL [facility] COMPREHENSIVE METABOLIC PANEL Sodium [Moles/volume] in Serum or Plasma 141 mEq/L 134 - 153 [facility] Potassium [Moles/volume] in Serum or Plasma 3.8 mEq/L 3.6 - 5.0 [facility] Chloride [Moles/volume] in Serum or Plasma 105 mEq/L 98 - 107 [facility] Carbon dioxide, total [Moles/volume] in Serum or Plasma 24 MEQ/L 22 - 30 [facility] Glucose [Mass/volume] in Serum or Plasma 129 MG/DL 70 - 99 H [facility] BUN 15 MG/DL 7 - 21 [facility] al Creatinine [Mass/volume] in Serum or Plasma 0.9 MG/DL 0.7 - 1.5 [facility] BUN/CREAT 17 8 - 27 [facility] al Protein [Mass/volume] in Serum or Plasma 7.4 G/DL 6.3 - 8.2 [facility] Albumin [Mass/volume] in Serum or Plasma 4.7 G/DL 3.9 - 5.0 [facility] Globulin [Mass/volume] in Serum by calculation 2.7 GM/DL 2.4 - 3.2 [facility] A/G RATIO 1.7 0.8 - 2.0 [facility] Calcium [Mass/volume] in Serum or Plasma 9.8 MG/DL 8.4 - 10.2 [facility] Bilirubin.total [Mass/volume] in Serum or Plasma <0.7 MG/DL 0.2 - 1.3 [facility] Alkaline phosphatase [Enzymatic activity/volume] in Serum or Plasma 59 U/L 38 - 126 [facility] Aspartate aminotransferase [Enzymatic activity/volume] in Serum or Plasma 23 U/L 5 - 40 [facility] Alanine aminotransferase [Enzymatic activity/volume] in Seru m or Plasma 24 U/L 7 - 56 [facility] Anion gap 3 in Serum or Plasma 12.0 mmol/L 8.0 - 16.0 [facility] AGE 60 yrs [facility] al NON-AA GFR >60 mL/min [facility] ital AFR AMER GFR >60 mL/min [facility] Male GFR In terprentation 20-49 yrs >60 mL/min Normal 50-59 yrs >56 mL/min Normal 60-69 yrs >49 mL/min Normal 70-79yrs >42 mL/min Normal 80 and above >35 mL/min Normal Female GFR Interpretation 20-39 yrs >60 mL/min Normal 40-49 yrs >58 mL/min Normal 50-59 yrs >51 mL/min Normal 60-69 yrs >45 mL/min Normal 70-79 yrs >39 mL/min Normal 80 and above >32 mL/min Normal ID Date Data Source [id number] 03/26/2021 01:09:00 PM EDT [facility] Name Value Range Interpretation Code Description Data Jaylyn rce(s) Supporting Document(s) Prothrombin time (PT) 12.0 SECONDS 11.0 - 15.5 [facility] INR in Platelet poor plasma by Coagulation assay 0.88 0.93 - 1. 23 L [facility] aPTT in Blood by Coagulation assay 28.8 SECONDS 24.8 - 36.7 [facility] \\BLDo\\INR INTERPRETATION\\BLDx\\ Therapeutic range for Coumadin and related oral anticoagulants. - International Normalized Ratio (INR): 2.0 - 3.0 for Venous Thrombosis, Pulmonary Embolus, Tissue heart valves, Acute HI Atrial Fibrillation, Valvular heart disease and recurrent Systemic Embolism. - International Normalized Ratio (INR): 2.5 - 3.5 for Mechanical Prosthetic valve. ID Date Data Source [id number] 03/26/2021 12:57:00 PM EDT [facility] Name Value Range Interpretation Code Description Data Jaylyn rce(s) Supporting Document(s) CBC W/AUTOMATED DIFF [facility] COMPLETE BLOOD COUNT Leukocytes [#/volume] in Blood by Automated count 7.8 10^3/uL 4.2 - 1 1.0 [facility] Erythrocytes [#/volume] in Blood by Automated count 5.24 10^6/uL 4. 50 - 6.30 [facility] Hemoglobin [Mass/volume] in Blood 15.9 g/dL 14.0 - 16.0 [facility] Hematocrit [Volume Fraction] of Blood by Automated count 46.5 % 4 1.0 - 51.0 [facility] Erythrocyte mean corpuscular volume [Entitic volume] by Auto mated count 88.7 fL 80.0 - 94.0 [facility] Erythrocyte mean corpuscular hemoglobin [Entitic mass] by Automated count 30.3 pg 27.0 - 34.0 [facility] Erythrocyte mean corpuscular hemoglobin concentration [Mass/volume] by Automated count 34.2 g/dL 31.0 - 36.0 [facility] Erythrocyte distribution width [Ratio] by Automated count 13.1 % 11.5 - 14.8 [facility] Platelets [#/volume] in Blood by Automated count 222 10^3/uL 150 - 45 0 [facility] Platelet mean volume [Entitic volume] in Blood by Automated count 9.4 fL 7.4 - 10.4 [facility] Neutrophils/100 leukocytes in Blood by Automated count 68.3 % 37. 0 - 80.0 [facility] Lymphocytes/100 leukocytes in Blood by Manual count 20.2 % 25.0 - 40.0 L [facility] Monocytes/100 leukocytes in Blood by Automated count 8.7 % 3.0 - 8.0 H [facility] Eosinophils/100 leukocytes in Blood by Automated count 1.5 % 0.0 - 7.0 [facility] Basophils/100 leukocytes in Blood by Automated count 1.2 % 0.0 - 2.0 [facility] %IG 0.1 % 0.0 - 0.0 H [facility] %NRBC 0.0 % 0.0 - 0.0 [facility] al Neutrophils [#/volume] in Blood by Automated count 5.31 10^3/uL 2.00 - 6.90 [facility] Lymphocytes [#/volume] in Blood by Automated count 1.57 10^3/uL 0.60 - 3.40 [facility] Monocytes [#/volume] in Blood by Automated count 0.68 10^3/uL 0.00 - 0.90 [facility] Eosinophils [#/volume] in Blood by Automated count 0.12 10^3/uL 0.00 - 0.70 [facility] Basophils [#/volume] in Blood by Automated count 0.09 10^3/uL 0.00 - 0.20 [facility] #IG 0.01 10^3/uL 0.00 - 0.10 [facility] #NRBC 0.00 10^3/uL 0.00 - 0.00 [facility]spital MANUAL DIFF NOT INDICATED [facility] RBC MORPH NOT INDICATED [facility] ID Date Data Source [id number] 03/10/2021 02:22:00 PM EDT [facility] ([facility] Name Value Range Interpretation Code Description Data Jaylyn rce(s) Supporting Document(s) Glucose [Presence] in Urine Laboratory test result [facility] ([facility]) Protein [Presence] in Urine by Test strip Laboratory test result [facility] ([facility]) Ua Nitrite Laboratory test result [facility] ([facility]) Ua Leuko Laboratory test result [facility] ([facility]) Blood [Presence] in Urine by Visual Laboratory test result [facility] ([facility]) Color of Urine Laboratory test result [facility] ([facility]) Ketones [Presence] in Urine by Test strip Laboratory test result [facility] ([facility]) Clarity of Urine Laboratory test result [facility] ([facility]) Ua Specific [place] 1.020 1.003-1.030 [facility] ([facility]) Urobilinogen [Mass/volume] in Urine by Test strip 0.2 E.U./dL 0.0-1.0 [facility] ([facility]) Bilirubin.total [Presence] in Urine by Test strip Laboratory test res ult [facility] ([facility]) pH of Urine by Test strip 5.0 5.0-7.5 [facility] ([facility]) ID Date Data Source [id number] 02/28/2021 12:55:00 AM EDT [facility] Patient: ROSA CADET [facility].VisitID: [id number] [place] [address] [phone], MRegistration Date/Time: 02/27/2021 17:56 Weight:126 kg (S). Height/Length:70 inches (S). BMI:39.9 FAMILY HISTORYNo significant family medical history. (Electronically signed by Mirna Cannon M.D. 02/28/2021 00:29) Name Value Range Interpretation Code Description Data Jaylyn rce(s) Supporting Document(s) ID Date Data Source [id number] 02/27/2021 09:31:00 PM EDT [facility] DATE OF EXAMINATION: 02/27/2021 19:25 EDT ABD/PEL NO CONTRAST HISTORY: Trauma, pain Comparison:None TECHNIQUE: This CT exam was performed using the following dose reductiontechniques: automated exposure control, adjustment of mA and/or kV according tothe patient's size, and use of iterative reconstruction technique. Standard contiguous axial spiral imaging was obtained from the dome of thediaphragms through the symphysis pubis without oral contrast and withoutintravenous contrast administration and with coronal reformatting. Studiessuboptimal secondary to lack of intravenous contrast. Solid organ injury cannotbe completely evaluated. FINDINGS: ABDOMEN:Liver: Liver is mildly diminished in attenuation consistent with fatty change.No focal lesions are identified on this unenhanced examination. Gallbladder and bile ducts: The gallbladder is contracted and cannot beevaluated further. Pancreas: Pancreas is normal Spleen: Spleen is normal Adrenals: Normal adrenal glands. No adrenal masses Kidneys and ureters: There is a masslike lesion in the lower pole the rightkidney measuring 3.1 x 3.8 cm. There are complex cystic lesions extending fromthe mid to lower pole of the left kidney. Renal ultrasound recommended tofurther evaluate. No perinephric fluid or soft tissue stranding. There is a 2 mmnonobstructing stone in the midpole of the right kidney posteriorly. Stomach and bowel: Stomach is unremarkable. There is a small hiatal hernia. Nodilated small bowel or bowel wall thickening. Moderate amount stool throughoutthe colon. There are scattered colonic diverticula without radiographic evidenceof divert iculitis Appendix: The appendix is normal Peritoneum/retroperitoneum:No free air or free fluid. No collections Lymph nodes:There are several small mesenteric nodes in the root of small bowelmesentery. This is a nonspecific finding. Soft tissues:There is mild soft tissue stranding overlying the left hemipelvis.This is likely secondary to traumatic injury. There are small fat-containingbilateral inguinal hernias. There is a small fat-containing umbilical hernia Bones:There are bilateral pars defects at L5. No evidence of anterolisthesis. Novisualized fractures. There is degenerative disc disease at multiple levels inthe lumbar spine with narrowing, endplate sclerosis, and small osteophyteformation. Vessels:Atherosclerotic change of aorta without aneurysmal dilatation PELVIS:Bladder: Bladder is unremarkable. Reproductive: Unremarkable as visualized IMPRESSION: 1. No fractures identified.2. No evidence of solid organ injury however evaluation is limited given thelack of intravenous contrast.3. There is mild stranding in the soft tissues overlying the left hemipelvislikely secondary to traumatic soft tissue injury.4. There is a masslike lesion in the lower pole of the right kidney. Renalultrasound or alternatively MRI using renal mass protocol is recommended tofurther evaluate. There are cystic lesions in the left kidney which could befurther evaluated with either ultrasound or MRI. Findings and recommendations discussed with Dr. Cannon at 9:24 PM on 02/27/2021 Electronically signed in PS360 by: Loc Louie M.D. 02/27/2021 21:25 EDT Name Value Range Interpretation Code Description Data Jaylyn rce(s) Supporting Document(s) ID Date Data Source [id number] 02/27/2021 09:17:00 PM EDT [facility] PROCEDURE: CHEST W/O IV CONTRAST DATE AN D TIME: 02/27/2021 19:25 EDT HISTORY: Trauma, pain COMPARISON: None TECHNIQUE: CT of the chest was performed without IV contrast. Coronalreformatted images were submitted for review. FINDINGS:Lungs, pleura and large airways: There is bilateral calcified pleural plaquingconsistent with previous asbestos exposure. There is a 5.9 mm nodular density inthe superior segment left lower lobe abutting the pleural surface, series 5image 67. There are focal opacities at the lung bases. On the right thismeasures 3.4 x 2.0 cm and on the left 2.6 x 1.3 cm. These are both seen best onseries 5 image 93. Heart: Normal size. No pericardial effusion. There are coronary arterycalcifications. Mediastinum and Michelle: No enlarged lymph nodes. Limited evaluation of michelle givenlack of IV contrast. Vessels: There is atherosclerotic change of aorta with ectasia of the ascendingaorta measuring approximately 3.7 cm Chest wall and lower neck: The patient is post cervical spine fusion. No acutefindings. Chest wall soft tissues are unremarkable. Bones: No fractures identified. IMPRESSION: No acute injury. There is evidence for bilateral calcified pleuralplaquing consistent with previous asbestos exposure. There are confluentopacities in both lung bases likely representing scarring however short-term, 6month follow-up is recommended. There is also a nodular density in the superiorsegment of the left lower lobe which could also be evaluated in follow-up study,6 months time.. Electronically signed in PS360 by: Loc Louie M.D. 02/27/2021 21:11 EDT Name Value Range Interpretation Code Description Data [facility] rce(s) Supporting Document(s) ID Date Data Source [id number] 02/27/2021 06:31:00 PM EDT [facility] TSYSORDER [id number] Name Value Range Interpretation Code Description [facility] Supporting Document(s) URINE COLOR. [facility] URINE APPEARANCE CLEAR [facility] URINE GLUCOSE (UA) 500 mg/dL NEGATIVE [facility] URINE BILIRUBIN NEGATIVE NEGATIVE [facility] URINE KETONE NEGATIVE mg/dL NEGATIVE [facility] al SPECIFIC GRAVITY,URINE 1.025 1.005-1.030 [facility] URINE BLOOD NEGATIVE NEGATIVE [facility] PH,URINE 7.0 5.0-9.0 [facility] URINE PROTEIN NEGATIVE mg/dL NEGATIVE [facility] URINE UROBILINOGEN 0.2 mg/dL 0-1 [facility] URINE NITRATE NEGATIVE NEGATIVE [facility] URINE LEUKOCYTE ESTERASE NEGATIVE NEGATIVE [facility] ID Date Data Source [id number] 01/21/2021 11:12:00 AM EDT [facility] Name Value Range Interpretation Code Description Data Jaylyn rce(s) Supporting Document(s) Prostate specific Ag [Mass/volume] in Serum or Plasma 0.71 ng/mL 0.00 - 4.00 [facility] \\BLDo\\PSA INTERPRETA TION\\BLDx\\ The PSA assay should not be used alone for a screening test or diagnosis for presence or absence of malignant disease. Predictions of disease recurrence should not be based solely on values obtained from serial patient serum values. The PSA result was determined by "[employer]", on the [employer] KATHERINE 6000. Values obtained with different assay methods or kits cannot be used interchangeably. ID Date Data Source [id number] 01/20/2021 07:19:00 PM EDT [facility] Name Value Range Interpretation Code Description Data Jaylyn rce(s) Supporting Document(s) Thyrotropin [Units/volume] in Serum or Plasma by Detec tion limit <= 0.05 mIU/L 0.69 uIU/mL 0.47 - 5.01 [facility] ID Date Data Source [id number] 01/20/2021 07:04:00 PM EDT [facility] Name Value Range Interpretation Code Description Data Jaylyn rce(s) Supporting Document(s) CVE PANEL [facility] al LIPID PANEL Cholesterol [Mass/volume] in Serum or Plasma 182 MG/DL 131 - 200 [facility] Deprecated Triglyceride [Mass/volume] in Serum or Plasma 304 MG/DL 3 5 - 160 H [facility] HDL 44 MG/DL 29 - 86 [facility] al Cholesterol in LDL [Mass/volume] in Serum or Plasma by Direc t assay 105 mg/dL 65 - 175 [facility] Cholesterol.total/Cholesterol in HDL [Mass Ratio] in Serum o r Plasma 4.1 3.4 - 4.9 [facility] LDL/HDL 2.39 1.00 - 3.55 [facility] ital CVE RISK CHOL/HDL LDL/HDLMEN: 1/2 AVERAGE 3.43 1.00 AVERAGE 4.97 3.55 2X AVERAGE 9.55 6.25 3X AVERAGE 23.99 7.99WOMEN: 1/2 AVERAGE 3.27 1.47 AVERAGE 4.44 3.22 2X AVERAGE 7.05 5.03 3X AVERAGE 11.04 6.14 ID Date Data Source [id number] 01/20/2021 07:04:00 PM EDT [facility] Name Value Range Interpretation Code Description Data Jaylyn rce(s) Supporting Document(s) COMPREHENSIVE METABOLIC PANEL [facility] COMPREHENSIVE METABOLIC PANEL Sodium [Moles/volume] in Serum or Plasma 137 mEq/L 134 - 153 [facility] Potassium [Moles/volume] in Serum or Plasma 3.9 mEq/L 3.6 - 5.0 [facility] Chloride [Moles/volume] in Serum or Plasma 99 mEq/L 98 - 107 [facility] Carbon dioxide, total [Moles/volume] in Serum or Plasma 25 MEQ/L 22 - 30 [facility] Glucose [Mass/volume] in Serum or Plasma 166 MG/DL 70 - 99 H [facility] BUN 19 MG/DL 7 - 21 [facility] al Creatinine [Mass/volume] in Serum or Plasma 1.0 MG/DL 0.7 - 1.5 [facility] BUN/CREAT 19 8 - 27 [facility] al Protein [Mass/volume] in Serum or Plasma 7.8 G/DL 6.3 - 8.2 [facility] Albumin [Mass/volume] in Serum or Plasma 4.8 G/DL 3.9 - 5.0 [facility] Globulin [Mass/volume] in Serum by calculation 3.0 GM/DL 2.4 - 3.2 [facility] A/G RATIO 1.6 0.8 - 2.0 [facility] al Calcium [Mass/volume] in Serum or Plasma 10.2 MG/DL 8.4 - 10.2 [facility] Bilirubin.total [Mass/volume] in Serum or Plasma 0.7 MG/DL 0.2 - 1.3 [facility] Alkaline phosphatase [Enzymatic activity/volume] in Serum or Plasma 84 U/L 38 - 126 [facility] Aspartate aminotransferase [Enzymatic activity/volume] in Serum or Plasma 29 U/L 5 - 40 [facility] Alanine aminotransferase [Enzymatic activity/volume] in Seru m or Plasma 29 U/L 7 - 56 [facility] Anion gap 3 in Serum or Plasma 13.0 mmol/L 8.0 - 16.0 [facility] AGE 60 yrs [facility] NON-AA GFR >60 mL/min [facility] AFR AMER GFR >60 mL/min [facility] Male GFR In terprentation 20-49 yrs >60 mL/min Normal 50-59 yrs >56 mL/min Normal 60-69 yrs >49 mL/min Normal 70-79yrs >42 mL/min Normal 80 and above >35 mL/min Normal Female GFR Interpretation 20-39 yrs >60 mL/min Normal 40-49 yrs >58 mL/min Normal 50-59 yrs >51 mL/min Normal 60-69 yrs >45 mL/min Normal 70-79 yrs >39 mL/min Normal 80 and above >32 mL/min Normal ID Date Data Source [id number] 01/20/2021 06:54:00 PM EDT [facility] Name Value Range Interpretation Code Description Data Jaylyn rce(s) Supporting Document(s) Hemoglobin A1c/Hemoglobin.total in Blood 7.1 % 4.4 - 6.1 H [facility] {A1]{HB] ID Date Data Source [id number] 01/20/2021 06:53:00 PM EDT [facility] Name Value Range Interpretation Code Description Data Jaylyn rce(s) Supporting Document(s) CBC W/AUTOMATED DIFF [facility] COMPLETE BLOOD COUNT Leukocytes [#/volume] in Blood by Automated count 9.3 10^3/uL 4.2 - 1 1.0 [facility] Erythrocytes [#/volume] in Blood by Automated count 5.69 10^6/uL 4. 50 - 6.30 [facility] Hemoglobin [Mass/volume] in Blood 17.4 g/dL 14.0 - 16.0 H [facility] Hematocrit [Volume Fraction] of Blood by Automated count 51.0 % 4 1.0 - 51.0 [facility] Erythrocyte mean corpuscular volume [Entitic volume] by Auto mated count 89.6 fL 80.0 - 94.0 [facility] Erythrocyte mean corpuscular hemoglobin [Entitic mass] by Automated count 30.6 pg 27.0 - 34.0 [facility] Erythrocyte mean corpuscular hemoglobin concentration [Mass/volume] by Automated count 34.1 g/dL 31.0 - 36.0 [facility] Erythrocyte distribution width [Ratio] by Automated count 12.6 % 11.5 - 14.8 [facility] Platelets [#/volume] in Blood by Automated count 221 10^3/uL 150 - 45 0 [facility] Platelet mean volume [Entitic volume] in Blood by Automated count 9.7 fL 7.4 - 10.4 [facility] Neutrophils/100 leukocytes in Blood by Automated count 64.4 % 37. 0 - 80.0 [facility] Lymphocytes/100 leukocytes in Blood by Manual count 23.2 % 25.0 - 40.0 L [facility] Monocytes/100 leukocytes in Blood by Automated count 8.4 % 3.0 - 8.0 H [facility] Eosinophils/100 leukocytes in Blood by Automated count 2.3 % 0.0 - 7.0 [facility] Basophils/100 leukocytes in Blood by Automated count 1.4 % 0.0 - 2.0 [facility] %IG 0.3 % 0.0 - 0.0 [facility]NRBC 0.0 % 0.0 - 0.0 [facility] al Neutrophils [#/volume] in Blood by Automated count 6.01 10^3/uL 2.00 - 6.90 [facility] Lymphocytes [#/volume] in Blood by Automated count 2.16 10^3/uL 0.60 - 3.40 [facility] Monocytes [#/volume] in Blood by Automated count 0.78 10^3/uL 0.00 - 0.90 [facility] Eosinophils [#/volume] in Blood by Automated count 0.21 10^3/uL 0.00 - 0.70 [facility] Basophils [#/volume] in Blood by Automated count 0.13 10^3/uL 0.00 - 0.20 [facility] #IG 0.03 10^3/uL 0.00 - 0.10 [facility] ospital #NRBC 0.00 10^3/uL 0.00 - 0.00 [facility] ospital MANUAL DIFF NOT INDICATED [facility] RBC MORPH NOT INDICATED [facility] spital ID Date Data Source [id number] 01/20/2021 08:40:00 AM EDT [facility] ([facility]) Name Value Range Interpretation Code Description Data Jaylyn rce(s) Supporting Document(s) Prostate specific Ag [Mass/volume] in Serum or Plasma 0.71 ng/mL 0.00 -4.00 [facility] ([facility]) \\BLDo\\PSA INTERPRETATION\\BLDx\\ The PSA assay should not be used alone for a screening test or diagnosis for presence or absence of malignant disease. Predictions of disease recurrence should not be based solely on values obtained from serial patient serum values. The PSA result was determined by "[employer]", on the Edilberto KATHERINE 6000. Values obtained with different assay methods or kits cannot be used interchangeably. ID Date Data Source [id number] 01/20/2021 08:40:00 AM EDT [facility] ([facility]) Name Value Range Interpretation Code Description Data Jaylyn rce(s) Supporting Document(s) Thyrotropin [Units/volume] in Serum or Plasma 0.69 uIU/mL 0.47-5.01 [facility] ([facility]) Is patient fasting? Y ID Date Data Source [id number] 01/20/2021 08:40:00 AM EDT [facility] ([facility]) Name Value Range Interpretation Code Description Data Jaylyn rce(s) Supporting Document(s) Cve Panel Laboratory test result [facility] ([facility]) LIPID PANEL Triglycerides 304 mg/dL 35-160 Above high normal [facility] ([facility]) Is patient fasting? Y Cholesterol 182 mg/dL 131-200 [facility] ([facility]) Is patient fasting? Y HDL 44 mg/dL 29-86 [facility] ([facility]) Is patient fasting? Y LDL 105 mg/dL 65-175 [facility] ([facility]) Is patient fasting? Y Risk Factor 4.1 3.4-4.9 [facility] ([facility]) Is patient fasting? Y LDL/HDL 2.39 1.00-3.55 [facility] ([facility]) CVE RISK CHOL/HDL LDL/HDL MEN: 1/2 AVERAGE 3.43 1.00 AVERAGE 4.97 3.55 2X AVERAGE 9.55 6.25 3X AVERAGE 23.99 7.99 WOMEN: 1/2 AVERAGE 3.27 1.47 AVERAGE 4.44 3.22 2X AVERAGE 7.05 5.03 3X AVERAGE 11.04 6.14 ID Date Data Source [id number] 01/20/2021 08:40:00 AM EDT [facility] ([facility]) Name Value Range Interpretation Code Description Data Jaylyn rce(s) Supporting Document(s) Hemoglobin A1c/Hemoglobin.total in Blood 7.1 % 4.4-6.1 Above high normal [facility] ([facility]) {A1] {HB] ID Date Data Source [id number] 01/20/2021 08:40:00 AM EDT [facility] ([facility]) Name Value Range Interpretation Code Description Data Jaylyn rce(s) Supporting Document(s) Comprehensive Metabo Laboratory test result [facility] ([facility]) COMPREHENSIVE METABOLIC PANEL Sodium 137 meq/L 134-153 [facility] ([facility]) Is patient fasting? Y Potassium 3.9 meq/L 3.6-5.0 [facility] ([facility]) Is patient fasting? Y Chloride 99 meq/L 98-107 [facility] ([facility]) Is patient fasting? Y Glucose 166 mg/dL 70-99 Above high normal [facility] ([facility]) Is patient fasting? Y Co2 25 meq/L 22-30 [facility] ([facility]) Is patient fasting? Y BUN 19 mg/dL 7-21 [facility] ([facility]) Is patient fasting? Y Creatinine 1.0 mg/dL 0.7-1.5 [facility] ([facility]) Is patient fasting? Y BUN/Creat 19 8-27 [facility] ([facility]) Is patient fasting? Y Albumin 4.8 g/dL 3.9-5.0 [facility] ([facility]) Is patient fasting? Y Total Protein 7.8 g/dL 6.3-8.2 [facility] ([facility]) Is patient fasting? Y Globulin 3.0 GM/DL 2.4-3.2 [facility] ([facility]) Is patient fasting? Y Calcium 10.2 mg/dL 8.4-10.2 [facility] ([facility]) Is patient fasting? Y A/G Ratio 1.6 0.8-2.0 [facility] ([facility]) Is patient fasting? Y Total Bili 0.7 mg/dL 0.2-1.3 [facility] ([facility]) Is patient fasting? Y Sgot/Ast 29 U/L 5-40 [facility] ([facility]) Is patient fasting? Y Alkaline Phos 84 U/L 38-126 [facility] ([facility]) Is patient fasting? Y Anion Gap 13.0 mmol/L 8.0-16.0 [facility] ([facility]) Is patient fasting? Y SGPT/Alt 29 U/L 7-56 [facility] ([facility]) Is patient fasting? Y Age 60 yrs [facility] ([facility]) Is patient fasting? Y Afr Amer GFR Laboratory test result [facility] ([facility]) Male GFR Interprentation 20-49 yrs >60 mL/min Normal 50-59 yrs >56 mL/min Normal 60-69 yrs >49 mL/min Normal 70-79yrs >42 mL/min Normal 80 and above >35 mL/min Normal Female GFR Interpretation 20-39 yrs >60 mL/min Normal 40-49 yrs >58 mL/min Normal 50-59 yrs >51 mL/min Normal 60-69 yrs >45 mL/min Normal 70-79 yrs >39 mL/min Normal 80 and above >32 mL/min Normal Non-Aa GFR Laboratory test result [facility] ([facility]) Is patient fasting? Y ID Date Data Source [id number] 01/20/2021 08:40:00 AM EDT [facility] ([facility]) Name Value Range Interpretation Code Description Data Jaylyn rce(s) Supporting Document(s) CBC W/Automated Diff Laboratory test result [facility] ([facility]) COMPLETE BLOOD COUNT WBC 9.3 10^3/uL 4.2-11.0 [facility] ([facility]) Is patient fasting? Y RBC 5.69 10^6/uL 4.50-6.30 [facility] ([facility]) Is patient fasting? Y Hemoglobin 17.4 g/dL 14.0-16.0 Above high normal [facility] ([facility]) Is patient fasting? Y Hematocrit 51.0 % 41.0-51.0 [facility] ([facility]) Is patient fasting? Y MCV 89.6 fL 80.0-94.0 [facility] ([facility]) Is patient fasting? Y MCH 30.6 pg 27.0-34.0 [facility] ([facility]) Is patient fasting? Y MCHC 34.1 g/dL 31.0-36.0 [facility] ([facility]) Is patient fasting? Y RDW 12.6 % 11.5-14.8 [facility] ([facility]) Is patient fasting? Y Platelets 221 10^3/uL 150-450 [facility] ([facility]) Is patient fasting? Y MPV 9.7 fL 7.4-10.4 [facility] ([facility]) Is patient fasting? Y Neut 64.4 % 37.0-80.0 [facility] ([facility]) Is patient fasting? Y Lymph 23.2 % 25.0-40.0 Below low normal [facility] ( [facility]) Is patient fasting? Y Eos 2.3 % 0.0-7.0 [facility] ([facility]) Is patient fasting? Y [place] 8.4 % 3.0-8.0 Above high normal [facility] ([facility]) Is patient fasting? Y Baso 1.4 % 0.0-2.0 [facility] ([facility]) Is patient fasting? Y %NRBC 0.0 % 0.0-0.0 [facility] ([facility]) Is patient fasting? Y %Ig 0.3 % 0.0-0.0 Above high normal [facility] ([facility]) Is patient fasting? Y #Neut 6.01 10^3/uL 2.00-6.90 [facility] ([facility]) Is patient fasting? Y #Lymph 2.16 10^3/uL 0.60-3.40 [facility] ([facility]) Is patient fasting? Y #[place] 0.78 10^3/uL 0.00-0.90 [facility] ([facility]) Is patient fasting? Y #Eos 0.21 10^3/uL 0.00-0.70 [facility] ([facility]) Is patient fasting? Y #Baso 0.13 10^3/uL 0.00-0.20 [facility] ([facility]) Is patient fasting? Y #Ig 0.03 10^3/uL 0.00-0.10 [facility] ([facility]) Is patient fasting? Y #NRBC 0.00 10^3/uL 0.00-0.00 [facility] ([facility]) Is patient fasting? Y RBC Morph Laboratory test result [facility] ([facility]) Is patient fasting? Y Manual Diff Laboratory test result [facility] ([facility]) Is patient fasting? Y ID Date Data Source [id number] 01/14/2021 09:37:00 AM EDT [facility] ([facility], ) Name Value Range Interpretation Code Description Data Jaylyn rce(s) Supporting Document(s) Surgical pathology study Laboratory test result [facility] ([facility], ) FINAL DIAGNOSIS A - Colon, sigmoid polyp, polypectomy: Fragments of tubular adenoma. B - Colon, splenic flexure polyps, polypectomy: One fragment of tubular adenoma. Hyperplastic polyps also present. 01/16/2021 - 112 CLINICAL DIAGNOSIS Colon polyps, family H/O colon CA 01/15/2021 - 1451 GROSS DIAGNOSIS A - Received in formalin labeled "sigmoid colon polyp" and consists of one fragment of [place] tissue measuring 0.8 x 0.3 x 0.3 cm. All in one. B - Received in formalin labeled "splenic flexure polyps" and consists of three fragments of [place] tissue measuring 0.7 x 0.5 x 0.2 cm. in aggregate. All in one. -SV 01/15/2021 - 1450 Signed LILIAN ANDERSON MD 01/16/2021 1153 ID Date Data Source [id number] 01/10/2021 08:35:00 AM EDT [facility] Name Value Range Interpretation Code Description Data Jaylyn rce(s) Supporting Document(s) SARS-CoV-2 (COVID-19) RNA [Presence] in Respiratory specimen by JUANITA with probe detection Not Detected [facility] This lab was ordered by [facility] and reported by [email or web address]. ID Date Data Source [id number] 12/14/2020 08:00:00 AM EDT [facility] Name Value Range Interpretation Code Description Data Jaylyn rce(s) Supporting Document(s) SARS coronavirus 2 RNA Not Detected [facility] This lab was ordered by [facility] and reported by [facility]. ID Date Data Source [id number] 10/14/2020 08:15:00 AM EST [facility] ([facility]) Name Value Range Interpretation Code Description Data Jaylyn rce(s) Supporting Document(s) Thyrotropin [Units/volume] in Serum or Plasma 0.39 uIU/mL 0. 47-5.01 Below low normal [facility] ([facility]) Is patient fasting? Y ID Date Data Source [id number] 10/14/2020 08:15:00 AM EST [facility] ([facility]) Name Value Range Interpretation Code Description Data Jaylyn rce(s) Supporting Document(s) Cve Panel Laboratory test result [facility] ([facility]) LIPID PANEL Cholesterol 155 mg/dL 131-200 [facility] ([facility]) Is patient fasting? Y Triglycerides 185 mg/dL 35-160 Above high normal [facility] ([facility]) Is patient fasting? Y HDL 38 mg/dL 29-86 [facility] ([facility]) Is patient fasting? Y LDL 96 mg/dL 65-175 [facility] ([facility]) Is patient fasting? Y Risk Factor 4.1 3.4-4.9 [facility] ([facility]) Is patient fasting? Y LDL/HDL 2.53 1.00-3.55 [facility] ([facility]) CVE RISK CHOL/HDL LDL/HDL MEN: 1/2 AVERAGE 3.43 1.00 AVERAGE 4.97 3.55 2X AVERAGE 9.55 6.25 3X AVERAGE 23.99 7.99 WOMEN: 1/2 AVERAGE 3.27 1.47 AVERAGE 4.44 3.22 2X AVERAGE 7.05 5.03 3X AVERAGE 11.04 6.14 ID Date Data Source [id number] 10/14/2020 08:15:00 AM EST [facility] ([facility]) Name Value Range Interpretation Code Description Data Jaylyn rce(s) Supporting Document(s) Hemoglobin A1c/Hemoglobin.total in Blood 7.2 % 4.4-6.1 Above high normal [facility] ([facility]) {A1] {HB] ID Date Data Source [id number] 10/14/2020 08:15:00 AM EST [facility] ([facility]) Name Value Range Interpretation Code Description Data Jaylyn rce(s) Supporting Document(s) Comprehensive Metabo Laboratory test result [facility] ([facility]) COMPREHENSIVE METABOLIC PANEL Sodium 139 meq/L 134-153 [facility] ([facility]) Is patient fasting? Y Potassium 4.2 meq/L 3.6-5.0 [facility] ([facility]) Is patient fasting? Y Chloride 104 meq/L 98-107 [facility] ([facility]) Is patient fasting? Y Co2 22 meq/L 22-30 [facility] ([facility]) Is patient fasting? Y Glucose 172 mg/dL 70-99 Above high normal [facility] ([facility]) Is patient fasting? Y BUN 19 mg/dL 7-21 [facility] ([facility]) Is patient fasting? Y Creatinine 0.9 mg/dL 0.7-1.5 [facility] ([facility]) Is patient fasting? Y BUN/Creat 21 8-27 [facility] ([facility]) Is patient fasting? Y Total Protein 6.8 g/dL 6.3-8.2 [facility] ([facility]) Is patient fasting? Y Albumin 4.6 g/dL 3.9-5.0 [facility] ([facility]) Is patient fasting? Y Globulin 2.2 GM/DL 2.4-3.2 Below low normal [facility] ( [facility]) Is patient fasting? Y Calcium 9.7 mg/dL 8.4-10.2 [facility] ([facility]) Is patient fasting? Y A/G Ratio 2.1 0.8-2.0 Above high normal [facility] ([facility]) Is patient fasting? Y Total Bili Laboratory test result 0.2-1.3 [facility] ([facility]) Is patient fasting? Y Alkaline Phos 73 U/L 38-126 [facility] ([facility]) Is patient fasting? Y Sgot/Ast 18 U/L 5-40 [facility] ([facility]) Is patient fasting? Y SGPT/Alt 21 U/L 7-56 [facility] ([facility]) Is patient fasting? Y Anion Gap 13.0 mmol/L 8.0-16.0 [facility] ([facility]) Is patient fasting? Y Non-Aa GFR Laboratory test result [facility] ([facility]) Is patient fasting? Y Age 60 yrs [facility] ([facility]) Is patient fasting? Y Afr Amer GFR Laboratory test result [facility] ([facility]) Male GFR Interprentation 20-49 yrs >60 mL/min Normal 50-59 yrs >56 mL/min Normal 60-69 yrs >49 mL/min Normal 70-79yrs >42 mL/min Normal 80 and above >35 mL/min Normal Female GFR Interpretation 20-39 yrs >60 mL/min Normal 40-49 yrs >58 mL/min Normal 50-59 yrs >51 mL/min Normal 60-69 yrs >45 mL/min Normal 70-79 yrs >39 mL/min Normal 80 and above >32 mL/min Normal ID Date Data Source [id number] 10/14/2020 08:15:00 AM EST [facility] ([facility]) Name Value Range Interpretation Code Description Data Jaylyn rce(s) Supporting Document(s) CBC W/Automated Diff Laboratory test result [facility] ([facility]) COMPLETE BLOOD COUNT WBC 7.8 10^3/uL 4.2-11.0 [facility] ([facility]) Is patient fasting? Y Hemoglobin 15.4 g/dL 14.0-16.0 [facility] ([facility]) Is patient fasting? Y RBC 5.15 10^6/uL 4.50-6.30 [facility] ([facility]) Is patient fasting? Y MCV 89.1 fL 80.0-94.0 [facility] ([facility]) Is patient fasting? Y Hematocrit 45.9 % 41.0-51.0 [facility] ([facility]) Is patient fasting? Y MCHC 33.6 g/dL 31.0-36.0 [facility] ([facility]) Is patient fasting? Y MCH 29.9 pg 27.0-34.0 [facility] ([facility]) Is patient fasting? Y RDW 13.0 % 11.5-14.8 [facility] ([facility]) Is patient fasting? Y Platelets 224 10^3/uL 150-450 [facility] ([facility]) Is patient fasting? Y Neut 61.0 % 37.0-80.0 [facility] ([facility]) Is patient fasting? Y MPV 10.3 fL 7.4-10.4 [facility] ([facility]) Is patient fasting? Y Lymph 26.0 % 25.0-40.0 [facility] ([facility]) Is patient fasting? Y Eos 1.8 % 0.0-7.0 [facility] ([facility]) Is patient fasting? Y [place] 9.1 % 3.0-8.0 Above high normal [facility] ([facility]) Is patient fasting? Y Baso 1.8 % 0.0-2.0 [facility] ([facility]) Is patient fasting? Y %Ig 0.3 % 0.0-0.0 Above high normal [facility] ([facility]) Is patient fasting? Y #Neut 4.74 10^3/uL 2.00-6.90 [facility] ([facility]) Is patient fasting? Y %NRBC 0.0 % 0.0-0.0 [facility] ([facility]) Is patient fasting? Y #Lymph 2.02 10^3/uL 0.60-3.40 [facility] ([facility]) Is patient fasting? Y #[place] 0.71 10^3/uL 0.00-0.90 [facility] ([facility]) Is patient fasting? Y #Eos 0.14 10^3/uL 0.00-0.70 [facility] ([facility]) Is patient fasting? Y #Baso 0.14 10^3/uL 0.00-0.20 [facility] ([facility]) Is patient fasting? Y #NRBC 0.00 10^3/uL 0.00-0.00 [facility] ([facility]) Is patient fasting? Y #Ig 0.02 10^3/uL 0.00-0.10 [facility] ([facility]) Is patient fasting? Y Manual Diff Laboratory test result [facility] ([facility]) Is patient fasting? Y RBC Morph Laboratory test result [facility] ([facility]) Is patient fasting? Y ID Date Data Source [id number] 10/14/2020 07:41:00 PM EST [facility] Name Value Range Interpretation Code Description Data Jaylyn rce(s) Supporting Document(s) [facility]EL [facility] LIPID PAN[facility] Cholesterol [Mass/volume] in Serum or Plasma 155 MG/DL 131 - 200 [facility] Deprecated Triglyceride [Mass/volume] in Serum or Plasma 185 MG/DL 3 5 - 160 H [facility] HDL 38 MG/DL 29 - 86 [facility] Cholesterol in LDL [Mass/volume] in Serum or Plasma by Direc t assay 96 mg/dL 65 - 175 [facility] Cholesterol.total/Cholesterol in HDL [Mass Ratio] in Serum o r Plasma 4.1 3.4 - 4.9 [facility] LDL/HDL 2.53 1.00 - 3.55 [facility] ital CVE RISK CHOL/HDL LDL/HDLMEN: 1/2 AVERAGE 3.43 1.00 AVERAGE 4.97 3.55 2X AVERAGE 9.55 6.25 3X AVERAGE 23.99 7.99WOMEN: 1/2 AVERAGE 3.27 1.47 AVERAGE 4.44 3.22 2X AVERAGE 7.05 5.03 3X AVERAGE 11.04 6.14 ID Date Data Source [id number] 10/14/2020 05:57:00 PM [facility] Name Value Range Interpretation Code Description Data Jaylyn rce(s) Supporting Document(s) Hemoglobin A1c/Hemoglobin.total in Blood 7.2 % 4.4 - 6.1 H [facility] {A1]{HB] ID Date Data Source [id number] 10/14/2020 05:57:00 PM [facility] Name Value Range Interpretation Code Description Data Jaylyn rce(s) Supporting Document(s) Thyrotropin [Units/volume] in Serum or Plasma by Detec tion limit <= 0.05 mIU/L 0.39 uIU/mL 0.47 - 5.01 L [facility] ID Date Data Source [id number] 10/14/2020 05:57:00 PM [facility] Name Value Range Interpretation Code Description Data Jaylyn rce(s) Supporting Document(s) COMPREHENSIVE METABOLIC PANEL [facility] COMPREHENSIVE METABOLIC PANEL Sodium [Moles/volume] in Serum or Plasma 139 mEq/L 134 - 153 [facility] Potassium [Moles/volume] in Serum or Plasma 4.2 mEq/L 3.6 - 5.0 [facility] Chloride [Moles/volume] in Serum or Plasma 104 mEq/L 98 - 107 [facility] Carbon dioxide, total [Moles/volume] in Serum or Plasma 22 MEQ/L 22 - 30 [facility] Glucose [Mass/volume] in Serum or Plasma 172 MG/DL 70 - 99 H [facility] BUN 19 MG/DL 7 - 21 [facility] Creatinine [Mass/volume] in Serum or Plasma 0.9 MG/DL 0.7 - 1.5 [facility] BUN/CREAT 21 8 - 27 [facility] al Protein [Mass/volume] in Serum or Plasma 6.8 G/DL 6.3 - 8.2 [facility] Albumin [Mass/volume] in Serum or Plasma 4.6 G/DL 3.9 - 5.0 [facility] Globulin [Mass/volume] in Serum by calculation 2.2 GM/DL 2.4 - 3.2 L [facility] A/G RATIO 2.1 0.8 - 2.[address] [facility] Calcium [Mass/volume] in Serum or Plasma 9.7 MG/DL 8.4 - 10.2 [facility] Bilirubin.total [Mass/volume] in Serum or Plasma <0.7 MG/DL 0.2 - 1.3 [facility] Alkaline phosphatase [Enzymatic activity/volume] in Serum or Plasma 73 U/L 38 - 126 [facility] Aspartate aminotransferase [Enzymatic activity/volume] in Serum or Plasma 18 U/L 5 - 40 [facility] Alanine aminotransferase [Enzymatic activity/volume] in Seru m or Plasma 21 U/L 7 - 56 [facility] Anion gap 3 in Serum or Plasma 13.0 mmol/L 8.0 - 16.0 [facility] AGE 60 yrs [facility] al NON-AA GFR >60 mL/min [facility] ital AFR AMER GFR >60 mL/min [facility] spital Male GFR In terprentation 20-49 yrs >60 mL/min Normal 50-59 yrs >56 mL/min Normal 60-69 yrs >49 mL/min Normal 70-79yrs >42 mL/min Normal 80 and above >35 mL/min Normal Female GFR Interpretation 20-39 yrs >60 mL/min Normal 40-49 yrs >58 mL/min Normal 50-59 yrs >51 mL/min Normal 60-69 yrs >45 mL/min Normal 70-79 yrs >39 mL/min Normal 80 and above >32 mL/min Normal ID Date Data Source [id number] 10/14/2020 05:30:00 PM EST [facility] Name Value Range Interpretation Code Description Data Jaylyn rce(s) Supporting Document(s) CBC W/AUTOMATED DIFF [facility] COMPLETE BLOOD COUNT Leukocytes [#/volume] in Blood by Automated count 7.8 10^3/uL 4.2 - 1 1.0 [facility] Erythrocytes [#/volume] in Blood by Automated count 5.15 10^6/uL 4. 50 - 6.30 [facility] Hemoglobin [Mass/volume] in Blood 15.4 g/dL 14.0 - 16.0 [facility] Hematocrit [Volume Fraction] of Blood by Automated count 45.9 % 4 1.0 - 51.0 [facility] Erythrocyte mean corpuscular volume [Entitic volume] by Auto mated count 89.1 fL 80.0 - 94.0 [facility] Erythrocyte mean corpuscular hemoglobin [Entitic mass] by Automated count 29.9 pg 27.0 - 34.0 [facility] Erythrocyte mean corpuscular hemoglobin concentration [Mass/volume] by Automated count 33.6 g/dL 31.0 - 36.0 [facility] Erythrocyte distribution width [Ratio] by Automated count 13.0 % 11.5 - 14.8 [facility] Platelets [#/volume] in Blood by Automated count 224 10^3/uL 150 - 45 0 [facility] Platelet mean volume [Entitic volume] in Blood by Automated count 10.3 fL 7.4 - 10.4 [facility] Neutrophils/100 leukocytes in Blood by Automated count 61.0 % 37. 0 - 80.0 [facility] Lymphocytes/100 leukocytes in Blood by Manual count 26.0 % 25.0 - 40.0 [facility] Monocytes/100 leukocytes in Blood by Automated count 9.1 % 3.0 - 8.0 H [facility] Eosinophils/100 leukocytes in Blood by Automated count 1.8 % 0.0 - 7.0 [facility] Basophils/100 leukocytes in Blood by Automated count 1.8 % 0.0 - 2.0 [facility] %IG 0.3 % 0.0 - 0.0 H [facility] %NRBC 0.0 % 0.0 - 0.0 [facility] al Neutrophils [#/volume] in Blood by Automated count 4.74 10^3/uL 2.00 - 6.90 [facility] Lymphocytes [#/volume] in Blood by Automated count 2.02 10^3/uL 0.60 - 3.40 [facility] Monocytes [#/volume] in Blood by Automated count 0.71 10^3/uL 0.00 - 0.90 [facility] Eosinophils [#/volume] in Blood by Automated count 0.14 10^3/uL 0.00 - 0.70 [facility] Basophils [#/volume] in Blood by Automated count 0.14 10^3/uL 0.00 - 0.20 [facility] #IG 0.02 10^3/uL 0.00 - 0.10 [facility] ospital #NRBC 0.00 10^3/uL 0.00 - 0.00 [facility] ospital MANUAL DIFF NOT INDICATED [facility] RBC MORPH NOT INDICATED [facility] spital ID Date Data Source [id number] 07/21/2020 05:16:00 PM EST [facility] ([facility]) Name Value Range Interpretation Code Description Data Jaylyn rce(s) Supporting Document(s) Thyrotropin [Units/volume] in Serum or Plasma 0.60 uIU/mL 0.47-5.01 [facility] ([facility]) FASTING~.~.~<DG1.3.1>E11.65</DG1.3.1><DG1.3.1>E78.00</DG1.3.1><DG1.3.1>Z79.899</ DG1.3.1><DG1 Prostate specific Ag [Mass/volume] in Serum or Plasma 0.57 ng/mL 0.00 -4.00 [facility] ([facility]) \\BLDo\\PSA INTERPRETATION\\BLDx\\ The PSA assay should not be used alone for a screening test or diagnosis for presence or absence of malignant disease. Predictions of disease recurrence should not be based solely on values obtained from serial patient serum values. The PSA result was determined by "[employer]", on the Edil[employer]to KATHERINE 6000. Values obtained with different assay methods or kits cannot be used interchangeably. ID Date Data Source [id number] 07/21/2020 05:16:00 PM EST [facility] ([facility]) Name Value Range Interpretation Code Description Data Jaylyn rce(s) Supporting Document(s) Comprehensive [facility] Laboratory test result [facility] ([facility]) COMPREHENSIVE METABOLIC PANEL Sodium 136 meq/L 134-153 [facility] ([facility]) FASTING~.~.~<DG1.3.1>E11.65</DG1.3.1><DG1.3.1>E78.00</DG1.3.1><DG1.3.1>Z79.899</ DG1.3.1><DG1 Potassium 3.8 meq/L 3.6-5.0 [facility] ([facility]) FASTING~.~.~<DG1.3.1>E11.65</DG1.3.1><DG1.3.1>E78.00</DG1.3.1><DG1.3.1>Z79.899</ DG1.3.1><DG1 Chloride 100 meq/L 98-107 [facility] ([facility]) FASTING~.~.~<DG1.3.1>E11.65</DG1.3.1><DG1.3.1>E78.00</DG1.3.1><DG1.3.1>Z79.899</ DG1.3.1><DG1 Glucose 129 mg/dL 65-110 Above high normal [facility] ([facility]) FASTING~.~.~<DG1.3.1>E11.65</DG1.3.1><DG1.3.1>E78.00</DG1.3.1><DG1.3.1>Z79.899</ DG1.3.1><DG1 Co2 23 meq/L 22-30 [facility] ([facility]) FASTING~.~.~<DG1.3.1>E11.65</DG1.3.1><DG1.3.1>E78.00</DG1.3.1><DG1.3.1>Z79.899</ DG1.3.1><DG1 BUN 18 mg/dL 7-21 [facility] ([facility]) FASTING~.~.~<DG1.3.1>E11.65</DG1.3.1><DG1.3.1>E78.00</DG1.3.1><DG1.3.1>Z79.899</ DG1.3.1><DG1 Creatinine 1.0 mg/dL 0.7-1.5 [facility] ([facility]) FASTING~.~.~<DG1.3.1>E11.65</DG1.3.1><DG1.3.1>E78.00</DG1.3.1><DG1.3.1>Z79.899</ DG1.3.1><DG1 BUN/Creat 18 8-27 [facility] ([facility]) FASTING~.~.~<DG1.3.1>E11.65</DG1.3.1><DG1.3.1>E78.00</DG1.3.1><DG1.3.1>Z79.899</ DG1.3.1><DG1 Total Protein 7.8 g/dL 6.3-8.2 [facility] ([facility]) FASTING~.~.~<DG1.3.1>E11.65</DG1.3.1><DG1.3.1>E78.00</DG1.3.1><DG1.3.1>Z79.899</ DG1.3.1><DG1 Albumin 4.9 g/dL 3.9-5.0 [facility] ([facility]) FASTING~.~.~<DG1.3.1>E11.65</DG1.3.1><DG1.3.1>E78.00</DG1.3.1><DG1.3.1>Z79.899</ DG1.3.1><DG1 Globulin 2.9 GM/DL 2.4-3.2 [facility] ([facility]) FASTING~.~.~<DG1.3.1>E11.65</DG1.3.1><DG1.3.1>E78.00</DG1.3.1><DG1.3.1>Z79.899</ DG1.3.1><DG1 A/G Ratio 1.7 0.8-2.0 [facility] ([facility]) FASTING~.~.~<DG1.3.1>E11.65</DG1.3.1><DG1.3.1>E78.00</DG1.3.1><DG1.3.1>Z79.899</ DG1.3.1><DG1 Calcium 10.3 mg/dL 8.4-10.2 Above high normal [facility] ([facility]) FASTING~.~.~<DG1.3.1>E11.65</DG1.3.1><DG1.3.1>E78.00</DG1.3.1><DG1.3.1>Z79.899</ DG1.3.1><DG1 Total Bili 0.9 mg/dL 0.2-1.3 [facility] ([facility]) FASTING~.~.~<DG1.3.1>E11.65</DG1.3.1><DG1.3.1>E78.00</DG1.3.1><DG1.3.1>Z79.899</ DG1.3.1><DG1 Sgot/Ast 21 U/L 5-40 [facility] ([facility]) FASTING~.~.~<DG1.3.1>E11.65</DG1.3.1><DG1.3.1>E78.00</DG1.3.1><DG1.3.1>Z79.899</ DG1.3.1><DG1 Alkaline Phos 84 U/L 38-126 [facility] ([facility]) FASTING~.~.~<DG1.3.1>E11.65</DG1.3.1><DG1.3.1>E78.00</DG1.3.1><DG1.3.1>Z79.899</ DG1.3.1><DG1 SGPT/Alt 25 U/L 7-56 [facility] ([facility]) FASTING~.~.~<DG1.3.1>E11.65</DG1.3.1><DG1.3.1>E78.00</DG1.3.1><DG1.3.1>Z79.899</ DG1.3.1><DG1 Anion Gap 13.0 mmol/L 8.0-16.0 [facility] ([facility]) FASTING~.~.~<DG1.3.1>E11.65</DG1.3.1><DG1.3.1>E78.00</DG1.3.1><DG1.3.1>Z79.899</ DG1.3.1><DG1 Age 60 yrs [facility] ([facility]) FASTING~.~.~<DG1.3.1>E11.65</DG1.3.1><DG1.3.1>E78.00</DG1.3.1><DG1.3.1>Z79.899</ DG1.3.1><DG1 Non-Aa GFR Laboratory test result [facility] ([facility]) FASTING~.~.~<DG1.3.1>E11.65</DG1.3.1><DG1.3.1>E78.00</DG1.3.1><DG1.3.1>Z79.899</ DG1.3.1><DG1 Afr Amer GFR Laboratory test result [facility] ([facility]) Male GFR Interprentation 20-49 yrs >60 mL/min Normal 50-59 yrs >56 mL/min Normal 60-69 yrs >49 mL/min Normal 70-79yrs >42 mL/min Normal 80 and above >35 mL/min Normal Female GFR Interpretation 20-39 yrs >60 mL/min Normal 40-49 yrs >58 mL/min Normal 50-59 yrs >51 mL/min Normal 60-69 yrs >45 mL/min Normal 70-79 yrs >39 mL/min Normal 80 and above >32 mL/min Normal ID Date Data Source [id number] 07/21/2020 05:16:00 PM EST [facility] ([facility]) Name Value Range Interpretation Code Description Data Jaylyn rce(s) Supporting Document(s) Cve Panel Laboratory test result [facility] ([facility]) LIPID PANEL Cholesterol 174 mg/dL 131-200 [facility] ([facility]) FASTING~.~.~<DG1.3.1>E11.65</DG1.3.1><DG1.3.1>E78.00</DG1.3.1><DG1.3.1>Z79.899</ DG1.3.1><DG1 Triglycerides 246 mg/dL 35-160 Above high normal [facility] ([facility]) FASTING~.~.~<DG1.3.1>E11.65</DG1.3.1><DG1.3.1>E78.00</DG1.3.1><DG1.3.1>Z79.899</ DG1.3.1><DG1 HDL 38 mg/dL 29-86 [facility] ([facility]) FASTING~.~.~<DG1.3.1>E11.65</DG1.3.1><DG1.3.1>E78.00</DG1.3.1><DG1.3.1>Z79.899</ DG1.3.1><DG1 LDL 102 mg/dL 65-175 [facility] ([facility]) FASTING~.~.~<DG1.3.1>E11.65</DG1.3.1><DG1.3.1>E78.00</DG1.3.1><DG1.3.1>Z79.899</ DG1.3.1><DG1 LDL/HDL 2.68 1.00-3.55 [facility] ([facility]) CVE RISK CHOL/HDL LDL/HDL MEN: 1/2 AVERAGE 3.43 1.00 AVERAGE 4.97 3.55 2X AVERAGE 9.55 6.25 3X AVERAGE 23.99 7.99 WOMEN: 1/2 AVERAGE 3.27 1.47 AVERAGE 4.44 3.22 2X AVERAGE 7.05 5.03 3X AVERAGE 11.04 6.14 Risk Factor 4.6 3.4-4.9 [facility] ([facility]) FASTING~.~.~<DG1.3.1>E11.65</DG1.3.1><DG1.3.1>E78.00</DG1.3.1><DG1.3.1>Z79.899</ DG1.3.1><DG1 ID Date Data Source [id number] 07/21/2020 07:30:00 PM EST [facility] Name Value Range Interpretation Code Description Data Jaylyn rce(s) Supporting Document(s) CVE PANEL [facility] al LIPID PANEL Cholesterol [Mass/volume] in Serum or Plasma 174 MG/DL 131 - 200 [facility] Deprecated Triglyceride [Mass/volume] in Serum or Plasma 246 MG/DL 3 5 - 160 H [facility] HDL 38 MG/DL 29 - 86 [facility] al Cholesterol in LDL [Mass/volume] in Serum or Plasma by Direc t assay 102 mg/dL 65 - 175 [facility] Cholesterol.total/Cholesterol in HDL [Mass Ratio] in Serum o r Plasma 4.6 3.4 - 4.9 [facility] LDL/HDL 2.68 1.00 - 3.55 [facility] ital CVE RISK CHOL/HDL LDL/HDLMEN: 1/2 AVERAGE 3.43 1.00 AVERAGE 4.97 3.55 2X AVERAGE 9.55 6.25 3X AVERAGE 23.99 7.99WOMEN: 1/2 AVERAGE 3.27 1.47 AVERAGE 4.44 3.22 2X AVERAGE 7.05 5.03 3X AVERAGE 11.04 6.14 ID Date Data Source [id number] 07/21/2020 07:30:00 PM [facility] Name Value Range Interpretation Code Description Data Jaylyn rce(s) Supporting Document(s) COMPREHENSIVE METABOLIC PANEL [facility] COMPREHENSIVE METABOLIC PANEL Sodium [Moles/volume] in Serum or Plasma 136 mEq/L 134 - 153 [facility] Potassium [Moles/volume] in Serum or Plasma 3.8 mEq/L 3.6 - 5.0 [facility] Chloride [Moles/volume] in Serum or Plasma 100 mEq/L 98 - 107 [facility] Carbon dioxide, total [Moles/volume] in Serum or Plasma 23 MEQ/L 22 - 30 [facility] Glucose [Mass/volume] in Serum or Plasma 129 MG/DL 65 - 110 H [facility] BUN 18 MG/DL 7 - 21 [facility] al Creatinine [Mass/volume] in Serum or Plasma 1.0 MG/DL 0.7 - 1.5 [facility] BUN/CREAT 18 8 - 27 [facility] al Protein [Mass/volume] in Serum or Plasma 7.8 G/DL 6.3 - 8.2 [facility] Albumin [Mass/volume] in Serum or Plasma 4.9 G/DL 3.9 - 5.0 [facility] Globulin [Mass/volume] in Serum by calculation 2.9 GM/DL 2.4 - 3.2 [facility] A/G RATIO 1.7 0.8 - 2.0 [facility] Calcium [Mass/volume] in Serum or Plasma 10.3 MG/DL 8.4 - 10.2 H [facility] Bilirubin.total [Mass/volume] in Serum or Plasma 0.9 MG/DL 0.2 - 1.3 [facility] Alkaline phosphatase [Enzymatic activity/volume] in Serum or Plasma 84 U/L 38 - 126 [facility] Aspartate aminotransferase [Enzymatic activity/volume] in Serum or Plasma 21 U/L 5 - 40 [facility] Alanine aminotransferase [Enzymatic activity/volume] in Seru m or Plasma 25 U/L 7 - 56 [facility] Anion gap 3 in Serum or Plasma 13.0 mmol/L 8.0 - 16.0 [facility] AGE 60 yrs [facility] NON-AA GFR >60 mL/min [facility] ital AFR AMER GFR >60 mL/min [facility] Male GFR In terprentation 20-49 yrs >60 mL/min Normal 50-59 yrs >56 mL/min Normal 60-69 yrs >49 mL/min Normal 70-79yrs >42 mL/min Normal 80 and above >35 mL/min Normal Female GFR Interpretation 20-39 yrs >60 mL/min Normal 40-49 yrs >58 mL/min Normal 50-59 yrs >51 mL/min Normal 60-69 yrs >45 mL/min Normal 70-79 yrs >39 mL/min Normal 80 and above >32 mL/min Normal ID Date Data Source [id number] 07/21/2020 07:20:00 PM [facility] Name Value Range Interpretation Code Description Data Jaylyn rce(s) Supporting Document(s) Prostate specific Ag [Mass/volume] in Serum or Plasma 0.57 ng/mL 0.00 - 4.00 [facility] \\BLDo\\PSA INTERPRETA TION\\BLDx\\ The PSA assay should not be used alone for a screening test or diagnosis for presence or absence of malignant disease. Predictions of disease recurrence should not be based solely on values obtained from serial patient serum values. The PSA result was determined by "[employer]", on the [employer] KATH[employer] 6000. Values obtained with different assay methods or kits cannot be used interchangeably. ID Date Data Source [id number] 07/21/2020 07:20:00 PM [facility] Name Value Range Interpretation Code Description Data Jaylyn rce(s) Supporting Document(s) Thyrotropin [Units/volume] in Serum or Plasma by Detec tion limit <= 0.05 mIU/L 0.60 uIU/mL 0.47 - 5.01 [facility] ID Date Data Source [id number] 07/21/2020 05:10:00 PM EST [facility] ([facility]) Name Value Range Interpretation Code Description Data Jaylyn rce(s) Supporting Document(s) Hemoglobin A1c/Hemoglobin.total in Blood 7.1 % 4.4-6.1 Above high normal [facility] ([facility]) {A1] {HB] ID Date Data Source [id number] 07/21/2020 07:20:00 PM [facility] Name Value Range Interpretation Code Description Data Jaylyn rce(s) Supporting Document(s) Hemoglobin A1c/Hemoglobin.total in Blood 7.1 % 4.4 - 6.1 H [facility] {A1]{HB] ID Date Data Source [id number] 07/21/2020 05:38:00 PM EST [facility] Name Value Range Interpretation Code Description Data Jaylyn rce(s) Supporting Document(s) CBC W/AUTOMATED DIFF [facility] COMPLETE BLOOD COUNT Leukocytes [#/volume] in Blood by Automated count 10.6 10^3/uL 4.2 - 11.0 [facility] Erythrocytes [#/volume] in Blood by Automated count 5.42 10^6/uL 4. 50 - 6.30 [facility] Hemoglobin [Mass/volume] in Blood 16.6 g/dL 14.0 - 16.0 H [facility] Hematocrit [Volume Fraction] of Blood by Automated count 48.2 % 4 1.0 - 51.0 [facility] Erythrocyte mean corpuscular volume [Entitic volume] by Auto mated count 88.9 fL 80.0 - 94.0 [facility] Erythrocyte mean corpuscular hemoglobin [Entitic mass] by Automated count 30.6 pg 27.0 - 34.0 [facility] Erythrocyte mean corpuscular hemoglobin concentration [Mass/volume] by Automated count 34.4 g/dL 31.0 - 36.0 [facility] Erythrocyte distribution width [Ratio] by Automated count 13.2 % 11.5 - 14.8 [facility] Platelets [#/volume] in Blood by Automated count 246 10^3/uL 150 - 45 0 [facility] Platelet mean volume [Entitic volume] in Blood by Automated count 10.4 fL 7.4 - 10.4 [facility] Neutrophils/100 leukocytes in Blood by Automated count 64.1 % 37. 0 - 80.0 [facility] Lymphocytes/100 leukocytes in Blood by Manual count 25.4 % 25.0 - 40.0 [facility] Monocytes/100 leukocytes in Blood by Automated count 7.3 % 3.0 - 8.0 [facility] Eosinophils/100 leukocytes in Blood by Automated count 1.6 % 0.0 - 7.0 [facility] Basophils/100 leukocytes in Blood by Automated count 1.2 % 0.0 - 2.0 [facility] %IG 0.4 % 0.0 - 0.0 H [facility] %NRBC 0.0 % 0.0 - 0.0 [facility] Neutrophils [#/volume] in Blood by Automated count 6.82 10^3/uL 2.00 - 6.90 [facility] Lymphocytes [#/volume] in Blood by Automated count 2.70 10^3/uL 0.60 - 3.40 [facility] Monocytes [#/volume] in Blood by Automated count 0.78 10^3/uL 0.00 - 0.90 [facility] Eosinophils [#/volume] in Blood by Automated count 0.17 10^3/uL 0.00 - 0.70 [facility] Basophils [#/volume] in Blood by Automated count 0.13 10^3/uL 0.00 - 0.20 [facility] #IG 0.04 10^3/uL 0.00 - 0.10 [facility] #NRBC 0.00 10^3/uL 0.00 - 0.00 [facility] MANUAL DIFF NOT INDICATED [facility] RBC MORPH NOT INDICATED [facility] spital ID Date Data Source [id number] 07/21/2020 09:28:00 AM EST [facility] ([facility]) Name Value Range Interpretation Code Description Data Jaylny rce(s) Supporting Document(s) RBC 5.42 10^6/uL 4.50-6.30 [facility] ([facility]) FASTING~.~.~<DG1.3.1>E11.65</DG1.3.1><DG1.3.1>E78.00</DG1.3.1><DG1.3.1>Z79.899</ DG1.3.1><DG1 WBC 10.6 10^3/uL 4.2-11.0 [facility] ([facility]) FASTING~.~.~<DG1.3.1>E11.65</DG1.3.1><DG1.3.1>E78.00</DG1.3.1><DG1.3.1>Z79.899</ DG1.3.1><DG1 CBC W/Automated Diff Laboratory test result [facility] ([facility]) FASTING~.~.~<DG1.3.1>E11.65</DG1.3.1><DG1.3.1>E78.00</DG1.3.1><DG1.3.1>Z79.899</ DG1.3.1><DG1 Hematocrit 48.2 % 41.0-51.0 [facility] ([facility]) FASTING~.~.~<DG1.3.1>E11.65</DG1.3.1><DG1.3.1>E78.00</DG1.3.1><DG1.3.1>Z79.899</ DG1.3.1><DG1 Hemoglobin 16.6 g/dL 14.0-16.0 Above high normal [facility] ([facility]) FASTING~.~.~<DG1.3.1>E11.65</DG1.3.1><DG1.3.1>E78.00</DG1.3.1><DG1.3.1>Z79.899</ DG1.3.1><DG1 MCV 88.9 fL 80.0-94.0 [facility] ([facility]) FASTING~.~.~<DG1.3.1>E11.65</DG1.3.1><DG1.3.1>E78.00</DG1.3.1><DG1.3.1>Z79.899</ DG1.3.1><DG1 MCHC 34.4 g/dL 31.0-36.0 [facility] ([facility]) FASTING~.~.~<DG1.3.1>E11.65</DG1.3.1><DG1.3.1>E78.00</DG1.3.1><DG1.3.1>Z79.899</ DG1.3.1><DG1 MCH 30.6 pg 27.0-34.0 [facility] ([facility]) FASTING~.~.~<DG1.3.1>E11.65</DG1.3.1><DG1.3.1>E78.00</DG1.3.1><DG1.3.1>Z79.899</ DG1.3.1><DG1 Platelets 246 10^3/uL 150-450 [facility] ([facility]) FASTING~.~.~<DG1.3.1>E11.65</DG1.3.1><DG1.3.1>E78.00</DG1.3.1><DG1.3.1>Z79.899</ DG1.3.1><DG1 RDW 13.2 % 11.5-14.8 [facility] ([facility]) FASTING~.~.~<DG1.3.1>E11.65</DG1.3.1><DG1.3.1>E78.00</DG1.3.1><DG1.3.1>Z79.899</ DG1.3.1><DG1 MPV 10.4 fL 7.4-10.4 [facility] ([facility]) FASTING~.~.~<DG1.3.1>E11.65</DG1.3.1><DG1.3.1>E78.00</DG1.3.1><DG1.3.1>Z79.899</ DG1.3.1><DG1 Neut 64.1 % 37.0-80.0 [facility] ([facility]) FASTING~.~.~<DG1.3.1>E11.65</DG1.3.1><DG1.3.1>E78.00</DG1.3.1><DG1.3.1>Z79.899</ DG1.3.1><DG1 [place] 7.3 % 3.0-8.0 [facility] ([facility]) FASTING~.~.~<DG1.3.1>E11.65</DG1.3.1><DG1.3.1>E78.00</DG1.3.1><DG1.3.1>Z79.899</ DG1.3.1><DG1 Eos 1.6 % 0.0-7.0 [facility] ([facility]) FASTING~.~.~<DG1.3.1>E11.65</DG1.3.1><DG1.3.1>E78.00</DG1.3.1><DG1.3.1>Z79.899</ DG1.3.1><DG1 Lymph 25.4 % 25.0-40.0 [facility] ([facility]) FASTING~.~.~<DG1.3.1>E11.65</DG1.3.1><DG1.3.1>E78.00</DG1.3.1><DG1.3.1>Z79.899</ DG1.3.1><DG1 %Ig 0.4 % 0.0-0.0 Above high normal [facility] ([facility]) FASTING~.~.~<DG1.3.1>E11.65</DG1.3.1><DG1.3.1>E78.00</DG1.3.1><DG1.3.1>Z79.899</ DG1.3.1><DG1 Baso 1.2 % 0.0-2.0 [facility] ([facility]) FASTING~.~.~<DG1.3.1>E11.65</DG1.3.1><DG1.3.1>E78.00</DG1.3.1><DG1.3.1>Z79.899</ DG1.3.1><DG1 %NRBC 0.0 % 0.0-0.0 [facility] ([facility]) FASTING~.~.~<DG1.3.1>E11.65</DG1.3.1><DG1.3.1>E78.00</DG1.3.1><DG1.3.1>Z79.899</ DG1.3.1><DG1 #Lymph 2.70 10^3/uL 0.60-3.40 [facility] ([facility]) FASTING~.~.~<DG1.3.1>E11.65</DG1.3.1><DG1.3.1>E78.00</DG1.3.1><DG1.3.1>Z79.899</ DG1.3.1><DG1 #[place] 0.78 10^3/uL 0.00-0.90 [facility] ([facility]) FASTING~.~.~<DG1.3.1>E11.65</DG1.3.1><DG1.3.1>E78.00</DG1.3.1><DG1.3.1>Z79.899</ DG1.3.1><DG1 #Neut 6.82 10^3/uL 2.00-6.90 [facility] ([facility]) FASTING~.~.~<DG1.3.1>E11.65</DG1.3.1><DG1.3.1>E78.00</DG1.3.1><DG1.3.1>Z79.899</ DG1.3.1><DG1 #Eos 0.17 10^3/uL 0.00-0.70 [facility] ([facility]) FASTING~.~.~<DG1.3.1>E11.65</DG1.3.1><DG1.3.1>E78.00</DG1.3.1><DG1.3.1>Z79.899</ DG1.3.1><DG1 #[place] 0.13 10^3/uL 0.00-0.20 [facility] ([facility]) FASTING~.~.~<DG1.3.1>E11.65</DG1.3.1><DG1.3.1>E78.00</DG1.3.1><DG1.3.1>Z79.899</ DG1.3.1><DG1 #Ig 0.04 10^3/uL 0.00-0.10 [facility] ([facility]) FASTING~.~.~<DG1.3.1>E11.65</DG1.3.1><DG1.3.1>E78.00</DG1.3.1><DG1.3.1>Z79.899</ DG1.3.1><DG1 #NRBC 0.00 10^3/uL 0.00-0.00 [facility] ([facility]) FASTING~.~.~<DG1.3.1>E11.65</DG1.3.1><DG1.3.1>E78.00</DG1.3.1><DG1.3.1>Z79.899</ DG1.3.1><DG1 Manual Diff Laboratory test result [facility] ([facility]) FASTING~.~.~<DG1.3.1>E11.65</DG1.3.1><DG1.3.1>E78.00</DG1.3.1><DG1.3.1>Z79.899</ DG1.3.1><DG1 RBC Morph Laboratory test result [facility] ([facility]) FASTING~.~.~<DG1.3.1>E11.65</DG1.3.1><DG1.3.1>E78.00</DG1.3.1><DG1.3.1>Z79.899</ DG1.3.1><DG1 ID Date Data Source [id number] 07/21/2020 09:11:00 AM EST [facility] ([facility]) Name Value Range Interpretation Code Description Data Jaylyn rce(s) Supporting Document(s) Thyrotropin [Units/volume] in Serum or Plasma Laboratory test result [facility] ([facility]) Prostate specific Ag [Mass/volume] in Serum or Plasma Laboratory test result [facility] ([facility]) ID Date Data Source [id number] 07/21/2020 09:11:00 AM EST [facility] ([facility]) Name Value Range Interpretation Code Description Data Jaylyn rce(s) Supporting Document(s) Hemoglobin A1c/Hemoglobin.total in Blood Laboratory test result [facility] ([facility]) Procedure Social History Code Duration Value Status Description Data Source(s ) Smoking 04/15/2021 12:00:00 AM EDT Never Smoked Cigarettes com pleted Never Smoked Cigarettes [facility] ([facility]) Vital Signs ID Date Data Source UNK Name Value Range Interpretation Code Description Data Source(s) Body height 70 [in_i] 70 [in_i] [facility] ([facility]) 5'10" Body mass index (BMI) [Ratio] 38.2 kg/m2 38.2 k g/m2 [facility] ([facility]) Body surface area Derived from formula 2.36 m2 2.36 m2 [facility] ([facility]) Heart rate 76 /min 76 /min [facility] ([facility]) Body temperature 98.7 [degF] 98.7 [degF] [facility] ([facility]) Respiratory rate 16 /min 16 /min [facility] ( [facility]) Oxygen saturation in Arterial blood by Pulse oximetry 96 % 96 % [facility] ([facility]) Body weight 266.00 [lb_av] 266.00 [lb_av] [facility] ([facility]) Body weight 120.658 kg 120.658 kg [facility] ([facility]) Systolic blood pressure 150 mm[Hg] 150 mm[Hg] M [facility] ([facility]) Diastolic blood pressure 82 mm[Hg] 82 mm[Hg] [facility] ([facility]) Heart rate 70 /min 70 /min [facility] ([facility]) Systolic blood pressure 154 mm[Hg] 154 mm[Hg] M [facility] ([facility]) Body temperature 98.1 [degF] 98.1 [degF] [facility] ([facility]) Body weight 266.50 [lb_av] 266.50 [lb_av] [facility] ([facility]) Diastolic blood pressure 92 mm[Hg] 92 mm[Hg] [facility] ([facility]) Respiratory rate 16 /min 16 /min [facility] ( [facility]) Oxygen saturation in Arterial blood by Pulse oximetry 97 % 97 % [facility] ([facility]) Body weight 120.884 kg 120.884 kg [facility] ([facility]) Body height 70 [in_i] 70 [in_i] [facility] ([facility]) 5'10" Body mass index (BMI) [Ratio] 38.2 kg/m2 38.2 k g/m2 [facility] ([facility]) Body surface area Derived from formula 2.36 m2 2.36 m2 [facility] ([facility]) Body height 70 [in_i] 70 [in_i] [facility] ([facility] 5'10" Body weight 266.00 [lb_av] 266.00 [lb_av] [facility] ([facility]) Body weight 120.658 kg 120.658 kg [facility] ([facility] Body mass index (BMI) [Ratio] 38.2 kg/m2 38.2 k g/m2 [facility] ([facility]) Systolic blood pressure 159 mm[Hg] 159 mm[Hg] [facility] ([facility]) Diastolic blood pressure 100 mm[Hg] 100 mm[Hg] [facility] ([facility]) Heart rate 71 /min 71 /min [facility] Body temperature 98.1 [degF] 98.1 [degF] [facility] ([facility]) Body height 176.784 cm Normal (applies to non-numeric resu lts) 176.784 cm [facility] Systolic blood pressure 163 mm[Hg] Normal (applies t o non-numeric results) 163 mm[Hg] [facility] Diastolic blood pressure 84 mm[Hg] Normal (applies to non-numeric results) 84 mm[Hg] [facility] Heart rate 68 min Normal (applies to non-numeric resul ts) 68 min [facility] Respiratory rate 20 min Normal (applies to non-numeric results) 20 min [facility] Body temperature 36.6 noe Normal (applies to non-numeric results) 36.6 noe [facility] Deprecated Oxygen saturation in Capillary blood by Oximetry 94 % Normal (applies to non-numeric results) 94 % [facility] Body mass index (BMI) [Ratio] 32.49 kg/m2 No rmal (applies to non-numeric results) 32.49 kg/m2 [facility] Body weight Measured 102.7 kg Normal (applies to n on-numeric results) 102.7 kg [facility] Oxygen saturation in Arterial blood by Pulse oximetry 97 % 97 % [facility] (Ayo Giordano MD) Body height 70 [in_i] 70 [in_i] [facility] (Ayo Giordano MD) 5'10" Body weight 273.00 [lb_av] 273.00 [lb_av] [facility] (Ayo Giordano MD) Body mass index (BMI) [Ratio] 39.2 kg/m2 39.2 k g/m2 [facility] (Ayo Giordano MD) Body temperature 98.1 [degF] 98.1 [degF] [facility] (Ayo Giordano MD) Systolic blood pressure 180 mm[Hg] 180 mm[Hg] [facility] (Ayo Giordano MD) Diastolic blood pressure 100 mm[Hg] 100 mm[Hg] [facility] (Ayo Giordano MD) Heart rate 76 /min 76 /min [facility] (Ayo Giordano MD) Systolic blood pressure 184 mm[Hg] 184 mm[Hg] [facility] ([facility]) Diastolic blood pressure 81 mm[Hg] 81 mm[Hg] [facility] ([facility]) Heart rate 80 /min 80 /min [facility] ([facility] Body height 70 [in_i] 70 [in_i] [facility] ([facility] [place] Body weight 280.00 [lb_av] 280.00 [lb_av] [facility] ([facility]) Body weight 127.008 kg 127.008 kg [facility] ([facility] [place] Body mass index (BMI) [Ratio] 40.2 kg/m2 40.2 k g/m2 [facility] ([facility]) Diastolic blood pressure 86 mm[Hg] 86 mm[Hg] [facility] ([facility]) Systolic blood pressure 190 mm[Hg] 190 mm[Hg] [facility] Heart rate 79 /min 79 /min [facility] ([facility]) Oxygen saturation in Arterial blood by Pulse oximetry 96 % 96 % [facility] ([facility]) Room Air Body height 70 [in_i] 70 [in_i] [facility] ([facility]) 5'10" Body weight 280.00 [lb_av] 280.00 [lb_av] [facility] ([facility]) Body mass index (BMI) [Ratio] 40.2 kg/m2 40.2 k g/m2 [facility] ([facility]) [place] body weight 166 [lb_av] 166 [lb_av] [facility] ([facility]) Body weight 127.008 kg 127.008 kg [facility] ([facility]) Body surface area Derived from formula 2.41 m2 2.41 m2 [facility] ([facility]) Systolic blood pressure 216 mm[Hg] 216 mm[Hg] [facility]Ayo Giordano [facility]) Body height 70 [in_i] 70 [in_i] [facility] 5'10" Diastolic blood pressure 90 mm[Hg] 90 mm[Hg] [facility]Ayo [facility]ord[facility]) Heart rate 76 /min 76 /min [facility]Ayo Giordano [facility]) Oxygen saturation in Arterial blood by Pulse oximetry 94 % 94 % [facility]Ayo Giordano [facility] Body weight 282.00 [lb_av] 282.00 [lb_av] [facility] (Ayo Giordano MD) Body mass index (BMI) [Ratio] 40.5 kg/m2 40.5 k g/m2 [facility] (Ayo Giordano MD) Body temperature 97.9 [degF] 97.9 [degF] [facility] (Ayo Giordano MD) Body weight 283.00 [lb_av] 283.00 [lb_av] [facility] ([facility]) Body weight 128.369 kg 128.369 kg [facility] ([facility]) Body height 70 [in_i] 70 [in_i] [facility] ([facility]) 5'10" Body mass index (BMI) [Ratio] 40.6 kg/m2 40.6 k g[facility]2 [facility] Body surface area Derived from formula 2.42 m2 2.42 m2 [facility] ([facility]) Systolic blood pressure 148 mm[Hg] 148 mm[Hg] [facility] ([facility]) Diastolic blood pressure 80 mm[Hg] 80 mm[Hg] [facility] ([facility]) Heart rate 78 /min 78 /min [facility] ([facility]) Body temperature 96.4 [degF] 96.4 [degF] [facility] ([facility]) Respiratory rate 18 /min 18 /min [facility] ( [facility]) Oxygen saturation in Arterial blood by Pulse oximetry 97 % 97 % [facility] ([facility]) Body temperature 97.2 [degF] 97.2 [degF] [facility] ([facility]) Systolic blood pressure 168 mm[Hg] 168 mm[Hg] [facility] ([facility]) Diastolic blood pressure 88 mm[Hg] 88 mm[Hg] [facility] ([facility]) Heart rate 90 /min 90 /min [facility] ([facility]) Respiratory rate 18 /min 18 /min [facility] Oxygen saturation in Arterial blood by Pulse oximetry 97 % 97 % [facility] ([facility]) Body weight 283.25 [lb_av] 283.25 [lb_av] [facility] ([facility]) Body weight 128.482 kg 128.482 [facility] Body height 70 [in_i] 70 [in_i] [facility] ([facility]) 5'10" Body mass index (BMI) [Ratio] 40.6 kg/m2 40.6 k g/m2 [facility] ([facility]) Body surface area Derived from formula 2.42 m2 2.42 m2 [facility] ([facility]) Body weight 287.00 [lb_av] 287.00 [lb_av] [facility] ([facility]) Body mass index (BMI) [Ratio] 41.2 kg/m2 41.2 k g/m2 [facility] ([facility]) Systolic blood pressure 144 mm[Hg] 144 mm[Hg] [facility] ([facility]) Diastolic blood pressure 84 mm[Hg] 84 mm[Hg] [facility] ([facility]) Body height 70 [in_i] 70 [in_i] [facility] ([facility]) 5'10" [place] body weight 166 [lb_av] 166 [lb_av] [facility] ([facility]) Body weight 130.183 kg 130.183 kg [facility] ([facility]) Body surface area Derived from formula 2.43 m2 2.43 m2 [facility] ([facility]) Diastolic blood pressure 84 mm[Hg] 84 mm[Hg] [facility] ([facility]) Systolic blood pressure--sitting 180 mm[Hg] 180 mm[Hg] [facility] ([facility]) Diastolic blood pressure--sitting 80 mm[Hg] 80 mm[Hg] [facility] ([facility]) Respiratory rate 18 /min 18 /min [facility] ( [facility]) Oxygen saturation in Arterial blood by Pulse oximetry 96 % 96 % [facility] Heart rate 74 /min 74 /min [facility] Body [facility] 131.657 kg 131.657 kg [facility] Body weight 290.25 [lb_av] 290.25 [lb_av] [facility] ([facility]) Body height 70 [in_i] 70 [in_i] [facility] ([facility]) 5'10" Body surface area Derived from formula 2.45 m2 2.45 m2 [facility] ([facility]) Body mass index (BMI) [Ratio] 41.6 kg/m2 41.6 k g/m2 [facility] ([facility]) Body temperature 96.8 [degF] 96.8 [degF] [facility] ([facility]) Systolic blood pressure 148 mm[Hg] 148 mm[Hg] [facility] Diastolic blood pressure 80 mm[Hg] 80 mm[Hg] [facility] ([facility]) Systolic blood pressure 150 mm[Hg] 150 mm[Hg] [facility] Body temperature 96.8 [degF] 96.8 [degF] [facility] ([facility]) Oxygen saturation in Arterial blood by Pulse oximetry 96 % 96 % [facility] ([facility]) Heart rate 72 /min 72 /min [facility] ([facility]) Respiratory rate 18 /min 18 /min [facility] ( [facility]) Body weight 127.688 kg 127.688 kg [facility] ([facility]) Body height 70 [in_i] 70 [in_i] [facility] ([facility]) 5'10" Body mass index (BMI) [Ratio] 40.4 kg/m2 40.4 k g/m2 [facility] ([facility]) Body surface area Derived from formula 2.41 m2 2.41 m2 [facility] ([facility]) Body weight 281.50 [lb_av] 281.50 [lb_av] [facility]
[2021-07-28 04:13] VITALS: BP 180/92
[2021-07-28 04:35] VITALS: BP 180/92
--- OUTSIDE RECORDS SUMMARY | 2021-07-28 04:36 | CCD ---
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 index [BMI]40.0-44.9, adult Cr dy mass index [BMI]40.0-44.9, adult Diagnosis 01/20/2021 07:58:00 AM [facility] Z0000 Encounter for general adult medical exam ination without abnormal findings Encounter for general adult medical examination without abnormal findings Diagnosis 01/20/2021 07:58:00 AM [facility] E6601 Morbid (severe) obesity due to excess ca lories Morbid (severe) obesity due to excess calories Diagnosis 10/21/2020 08:50:00 AM [facility] [id number] Diabetes mellitus Diabetes mellitus Problem 03/10/2021 12:00:00 AM T LORENA ([facility] [place]) N52.1 Secondary erectile dysfunction Secondary erectile dysf unction Problem 10/21/2020 12:00:00 AM JANICE CARRILLO ([facility]) Surgeries/Procedures Procedure Description Date Indications Data Source(s) OFFICE OUTPATIENT VISIT 25 MINUTES 07/13/2021 12:00:00 AM EDT [facility] ([facility]) OFFICE OUTPATIENT VISIT 10 MINUTES 04/23/2021 12:00:00 AM EDT [facility] ([facility]) OFFICE OUTPATIENT VISIT 25 MINUTES 04/22/2021 12:00:00 AM EDT [facility] ([facility]) Radical Laparoscopic Nephrectomy W/REM Gerotas Fascia/Lymph Nodes 03/30/2021 12:00:00 AM EDT [facility] MYOCARDIAL SPECT MULTIPLE STUDIES 03/27/2021 12:00:00 [...] 03/10/2021 12:00:00 A M EDT [facility] ([facility]) Spirometry 03/06/2021 12:00:00 AM EDT M [facility] ([facility], ) CV STRS TST XERS&/OR RX CONT ECG PHYS SI&R 03/03/2021 12:00:00 AM EDT [facility] (Ayo Giordano MD) ECHO TTHRC R-T 2D W/WOM-MODE COMPL SPEC&COLR DOP 03/03 12:00:00 AM EDT [facility] (Ayo Giordano MD) OFFICE OUTPATIENT NEW 45 MINUTES 03/03/2021 12:00:00 A M EDT [facility] (Ayo Giordano MD) OFFICE OUTPATIENT VISIT 25 MINUTES 01/27/2021 12:00:00 AM EDT [facility] ([facility]) Electrocardiogram Complete 01/20/2021 12:00:00 AM EDT [facility] ([facility]) OFFICE OUTPATIENT VISIT 25 MINUTES 01/20/2021 12:00:00 AM EDT [facility] ([facility]) Colonoscopy W/ Poly 01/15/2021 12:00:00 AM EDT [facility] ([facility], ) Brief Emotional/Behav Assessment W/ Scoring Doc Per Standard Inst 07/21/2020 12:00:00 AM EST [facility] ([facility]) Admin Patient Focused Health Risk Assessment Instrument 07/21/2020 12:00:00 AM EST [facility] ([facility]) Results ID Date Data Source [id number] 07/23/2021 08:24:00 PM EDT [facility] Name Value Range Interpretation Code Description Data Jaylyn rce(s) Supporting Document(s) CVE PANEL [facility] LIPID PANEL Cholesterol [Mass/volume] in Serum or Plasma 183 MG/DL 131 - 200 [facility] Deprecated Triglyceride [Mass/volume] in Serum or Plasma 215 MG/DL 3 5 - 160 H [facility] HDL 42 MG/DL 29 - 86 [facility] al Cholesterol in LDL [Mass/volume] in Serum or Plasma by Direc t assay 103 mg/dL 65 - 175 [facility] Cholesterol.total/Cholesterol in HDL [Mass Ratio] in Serum o r Plasma 4.4 3.4 - 4.9 [facility] LDL/HDL 2.45 1.00 - 3.55 [facility] CVE RISK CHOL/HDL LDL/HDLMEN: 1/2 AVERAGE 3.43 1.00 AVERAGE 4.97 3.55 2X AVERAGE 9.55 6.25 3X AVERAGE 23.99 7.99WOMEN: 1/2 AVERAGE 3.27 1.47 AVERAGE 4.44 3.22 2X AVERAGE 7.05 5.03 3X AVERAGE 11.04 6.14 ID Date Data Source [id number] 07/23/2021 08:25:00 PM EDT [facility] Name Value Range Interpretation Code Description Data Jaylyn rce(s) Supporting Document(s) Thyrotropin [Units/volume] in Serum or Plasma by Detec tion limit <= 0.05 mIU/L 0.56 uIU/mL 0.47 - 5.01 [facility] ID Date Data Source [id number] 07/23/2021 08:24:00 PM EDT [facility] Name Value Range Interpretation Code Description Data Jaylyn rce(s) Supporting Document(s) COMPREHENSIVE METABOLIC PANEL [facility] COMPREHENSIVE METABOLIC PANEL Sodium [Moles/volume] in Serum or Plasma 142 mEq/L 134 - 153 [facility] Potassium [Moles/volume] in Serum or Plasma 3.9 mEq/L 3.6 - 5.0 [facility] Chloride [Moles/volume] in Serum or Plasma 105 mEq/L 98 - 107 [facility] Carbon dioxide, total [Moles/volume] in Serum or Plasma 25 MEQ/L 22 - 30 [facility] Glucose [Mass/volume] in Serum or Plasma 195 MG/DL 70 - 99 H [facility] BUN 26 MG/DL 7 - 21 H [facility] al Creatinine [Mass/volume] in Serum or Plasma 2.4 MG/DL 0.7 - 1.5 H [facility] BUN/CREAT 11 8 - 27 [facility] Protein [Mass/volume] in Serum or Plasma 7.2 G/DL 6.3 - 8.2 [facility] Albumin [Mass/volume] in Serum or Plasma 4.7 G/DL 3.9 - 5.0 [facility] Globulin [Mass/volume] in Serum by calculation 2.5 GM/DL 2.4 - 3.2 [facility] A/G RATIO 1.9 0.8 - 2.0 [facility] Calcium [Mass/volume] in Serum or Plasma 9.9 MG/DL 8.4 - 10.2 [facility] Bilirubin.total [Mass/volume] in Serum or Plasma <0.7 MG/DL 0.2 - 1.3 [facility] Alkaline phosphatase [Enzymatic activity/volume] in Serum or Plasma 54 U/L 38 - 126 [facility] Aspartate aminotransferase [Enzymatic activity/volume] in Serum or Plasma 17 U/L 5 - 40 [facility] Alanine aminotransferase [Enzymatic activity/volume] in Seru m or Plasma 15 U/L 7 - 56 [facility] Anion gap 3 in Serum or Plasma 12.0 mmol/L 8.0 - 16.0 [facility] AGE 61 yrs [facility] NON-AA GFR 29 mL/min [facility] lidia AFR AMER GFR 36 mL/min [facility] Male GFR In terprentation 20-49 [...] >32 mL/min Normal ID Date Data Source [id number] 07/23/2021 08:24:00 PM EDT [facility] Name Value Range Interpretation Code Description Data Jaylyn rce(s) Supporting Document(s) Hemoglobin A1c/Hemoglobin.total in Blood 5.5 % 4.4 - 6.1 [facility] {A1]{HB] ID Date Data Source [id number] 07/23/2021 07:27:00 PM EDT [facility] Name Value Range Interpretation Code Description Data Jaylyn rce(s) Supporting Document(s) CBC W/AUTOMATED DIFF [facility] COMPLETE BLOOD COUNT Leukocytes [#/volume] in Blood by Automated count 7.4 10^3/uL 4.2 - 1 1.0 [facility] Erythrocytes [#/volume] in Blood by Automated count 4.79 10^6/uL 4. 50 - 6.30 [facility] Hemoglobin [Mass/volume] in Blood 14.8 g/dL 14.0 - 16.0 [facility] Hematocrit [Volume Fraction] of Blood by Automated count 45.0 % 4 1.0 - 51.0 [facility] Erythrocyte mean corpuscular volume [Entitic volume] by Auto mated count 93.9 fL 80.0 - 94.0 [facility] Erythrocyte mean corpuscular hemoglobin [Entitic mass] by Automated count 30.9 pg 27.0 - 34.0 [facility] Erythrocyte mean corpuscular hemoglobin concentration [Mass/volume] by Automated count 32.9 g/dL 31.0 - 36.0 [facility] Erythrocyte distribution width [Ratio] by Automated count 13.2 % 11.5 - 14.8 [facility] Platelets [#/volume] in Blood by Automated count 249 10^3/uL 150 - 45 0 [facility] Platelet mean volume [Entitic volume] in Blood by Automated count 10.6 fL 7.4 - 10.4 H [facility] Neutrophils/100 leukocytes in Blood by Automated count 62.7 % 37. 0 - 80.0 [facility] Lymphocytes/100 leukocytes in Blood by Manual count 25.4 % 25.0 - 40.0 [facility] Monocytes/100 leukocytes in Blood by Automated count 7.8 % 3.0 - 8.0 [facility] Eosinophils/100 leukocytes in Blood by Automated count 2.2 % 0.0 - 7.0 [facility] Basophils/100 leukocytes in Blood by Automated count 1.5 % 0.0 - 2.0 [facility] %IG 0.4 % 0.0 - 0.[address] %[facility] 0.0 % 0.0 - 0.0 [facility] al Neutrophils [#/volume] in Blood by Automated count 4.66 10^3/uL 2.00 - 6.90 [facility] Lymphocytes [#/volume] in Blood by Automated count 1.89 10^3/uL 0.60 - 3.40 [facility] Monocytes [#/volume] in Blood by Automated count 0.58 10^3/uL 0.00 - 0.90 [facility] Eosinophils [#/volume] in Blood by Automated count 0.16 10^3/uL 0.00 - 0.70 [facility] Basophils [#/volume] in Blood by Automated count 0.11 10^3/uL 0.00 - 0.20 [facility] #IG 0.03 10^3/uL 0.00 - 0.10 [facility] ospital #NRBC 0.00 10^3/uL 0.00 - 0.00 [facility] MANUAL DIFF NOT INDICATED [facility] RBC MORPH NOT INDICATED [facility] spital ID Date Data Source [id number] 07/23/2021 07:59:00 AM EDT [facility] ([facility]) Name Value Range Interpretation Code Description Data Jaylyn rce(s) Supporting Document(s) Thyrotropin [Units/volume] in Serum or Plasma Laboratory test result [facility] ([facility]) ID Date Data Source [id number] 07/23/2021 07:59:00 AM EDT [facility] ([facility]) Name Value Range Interpretation Code Description Data Jaylyn rce(s) Supporting Document(s) Hemoglobin A1c/Hemoglobin.total in Blood Laboratory test result [facility] ([facility]) ID Date Data Source [id number] 07/13/2021 01:32:00 PM EDT [facility] ([facility]) Name Value Range Interpretation Code Description Data Jaylyn rce(s) Supporting Document(s) Coronavirus Covid-19 Laboratory test result [facility] ([facility]) This nucleic acid amplification test was developed and its performance characteristics determined by [employer]. Nucleic acid amplification tests include RT-PCR and [...] in this assay. ID Date Data Source [id number] 07/13/2021 01:32:00 PM EDT [facility] ([facility]) Name Value Range Interpretation Code Description Data Jaylyn rce(s) Supporting Document(s) RSV Antigen Reenter Laboratory test result Abnor mal (applies to non-numeric results) [facility] ([facility]) { PROCEDURAL CONTROL VALID ) { KIT LOT # [id number] ) { KIT EXP DATE 12/30/21 ) RSV Antigen Laboratory test result Abnormal (applies to non-numeric results) [facility] ([facility]) ID Date Data Source [id number] 07/16/2021 07:23:00 AM EDT [facility] Name Value Range Interpretation Code Description Data Jaylyn rce(s) Supporting Document(s) SARS-CoV-2, JUANITA Not Detected Not Detected [facility] This nucleic acid amplification test was developed and its performancecharacteristics determined by [employer]. Nucleic acidamplification tests include RT-PCR and TMA. [...] in this assay. ID Date Data Source [id number] 07/13/2021 06:04:00 PM EDT [facility] Name Value Range Interpretation Code Description Data Jaylyn rce(s) Supporting Document(s) RSV ANTIGEN POSITIVE NORMAL: NEGATIVE A [facility] RSV ANTIGEN REENTER POSITIVE NORMAL: NEGATIVE A [facility] { PROCEDURAL CONTROL VALID ){ KIT LOT # [id number] ){ KIT EXP DATE 12/30/21 ) ID Date Data Source [id number] 07/13/2021 01:32:00 PM EDT [facility] Name Value Range Interpretation Code Description Data Jaylyn rce(s) Supporting Document(s) SARS coronavirus 2 RNA Not Detected [facility] [place] This lab was ordered by [facility] melva and reported by [facility]. ID Date Data Source [id number] 07/13/2021 01:25:00 PM EDT [facility] ([facility]) Name Value Range Interpretation Code Description Data Jaylyn rce(s) Supporting Document(s) Covid-19 Laboratory test result [facility] ([facility]) ID Date Data Source [id number] 07/13/2021 01:25:00 PM EDT [facility] ([facility]) Name Value Range Interpretation Code Description Data Jaylyn rce(s) Supporting Document(s) Respiratory syncytial virus Ag [Presence ] in Unspecified specimen by Immunoassay Laboratory test result [facility] ([facility]) ID Date Data Source [id number] 06/12/2021 12:04:00 PM EDT [facility] Name Value Range Interpretation Code Description Data Jaylyn rce(s) Supporting Document(s) SARS coronavirus 2 RNA Not Detected [facility] [place] This lab was ordered by [facility] melva and reported by [facility]. ID Date Data Source [id number] 06/14/2021 04:20:00 PM EDT [facility] Name Value Range Interpretation Code Description Data Jaylyn rce(s) Supporting Document(s) SARS-CoV-2, JUANITA Not Detected Not Detected [facility] This nucleic acid amplification test was developed and its performancecharacteristics determined by [employer]. Nucleic acidamplification tests include RT-PCR and TMA. [...] assay. SARS-CoV-2, JUANITA [address] [facility] ID Date Data Source [id number] 06/12/2021 11:35:00 AM EDT [facility] ([facility]) Name Value Range Interpretation Code Description Data Jaylyn rce(s) Supporting Document(s) Laboratory test finding (navigational concept) Laboratory test result [facility] ([facility]) Sars-CoV-2, Juanita Laboratory test result [facility] ([facility]) This nucleic acid amplification test was developed and its performance characteristics determined by [employer]. Nucleic acid amplification tests include RT-PCR and [...] in this assay. ID Date Data Source [id number] 05/13/2021 03:48:00 PM EDT [facility] ([facility]) Name Value Range Interpretation Code Description Data Jaylyn rce(s) Supporting Document(s) Glucose, Fasting 112 mg/dL 70-100 Above high normal M [facility] ([facility]) Blood Urea Nitrogen 31 mg/dL 7-18 Above high normal [facility] ([facility]) Creatinine For GFR 2.36 mg/dL 0.70-1.30 Above high normal [facility] ([facility]) Glomerular Filtration Rate 30.0 Below low normal [facility] ([facility]) <content>Units are mL/min/1.73 m2</content>
<content></content>
<content>Chronic Kidney Disease Staging per NKF:</content>
<content></content>
<content>Stage I & II GFR >=60 Normal to Mildly Decreased</content>
<content>Stage III GFR 30- 59 Moderately Decreased</content>
<content>Stage IV GFR 15-29 Severely Decreased</content>
<content>Stage V GFR <15 Very Little GFR Left</content>
<content>ESRD GFR <15 on SPINE SUPERVISOR</content>
<content></content> Sodium Level 140 meq/L 136-145 Normal (applies to non-numeric res ults) [facility] ([facility]) Potassium Serum 3.9 meq/L 3.5-5.1 Normal (applies to non-numeric results) [facility] ([facility]) Chloride Level 109 meq/L 98-107 Above high normal [facility] ([facility]) Carbon Dioxide Level 23 meq/L 21-32 Normal (applies to non-num deborah results) [facility] ([facility]) Calcium Level 9.7 mg/dL 8.8-10.2 Normal (applies to non-numeric re sults) [facility] ([facility]) Anion Gap 8 meq/L 8-16 Normal (applies to non-numeric resul ts) [facility] ([facility]) Ast/Sgot 15 U/L 7-37 Normal (applies to non-numeric resul ts) [facility] ([facility]) Alt/SGPT 26 U/L 12-78 Normal (applies to non-numeric resul ts) [facility] ([facility]) Alkaline Phosphatase 67 U/L 45-117 Normal (applies to non-num deborah results) [facility] ([facility]) Bilirubin,Total 0.4 mg/dL 0.2-1.0 Normal (applies to non-numeric results) [facility] ([facility]) Total Protein 8.0 GM/DL 6.4-8.2 Normal (applies to non-numeric re sults) [facility] Albumin 4.3 GM/DL 3.2-5.2 Normal (applies to non-numeric resul ts) [facility] Albumin/Globulin Ratio 1.2 Normal (applies to non-n umeric results) [facility] ([facility]) ID Date Data Source [id number] 05/13/2021 03:48:00 PM EDT [facility] ([facility]) Name Value Range Interpretation Code Description Data Jaylyn rce(s) Supporting Document(s) Red Blood Count 4.80 10 4.30-6.10 Normal (applies to non-numeric results) [facility] White Blood Count 8.5 10 4.0-10.0 Normal (applies to non-numeri c results) [facility] ([facility]) Hematocrit 43.8 % 42.0-52.0 Normal (applies to non-numeric resul ts) [facility] Hemoglobin 14.5 g/dL 13.5-17.5 Normal (applies to non-numeric resul ts) [facility] Mean Corpuscular Volume 91.3 fl 80.0-96.0 Normal ( applies to non-numeric results) [facility] ([facility]) Mean Corpuscular Hemoglobin 30.2 pg 27.0-33.0 Norm al (applies to non-numeric results) [facility] ([facility]) Mean Corpuscular HGB Conc 33.1 g/dL 32.0-36.5 Normal (applies to non-numeric results) [facility]) Platelet Count, Automated 238 10 150-450 Normal (applies to non-numeric results) [facility] ([facility]) Red Cell Distribution Width 14.0 % 11.5-14.5 Norm al (applies to non-numeric results) [facility]) Neutrophils % 57.8 % 36.0-66.0 Normal (applies to non-numeric re sults) [facility] ([facility]) Pitt % 11.2 % 2.0-8.0 Above high normal [facility] ([facility]) Lymph % 27.3 % 24.0-44.0 Normal (applies to non-numeric resul ts) [facility] ([facility]) Eos % 2.3 % 0.0-3.0 Normal (applies to non-numeric resul ts) [facility] ([facility]) Immature Granulocyte % 0.2 % 0-3.0 Normal (applies to non-n umeric results) [facility] ([facility]) Baso % 1.2 % 0.0-1.0 Above high normal [facility] ([facility]) Neutrophils # 4.9 10 1.5-8.5 Normal (applies to non-numeric re sults) [facility] ([facility]) Nucleated Red Blood Cell % 0.0 % 0-0 Normal (applies to n on-numeric results) [facility] ([facility]) Lymph # 2.3 10 1.5-5.0 Normal (applies to non-numeric resul ts) [facility] ([facility]) Pitt # 1.0 10 0.0-0.8 Above high normal [facility] ([facility]) Eos # 0.2 10 0.0-0.5 Normal (applies to non-numeric resul ts) [facility] ([facility]) Baso # 0.1 10 0.0-0.2 Normal (applies to non-numeric resul ts) [facility] ([facility]) ID Date Data Source [id number] 05/04/2021 07:01:00 PM EDT [facility] Name Value Range Interpretation Code Description Data Jaylyn rce(s) Supporting Document(s) COMPREHENSIVE METABOLIC PANEL [facility] COMPREHENSIVE METABOLIC PANEL Sodium [Moles/volume] in Serum or Plasma 139 mEq/L 134 - 153 [facility] Potassium [Moles/volume] in Serum or Plasma 4.4 mEq/L 3.6 - 5.0 [facility] Chloride [Moles/volume] in Serum or Plasma 105 mEq/L 98 - 107 [facility] Carbon dioxide, total [Moles/volume] in Serum or Plasma 22 MEQ/L 22 - 30 [facility] Glucose [Mass/volume] in Serum or Plasma 143 MG/DL 70 - 99 H [facility] BUN 26 MG/DL 7 - 21 H [facility] Creatinine [Mass/volume] in Serum or Plasma 2.1 MG/DL 0.7 - 1.5 H [facility] BUN/CREAT 12 8 - 27 [facility] Protein [Mass/volume] in Serum or Plasma 6.9 G/DL 6.3 - 8.2 [facility] Albumin [Mass/volume] in Serum or Plasma 4.5 G/DL 3.9 - 5.0 [facility] Globulin [Mass/volume] in Serum by calculation 2.4 GM/DL 2.4 - 3.2 [facility] A/G RATIO 1.9 0.8 - 2.0 [facility] Calcium [Mass/volume] in Serum or Plasma 9.8 MG/DL 8.4 - 10.2 [facility] Bilirubin.total [Mass/volume] in Serum or Plasma <0.7 MG/DL 0.2 - 1.3 [facility] Alkaline phosphatase [Enzymatic activity/volume] in Serum or Plasma 53 U/L 38 - 126 [facility] Aspartate aminotransferase [Enzymatic activity/volume] in Serum or Plasma 16 U/L 5 - 40 [facility] Alanine aminotransferase [Enzymatic activity/volume] in Seru m or Plasma 12 U/L 7 - 56 [facility] Anion gap 3 in Serum or Plasma 12.0 mmol/L 8.0 - 16.0 [facility] AGE 60 yrs [facility] al NON-AA GFR 34 mL/[facility] AMER GFR 42 mL/min [facility] Male GFR In terprentation 20-49 [...] >32 mL/min Normal ID Date Data Source [id number] 05/04/2021 09:29:00 AM EDT [facility] ([facility]) Name Value Range Interpretation Code Description Data Jaylyn rce(s) Supporting Document(s) [facility] [employer] Laboratory test result [facility] ([facility]) Is patient fasting? N Sodium 139 meq/L 134-153 [facility] ([facility]) Is patient fasting? N Potassium 4.4 meq/L 3.6-5.0 [facility] ([facility]) Is patient fasting? N Chloride 105 meq/L 98-107 [facility] ([facility]) Is patient fasting? N Co2 22 meq/L 22-30 [facility] ([facility]) Is patient fasting? N Glucose 143 mg/dL 70-99 Above high normal [facility] ([facility]) Is patient fasting? N BUN 26 mg/dL 7-21 Above high [facility] Is patient fasting? N Creatinine 2.1 mg/dL 0.7-1.5 Above high normal [facility] ([facility]) Is patient fasting? N BUN/Creat 12 8-27 [facility] Is patient fasting? N Total Protein 6.9 g/dL 6.3-8.2 [facility] ([facility]) Is patient fasting? N Albumin 4.5 g/dL 3.9-5.0 [facility] ([facility]) Is patient fasting? N Globulin 2.4 GM/DL 2.4-3.2 [facility] Is patient fasting? N A/G Ratio 1.9 0.8-2.0 [facility] ([facility]) Is patient fasting? N Calcium 9.8 mg/dL 8.4-10.2 [facility] ([facility]) Is patient fasting? N Total Bili Laboratory test result 0.2-1.3 ME [facility] ([facility]) Is patient fasting? N Alkaline Phos 53 U/L 38-126 [facility] ([facility]) Is patient fasting? N Sgot/Ast 16 U/L 5-40 [facility] ([facility]) Is patient fasting? N SGPT/Alt 12 U/L 7-56 [facility] ([facility]) Is patient fasting? N Anion Gap 12.0 mmol/L 8.0-16.0 [facility] ([facility]) Is patient fasting? N Age 60 yrs [facility] ([facility]) Is patient fasting? N Non-Aa GFR 34 mL/min [facility] ([facility]) Is patient fasting? N Afr Amer GFR 42 mL/min [facility] ([facility]) Is patient fasting? N ID Date Data Source [id number] 04/22/2021 08:41:00 AM EDT [facility] ([facility]) Name Value Range Interpretation Code Description Data Jaylyn rce(s) Supporting Document(s) Thyrotropin [Units/volume] in Serum or Plasma 0.57 uIU/mL 0.47-5.01 [facility] ([facility]) Is patient fasting? Y Prostate specific Ag [Mass/volume] in Serum or Plasma 1.05 ng/mL 0.00 -4.00 [facility] ([facility]) Is patient fasting? Y ID Date Data Source [id number] 04/22/2021 08:41:00 AM EDT [facility] ([facility]) Name Value Range Interpretation Code Description Data Jaylyn rce(s) Supporting Document(s) Cve Panel Laboratory test result [facility] ([facility]) Is patient fasting? Y Triglycerides 328 mg/dL 35-160 Above high normal MEDE NT ([facility]) Is patient fasting? Y Cholesterol 208 mg/dL 131-200 Above high normal [facility] ([facility]) Is patient fasting? Y HDL 42 mg/dL 29-86 [facility] ([facility]) Is patient fasting? Y LDL 123 mg/dL 65-175 [facility] ([facility]) Is patient fasting? Y Risk Factor 5.0 3.4-4.9 Above high normal [facility] ([facility]) Is patient fasting? Y LDL/HDL 2.93 1.00-3.55 [facility] ([facility]) Is patient fasting? Y ID Date Data Source [id number] 04/22/2021 08:41:00 AM EDT [facility] ([facility]) Name Value Range Interpretation Code Description Data Jaylyn rce(s) Supporting Document(s) Hemoglobin A1c/Hemoglobin.total in Blood 6.0 % 4.4-6.1 [facility] ([facility]) Is patient fasting? Y ID Date Data Source [id number] 04/22/2021 08:41:00 AM EDT [facility] ([facility]) Name Value Range Interpretation Code Description Data Jaylyn rce(s) Supporting Document(s) Comprehensive Metabo Laboratory test result [facility] ([facility]) Is patient fasting? Y Sodium 138 meq/L 134-153 [facility] ([facility]) Is patient fasting? Y Potassium 4.5 meq/L 3.6-5.0 [facility] ([facility]) Is patient fasting? Y Chloride 104 meq/L 98-107 [facility] ([facility]) Is patient fasting? Y Co2 21 meq/L 22-30 Below low normal [facility] ([facility]) Is patient fasting? Y Glucose 134 mg/dL 70-99 Above high normal [facility] ([facility]) Is patient fasting? Y BUN 31 mg/dL 7-21 Above high normal [facility] ([facility]) Is patient fasting? Y Creatinine 2.1 mg/dL 0.7-1.5 Above high normal [facility] ([facility]) Is patient fasting? Y BUN/Creat 15 8-27 [facility] ([facility]) Is patient fasting? Y Total Protein 7.7 g/dL 6.3-8.2 [facility] ([facility]) Is patient fasting? Y Albumin 4.9 g/dL 3.9-5.0 [facility] ([facility]) Is patient fasting? Y Globulin 2.8 GM/DL 2.4-3.2 [facility] ([facility]) Is patient fasting? Y A/G Ratio 1.8 0.8-2.0 [facility] ([facility]) Is patient fasting? Y Calcium 10.4 mg/dL 8.4-10.2 Above high normal [facility] ([facility]) Is patient fasting? Y Total Bili Laboratory test result 0.2-1.3 [facility] ([facility]) Is patient fasting? Y Sgot/Ast 15 U/L 5-40 [facility] ([facility]) Is patient fasting? Y Alkaline Phos 66 U/L 38-126 [facility] ([facility]) Is patient fasting? Y SGPT/Alt 11 U/L 7-56 [facility] ([facility]) Is patient fasting? Y Anion Gap 13.0 mmol/L 8.0-16.0 [facility] ([facility]) Is patient fasting? Y Age 60 yrs [facility] ([facility]) Is patient fasting? Y Non-Aa GFR 34 mL/min [facility] ([facility]) Is patient fasting? Y Afr Amer GFR 42 mL/min [facility] ([facility]) Is patient fasting? Y ID Date Data Source [id number] 04/22/2021 08:41:00 AM EDT [facility] ([facility]) Name Value Range Interpretation Code Description Data Jaylyn rce(s) Supporting Document(s) CBC W/Automated Diff Laboratory test result [facility] ([facility]) Is patient fasting? Y WBC 8.2 10^3/uL 4.2-11.0 [facility] ([facility]) Is patient fasting? Y RBC 4.95 10^6/uL 4.50-6.30 [facility] ([facility]) Is patient fasting? Y Hemoglobin 15.0 g/dL 14.0-16.0 [facility] ([facility]) Is patient fasting? Y MCV 92.5 fL 80.0-94.0 [facility] ([facility]) Is patient fasting? Y Hematocrit 45.8 % 41.0-51.0 [facility] ([facility]) Is patient fasting? Y MCH 30.3 pg 27.0-34.0 [facility] ([facility]) Is patient fasting? Y MCHC 32.8 g/dL 31.0-36.0 [facility] ([facility]) Is patient fasting? Y RDW 13.7 % 11.5-14.8 [facility] ([facility]) Is patient fasting? Y MPV 10.8 fL 7.4-10.4 Above high normal [facility] ([facility]) Is patient fasting? Y Platelets 257 10^3/uL 150-450 [facility] ([facility]) Is patient fasting? Y Neut 68.1 % 37.0-80.0 [facility] ([facility]) Is patient fasting? Y Pitt 8.3 % 3.0-8.0 Above high normal [facility] ([facility]) Is patient fasting? Y Lymph 18.6 % 25.0-40.0 Below low normal [facility] ( [facility]) Is patient fasting? Y Eos 2.8 % 0.0-7.0 [facility] ([facility]) Is patient fasting? Y Baso 1.8 % 0.0-2.0 [facility] ([facility]) Is patient fasting? Y %Ig 0.4 % 0.0-0.0 Above high normal [facility] ([facility]) Is patient fasting? Y %NRBC 0.0 % 0.0-0.0 [facility] ([facility]) Is patient fasting? Y #Neut 5.57 10^3/uL 2.00-6.90 [facility] ([facility]) Is patient fasting? Y #Lymph 1.52 10^3/uL 0.60-3.40 [facility] ([facility]) Is patient fasting? Y #Pitt 0.68 10^3/uL 0.00-0.90 [facility] ([facility]) Is patient fasting? Y #Eos 0.23 10^3/uL 0.00-0.70 [facility] ([facility]) Is patient fasting? Y #Baso 0.15 10^3/uL 0.00-0.20 [facility] ([facility]) Is patient fasting? Y #Ig 0.03 10^3/uL 0.00-0.10 [facility] ([facility]) Is patient fasting? Y #NRBC 0.00 10^3/uL 0.00-0.00 [facility] ([facility]) Is patient fasting? Y Manual Diff Laboratory test result M [facility]ENT ([facility]) Is patient fasting? Y RBC Morph Laboratory test result [facility] ([facility]) Is patient fasting? Y ID Date Data Source [id number] 04/22/2021 06:45:00 PM EDT [facility] Name Value Range Interpretation Code Description Data Jaylyn rce(s) Supporting Document(s) CVE PANEL [facility] al LIPID PANEL Cholesterol [Mass/volume] in Serum or Plasma 208 MG/DL 131 - 200 H [facility] Deprecated Triglyceride [Mass/volume] in Serum or Plasma 328 MG/DL 3 5 - 160 H [facility] HDL 42 MG/DL 29 - 86 [facility] al Cholesterol in LDL [Mass/volume] in Serum or Plasma by Direc t assay 123 mg/dL 65 - 175 [facility] Cholesterol.total/Cholesterol in HDL [Mass Ratio] in Serum o r Plasma 5.0 3.4 - 4.9 H [facility] LDL/HDL 2.93 1.00 - 3.55 [facility] ital CVE RISK CHOL/HDL LDL/HDLMEN: 1/2 AVERAGE 3.43 1.00 AVERAGE 4.97 3.55 2X AVERAGE 9.55 6.25 3X AVERAGE 23.99 7.99WOMEN: 1/2 AVERAGE 3.27 1.47 AVERAGE 4.44 3.22 2X AVERAGE 7.05 5.03 3X AVERAGE 11.04 6.14 ID Date Data Source [id number] 04/22/2021 06:45:00 PM EDT [facility] Name Value Range Interpretation Code Description Data Jaylyn rce(s) Supporting Document(s) COMPREHENSIVE METABOLIC PANEL [facility] COMPREHENSIVE METABOLIC PANEL Sodium [Moles/volume] in Serum or Plasma 138 mEq/L 134 - 153 [facility] Potassium [Moles/volume] in Serum or Plasma 4.5 mEq/L 3.6 - 5.0 [facility] Chloride [Moles/volume] in Serum or Plasma 104 mEq/L 98 - 107 [facility] Carbon dioxide, total [Moles/volume] in Serum or Plasma 21 MEQ/L 22 - 30 L [facility] Glucose [Mass/volume] in Serum or Plasma 134 MG/DL 70 - 99 H [facility] BUN 31 MG/DL 7 - 21 H [facility] al Creatinine [Mass/volume] in Serum or Plasma 2.1 MG/DL 0.7 - 1.5 H [facility] BUN/CREAT 15 8 - 27 [facility] al Protein [Mass/volume] in Serum or Plasma 7.7 G/DL 6.3 - 8.2 [facility] Albumin [Mass/volume] in Serum or Plasma 4.9 G/DL 3.9 - 5.0 [facility] Globulin [Mass/volume] in Serum by calculation 2.8 GM/DL 2.4 - 3.2 [facility] A/G RATIO 1.8 0.8 - 2.0 [facility] Calcium [Mass/volume] in Serum or Plasma 10.4 MG/DL 8.4 - 10.2 H [facility] Bilirubin.total [Mass/volume] in Serum or Plasma <0.7 MG/DL 0.2 - 1.3 [facility] Alkaline phosphatase [Enzymatic activity/volume] in Serum or Plasma 66 U/L 38 - 126 [facility] Aspartate aminotransferase [Enzymatic activity/volume] in Serum or Plasma 15 U/L 5 - 40 [facility] Alanine aminotransferase [Enzymatic activity/volume] in Seru m or Plasma 11 U/L 7 - 56 [facility] Anion gap 3 in Serum or Plasma 13.0 mmol/L 8.0 - 16.0 [facility] [address] [facility] 34 mL/[facility] AFR AMER GFR 42 mL/min [facility] Male GFR In terprentation 20-49 [...] >32 mL/min Normal ID Date Data Source [id number] 04/22/2021 06:24:00 PM EDT [facility] Name Value Range Interpretation Code Description Data Jaylyn rce(s) Supporting Document(s) Thyrotropin [Units/volume] in Serum or Plasma by Detec tion limit <= 0.05 mIU/L 0.57 uIU/mL 0.47 - 5.01 [facility] ID Date Data Source [id number] 04/22/2021 06:24:00 PM EDT [facility] Name Value Range Interpretation Code Description Data Jyalyn rce(s) Supporting Document(s) Prostate specific Ag [Mass/volume] in Serum or Plasma 1.05 ng/mL 0.00 - 4.00 [facility] \\BLDo\\PSA INTERPRETA TION\\BLDx\\ The PSA assay should [...] be used interchangeably. ID Date Data Source [id number] 04/22/2021 05:59:00 PM EDT [facility] Name Value Range Interpretation Code Description Data Jaylyn rce(s) Supporting Document(s) Hemoglobin A1c/Hemoglobin.total in Blood 6.0 % 4.4 - 6.1 [facility] {A1]{HB] ID Date Data Source [id number] 04/22/2021 05:45:00 PM EDT [facility] Name Value Range Interpretation Code Description Data Jaylyn rce(s) Supporting Document(s) CBC W/AUTOMATED DIFF [facility] COMPLETE BLOOD COUNT Leukocytes [#/volume] in Blood by Automated count 8.2 10^3/uL 4.2 - 1 1.0 [facility] Erythrocytes [#/volume] in Blood by Automated count 4.95 10^6/uL 4. 50 - 6.30 [facility] Hemoglobin [Mass/volume] in Blood 15.0 g/dL 14.0 - 16.0 [facility] Hematocrit [Volume Fraction] of Blood by Automated count 45.8 % 4 1.0 - 51.0 [facility] Erythrocyte mean corpuscular volume [Entitic volume] by Auto mated count 92.5 fL 80.0 - 94.0 [facility] Erythrocyte mean corpuscular hemoglobin [Entitic mass] by Automated count 30.3 pg 27.0 - 34.0 [facility] Erythrocyte mean corpuscular hemoglobin concentration [Mass/volume] by Automated count 32.8 g/dL 31.0 - 36.0 [facility] Erythrocyte distribution width [Ratio] by Automated count 13.7 % 11.5 - 14.8 [facility] Platelets [#/volume] in Blood by Automated count 257 10^3/uL 150 - 45 0 [facility] Platelet mean volume [Entitic volume] in Blood by Automated count 10.8 fL 7.4 - 10.4 H [facility] Neutrophils/100 leukocytes in Blood by Automated count 68.1 % 37. 0 - 80.0 [facility] Lymphocytes/100 leukocytes in Blood by Manual count 18.6 % 25.0 - 40.0 L [facility] Monocytes/100 leukocytes in Blood by Automated count 8.3 % 3.0 - 8.0 H [facility] Eosinophils/100 leukocytes in Blood by Automated count 2.8 % 0.0 - 7.0 [facility] Basophils/100 leukocytes in Blood by Automated count 1.8 % 0.0 - 2.0 [facility] %IG 0.4 % 0.0 - 0.[address] %NRBC 0.0 % 0.0 - 0.0 [facility] al Neutrophils [#/volume] in Blood by Automated count 5.57 10^3/uL 2.00 - 6.90 [facility] Lymphocytes [#/volume] in Blood by Automated count 1.52 10^3/uL 0.60 - 3.40 [facility] Monocytes [#/volume] in Blood by Automated count 0.68 10^3/uL 0.00 - 0.90 [facility] Eosinophils [#/volume] in Blood by Automated count 0.23 10^3/uL 0.00 - 0.70 [facility] Basophils [#/volume] in Blood by Automated count 0.15 10^3/uL 0.00 - 0.20 [facility] #IG 0.03 10^3/uL 0.00 - 0.10 [facility] #NRBC 0.00 10^3/uL 0.00 - 0.00 [facility] MANUAL DIFF NOT INDICATED [facility] RBC MORPH NOT INDICATED [facility] ID Date Data Source [id number] 04/15/2021 02:48:00 PM EDT [facility] ([facility] Name Value Range Interpretation Code Description Data Jaylyn rce(s) Supporting Document(s) Creatinine [Mass/volume] in Serum or Plasma 2.66 mg/dL 0.72-1.25 [facility] ([facility]) Glucose [Mass/volume] in Serum or Plasma 64.0 mg/dL 70.0-99.0 [facility] ([facility]) Carbon dioxide, total [Moles/volume] in Serum or Plasma 21.0 mmol/L 22.0-31.0 [facility] ([facility]) Calcium [Mass/volume] in Serum or Plasma 10.1 mg/dL 8.4-10.2 [facility] ([facility]) Urea nitrogen [Mass/volume] in Serum or Plasma 35.0 mg/dL 7.0-24.0 [facility] ([facility]) Sodium [Moles/volume] in Serum or Plasma 140.0 mmol/L 136.0-145.0 [facility] ([facility]) BUN/Creat Ratio 13.2 [facility] ([facility] Anion gap in Serum or Plasma 16.2 [facility] ([facility]) K 4.2 mmol/L 3.6-5.2 [facility] ([facility]) Chloride [Moles/volume] in Serum or Plasma 107.0 mmol/L 98.0-107.0 [facility] ([facility]) eGFR - Descent 29.0 ME [facility]ENT ([facility]) eGFR -- Non- Descent 23.9 [facility] ([facility]) ID Date Data Source [id number] 04/15/2021 02:25:00 PM EDT [facility] ([facility] Name Value Range Interpretation Code Description Data Jaylyn rce(s) Supporting Document(s) Glucose [Presence] in Urine Laboratory test result [facility] ([facility]) Protein [Presence] in Urine by Test strip Laboratory test result [facility] ([facility]) Ua Nitrite Laboratory test result [facility] ([facility]) Ua Leuko Laboratory test result [facility] ([facility]) Blood [Presence] in Urine by Visual Laboratory test result [facility] ([facility]) Color of Urine Laboratory test result [facility] ([facility]) Clarity of Urine Laboratory test result [facility] ([facility]) Ketones [Presence] in Urine by Test strip Laboratory test result [facility] ([facility]) Bilirubin.total [Presence] in Urine by Test strip Laboratory test res ult [facility] ([facility]) pH of Urine by Test strip 5.5 5.0-7.5 [facility] ([facility]) Ua Specific [place] 1.010 1.003-1.030 MED[facility] NT ([facility]) Urobilinogen [Mass/volume] in Urine by Test strip 0.2 E.U./dL 0.0-1.0 [facility] ([facility]) ID Date Data Source [id number] 03/31/2021 07:50:59 AM EDT [facility] Name Value Range Interpretation Code Description Data Jaylyn rce(s) Supporting Document(s) SODIUM 141 mmol/L (136-145) [facility] POTASSIUM 3.2 mmol/L (3.6-5.2) L [facility] CHLORIDE 108 mmol/L (100-108) [facility] CO2 22 mmol/L (22-31) [facility] ANION GAP 11 mmol/L (7-16) [facility] UREA NITROGEN 12 mg/dL (7-24) [facility] CREATININE 1.74 mg/dL (0.80-1.30) H [facility] BUN/CREAT RATIO 6.9 RATIO (10.0-20.0) L [facility] GLUCOSE 147 mg/dL (70-99) H [facility] CALCIUM 7.8 mg/dL (8.4-10.2) L [facility] GFR 40 ml/min/1.73m2 (>59) L [facility] GFR ( AMER) 49 ml/min/1.73m2 (>59) L [facility] GFR INTERPRETATION [facility] --NORMAL KIDNEY FUNCTION OR MILD DISEASE - GFR >OR= 60CHRONIC KIDNEY DISEASE - GFR 15 - 59RENAL FAILURE - GFR <15 Est. GFR calculation based on the MDRDstudy equation, which assumes a steadystate for creatinine. Est. GFR should notbe used for medication dosing. ID Date Data Source [id number] 03/31/2021 07:20:52 AM EDT [facility] Name Value Range Interpretation Code Description Data Jaylyn rce(s) Supporting Document(s) WBC 9.5 10*3/uL (4.1-11.0) [facility] RBC 4.64 10*6/uL (4.60-6.10) [facility] HGB 14.1 g/dL (13.5-18.0) [facility] HCT 42.1 % (41.0-53.0) [facility] MCV 90.9 fL (80.0-95.0) [facility] MCH 30.4 pg (27.0-32.0) [facility] MCHC 33.5 g/dL (32.0-36.0) [facility] RDW 13.9 % (10.5-14.5) [facility] PLT 168 10*3/uL (150-450) [facility] MPV 8.2 fL (7.1-10.7) [facility] ID Date Data Source [id number] 03/30/2021 10:03:16 PM EDT [facility] Name Value Range Interpretation Code Description Data Jaylyn rce(s) Supporting Document(s) POC GLUCOSE 141 mg/dL (70-99) H [facility] NOTIFIED NURSEPERFORMED BY CLINICAL S TAFF ID Date Data Source [id number] 03/30/2021 12:16:00 PM EDT [facility] ([facility] Name Value Range Interpretation Code Description Data Jaylyn rce(s) Supporting Document(s) Surgical pathology study Laboratory test result [facility] ([facility]) [facility] [id number] [place] [address] SURGICAL PATHOLOGY REPORT Patient Name:ROSA CADET :1960 [...] found. The adrenal gland is not present. 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 (12 blocks) [facility] Reported: 04/01/2021 Electronically Signed Out By John Joseph MD [facility] [place] [address] Technical component performed at [facility], [facility], Histopathology, [address] [place] [address], [id number]. Reported at [facility], [address] [place] [address], [facility]. This report may include immunohistochemical or in-situ hybridization results. Testing was developed and the performance characteristics determined by [facility], as required by CLIA '88. The FDA has determined that approval for specific use is not necessary for clinical use. The quality of Hematoxylin and Eosin stains and as applicable, for all immunohistochemical and/or special stains, including positive and negative controls, were reviewed and considered appropriate. ICD codes: C64.1 CPT4 codes: A: 17931O B: 69807V ID Date Data Source [id number] 04/01/2021 07:01:49 PM EDT [place], [place] [address]Tel# SURGICAL PATHOLOGY REPORTPatient Name:RSOA CADET:1960Received:03/30/2021ccession #:[id number](s) Received: A: Right renal [...] nodes found. The adrenal gland is notpresent. Heavy Equipment Plumbing Supervisor sections are submitted for microscopicexamination as follows: [...] Out By John Joseph MD [facility] [place], [place] [address]Technical component performed at [facility], Histopathology, [address] [place] [address], [id number].Reported at [facility], [address] [place] [address], [phone].This report may include immunohistochemical or in-situ hybridizationresults. Testing was developed and the performance characteristicsdetermined by [facility], as required byCLIA '88. The FDA has determined that approval for specific use is notnecessary for clinical use. The quality of Hematoxylin and Eosin stainsand as applicable, for all immunohistochemical and/or special stains,including positive and negative controls, were reviewed and consideredappropriate.ICD codes: C64.1CPT4 codes: A: 38443ND: 95168U Name Value Range Interpretation Code Description Data Jaylyn rce(s) Supporting Document(s) ID Date Data Source [id number] 03/31/2021 06:41:00 AM EDT [place], [place] [address]PATIENT NAME: KERLINE EDWINDATE OF : 1960REPORT: OPERATIONPATIENT NUMBER: [id number] STATUS: IPMEDICAL RECORD NUMBER: [id number] OF ADMISSION: 03/30/2021ATE OF DISCHARGE:ROOM: DATE OF [...] PROCEDURE: After adequate induction of general anesthesia,a 16-Angolan Erazo catheter was placed into the bladder. [...] another in the right upperquadrant, a 12-mm grooming assistant port in the right lower quadrant, and finally a5-mm grooming assistant port in a subxiphoid position. The da [...] was extended to approximately 7 cm. The bi tri operator's handwas then placed into the abdomen [...] Toth, MDDictated: 03/30/2021 12:00DT: 03/30/2021 12:03Job #: [id number]: [facility] computer generated reports are not confirmed orauthenticated unless they are signed by the providerElectronically Authenticated by:BEBE TOTH MD On 03/31/2021 06:41 AM EDT Name Value Range Interpretation Code Description Data Jaylyn rce(s) Supporting Document(s) ID Date Data Source [id number] 04/03/2021 12:24:04 AM EDT [facility] SPEC EXP DATE 04/02/2021ATI ENT ABO/Rh O POSITIVEANTIBODY SCREEN NEGATIVETESTING SITE PERFORMED AT [address] [place], [place] [address]UNIT NUMBER [id number] COMPONENT TYPE LEUKOPOOR RED CELLS (PT B)UNIT DIVISION 00STATUS OF UNIT REL FROM ALLOCTRANSFUSION STATUS OK TO TRANSFUSECROSSMATCH RESULT COMPATIBLEUNIT NUMBER [id number] COMPONENT TYPE LEUKOPOOR RED CELLS (PT B)UNIT DIVISION 00STATUS OF UNIT REL FROM ALLOCTRANSFUSION STATUS OK TO TRANSFUSECROSSMATCH RESULT COMPATIBLE Name Value Range Interpretation Code Description Data Jaylyn rce(s) Supporting Document(s) TYPE AND SCREEN [facility] PATIENT ABO/Rh O POSITIVE ID Date Data Source [id number] 03/30/2021 06:58:49 AM EDT [facility] Name Value Range Interpretation Code Description Data Jaylyn rce(s) Supporting Document(s) SODIUM 140 mmol/L (136-145) [facility] POTASSIUM 3.7 mmol/L (3.6-5.2) [facility] CHLORIDE 106 mmol/L (100-108) [facility] CO2 24 mmol/L (22-31) [facility] ANION GAP 10 mmol/L (7-16) [facility] UREA NITROGEN 15 mg/dL (7-24) [facility] CREATININE 1.11 mg/dL (0.80-1.30) [facility] BUN/CREAT RATIO 13.5 RATIO (10.0-20.0) [facility] GLUCOSE 99 mg/dL (70-99) [facility] CALCIUM 9.3 mg/dL (8.4-10.2) [facility] TOTAL PROTEIN 7.8 g/dL (6.4-8.2) [facility] ALBUMIN 4.5 g/dL (3.2-4.5) [facility] GLOBULIN 3.3 g/dL (2.7-4.3) [facility] ALB/GLOB RATIO 1.4 RATIO [facility] ALKALINE PHOSPHATASE 51 U/L (45-117) [facility] BILIRUBIN,TOTAL 0.8 mg/dL (0.0-1.0) [facility] PLEASE NOTE:Total bilirubin results may be falselyelevated in patients taking Eltrombopag. AST (SGOT) 41 U/L (11-39) H [facility] ALT (SGPT) 43 U/L (12-78) [facility] GFR >60 ml/min/1.73m2 (>59) [facility] GFR ( AMER) >60 ml/min/1.73m2 (>59) [facility] GFR INTERPRETATION [facility] --NORMAL KIDNEY FUNCTION OR MILD DISEASE - GFR >OR= 60CHRONIC KIDNEY DISEASE - GFR 15 - 59RENAL FAILURE - GFR <15 Est. GFR calculation based on the MDRDstudy equation, which assumes a steadystate for creatinine. Est. GFR should notbe used for medication dosing. ID Date Data Source [id number] 03/30/2021 06:33:21 AM EDT [facility] Name Value Range Interpretation Code Description Data Jaylyn rce(s) Supporting Document(s) WBC 8.0 10*3/uL (4.1-11.0) [facility] [place] RBC 5.23 10*6/uL (4.60-6.10) [facility] HGB 16.0 g/dL (13.5-18.0) [facility] HCT 47.1 % (41.0-53.0) [facility] PER[facility] AT [address] [facility] [address] MCV 90.1 fL (80.0-95.0) [facility] MCH 30.6 pg (27.0-32.0) [facility] MCHC 34.0 g/dL (32.0-36.0) [facility] RDW 13.9 % (10.5-14.5) [facility] PLT 207 10*3/uL (150-450) [facility] MPV 7.8 fL (7.1-10.7) [facility] ID Date Data Source [id number] 03/30/2021 05:06:55 PM EDT [facility] Name Value Range Interpretation Code Description Data Jaylyn rce(s) Supporting Document(s) POC GLUCOSE 107 mg/dL (70-99) H [facility] NOTIFIED NURSEPERFORMED BY CLINICAL S TAFF ID Date Data Source [id number] 03/26/2021 12:36:00 PM EDT [facility] Name Value Range Interpretation Code Description Data Jaylyn rce(s) Supporting Document(s) CBC W/Automated Diff Laboratory test result [facility] ([facility]) COMPLETE BLOOD COUNT Hemoglobin 15.9 g/dL 14.0-16.0 [facility] ([facility] [place]) WBC 7.8 10^3/uL 4.2-11.0 [facility] ([facility]) RBC 5.24 10^6/uL 4.50-6.30 [facility] ([facility] [place]) Hematocrit 46.5 % 41.0-51.0 [facility] ([facility]) MCV 88.7 fL 80.0-94.0 [facility] ([facility] [place] MCH 30.3 pg 27.0-34.0 [facility] ([facility] [place] MCHC 34.2 g/dL 31.0-36.0 [facility] [place] Platelets 222 10^3/uL 150-450 [facility] [place]) RDW 13.1 % 11.5-14.8 [facility] [place] Lymph 20.2 % 25.0-40.0 [facility] ([facility] [place] Neut 68.3 % 37.0-80.0 [facility] ([facility]) MPV 9.4 fL 7.4-10.4 [facility]) Eos 1.5 % 0.0-7.0 [facility]) Pitt 8.7 % 3.0-8.0 [facility]) Baso 1.2 % 0.0-2.0 [facility] [place] %Ig 0.1 % 0.0-0.0 [facility] [place] %NRBC 0.0 % 0.0-0.0 [facility] [place] #Neut 5.31 10^3/uL 2.00-6.90 [facility] [place] #Lymph 1.57 10^3/uL 0.60-3.40 [facility] ([facility]) #Eos 0.12 10^3/uL 0.00-0.70 [facility] [place] #Baso 0.09 10^3/uL 0.00-0.20 [facility] ([facility]) #Pitt 0.68 10^3/uL 0.00-0.90 [facility] ([facility]) #NRBC 0.00 10^3/uL 0.00-0.00 [facility] [place]) #Ig 0.01 10^3/uL 0.00-0.10 [facility] [place]) Manual Diff Laboratory test result [place] [facility] ([facility]) RBC Morph Laboratory test result [place] [facility] ([facility]) ID Date Data Source [id number] 03/26/2021 12:36:00 PM EDT [facility] ([facility]) Name Value Range Interpretation Code Description Data Jaylyn rce(s) Supporting Document(s) Protime 12.0 s 11.0-15.5 [facility]) Inr 0.88 0.93-1.23 [facility]) PTT 28.8 s 24.8-36.7 [facility] ([facility]) \\BLDo\\INR INTERPRETATION\\BLDx\\ Therapeutic range for Coumadin and related oral anticoagulants. -International Normalized Ratio (INR): 2 .0 - 3.0 for Venous Thrombosis, Pulmonary Embolus, Tissue heart valves, Acute PA Atrial Fibrillation, Valvular heart disease and recurrent Systemic Embolism. -International Normalized Ratio (INR): 2 .5 - 3.5 for Mechanical Prosthetic valve. ID Date Data Source [id number] 03/26/2021 12:36:00 PM EDT [facility] ([facility]) Name Value Range Interpretation Code Description Data Jaylyn rce(s) Supporting Document(s) Sodium 141 meq/L 134-153 [facility] ([facility]) Comprehensive Metabo Laboratory test result [facility] ([facility]) COMPREHENSIVE METABOLIC PANEL Chloride 105 meq/L 98-107 [facility] ([facility]) Potassium 3.8 meq/L 3.6-5.0 [facility]) Glucose 129 mg/dL 70-99 [facility] ([facility]) Co2 24 meq/L 22-30 [facility]) Creatinine 0.9 mg/dL 0.7-1.5 [facility] ([facility]) BUN 15 mg/dL 7-21 [facility]) Total Protein 7.4 g/dL 6.3-8.2 [facility] ([facility] [place]) BUN/Creat 17 8-27 [facility] ([facility]) Globulin 2.7 GM/DL 2.4-3.2 [facility]) Albumin 4.7 g/dL 3.9-5.0 [facility]) A/G Ratio 1.7 0.8-2.0 [facility]) Total Bili Laboratory test result 0.2-1.3 [place] [facility] ([facility]) Calcium 9.8 mg/dL 8.4-10.2 [facility]) Sgot/Ast 23 U/L 5-40 [facility] ([facility]) Alkaline Phos 59 U/L 38-126 [facility] ([facility]) SGPT/Alt 24 U/L 7-56 [facility]) Anion Gap 12.0 mmol/L 8.0-16.0 [facility] ([facility]) Age 60 yrs [facility] ([facility]) Non-Aa GFR Laboratory test result [place] [facility] ([facility]) Afr Amer GFR Laboratory test result [facility] ([facility]) Male GFR Interprentation 20-49 yrs >60 mL/min [...] >32 mL/min Normal ID Date Data Source [id number] 03/26/2021 12:36:00 PM EDT [facility] ([facility]) Name Value Range Interpretation Code Description Data Jaylyn rce(s) Supporting Document(s) Culture Urine Laboratory test result [facility] ([facility]) _CULTURE URINE_ ^$[id number] ^^[id number] $$[id number] ^^[id number] $$[id number] $$413150 $$200298 $$177612 $$969475 $$669866 $$897499 $$215067 $$360515 $$694696 $$261307 $$863029 $$151224 $$498477 $$833951 $$533665 $$094249 $$095491 $$723157 $$445517 $$886388 $$344422 $$895943 ^^031640 $$723812 $$397862 $$[id number] -- Continued on next page -- Patient: KERLINE Banda Order: [id number] Page 2 Culture: CULTURE URINE Status: Final -- Continued on next page -- Patient: KERLINE Banda Order: [id number] Page 2 Culture: CULTURE URINE Status: Prelim $$[id number] $$[id number] REPORTED DATE/TIME: 03/29/2021 15:05 Culture: CULTURE URINE Status: Final Urine Culture,Comprehensive: P1 No growth in 36 - 48 hours. Previous result entered on 03/28/2021 10:46 ET No growth after 18-24 hours. P1 Test performed by: [facility] Aaron REYES #: [id number] [address] [place] [address] [phone] [facility] [id number] Child Life Assistant : William He MD NPI #: Hosiery Mater : 03/28/21.1157.XMT.SENT REF 03/30/21.0624.XMT.SENT REF ID Date Data Source [id number] 03/26/2021 12:36:00 PM EDT [facility] ([facility] Name Value Range Interpretation Code Description Data Jaylyn rce(s) Supporting Document(s) Urinalysis Laboratory test result [facility] ([facility]) URINALYSIS Source Laboratory test result [facility] ([facility]) Color Laboratory test result [facility] ([facility]) Clarity Laboratory test result [place] [facility] ([facility] [place]) Spec [place] 1.015 1.001-1.030 [facility] [place]) pH 6.5 5-9 [facility] ([facility] [place]) Glucose 1000 Abnormal (applies to non-numeric res ults) [facility] ([facility]) Bilirubin Laboratory test result [facility]) Ketone Laboratory test result [facility] [place] Protein 30 [facility] [place]) Nitrite Laboratory test result [facility]) Leuk Est Laboratory test result [facility] [place]) Blood Laboratory test result [facility]) Urobilinogen Laboratory test result [facility] ([facility] [place]) Epithelial Laboratory test result [facility] ([facility] [place]) Microscopic Laboratory test result M [facility] ([facility] [place]) Mucous Laboratory test result [place] [facility] ([facility] [place]) ID Date Data Source [id number] 03/30/2021 06:24:00 AM EDT [facility] Name Value Range Interpretation Code Description Data Jaylyn rce(s) Supporting Document(s) CULTURE URINE [facility] _CULTURE URINE_$$[id number]$$[id number]$$241344$$[id number]$$338219$$794565$$206542$$660220$$307764$$ 951718$$071259$$707679$$793714$$142092$$394146$$007856$$473364$$152079$$321547$$ 366894$$031360$$245268$$864379$$852269$$136826$$104742$$981174 -- Continued on next page --Patient: KERLINE LEE L Order: [id number] Page 2Culture: CULTURE URINE Status: Final ==== -- Continued on next page --Patient: KERLINE Banda Order: [id number] Page 2Culture: CULTURE URINE Status: Prelim =====$$[id number]$$[id number] DATE/TIME: 03/29/2021 15:05Culture: CULTURE URINE Status: FinalUrine Culture,Comprehensive: P1No growth in 36 - 48 hours. Previous result entered on 03/28/2021 10:46 ET No growth after 18-24 hours.P1 [facility] REYES #: [id number] [address] [place] [address] [phone] [facility] [address]Medical Director : William He MD NPI #:Lab Di lorenza : 03/28/21.1157.XMT.SENT REF 03/30/21.0624.XMT.SENT REF ID Date Data Source [id number] 03/26/2021 02:21:00 PM EDT [facility] Name Value Range Interpretation Code Description Data Jaylyn rce(s) Supporting Document(s) URINALYSIS [facility] URINALYSIS SOURCE Clean Catch [facility] COLOR yellow NORMAL: Yellow [facility] CLARITY clear NORMAL: Clear [facility] Specific gravity of Urine by Test strip 1.015 1.001 - 1.030 [facility] 6.5 5 - [facility] Glucose [Mass/volume] in Urine by Test strip 1000 NORMAL: Negat анна A [facility] Bilirubin.total [Presence] in Urine by Test strip NEG NORMAL: Negative [facility] Ketones [Presence] in Urine by Test strip NEG NORMAL: Negative [facility] Protein [Mass/volume] in Urine by Test strip 30 NORMAL: Negat анна [facility] Nitrite [Presence] in Urine by Test strip Negative NORMAL: Negative [facility] BLOOD NEG NORMAL: Negative [facility] LEUK EST NEG NORMAL: Negative [facility] Urobilinogen [Mass/volume] in Urine by Test strip NOR less zohaib n 1.0 mg/dL [facility] MICROSCOPIC See Below [facility] ital EPITHELIAL FEW NORMAL: NONE SEEN [facility] Mucus [Presence] in Urine sediment by Light microscopy Trace NORMAL: NONE SEEN [facility] ID Date Data Source [id number] 03/26/2021 01:38:00 PM EDT [facility] Name Value Range Interpretation Code Description Data Jaylyn rce(s) Supporting Document(s) COMPREHENSIVE METABOLIC PANEL [facility] COMPREHENSIVE METABOLIC PANEL Sodium [Moles/volume] in Serum or Plasma 141 mEq/L 134 - 153 [facility] Potassium [Moles/volume] in Serum or Plasma 3.8 mEq/L 3.6 - 5.0 [facility] Chloride [Moles/volume] in Serum or Plasma 105 mEq/L 98 - 107 [facility] Carbon dioxide, total [Moles/volume] in Serum or Plasma 24 MEQ/L 22 - 30 [facility] Glucose [Mass/volume] in Serum or Plasma 129 MG/DL 70 - 99 H [facility] BUN 15 MG/DL 7 - 21 [facility] al Creatinine [Mass/volume] in Serum or Plasma 0.9 MG/DL 0.7 - 1.5 [facility] BUN/CREAT 17 8 - 27 [facility] al Protein [Mass/volume] in Serum or Plasma 7.4 G/DL 6.3 - 8.2 [facility] Albumin [Mass/volume] in Serum or Plasma 4.7 G/DL 3.9 - 5.0 [facility] Globulin [Mass/volume] in Serum by calculation 2.7 GM/DL 2.4 - 3.2 [facility] A/G RATIO 1.7 0.8 - 2.0 [facility] Calcium [Mass/volume] in Serum or Plasma 9.8 MG/DL 8.4 - 10.2 [facility] Bilirubin.total [Mass/volume] in Serum or Plasma <0.7 MG/DL 0.2 - 1.3 [facility] Alkaline phosphatase [Enzymatic activity/volume] in Serum or Plasma 59 U/L 38 - 126 [facility] Aspartate aminotransferase [Enzymatic activity/volume] in Serum or Plasma 23 U/L 5 - 40 [facility] Alanine aminotransferase [Enzymatic activity/volume] in Seru m or Plasma 24 U/L 7 - 56 [facility] Anion gap 3 in Serum or Plasma 12.0 mmol/L 8.0 - 16.0 [facility] AGE 60 yrs [facility] al NON-AA GFR >60 mL/min [facility] ital AFR AMER GFR >60 mL/min [facility] Male GFR In terprentation 20-49 [...] >32 mL/min Normal ID Date Data Source [id number] 03/26/2021 01:09:00 PM EDT [facility] Name Value Range Interpretation Code Description Data Jaylyn rce(s) Supporting Document(s) Prothrombin time (PT) 12.0 SECONDS 11.0 - 15.5 [facility] INR in Platelet poor plasma by Coagulation assay 0.88 0.93 - 1. 23 L [facility] aPTT in Blood by Coagulation assay 28.8 SECONDS 24.8 - 36.7 [facility] \\BLDo\\INR INTERPRETATION\\BLDx\\ Therapeutic range for Coumadin and related oral anticoagulants. - International Normalized Ratio (INR): 2.0 - 3.0 for Venous Thrombosis, Pulmonary Embolus, Tissue heart valves, Acute PA Atrial Fibrillation, Valvular heart disease and recurrent Systemic Embolism. - International Normalized Ratio (INR): 2.5 - 3.5 for Mechanical Prosthetic valve. ID Date Data Source [id number] 03/26/2021 12:57:00 PM EDT [facility] Name Value Range Interpretation Code Description Data Jaylyn rce(s) Supporting Document(s) CBC W/AUTOMATED DIFF [facility] COMPLETE BLOOD COUNT Leukocytes [#/volume] in Blood by Automated count 7.8 10^3/uL 4.2 - 1 1.0 [facility] Erythrocytes [#/volume] in Blood by Automated count 5.24 10^6/uL 4. 50 - 6.30 [facility] Hemoglobin [Mass/volume] in Blood 15.9 g/dL 14.0 - 16.0 [facility] Hematocrit [Volume Fraction] of Blood by Automated count 46.5 % 4 1.0 - 51.0 [facility] Erythrocyte mean corpuscular volume [Entitic volume] by Auto mated count 88.7 fL 80.0 - 94.0 [facility] Erythrocyte mean corpuscular hemoglobin [Entitic mass] by Automated count 30.3 pg 27.0 - 34.0 [facility] Erythrocyte mean corpuscular hemoglobin concentration [Mass/volume] by Automated count 34.2 g/dL 31.0 - 36.0 [facility] Erythrocyte distribution width [Ratio] by Automated count 13.1 % 11.5 - 14.8 [facility] Platelets [#/volume] in Blood by Automated count 222 10^3/uL 150 - 45 0 [facility] Platelet mean volume [Entitic volume] in Blood by Automated count 9.4 fL 7.4 - 10.4 [facility] Neutrophils/100 leukocytes in Blood by Automated count 68.3 % 37. 0 - 80.0 [facility] Lymphocytes/100 leukocytes in Blood by Manual count 20.2 % 25.0 - 40.0 L [facility] Monocytes/100 leukocytes in Blood by Automated count 8.7 % 3.0 - 8.0 H [facility] Eosinophils/100 leukocytes in Blood by Automated count 1.5 % 0.0 - 7.0 [facility] Basophils/100 leukocytes in Blood by Automated count 1.2 % 0.0 - 2.0 [facility] %IG 0.1 % 0.0 - 0.0 H [facility] %NRBC 0.0 % 0.0 - 0.0 [facility] al Neutrophils [#/volume] in Blood by Automated count 5.31 10^3/uL 2.00 - 6.90 [facility] Lymphocytes [#/volume] in Blood by Automated count 1.57 10^3/uL 0.60 - 3.40 [facility] Monocytes [#/volume] in Blood by Automated count 0.68 10^3/uL 0.00 - 0.90 [facility] Eosinophils [#/volume] in Blood by Automated count 0.12 10^3/uL 0.00 - 0.70 [facility] Basophils [#/volume] in Blood by Automated count 0.09 10^3/uL 0.00 - 0.20 [facility] #IG 0.01 10^3/uL 0.00 - 0.10 [facility] #NRBC 0.00 10^3/uL 0.00 - 0.00 [facility] ospital MANUAL DIFF NOT INDICATED [facility] RBC MORPH NOT INDICATED [facility] ID Date Data Source [id number] 03/10/2021 02:22:00 PM EDT [facility] Name Value Range Interpretation Code Description Data Jaylyn rce(s) Supporting Document(s) Glucose [Presence] in Urine Laboratory test result [facility] ([facility]) Protein [Presence] in Urine by Test strip Laboratory test result [facility] ([facility]) Ua Nitrite Laboratory test result [facility] ([facility]) Ua Leuko Laboratory test result [facility] ([facility]) Blood [Presence] in Urine by Visual Laboratory test result [facility] ([facility]) Color of Urine Laboratory test result [facility] ([facility]) Ketones [Presence] in Urine by Test strip Laboratory test result [facility] ([facility]) Clarity of Urine Laboratory test result [facility] ([facility]) Ua Specific [place] 1.020 1.003-1.030 [facility] ([facility]) Urobilinogen [Mass/volume] in Urine by Test strip 0.2 E.U./dL 0.0-1.0 [facility] ([facility]) Bilirubin.total [Presence] in Urine by Test strip Laboratory test res ult [facility] ([facility]) pH of Urine by Test strip 5.0 5.0-7.5 [facility] ([facility]) ID Date Data Source [id number] 02/28/2021 12:55:00 AM EDT [facility] Patient: ROSA CADET Observation Re port - Physicians/Mid Levels [place].VisitID: [id number] [place] [address] [phone], MRegistration Date/Time: 02/27/2021 17:56 Weight:126 kg (S). Height/Length:70 inches (S). BMI:39.9 FAMILY HISTORYNo significant family medical history. (Electronically signed by Mirna Cannon M.D. 02/28/2021 00:29) Name Value Range Interpretation Code Description Data Jaylyn rce(s) Supporting Document(s) ID Date Data Source [id number] 02/27/2021 09:31:00 PM EDT [facility] [...] rce(s) Supporting Document(s) ID Date Data Source [id number] 02/27/2021 09:17:00 PM EDT [facility] [...] Name Value Range Interpretation Code Description Data [facility] rce(s) Supporting Document(s) ID Date Data Source [id number] 02/27/2021 06:31:00 PM EDT [facility] TSYSORDER [id number] Name Value Range Interpretation Code Description Data [place](s) Supporting Document(s) URINE COLOR. [facility] URINE APPEARANCE CLEAR [facility] URINE GLUCOSE (UA) 500 mg/dL NEGATIVE [facility] URINE BILIRUBIN NEGATIVE NEGATIVE [facility] URINE KETONE NEGATIVE mg/dL NEGATIVE [facility] al SPECIFIC GRAVITY,URINE 1.025 1.005-1.030 [facility] URINE BLOOD NEGATIVE NEGATIVE [facility] PH,URINE 7.0 5.0-9.0 [facility] URINE PROTEIN NEGATIVE mg/dL NEGATIVE [facility] URINE UROBILINOGEN 0.2 mg/dL 0-1 [facility] URINE NITRATE NEGATIVE NEGATIVE [facility] URINE LEUKOCYTE ESTERASE NEGATIVE NEGATIVE [facility] ID Date Data Source [id number] 01/21/2021 11:12:00 AM EDT [facility] Name Value Range Interpretation Code Description Data Jaylyn rce(s) Supporting Document(s) Prostate specific Ag [Mass/volume] in Serum or Plasma 0.71 ng/mL 0.00 - 4.00 [facility] \\BLDo\\PSA INTERPRETA TION\\BLDx\\ The PSA assay should not be used alone for a screening test or diagnosis for presence or absence of malignant disease. Predictions of disease recurrence should not be based solely on values obtained from serial patient serum values. The PSA result was determined by "[employer]", on the [employer] KATHERINE 6000. Values obtained with different assay methods or kits cannot be used interchangeably. ID Date Data Source [id number] 01/20/2021 07:19:00 PM EDT [facility] Name Value Range Interpretation Code Description Data Jaylyn rce(s) Supporting Document(s) Thyrotropin [Units/volume] in Serum or Plasma by Detec tion limit <= 0.05 mIU/L 0.69 uIU/mL 0.47 - 5.01 [facility] ID Date Data Source [id number] 01/20/2021 07:04:00 PM EDT [facility] Name Value Range Interpretation Code Description Data Jaylyn rce(s) Supporting Document(s) CVE PANEL [facility] al LIPID PANEL Cholesterol [Mass/volume] in Serum or Plasma 182 MG/DL 131 - 200 [facility] Deprecated Triglyceride [Mass/volume] in Serum or Plasma 304 MG/DL 3 5 - 160 H [facility] HDL 44 MG/DL 29 - 86 [facility] al Cholesterol in LDL [Mass/volume] in Serum or Plasma by Direc t assay 105 mg/dL 65 - 175 [facility] Cholesterol.total/Cholesterol in HDL [Mass Ratio] in Serum o r Plasma 4.1 3.4 - 4.9 [facility] LDL/HDL 2.39 1.00 - 3.55 [facility] ital CVE RISK CHOL/HDL LDL/HDLMEN: 1/2 AVERAGE 3.43 1.00 AVERAGE 4.97 3.55 2X AVERAGE 9.55 6.25 3X AVERAGE 23.99 7.99WOMEN: 1/2 AVERAGE 3.27 1.47 AVERAGE 4.44 3.22 2X AVERAGE 7.05 5.03 3X AVERAGE 11.04 6.14 ID Date Data Source [id number] 01/20/2021 07:04:00 PM EDT [facility] Name Value Range Interpretation Code Description Data Jaylyn rce(s) Supporting Document(s) COMPREHENSIVE METABOLIC PANEL [facility] COMPREHENSIVE METABOLIC PANEL Sodium [Moles/volume] in Serum or Plasma 137 mEq/L 134 - 153 [facility] Potassium [Moles/volume] in Serum or Plasma 3.9 mEq/L 3.6 - 5.0 [facility] Chloride [Moles/volume] in Serum or Plasma 99 mEq/L 98 - 107 [facility] Carbon dioxide, total [Moles/volume] in Serum or Plasma 25 MEQ/L 22 - 30 [facility] Glucose [Mass/volume] in Serum or Plasma 166 MG/DL 70 - 99 H [facility] BUN 19 MG/DL 7 - 21 [facility] al Creatinine [Mass/volume] in Serum or Plasma 1.0 MG/DL 0.7 - 1.5 [facility] BUN/CREAT 19 8 - 27 [facility] al Protein [Mass/volume] in Serum or Plasma 7.8 G/DL 6.3 - 8.2 [facility] Albumin [Mass/volume] in Serum or Plasma 4.8 G/DL 3.9 - 5.0 [facility] Globulin [Mass/volume] in Serum by calculation 3.0 GM/DL 2.4 - 3.2 [facility] A/G RATIO 1.6 0.8 - 2.0 [facility] al Calcium [Mass/volume] in Serum or Plasma 10.2 MG/DL 8.4 - 10.2 [facility] Bilirubin.total [Mass/volume] in Serum or Plasma 0.7 MG/DL 0.2 - 1.3 [facility] Alkaline phosphatase [Enzymatic activity/volume] in Serum or Plasma 84 U/L 38 - 126 [facility] Aspartate aminotransferase [Enzymatic activity/volume] in Serum or Plasma 29 U/L 5 - 40 [facility] Alanine aminotransferase [Enzymatic activity/volume] in Seru m or Plasma 29 U/L 7 - 56 [facility] Anion gap 3 in Serum or Plasma 13.0 mmol/L 8.0 - 16.0 [facility] AGE 60 yrs [facility] NON-AA GFR >60 mL/min [facility] ital AFR AMER GFR >60 mL/min [facility] Male GFR In terprentation 20-49 [...] >32 mL/min Normal ID Date Data Source [id number] 01/20/2021 06:54:00 PM EDT [facility] Name Value Range Interpretation Code Description Data Jaylyn rce(s) Supporting Document(s) Hemoglobin A1c/Hemoglobin.total in Blood 7.1 % 4.4 - 6.1 H [facility] {A1]{HB] ID Date Data Source [id number] 01/20/2021 06:53:00 PM EDT [facility] Name Value Range Interpretation Code Description Data Jaylyn rce(s) Supporting Document(s) CBC W/AUTOMATED DIFF [facility] COMPLETE BLOOD COUNT Leukocytes [#/volume] in Blood by Automated count 9.3 10^3/uL 4.2 - 1 1.0 [facility] Erythrocytes [#/volume] in Blood by Automated count 5.69 10^6/uL 4. 50 - 6.30 [facility] Hemoglobin [Mass/volume] in Blood 17.4 g/dL 14.0 - 16.0 H [facility] Hematocrit [Volume Fraction] of Blood by Automated count 51.0 % 4 1.0 - 51.0 [facility] Erythrocyte mean corpuscular volume [Entitic volume] by Auto mated count 89.6 fL 80.0 - 94.0 [facility] Erythrocyte mean corpuscular hemoglobin [Entitic mass] by Automated count 30.6 pg 27.0 - 34.0 [facility] Erythrocyte mean corpuscular hemoglobin concentration [Mass/volume] by Automated count 34.1 g/dL 31.0 - 36.0 [facility] Erythrocyte distribution width [Ratio] by Automated count 12.6 % 11.5 - 14.8 [facility] Platelets [#/volume] in Blood by Automated count 221 10^3/uL 150 - 45 0 [facility] Platelet mean volume [Entitic volume] in Blood by Automated count 9.7 fL 7.4 - 10.4 [facility] Neutrophils/100 leukocytes in Blood by Automated count 64.4 % 37. 0 - 80.0 [facility] Lymphocytes/100 leukocytes in Blood by Manual count 23.2 % 25.0 - 40.0 L [facility] Monocytes/100 leukocytes in Blood by Automated count 8.4 % 3.0 - 8.0 H [facility] Eosinophils/100 leukocytes in Blood by Automated count 2.3 % 0.0 - 7.0 [facility] Basophils/100 leukocytes in Blood by Automated count 1.4 % 0.0 - 2.0 [facility] %IG 0.3 % 0.0 - 0.[address] [facility] 0.0 % 0.0 - 0.0 [facility] al Neutrophils [#/volume] in Blood by Automated count 6.01 10^3/uL 2.00 - 6.90 [facility] Lymphocytes [#/volume] in Blood by Automated count 2.16 10^3/uL 0.60 - 3.40 [facility] Monocytes [#/volume] in Blood by Automated count 0.78 10^3/uL 0.00 - 0.90 [facility] Eosinophils [#/volume] in Blood by Automated count 0.21 10^3/uL 0.00 - 0.70 [facility] Basophils [#/volume] in Blood by Automated count 0.13 10^3/uL 0.00 - 0.20 [facility] #IG 0.03 10^3/uL 0.00 - 0.10 [facility] ospital #NRBC 0.00 10^3/uL 0.00 - 0.00 [facility] ospital MANUAL DIFF NOT INDICATED [facility] RBC MORPH NOT INDICATED [facility] spital ID Date Data Source [id number] 01/20/2021 08:40:00 AM EDT [facility] Name Value Range Interpretation Code Description Data Jaylyn rce(s) Supporting Document(s) Prostate specific Ag [Mass/volume] in Serum or Plasma 0.71 ng/mL 0.00 -4.00 [facility] ([facility]) \\BLDo\\PSA INTERPRETATION\\BLDx\\ The PSA assay should not [...] be used interchangeably. ID Date Data Source [id number] 01/20/2021 08:40:00 AM EDT [facility] Name Value Range Interpretation Code Description Data Jaylyn rce(s) Supporting Document(s) Thyrotropin [Units/volume] in Serum or Plasma 0.69 uIU/mL 0.47-5.01 [facility] ([facility]) Is patient fasting? Y ID Date Data Source [id number] 01/20/2021 08:40:00 AM EDT [facility] Name Value Range Interpretation Code Description Data Jaylyn rce(s) Supporting Document(s) Cve Panel Laboratory test result [facility] ([facility]) LIPID PANEL Triglycerides 304 mg/dL 35-160 Above high normal [facility] ([facility]) Is patient fasting? Y Cholesterol 182 mg/dL 131-200 [facility] ([facility]) Is patient fasting? Y HDL 44 mg/dL 29-86 [facility] ([facility]) Is patient fasting? Y LDL 105 mg/dL 65-175 [facility] ([facility]) Is patient fasting? Y Risk Factor 4.1 3.4-4.9 [facility] ([facility]) Is patient fasting? Y LDL/HDL 2.39 1.00-3.55 [facility] ([facility]) CVE RISK CHOL/HDL LDL/HDL MEN: 1/2 AVERAGE 3.43 1.00 AVERAGE 4.97 3.55 2X AVERAGE 9.55 6.25 3X AVERAGE 23.99 7.99 WOMEN: 1/2 AVERAGE 3.27 1.47 AVERAGE 4.44 3.22 2X AVERAGE 7.05 5.03 3X AVERAGE 11.04 6.14 ID Date Data Source [id number] 01/20/2021 08:40:00 AM EDT [facility] ([facility]) Name Value Range Interpretation Code Description Data Jaylyn rce(s) Supporting Document(s) Hemoglobin A1c/Hemoglobin.total in Blood 7.1 % 4.4-6.1 Above high normal [facility] ([facility]) {A1] {HB] ID Date Data Source [id number] 01/20/2021 08:40:00 AM EDT [facility] ([facility]) Name Value Range Interpretation Code Description Data Jaylyn rce(s) Supporting Document(s) Comprehensive [employer] Laboratory test result [facility] ([facility]) COMPREHENSIVE METABOLIC PANEL Sodium 137 meq/L 134-153 [facility] ([facility]) Is patient fasting? Y Potassium 3.9 meq/L 3.6-5.0 [facility] ([facility]) Is patient fasting? Y Chloride 99 meq/L 98-107 [facility] ([facility]) Is patient fasting? Y Glucose 166 mg/dL 70-99 Above high normal [facility] ([facility]) Is patient fasting? Y Co2 25 meq/L 22-30 [facility] ([facility]) Is patient fasting? Y BUN 19 mg/dL 7-21 [facility] ([facility]) Is patient fasting? Y Creatinine 1.0 mg/dL 0.7-1.5 [facility] ([facility]) Is patient fasting? Y BUN/Creat 19 8-27 [facility] ([facility]) Is patient fasting? Y Albumin 4.8 g/dL 3.9-5.0 [facility] ([facility]) Is patient fasting? Y Total Protein 7.8 g/dL 6.3-8.2 [facility] ([facility]) Is patient fasting? Y Globulin 3.0 GM/DL 2.4-3.2 [facility] ([facility]) Is patient fasting? Y Calcium 10.2 mg/dL 8.4-10.2 [facility] ([facility]) Is patient fasting? Y A/G Ratio 1.6 0.8-2.0 [facility] ([facility]) Is patient fasting? Y Total Bili 0.7 mg/dL 0.2-1.3 [facility] ([facility]) Is patient fasting? Y Sgot/Ast 29 U/L 5-40 [facility] ([facility]) Is patient fasting? Y Alkaline Phos 84 U/L 38-126 [facility] ([facility]) Is patient fasting? Y Anion Gap 13.0 mmol/L 8.0-16.0 [facility] ([facility]) Is patient fasting? Y SGPT/Alt 29 U/L 7-56 [facility] ([facility]) Is patient fasting? Y Age 60 yrs [facility] ([facility]) Is patient fasting? Y Afr Amer GFR Laboratory test result [facility] ([facility]) Male GFR Interprentation 20-49 yrs >60 mL/min [...] Normal Non-Aa GFR Laboratory test result [facility] ([facility]) Is patient fasting? Y ID Date Data Source [id number] 01/20/2021 08:40:00 AM EDT [facility] ([facility]) Name Value Range Interpretation Code Description Data Jaylyn rce(s) Supporting Document(s) CBC W/Automated Diff Laboratory test result [facility] ([facility]) COMPLETE BLOOD COUNT WBC 9.3 10^3/uL 4.2-11.0 [facility] ([facility]) Is patient fasting? Y RBC 5.69 10^6/uL 4.50-6.30 [facility] ([facility]) Is patient fasting? Y Hemoglobin 17.4 g/dL 14.0-16.0 Above high normal [facility] ([facility]) Is patient fasting? Y Hematocrit 51.0 % 41.0-51.0 [facility] ([facility]) Is patient fasting? Y MCV 89.6 fL 80.0-94.0 [facility] ([facility]) Is patient fasting? Y MCH 30.6 pg 27.0-34.0 [facility] ([facility]) Is patient fasting? Y MCHC 34.1 g/dL 31.0-36.0 [facility] ([facility]) Is patient fasting? Y RDW 12.6 % 11.5-14.8 [facility] ([facility]) Is patient fasting? Y Platelets 221 10^3/uL 150-450 [facility] ([facility]) Is patient fasting? Y MPV 9.7 fL 7.4-10.4 [facility] ([facility]) Is patient fasting? Y Neut 64.4 % 37.0-80.0 [facility] ([facility]) Is patient fasting? Y Lymph 23.2 % 25.0-40.0 Below low normal [facility] ( [facility]) Is patient fasting? Y Eos 2.3 % 0.0-7.0 [facility] ([facility]) Is patient fasting? Y Pitt 8.4 % 3.0-8.0 Above high normal [facility] ([facility]) Is patient fasting? Y Baso 1.4 % 0.0-2.0 [facility] ([facility]) Is patient fasting? Y %NRBC 0.0 % 0.0-0.0 [facility] ([facility]) Is patient fasting? Y %Ig 0.3 % 0.0-0.0 Above high normal [facility] ([facility]) Is patient fasting? Y #Neut 6.01 10^3/uL 2.00-6.90 [facility] ([facility]) Is patient fasting? Y #Lymph 2.16 10^3/uL 0.60-3.40 [facility] ([facility]) Is patient fasting? Y #Pitt 0.78 10^3/uL 0.00-0.90 [facility] ([facility]) Is patient fasting? Y #Eos 0.21 10^3/uL 0.00-0.70 [facility] ([facility]) Is patient fasting? Y #Baso 0.13 10^3/uL 0.00-0.20 [facility] ([facility]) Is patient fasting? Y #Ig 0.03 10^3/uL 0.00-0.10 [facility] ([facility]) Is patient fasting? Y #NRBC 0.00 10^3/uL 0.00-0.00 [facility] ([facility]) Is patient fasting? Y RBC Morph Laboratory test result [facility] ([facility]) Is patient fasting? Y Manual Diff Laboratory test result [facility] ([facility]) Is patient fasting? Y ID Date Data Source [id number] 01/14/2021 09:37:00 AM EDT [facility] ([facility] ) Name Value Range Interpretation Code Description Data Jaylyn rce(s) Supporting Document(s) Surgical pathology study Laboratory test [facility] ) FINAL DIAGNOSIS A - Colon, sigmoid [...] MD 01/16/2021 1153 ID Date Data Source [id number] 01/10/2021 08:35:00 AM EDT [facility] Name Value Range Interpretation Code Description Data Jaylyn rce(s) Supporting Document(s) SARS-CoV-2 (COVID-19) RNA [Presence] in Respiratory specimen by JUANITA with probe detection Not Detected [facility] This lab was ordered by [facility] and reported by [facility]. ID Date Data Source [id number] 12/14/2020 08:00:00 AM EDT [facility] Name Value Range Interpretation Code Description Data Jaylyn rce(s) Supporting Document(s) SARS coronavirus 2 RNA Not Detected [facility] This lab was ordered by [facility] and reported by [facility]. ID Date Data Source [id number] 10/14/2020 08:15:00 AM EST [facility] ([facility]) Name Value Range Interpretation Code Description Data Jaylyn rce(s) Supporting Document(s) Thyrotropin [Units/volume] in Serum or Plasma 0.39 uIU/mL 0. 47-5.01 Below low normal [facility] ([facility]) Is patient fasting? Y ID Date Data Source [id number] 10/14/2020 08:15:00 AM EST [facility] ([facility]) Name Value Range Interpretation Code Description Data Jaylyn rce(s) Supporting Document(s) Cve Panel Laboratory test result [facility] ([facility]) LIPID PANEL Cholesterol 155 mg/dL 131-200 [facility] ([facility]) Is patient fasting? Y Triglycerides 185 mg/dL 35-160 Above high normal [facility] ([facility]) Is patient fasting? Y HDL 38 mg/dL 29-86 [facility] ([facility]) Is patient fasting? Y LDL 96 mg/dL 65-175 [facility] ([facility]) Is patient fasting? Y Risk Factor 4.1 3.4-4.9 [facility] ([facility]) Is patient fasting? Y LDL/HDL 2.53 1.00-3.55 [facility] ([facility]) CVE RISK CHOL/HDL LDL/HDL MEN: 1/2 AVERAGE 3.43 1.00 AVERAGE 4.97 3.55 2X AVERAGE 9.55 6.25 3X AVERAGE 23.99 7.99 WOMEN: 1/2 AVERAGE 3.27 1.47 AVERAGE 4.44 3.22 2X AVERAGE 7.05 5.03 3X AVERAGE 11.04 6.14 ID Date Data Source [id number] 10/14/2020 08:15:00 AM EST [facility] ([facility]) Name Value Range Interpretation Code Description Data Jaylyn rce(s) Supporting Document(s) Hemoglobin A1c/Hemoglobin.total in Blood 7.2 % 4.4-6.1 Above high normal [facility] ([facility]) {A1] {HB] ID Date Data Source [id number] 10/14/2020 08:15:00 AM EST [facility] ([facility]) Name Value Range Interpretation Code Description Data Jaylyn rce(s) Supporting Document(s) Comprehensive [employer] Laboratory test result [facility] ([facility]) COMPREHENSIVE METABOLIC PANEL Sodium 139 meq/L 134-153 [facility] ([facility]) Is patient fasting? Y Potassium 4.2 meq/L 3.6-5.0 [facility] ([facility]) Is patient fasting? Y Chloride 104 meq/L 98-107 [facility] ([facility]) Is patient fasting? Y Co2 22 meq/L 22-30 [facility] ([facility]) Is patient fasting? Y Glucose 172 mg/dL 70-99 Above high normal [facility] ([facility]) Is patient fasting? Y BUN 19 mg/dL 7-21 [facility] ([facility]) Is patient fasting? Y Creatinine 0.9 mg/dL 0.7-1.5 [facility] ([facility]) Is patient fasting? Y BUN/Creat 21 8-27 [facility] ([facility]) Is patient fasting? Y Total Protein 6.8 g/dL 6.3-8.2 [facility] ([facility]) Is patient fasting? Y Albumin 4.6 g/dL 3.9-5.0 [facility] ([facility]) Is patient fasting? Y Globulin 2.2 GM/DL 2.4-3.2 Below low normal [facility] ( [facility]) Is patient fasting? Y Calcium 9.7 mg/dL 8.4-10.2 [facility] ([facility]) Is patient fasting? Y A/G Ratio 2.1 0.8-2.0 Above high normal [facility] ([facility]) Is patient fasting? Y Total Bili Laboratory test result 0.2-1.3 [facility] ([facility]) Is patient fasting? Y Alkaline Phos 73 U/L 38-126 [facility] ([facility]) Is patient fasting? Y Sgot/Ast 18 U/L 5-40 [facility] ([facility]) Is patient fasting? Y SGPT/Alt 21 U/L 7-56 [facility] ([facility]) Is patient fasting? Y Anion Gap 13.0 mmol/L 8.0-16.0 [facility] ([facility]) Is patient fasting? Y Non-Aa GFR Laboratory test result [facility] ([facility]) Is patient fasting? Y Age 60 yrs [facility] ([facility]) Is patient fasting? Y Afr Amer GFR Laboratory test result [facility] ([facility]) Male GFR Interprentation 20-49 yrs >60 mL/min [...] >32 mL/min Normal ID Date Data Source [id number] 10/14/2020 08:15:00 AM EST [facility] ([facility]) Name Value Range Interpretation Code Description Data Jaylyn rce(s) Supporting Document(s) CBC W/Automated Diff Laboratory test result [facility] ([facility]) COMPLETE BLOOD COUNT WBC 7.8 10^3/uL 4.2-11.0 [facility] ([facility]) Is patient fasting? Y Hemoglobin 15.4 g/dL 14.0-16.0 [facility] ([facility]) Is patient fasting? Y RBC 5.15 10^6/uL 4.50-6.30 [facility] ([facility]) Is patient fasting? Y MCV 89.1 fL 80.0-94.0 [facility] ([facility]) Is patient fasting? Y Hematocrit 45.9 % 41.0-51.0 [facility] ([facility]) Is patient fasting? Y MCHC 33.6 g/dL 31.0-36.0 [facility] ([facility]) Is patient fasting? Y MCH 29.9 pg 27.0-34.0 [facility] ([facility]) Is patient fasting? Y RDW 13.0 % 11.5-14.8 [facility] ([facility]) Is patient fasting? Y Platelets 224 10^3/uL 150-450 [facility] ([facility]) Is patient fasting? Y Neut 61.0 % 37.0-80.0 [facility] ([facility]) Is patient fasting? Y MPV 10.3 fL 7.4-10.4 [facility] ([facility]) Is patient fasting? Y Lymph 26.0 % 25.0-40.0 [facility] ([facility]) Is patient fasting? Y Eos 1.8 % 0.0-7.0 [facility] ([facility]) Is patient fasting? Y Pitt 9.1 % 3.0-8.0 Above high normal [facility] ([facility]) Is patient fasting? Y Baso 1.8 % 0.0-2.0 [facility] ([facility]) Is patient fasting? Y %Ig 0.3 % 0.0-0.0 Above high normal [facility] ([facility]) Is patient fasting? Y #Neut 4.74 10^3/uL 2.00-6.90 [facility] ([facility]) Is patient fasting? Y %NRBC 0.0 % 0.0-0.0 [facility] ([facility]) Is patient fasting? Y #Lymph 2.02 10^3/uL 0.60-3.40 [facility] ([facility]) Is patient fasting? Y #Pitt 0.71 10^3/uL 0.00-0.90 [facility] ([facility]) Is patient fasting? Y #Eos 0.14 10^3/uL 0.00-0.70 [facility] ([facility]) Is patient fasting? Y #Baso 0.14 10^3/uL 0.00-0.20 [facility] ([facility]) Is patient fasting? Y #NRBC 0.00 10^3/uL 0.00-0.00 [facility] ([facility]) Is patient fasting? Y #Ig 0.02 10^3/uL 0.00-0.10 [facility] ([facility]) Is patient fasting? Y Manual Diff Laboratory test result [facility] ([facility]) Is patient fasting? Y RBC Morph Laboratory test result [facility] ([facility]) Is patient fasting? Y ID Date Data Source [id number] 10/14/2020 07:41:00 PM EST [facility] Name Value Range Interpretation Code Description Data Jaylyn rce(s) Supporting Document(s) [facility] Cholesterol [Mass/volume] in Serum or Plasma 155 MG/DL 131 - 200 [facility] Deprecated Triglyceride [Mass/volume] in Serum or Plasma 185 MG/DL 3 5 - 160 H [facility] HDL 38 MG/DL 29 - [facility] Cholesterol in LDL [Mass/volume] in Serum or Plasma by Direc t assay 96 mg/dL 65 - 175 [facility] Cholesterol.total/Cholesterol in HDL [Mass Ratio] in Serum o r Plasma 4.1 3.4 - 4.9 [facility] LDL/HDL 2.53 1.00 - 3.55 [facility] ital CVE RISK CHOL/HDL LDL/HDLMEN: 1/2 AVERAGE 3.43 1.00 AVERAGE 4.97 3.55 2X AVERAGE 9.55 6.25 3X AVERAGE 23.99 7.99WOMEN: 1/2 AVERAGE 3.27 1.47 AVERAGE 4.44 3.22 2X AVERAGE 7.05 5.03 3X AVERAGE 11.04 6.14 ID Date Data Source [id number] 10/14/2020 05:57:00 PM [facility] Name Value Range Interpretation Code Description Data Jaylyn rce(s) Supporting Document(s) Hemoglobin A1c/Hemoglobin.total in Blood 7.2 % 4.4 - 6.1 H [facility] {A1]{HB] ID Date Data Source [id number] 10/14/2020 05:57:00 PM [facility] Name Value Range Interpretation Code Description Data Jaylyn rce(s) Supporting Document(s) Thyrotropin [Units/volume] in Serum or Plasma by Detec tion limit <= 0.05 mIU/L 0.39 uIU/mL 0.47 - 5.01 L [facility] ID Date Data Source [id number] 10/14/2020 05:57:00 PM [facility] Name Value Range Interpretation Code Description Data Jaylyn rce(s) Supporting Document(s) COMPREHENSIVE METABOLIC PANEL [facility] COMPREHENSIVE METABOLIC PANEL Sodium [Moles/volume] in Serum or Plasma 139 mEq/L 134 - 153 [facility] Potassium [Moles/volume] in Serum or Plasma 4.2 mEq/L 3.6 - 5.0 [facility] Chloride [Moles/volume] in Serum or Plasma 104 mEq/L 98 - 107 [facility] Carbon dioxide, total [Moles/volume] in Serum or Plasma 22 MEQ/L 22 - 30 [facility] Glucose [Mass/volume] in Serum or Plasma 172 MG/DL 70 - 99 H [facility] BUN 19 MG/DL 7 - [facility] Creatinine [Mass/volume] in Serum or Plasma 0.9 MG/DL 0.7 - 1.5 [facility] BUN/CREAT 21 8 - 27 [facility] al Protein [Mass/volume] in Serum or Plasma 6.8 G/DL 6.3 - 8.2 [facility] Albumin [Mass/volume] in Serum or Plasma 4.6 G/DL 3.9 - 5.0 [facility] Globulin [Mass/volume] in Serum by calculation 2.2 GM/DL 2.4 - 3.2 L [facility] A/G RATIO 2.1 0.8 - 2.0 H [facility] Calcium [Mass/volume] in Serum or Plasma 9.7 MG/DL 8.4 - 10.2 [facility] Bilirubin.total [Mass/volume] in Serum or Plasma <0.7 MG/DL 0.2 - 1.3 [facility] [facility] Alkaline phosphatase [Enzymatic activity/volume] in Serum or Plasma 73 U/L 38 - 126 [facility] Aspartate aminotransferase [Enzymatic activity/volume] in Serum or Plasma 18 U/L 5 - 40 [facility] Alanine aminotransferase [Enzymatic activity/volume] in Seru m or Plasma 21 U/L 7 - 56 [facility] Anion gap 3 in Serum or Plasma 13.0 mmol/L 8.0 - 16.0 [facility] AGE 60 yrs [facility] al NON-AA GFR >60 mL/min [facility] ital AFR AMER GFR >60 mL/min [facility] Ho spital Male GFR In terprentation 20-49 [...] >32 mL/min Normal ID Date Data Source [id number] 10/14/2020 05:30:00 PM EST [facility] Name Value Range Interpretation Code Description Data Jaylyn rce(s) Supporting Document(s) CBC W/AUTOMATED DIFF [facility] COMPLETE BLOOD COUNT Leukocytes [#/volume] in Blood by Automated count 7.8 10^3/uL 4.2 - 1 1.0 [facility] Erythrocytes [#/volume] in Blood by Automated count 5.15 10^6/uL 4. 50 - 6.30 [facility] Hemoglobin [Mass/volume] in Blood 15.4 g/dL 14.0 - 16.0 [facility] Hematocrit [Volume Fraction] of Blood by Automated count 45.9 % 4 1.0 - 51.0 [facility] Erythrocyte mean corpuscular volume [Entitic volume] by Auto mated count 89.1 fL 80.0 - 94.0 [facility] Erythrocyte mean corpuscular hemoglobin [Entitic mass] by Automated count 29.9 pg 27.0 - 34.0 [facility] Erythrocyte mean corpuscular hemoglobin concentration [Mass/volume] by Automated count 33.6 g/dL 31.0 - 36.0 [facility] Erythrocyte distribution width [Ratio] by Automated count 13.0 % 11.5 - 14.8 [facility] Platelets [#/volume] in Blood by Automated count 224 10^3/uL 150 - 45 0 [facility] Platelet mean volume [Entitic volume] in Blood by Automated count 10.3 fL 7.4 - 10.4 [facility] Neutrophils/100 leukocytes in Blood by Automated count 61.0 % 37. 0 - 80.0 [facility] Lymphocytes/100 leukocytes in Blood by Manual count 26.0 % 25.0 - 40.0 [facility] Monocytes/100 leukocytes in Blood by Automated count 9.1 % 3.0 - 8.0 H [facility] Eosinophils/100 leukocytes in Blood by Automated count 1.8 % 0.0 - 7.0 [facility] Basophils/100 leukocytes in Blood by Automated count 1.8 % 0.0 - 2.0 [facility] %IG 0.3 % 0.0 - 0.[address] [facility] 0.0 % 0.0 - 0.0 [facility] al Neutrophils [#/volume] in Blood by Automated count 4.74 10^3/uL 2.00 - 6.90 [facility] Lymphocytes [#/volume] in Blood by Automated count 2.02 10^3/uL 0.60 - 3.40 [facility] Monocytes [#/volume] in Blood by Automated count 0.71 10^3/uL 0.00 - 0.90 [facility] Eosinophils [#/volume] in Blood by Automated count 0.14 10^3/uL 0.00 - 0.70 [facility] Basophils [#/volume] in Blood by Automated count 0.14 10^3/uL 0.00 - 0.20 [facility] #IG 0.02 10^3/uL 0.00 - 0.10 [facility] ospital #NRBC 0.00 10^3/uL 0.00 - 0.00 [facility] ospital MANUAL DIFF NOT INDICATED [facility] RBC MORPH NOT INDICATED [facility] spital ID Date Data Source [id number] 07/21/2020 05:16:00 PM EST [facility] ([facility]) Name Value Range Interpretation Code Description Data Jaylyn rce(s) Supporting Document(s) Thyrotropin [Units/volume] in Serum or Plasma 0.60 uIU/mL 0.47-5.01 [facility] FASTING~.~.~<DG1.3.1>E11.65</DG1.3.1><DG1.3.1>E78.00</DG1.3.1><DG1.3.1>Z79.899</ DG1.3.1><DG1 Prostate specific Ag [Mass/volume] in Serum or Plasma 0.57 ng/mL 0.00 -4.00 [facility] ([facility]) \\BLDo\\PSA INTERPRETATION\\BLDx\\ The PSA assay should not [...] be used interchangeably. ID Date Data Source [id number] 07/21/2020 05:16:00 PM EST [facility] ([facility]) Name Value Range Interpretation Code Description Data Jaylyn rce(s) Supporting Document(s) [facility] Laboratory test result [facility] ([facility]) COMPREHENSIVE METABOLIC PANEL Sodium 136 meq/L 134-153 [facility] ([facility]) FASTING~.~.~<DG1.3.1>E11.65</DG1.3.1><DG1.3.1>E78.00</DG1.3.1><DG1.3.1>Z79.899</ DG1.3.1><DG1 Potassium 3.8 meq/L 3.6-5.0 [facility] ([facility]) FASTING~.~.~<DG1.3.1>E11.65</DG1.3.1><DG1.3.1>E78.00</DG1.3.1><DG1.3.1>Z79.899</ DG1.3.1><DG1 Chloride 100 meq/L 98-107 [facility] ([facility]) FASTING~.~.~<DG1.3.1>E11.65</DG1.3.1><DG1.3.1>E78.00</DG1.3.1><DG1.3.1>Z79.899</ DG1.3.1><DG1 Glucose 129 mg/dL 65-110 Above high normal [facility] ([facility]) FASTING~.~.~<DG1.3.1>E11.65</DG1.3.1><DG1.3.1>E78.00</DG1.3.1><DG1.3.1>Z79.899</ DG1.3.1><DG1 Co2 23 meq/L 22-30 [facility] ([facility]) FASTING~.~.~<DG1.3.1>E11.65</DG1.3.1><DG1.3.1>E78.00</DG1.3.1><DG1.3.1>Z79.899</ DG1.3.1><DG1 BUN 18 mg/dL 7-21 [facility] ([facility]) FASTING~.~.~<DG1.3.1>E11.65</DG1.3.1><DG1.3.1>E78.00</DG1.3.1><DG1.3.1>Z79.899</ DG1.3.1><DG1 Creatinine 1.0 mg/dL 0.7-1.5 [facility] ([facility]) FASTING~.~.~<DG1.3.1>E11.65</DG1.3.1><DG1.3.1>E78.00</DG1.3.1><DG1.3.1>Z79.899</ DG1.3.1><DG1 BUN/Creat 18 8-27 [facility] ([facility]) FASTING~.~.~<DG1.3.1>E11.65</DG1.3.1><DG1.3.1>E78.00</DG1.3.1><DG1.3.1>Z79.899</ DG1.3.1><DG1 Total Protein 7.8 g/dL 6.3-8.2 [facility] ([facility]) FASTING~.~.~<DG1.3.1>E11.65</DG1.3.1><DG1.3.1>E78.00</DG1.3.1><DG1.3.1>Z79.899</ DG1.3.1><DG1 Albumin 4.9 g/dL 3.9-5.0 [facility] ([facility]) FASTING~.~.~<DG1.3.1>E11.65</DG1.3.1><DG1.3.1>E78.00</DG1.3.1><DG1.3.1>Z79.899</ DG1.3.1><DG1 Globulin 2.9 GM/DL 2.4-3.2 [facility] ([facility]) FASTING~.~.~<DG1.3.1>E11.65</DG1.3.1><DG1.3.1>E78.00</DG1.3.1><DG1.3.1>Z79.899</ DG1.3.1><DG1 A/G Ratio 1.7 0.8-2.0 [facility] ([facility]) FASTING~.~.~<DG1.3.1>E11.65</DG1.3.1><DG1.3.1>E78.00</DG1.3.1><DG1.3.1>Z79.899</ DG1.3.1><DG1 Calcium 10.3 mg/dL 8.4-10.2 Above high normal [facility] ([facility]) FASTING~.~.~<DG1.3.1>E11.65</DG1.3.1><DG1.3.1>E78.00</DG1.3.1><DG1.3.1>Z79.899</ DG1.3.1><DG1 Total Bili 0.9 mg/dL 0.2-1.3 [facility] ([facility]) FASTING~.~.~<DG1.3.1>E11.65</DG1.3.1><DG1.3.1>E78.00</DG1.3.1><DG1.3.1>Z79.899</ DG1.3.1><DG1 Sgot/Ast 21 U/L 5-40 [facility] ([facility]) FASTING~.~.~<DG1.3.1>E11.65</DG1.3.1><DG1.3.1>E78.00</DG1.3.1><DG1.3.1>Z79.899</ DG1.3.1><DG1 Alkaline Phos 84 U/L 38-126 [facility] ([facility]) FASTING~.~.~<DG1.3.1>E11.65</DG1.3.1><DG1.3.1>E78.00</DG1.3.1><DG1.3.1>Z79.899</ DG1.3.1><DG1 SGPT/Alt 25 U/L 7-56 [facility] ([facility]) FASTING~.~.~<DG1.3.1>E11.65</DG1.3.1><DG1.3.1>E78.00</DG1.3.1><DG1.3.1>Z79.899</ DG1.3.1><DG1 Anion Gap 13.0 mmol/L 8.0-16.0 [facility] ([facility]) FASTING~.~.~<DG1.3.1>E11.65</DG1.3.1><DG1.3.1>E78.00</DG1.3.1><DG1.3.1>Z79.899</ DG1.3.1><DG1 Age 60 yrs [facility] ([facility]) FASTING~.~.~<DG1.3.1>E11.65</DG1.3.1><DG1.3.1>E78.00</DG1.3.1><DG1.3.1>Z79.899</ DG1.3.1><DG1 Non-Aa GFR Laboratory test result [facility] ([facility]) FASTING~.~.~<DG1.3.1>E11.65</DG1.3.1><DG1.3.1>E78.00</DG1.3.1><DG1.3.1>Z79.899</ DG1.3.1><DG1 Afr Amer GFR Laboratory test result [facility] ([facility]) Male GFR Interprentation 20-49 yrs >60 mL/min [...] >32 mL/min Normal ID Date Data Source [id number] 07/21/2020 05:16:00 PM EST [facility] ([facility]) Name Value Range Interpretation Code Description Data Jaylyn rce(s) Supporting Document(s) Cve Panel [facility] LIPID PANEL Cholesterol 174 mg/dL 131-200 [facility] ([facility]) FASTING~.~.~<DG1.3.1>E11.65</DG1.3.1><DG1.3.1>E78.00</DG1.3.1><DG1.3.1>Z79.899</ DG1.3.1><DG1 Triglycerides 246 mg/dL 35-160 Above high normal [facility] ([facility]) FASTING~.~.~<DG1.3.1>E11.65</DG1.3.1><DG1.3.1>E78.00</DG1.3.1><DG1.3.1>Z79.899</ DG1.3.1><DG1 HDL 38 mg/dL 29-86 [facility] FASTING~.~.~<DG1.3.1>E11.65</DG1.3.1><DG1.3.1>E78.00</DG1.3.1><DG1.3.1>Z79.899</ DG1.3.1><DG1 LDL 102 mg/dL 65-175 [facility] ([facility]) FASTING~.~.~<DG1.3.1>E11.65</DG1.3.1><DG1.3.1>E78.00</DG1.3.1><DG1.3.1>Z79.899</ DG1.3.1><DG1 LDL/HDL 2.68 1.00-3.55 [facility] ([facility]) CVE RISK CHOL/HDL LDL/HDL MEN: 1/2 AVERAGE 3.43 1.00 AVERAGE 4.97 3.55 2X AVERAGE 9.55 6.25 3X AVERAGE 23.99 7.99 WOMEN: 1/2 AVERAGE 3.27 1.47 AVERAGE 4.44 3.22 2X AVERAGE 7.05 5.03 3X AVERAGE 11.04 6.14 Risk Factor 4.6 3.4-4.9 [facility] ([facility]) FASTING~.~.~<DG1.3.1>E11.65</DG1.3.1><DG1.3.1>E78.00</DG1.3.1><DG1.3.1>Z79.899</ DG1.3.1><DG1 ID Date Data Source [id number] 07/21/2020 07:30:00 PM EST [facility] Name Value Range Interpretation Code Description Data Jaylyn rce(s) Supporting Document(s) CVE PANEL [facility] al LIPID PANEL Cholesterol [Mass/volume] in Serum or Plasma 174 MG/DL 131 - 200 [facility] Deprecated Triglyceride [Mass/volume] in Serum or Plasma 246 MG/DL 3 5 - 160 H [facility] HDL 38 MG/DL 29 - 86 [facility] al Cholesterol in LDL [Mass/volume] in Serum or Plasma by Direc t assay 102 mg/dL 65 - 175 [facility] Cholesterol.total/Cholesterol in HDL [Mass Ratio] in Serum o r Plasma 4.6 3.4 - 4.9 [facility] LDL/HDL 2.68 1.00 - 3.55 [facility] ital CVE RISK CHOL/HDL LDL/HDLMEN: 1/2 AVERAGE 3.43 1.00 AVERAGE 4.97 3.55 2X AVERAGE 9.55 6.25 3X AVERAGE 23.99 7.99WOMEN: 1/2 AVERAGE 3.27 1.47 AVERAGE 4.44 3.22 2X AVERAGE 7.05 5.03 3X AVERAGE 11.04 6.14 ID Date Data Source [id number] 07/21/2020 07:30:00 PM [facility] Name Value Range Interpretation Code Description Data Jaylyn rce(s) Supporting Document(s) COMPREHENSIVE METABOLIC PANEL [facility] COMPREHENSIVE METABOLIC PANEL Sodium [Moles/volume] in Serum or Plasma 136 mEq/L 134 - 153 [facility] Potassium [Moles/volume] in Serum or Plasma 3.8 mEq/L 3.6 - 5.0 [facility] Chloride [Moles/volume] in Serum or Plasma 100 mEq/L 98 - 107 [facility] Carbon dioxide, total [Moles/volume] in Serum or Plasma 23 MEQ/L 22 - 30 [facility] Glucose [Mass/volume] in Serum or Plasma 129 MG/DL 65 - 110 H [facility] BUN 18 MG/DL 7 - 21 [facility] al Creatinine [Mass/volume] in Serum or Plasma 1.0 MG/DL 0.7 - 1.5 [facility] BUN/CREAT 18 8 - 27 [facility] al Protein [Mass/volume] in Serum or Plasma 7.8 G/DL 6.3 - 8.2 [facility] Albumin [Mass/volume] in Serum or Plasma 4.9 G/DL 3.9 - 5.0 [facility] Globulin [Mass/volume] in Serum by calculation 2.9 GM/DL 2.4 - 3.2 [facility] A/G RATIO 1.7 0.8 - 2.0 [facility] Calcium [Mass/volume] in Serum or Plasma 10.3 MG/DL 8.4 - 10.2 H [facility] Bilirubin.total [Mass/volume] in Serum or Plasma 0.9 MG/DL 0.2 - 1.3 [facility] Alkaline phosphatase [Enzymatic activity/volume] in Serum or Plasma 84 U/L 38 - 126 [facility] Aspartate aminotransferase [Enzymatic activity/volume] in Serum or Plasma 21 U/L 5 - 40 [facility] Alanine aminotransferase [Enzymatic activity/volume] in Seru m or Plasma 25 U/L 7 - 56 [facility] Anion gap 3 in Serum or Plasma 13.0 mmol/L 8.0 - 16.0 [facility] AGE 60 yrs [facility] NON-AA GFR >60 mL/min [facility] ital AFR AMER GFR >60 mL/min [facility] sp[facility] Male GFR In terprentation 20-49 [...] >32 mL/min Normal ID Date Data Source [id number] 07/21/2020 07:20:00 PM [facility] Name Value Range Interpretation Code Description Data Jaylyn rce(s) Supporting Document(s) Prostate specific Ag [Mass/volume] in Serum or Plasma 0.57 ng/mL 0.00 - 4.00 [facility] \\BLDo\\PSA INTERPRETA TION\\BLDx\\ The PSA assay should [...] be used interchangeably. ID Date Data Source [id number] 07/21/2020 07:20:00 PM [facility] Name Value Range Interpretation Code Description Data Jaylyn rce(s) Supporting Document(s) Thyrotropin [Units/volume] in Serum or Plasma by Detec tion limit <= 0.05 mIU/L 0.60 uIU/mL 0.47 - 5.01 [facility] ID Date Data Source [id number] 07/21/2020 05:10:00 PM EST [facility] ([facility]) Name Value Range Interpretation Code Description Data Jaylyn rce(s) Supporting Document(s) Hemoglobin A1c/Hemoglobin.total in Blood 7.1 % 4.4-6.1 Above high normal [facility] ([facility]) {A1] {HB] ID Date Data Source [id number] 07/21/2020 07:20:00 PM [facility] Name Value Range Interpretation Code Description Data Jaylyn rce(s) Supporting Document(s) Hemoglobin A1c/Hemoglobin.total in Blood 7.1 % 4.4 - 6.1 H [facility] {A1]{HB] ID Date Data Source [id number] 07/21/2020 05:38:00 PM EST [facility] Name Value Range Interpretation Code Description Data Jaylyn rce(s) Supporting Document(s) CBC W/AUTOMATED DIFF [facility] COMPLETE BLOOD COUNT Leukocytes [#/volume] in Blood by Automated count 10.6 10^3/uL 4.2 - 11.0 [facility] Erythrocytes [#/volume] in Blood by Automated count 5.42 10^6/uL 4. 50 - 6.30 [facility] Hemoglobin [Mass/volume] in Blood 16.6 g/dL 14.0 - 16.0 H [facility] Hematocrit [Volume Fraction] of Blood by Automated count 48.2 % 4 1.0 - 51.0 [facility] Erythrocyte mean corpuscular volume [Entitic volume] by Auto mated count 88.9 fL 80.0 - 94.0 [facility] Erythrocyte mean corpuscular hemoglobin [Entitic mass] by Automated count 30.6 pg 27.0 - 34.0 [facility] Erythrocyte mean corpuscular hemoglobin concentration [Mass/volume] by Automated count 34.4 g/dL 31.0 - 36.0 [facility] Erythrocyte distribution width [Ratio] by Automated count 13.2 % 11.5 - 14.8 [facility] Platelets [#/volume] in Blood by Automated count 246 10^3/uL 150 - 45 0 [facility] Platelet mean volume [Entitic volume] in Blood by Automated count 10.4 fL 7.4 - 10.4 [facility] Neutrophils/100 leukocytes in Blood by Automated count 64.1 % 37. 0 - 80.0 [facility] Lymphocytes/100 leukocytes in Blood by Manual count 25.4 % 25.0 - 40.0 [facility] Monocytes/100 leukocytes in Blood by Automated count 7.3 % 3.0 - 8.0 [facility] Eosinophils/100 leukocytes in Blood by Automated count 1.6 % 0.0 - 7.0 [facility] Basophils/100 leukocytes in Blood by Automated count 1.2 % 0.0 - 2.0 [facility] %IG 0.4 % 0.0 - 0.0 H [facility] %NRBC 0.0 % 0.0 - 0.0 [facility] al Neutrophils [#/volume] in Blood by Automated count 6.82 10^3/uL 2.00 - 6.90 [facility] Lymphocytes [#/volume] in Blood by Automated count 2.70 10^3/uL 0.60 - 3.40 [facility] Monocytes [#/volume] in Blood by Automated count 0.78 10^3/uL 0.00 - 0.90 [facility] Eosinophils [#/volume] in Blood by Automated count 0.17 10^3/uL 0.00 - 0.70 [facility] Basophils [#/volume] in Blood by Automated count 0.13 10^3/uL 0.00 - 0.20 [facility] #IG 0.04 10^3/uL 0.00 - 0.10 [facility]sp[facility] #NRBC 0.00 10^3/uL 0.00 - 0.00 [facility] MANUAL DIFF NOT INDICATED [facility] RBC MORPH NOT INDICATED [facility] spital ID Date Data Source [id number] 07/21/2020 09:28:00 AM EST [facility] ([facility]) Name Value Range Interpretation Code Description Data Jaylyn rce(s) Supporting Document(s) RBC 5.42 10^6/uL 4.50-6.30 [facility] ([facility]) FASTING~.~.~<DG1.3.1>E11.65</DG1.3.1><DG1.3.1>E78.00</DG1.3.1><DG1.3.1>Z79.899</ DG1.3.1><DG1 WBC 10.6 10^3/uL 4.2-11.0 [facility] ([facility]) FASTING~.~.~<DG1.3.1>E11.65</DG1.3.1><DG1.3.1>E78.00</DG1.3.1><DG1.3.1>Z79.899</ DG1.3.1><DG1 CBC W/Automated Diff Laboratory test result [facility] ([facility]) FASTING~.~.~<DG1.3.1>E11.65</DG1.3.1><DG1.3.1>E78.00</DG1.3.1><DG1.3.1>Z79.899</ DG1.3.1><DG1 Hematocrit 48.2 % 41.0-51.0 [facility] ([facility]) FASTING~.~.~<DG1.3.1>E11.65</DG1.3.1><DG1.3.1>E78.00</DG1.3.1><DG1.3.1>Z79.899</ DG1.3.1><DG1 Hemoglobin 16.6 g/dL 14.0-16.0 Above high normal [facility] ([facility]) FASTING~.~.~<DG1.3.1>E11.65</DG1.3.1><DG1.3.1>E78.00</DG1.3.1><DG1.3.1>Z79.899</ DG1.3.1><DG1 MCV 88.9 fL 80.0-94.0 [facility] ([facility]) FASTING~.~.~<DG1.3.1>E11.65</DG1.3.1><DG1.3.1>E78.00</DG1.3.1><DG1.3.1>Z79.899</ DG1.3.1><DG1 MCHC 34.4 g/dL 31.0-36.0 [facility] ([facility]) FASTING~.~.~<DG1.3.1>E11.65</DG1.3.1><DG1.3.1>E78.00</DG1.3.1><DG1.3.1>Z79.899</ DG1.3.1><DG1 MCH 30.6 pg 27.0-34.0 [facility] ([facility]) FASTING~.~.~<DG1.3.1>E11.65</DG1.3.1><DG1.3.1>E78.00</DG1.3.1><DG1.3.1>Z79.899</ DG1.3.1><DG1 Platelets 246 10^3/uL 150-450 [facility] ([facility]) FASTING~.~.~<DG1.3.1>E11.65</DG1.3.1><DG1.3.1>E78.00</DG1.3.1><DG1.3.1>Z79.899</ DG1.3.1><DG1 RDW 13.2 % 11.5-14.8 [facility] ([facility]) FASTING~.~.~<DG1.3.1>E11.65</DG1.3.1><DG1.3.1>E78.00</DG1.3.1><DG1.3.1>Z79.899</ DG1.3.1><DG1 MPV 10.4 fL 7.4-10.4 [facility] ([facility]) FASTING~.~.~<DG1.3.1>E11.65</DG1.3.1><DG1.3.1>E78.00</DG1.3.1><DG1.3.1>Z79.899</ DG1.3.1><DG1 Neut 64.1 % 37.0-80.0 [facility] ([facility]) FASTING~.~.~<DG1.3.1>E11.65</DG1.3.1><DG1.3.1>E78.00</DG1.3.1><DG1.3.1>Z79.899</ DG1.3.1><DG1 Pitt 7.3 % 3.0-8.0 [facility] ([facility]) FASTING~.~.~<DG1.3.1>E11.65</DG1.3.1><DG1.3.1>E78.00</DG1.3.1><DG1.3.1>Z79.899</ DG1.3.1><DG1 Eos 1.6 % 0.0-7.0 [facility] ([facility]) FASTING~.~.~<DG1.3.1>E11.65</DG1.3.1><DG1.3.1>E78.00</DG1.3.1><DG1.3.1>Z79.899</ DG1.3.1><DG1 Lymph 25.4 % 25.0-40.0 [facility] ([facility]) FASTING~.~.~<DG1.3.1>E11.65</DG1.3.1><DG1.3.1>E78.00</DG1.3.1><DG1.3.1>Z79.899</ DG1.3.1><DG1 %Ig 0.4 % 0.0-0.0 Above high normal [facility] ([facility]) FASTING~.~.~<DG1.3.1>E11.65</DG1.3.1><DG1.3.1>E78.00</DG1.3.1><DG1.3.1>Z79.899</ DG1.3.1><DG1 Baso 1.2 % 0.0-2.0 [facility] ([facility]) FASTING~.~.~<DG1.3.1>E11.65</DG1.3.1><DG1.3.1>E78.00</DG1.3.1><DG1.3.1>Z79.899</ DG1.3.1><DG1 %NRBC 0.0 % 0.0-0.0 [facility] ([facility]) FASTING~.~.~<DG1.3.1>E11.65</DG1.3.1><DG1.3.1>E78.00</DG1.3.1><DG1.3.1>Z79.899</ DG1.3.1><DG1 #Lymph 2.70 10^3/uL 0.60-3.40 [facility] ([facility] FASTING~.~.~<DG1.3.1>E11.65</DG1.3.1><DG1.3.1>E78.00</DG1.3.1><DG1.3.1>Z79.899</ DG1.3.1><DG1 #Pitt 0.78 10^3/uL 0.00-0.90 [facility] ([facility]) FASTING~.~.~<DG1.3.1>E11.65</DG1.3.1><DG1.3.1>E78.00</DG1.3.1><DG1.3.1>Z79.899</ DG1.3.1><DG1 #Neut 6.82 10^3/uL 2.00-6.90 [facility] ([facility]) FASTING~.~.~<DG1.3.1>E11.65</DG1.3.1><DG1.3.1>E78.00</DG1.3.1><DG1.3.1>Z79.899</ DG1.3.1><DG1 #Eos 0.17 10^3/uL 0.00-0.70 [facility] ([facility]) FASTING~.~.~<DG1.3.1>E11.65</DG1.3.1><DG1.3.1>E78.00</DG1.3.1><DG1.3.1>Z79.899</ DG1.3.1><DG1 #Baso 0.13 10^3/uL 0.00-0.20 [facility] ([facility]) FASTING~.~.~<DG1.3.1>E11.65</DG1.3.1><DG1.3.1>E78.00</DG1.3.1><DG1.3.1>Z79.899</ DG1.3.1><DG1 #Ig 0.04 10^3/uL 0.00-0.10 [facility] ([facility]) FASTING~.~.~<DG1.3.1>E11.65</DG1.3.1><DG1.3.1>E78.00</DG1.3.1><DG1.3.1>Z79.899</ DG1.3.1><DG1 #NRBC 0.00 10^3/uL 0.00-0.00 [facility] ([facility]) FASTING~.~.~<DG1.3.1>E11.65</DG1.3.1><DG1.3.1>E78.00</DG1.3.1><DG1.3.1>Z79.899</ DG1.3.1><DG1 Manual Diff Laboratory test result [facility] ([facility]) FASTING~.~.~<DG1.3.1>E11.65</DG1.3.1><DG1.3.1>E78.00</DG1.3.1><DG1.3.1>Z79.899</ DG1.3.1><DG1 RBC Morph Laboratory test result [facility] ([facility]) FASTING~.~.~<DG1.3.1>E11.65</DG1.3.1><DG1.3.1>E78.00</DG1.3.1><DG1.3.1>Z79.899</ DG1.3.1><DG1 ID Date Data Source [id number] 07/21/2020 09:11:00 AM EST [facility] ([facility]) Name Value Range Interpretation Code Description Data Jaylyn rce(s) Supporting Document(s) Thyrotropin [Units/volume] in Serum or Plasma Laboratory test result [facility] ([facility]) Prostate specific Ag [Mass/volume] in Serum or Plasma Laboratory test result [facility] ([facility]) ID Date Data Source [id number] 07/21/2020 09:11:00 AM EST [facility] ([facility]) Name Value Range Interpretation Code Description Data Jaylyn rce(s) Supporting Document(s) Hemoglobin A1c/Hemoglobin.total in Blood Laboratory test result [facility] ([facility]) Procedure Social History Code Duration Value Status Description Data Source(s ) Smoking 04/15/2021 12:00:00 AM EDT Never Smoked Cigarettes com pleted Never Smoked Cigarettes [facility] ([employer] [employer] [facility] [place]) Vital Signs ID Date Data Source UNK Name Value Range Interpretation Code Description Data Source(s) Heart rate 76 /min 76 /min [facility] ([facility]) Body temperature 98.7 [degF] 98.7 [degF] [facility] ([facility] Respiratory rate 16 /min 16 /min [facility] ( [facility]) Body surface area Derived from formula 2.36 m2 2.36 m2 [facility] ([facility]) Oxygen saturation in Arterial blood by Pulse oximetry 96 % 96 % [facility] ([facility]) Body weight 266.00 [lb_av] 266.00 [lb_av] [facility] ([facility]) Body height 70 [in_i] 70 [in_i] [facility] ([facility]) 5'10" Body mass index (BMI) [Ratio] 38.2 kg/m2 38.2 k g/m2 [facility] [facility] ([facility]) Body weight 120.658 kg 120.658 kg [facility] [place] ([facility]) Systolic blood pressure 150 mm[Hg] 150 mm[Hg] M EDENT ([facility]) Diastolic blood pressure 82 mm[Hg] 82 mm[Hg] [facility] Heart rate 70 /min 70 /min [facility] Body temperature 98.1 [degF] 98.1 [degF] [facility] Body weight 266.50 [lb_av] 266.50 [lb_av] [facility] ([facility]) Diastolic blood pressure 92 mm[Hg] 92 mm[Hg] [facility] ([facility]) Systolic blood pressure 154 mm[Hg] 154 mm[Hg] M EDENT ([facility]) Respiratory rate 16 /min 16 /min [facility] ( [facility]) Oxygen saturation in Arterial blood by Pulse oximetry 97 % 97 % [facility] ([facility]) Body weight 120.884 kg 120.884 kg [facility] ([facility]) Body height 70 [in_i] 70 [in_i] [facility] ([facility]) 5'10" Body mass index (BMI) [Ratio] 38.2 kg/m2 38.2 k g/m2 [facility] ([facility]) Body surface area Derived from formula 2.36 m2 2.36 m2 [facility] ([facility]) Body height 70 [in_i] 70 [in_i] [facility] ([facility] 5'10" Body weight 266.00 [lb_av] 266.00 [lb_av] [facility] ([facility]) Body weight 120.658 kg 120.658 kg [facility] ([facility] Body mass index (BMI) [Ratio] 38.2 kg/m2 38.2 k g/m2 [facility] ([facility]) Systolic blood pressure 159 mm[Hg] 159 mm[Hg] M [facility]ENT ([facility]) Diastolic blood pressure 100 mm[Hg] 100 mm[Hg] [facility] ([facility]) Heart rate 71 /min 71 /min [facility] Body temperature 98.1 [degF] 98.1 [degF] [facility] ([facility]) Body height 176.784 cm Normal (applies to non-numeric resu lts) 176.784 cm [facility] Systolic blood pressure 163 mm[Hg] Normal (applies t o non-numeric results) 163 mm[Hg] [facility] Diastolic blood pressure 84 mm[Hg] Normal (applies to non-numeric results) 84 mm[Hg] [facility] Heart rate 68 min Normal (applies to non-numeric resul ts) 68 min [facility] Respiratory rate 20 min Normal (applies to non-numeric results) 20 min [facility] Body temperature 36.6 noe Normal (applies to non-numeric results) 36.6 noe [facility] Deprecated Oxygen saturation in Capillary blood by Oximetry 94 % Normal (applies to non-numeric results) 94 % [facility] Body mass index (BMI) [Ratio] 32.49 kg/m2 No rmal (applies to non-numeric results) 32.49 kg/m2 [facility] Body weight Measured 102.7 kg Normal (applies to n on-numeric results) 102.7 kg [facility] Oxygen saturation in Arterial blood by [...] 184 mm[Hg] 184 mm[Hg] M EDENT ([facility]) Diastolic blood pressure 81 mm[Hg] 81 mm[Hg] [facility] ([facility]) Heart rate 80 /min 80 /min [facility] Body height 70 [in_i] 70 [in_i] [facility] Body weight 280.00 [lb_av] 280.00 [lb_av] [facility] ([facility]) Body weight 127.008 kg 127.008 kg [facility] ([facility] Body mass index (BMI) [Ratio] 40.2 kg/m2 40.2 k g/m2 [facility] Systolic blood pressure 190 mm[Hg] 190 mm[facility]Hg] [facility] Diastolic blood pressure 86 mm[Hg] 86 mm[Hg] [facility] ([facility]) Heart rate 79 /min 79 /min [facility] [place] ([facility]) Oxygen saturation in Arterial blood by Pulse oximetry 96 % 96 % [facility] [place] ([facility]) Room Air Body height 70 [in_i] 70 [in_i] [facility] [place] ([facility]) 5'10" Body weight 280.00 [lb_av] 280.00 [lb_av] [facility] ([facility]) Body mass index (BMI) [Ratio] 40.2 kg/m2 40.2 k g/m2 [facility] [place] ([facility]) [place] body weight 166 [lb_av] 166 [lb_av] [facility] ([facility]) Body weight 127.008 kg 127.008 kg [facility] [place] ([facility]) Body surface area Derived from formula 2.41 m2 2.41 m2 [facility] [place] ([facility]) Systolic blood pressure 216 mm[Hg] 216 mm[facility]Hg] [facility] Diastolic blood pressure 90 mm[Hg] 90 mm[Hg] [facility] Heart rate 76 /min 76 /min [facility] Oxygen saturation in Arterial blood by Pulse oximetry 94 % 94 % [facility] (Ayo Giordano [facility]) Body height 70 [in_i] 70 [in_i] [facility] (Ayo Giordano [facility]) 5'10" Body weight 282.00 [lb_av] 282.00 [lb_av] [facility] (Ayo Giordano [facility]) Body mass index (BMI) [Ratio] 40.5 kg/m2 40.5 k g/m2 [facility] (Ayo Giordano [facility]) Body temperature 97.9 [degF] 97.9 [degF] [facility] (Ayo Giordano [facility]) Body weight 283.00 [lb_av] 283.00 [lb_av] [facility] ([facility]) Body weight 128.369 kg 128.369 kg [facility] ([facility]) Body height 70 [in_i] 70 [in_i] [facility] ([facility]) 5'10" Body mass index (BMI) [Ratio] 40.6 kg/m2 40.6 k g/m2 [facility] ([facility]) Body surface area Derived from formula 2.42 m2 2.42 m2 [facility] [place] ([facility]) Systolic blood pressure 148 mm[Hg] 148 mm[Hg] M EDENT ([facility]) Diastolic blood pressure 80 mm[Hg] 80 mm[Hg] [facility] ([facility]) [facility] 78 /min 78 /[facility] Body temperature 96.4 [degF] 96.4 [degF] [facility] ([facility]) Respiratory rate 18 /min 18 /min [facility] ( [facility]) Oxygen saturation in Arterial blood by Pulse oximetry 97 % 97 % [facility] ([facility]) Systolic blood pressure 168 mm[Hg] 168 mm[Hg] M EDENT ([facility]) Diastolic blood pressure 88 mm[Hg] 88 mm[Hg] [facility] ([facility]) Heart rate 90 /min 90 /min [facility] ([facility]) Body temperature 97.2 [degF] 97.2 [degF] [facility] ([facility]) Respiratory rate 18 /min 18 /min [facility] ( [facility]) Oxygen saturation in Arterial blood by Pulse oximetry 97 % 97 % [facility] ([facility]) Body weight 283.25 [lb_av] 283.25 [lb_av] [facility] ([facility]) Body weight 128.482 kg 128.482 [facility] Body height 70 [in_i] 70 [in_i] [facility] ([facility]) 5'10" Body mass index (BMI) [Ratio] 40.6 kg/m2 40.6 k g/m2 [facility] [place] ([facility]) Body surface area Derived from formula 2.42 m2 2.42 m2 [facility] [place] ([facility]) Body weight 287.00 [lb_av] 287.00 [lb_av] [facility] ([facility]) Body mass index (BMI) [Ratio] 41.2 kg/m2 41.2 k g/m2 [facility] [place] ([facility]) Systolic blood pressure 144 mm[Hg] 144 mm[Hg] M EDENT ([facility]) Diastolic blood pressure 84 mm[Hg] 84 mm[Hg] [facility] ([facility]) Body height 70 [in_i] 70 [in_i] [facility] [place] ([facility]) 5'10" [place] body weight 166 [lb_av] 166 [lb_av] [facility] ([facility]) Body weight 130.183 kg 130.183 kg [facility] [place] ([facility]) Body surface area Derived from formula 2.43 m2 2.43 m2 [facility] [place] ([facility]) Systolic blood pressure--sitting 180 mm[Hg] 180 mm[Hg] [facility] [place] ([facility]) Diastolic blood pressure--sitting 80 mm[Hg] 80 mm[Hg] [facility] Heart rate 74 /min 74 /min [facility] [place] ([facility]) Diastolic blood pressure 84 mm[Hg] 84 mm[Hg] [facility] ([facility]) Respiratory rate 18 /min 18 /min [facility] [place] ( [facility]) Body temperature 96.8 [degF] 96.8 [degF] [facility] [place] ([facility]) Oxygen saturation in Arterial blood by Pulse oximetry 96 % 96 % [facility] [place] ([facility]) Body weight 131.657 kg 131.657 kg [facility] ([facility]) Body weight 290.25 [lb_av] 290.25 [lb_av] [facility] ([facility]) Body mass index (BMI) [Ratio] 41.6 kg/m2 41.6 k g/m2 [facility] Body height 70 [in_i] 70 [in_i] [facility] ([facility]) 5'10" Body surface area Derived from formula 2.45 m2 2.45 m2 [facility] [place] ([facility]) Systolic blood pressure 148 mm[Hg] 148 mm[Hg] M EDENT ([facility]) Diastolic blood pressure 80 mm[Hg] 80 mm[Hg] [facility] ([facility]) Systolic blood pressure 150 mm[Hg] 150 mm[Hg] M [facility]ENT ([facility]) Body temperature 96.8 [degF] 96.8 [degF] [facility] ([facility]) Heart rate 72 /min 72 /min [facility] Body weight 281.50 [lb_av] 281.50 [lb_av] [facility] ([facility]) Respiratory rate 18 /min 18 /min [facility] [place] ( [facility]) Oxygen saturation in Arterial blood by Pulse oximetry 96 % 96 % [facility] ([facility]) Body weight 127.688 kg 127.688 [facility] Body height 70 [in_i] 70 [in_i] [facility] 5'10" Body mass index (BMI) [Ratio] 40.4 kg/m2 40.4 k g/m2 [facility] [place] ([facility]) Body surface area Derived from formula 2.41 m2 2.41 m2 [facility] [place] ([facility])
== END 2021-07-28 04:49 | disposition home or self-care (01) ==
LOC: M ED 02:37
DX: E11.649 Type 2 diabetes mellitus with hypoglycemia without coma (principal); I10 Essential (primary) hypertension; C64.1 Malignant neoplasm of right kidney, except renal pelvis; Z90.5 Acquired absence of kidney; F17.200 Nicotine dependence, unspecified, uncomplicated; Z79.899 Other long term (current) drug therapy

== ENCOUNTER → 2021-08-06 | Outpatient (REF) | payer OTHER ==
[~2021-08-06] MED LIST changes: +GLIP10TA18 PO
== END ==
LOC: M LAB REF 17:00
PROVIDERS: ATTEND Internal Medicine Endocrinology, Diabetes & Metabolism
DX: E04.2 Nontoxic multinodular goiter (principal)

== ENCOUNTER → 2021-08-19 | Outpatient (CLI) | payer OTHER ==
[~2021-08-19] MED LIST changes: +GASTROGRAFIN SOLUTION 30ML (Q9963) As Ordered ONE
== END ==
LOC: M RAD 12:47
PROVIDERS: ATTEND Internal Medicine Medical Oncology
DX: C64.9 Malignant neoplasm of unspecified kidney, except renal pelvis (principal)
CPT/HCPCS: 71250; 74176; Q9963

== ENCOUNTER → 2021-10-19 | Outpatient (CLI) | payer OTHER ==
[~2021-10-19] MED LIST changes: -GASTROGRAFIN SOLUTION 30ML (Q9963) As Ordered ONE
== END ==
LOC: M OUTALCOH 08:32
PROVIDERS: ATTEND Psychiatry & Neurology Psychiatry
DX: Z02.89 Encounter for other administrative examinations (principal)

== ENCOUNTER 2021-10-26 10:56 | Outpatient (RCR) | payer OTHER | END 2021-11-16 | LOC: M OUTALCOH 10:56 | PROVIDERS: ATTEND Psychiatry & Neurology Psychiatry | DX: F10.10 Alcohol abuse, uncomplicated (principal) ==

== ENCOUNTER → 2021-11-30 | Outpatient (CLI) | payer OTHER | LOC: M RAD 07:27 | PROVIDERS: ATTEND Internal Medicine Medical Oncology | DX: C64.9 Malignant neoplasm of unspecified kidney, except renal pelvis (principal) | CPT/HCPCS: 78306; A9503 ==

== ENCOUNTER → 2021-12-07 | Outpatient (CLI) | payer OTHER | LOC: M OUTALCOH 08:14 | PROVIDERS: ATTEND Psychiatry & Neurology Psychiatry | DX: C67.9 Malignant neoplasm of bladder, unspecified (principal) ==

== ENCOUNTER → 2021-12-17 | Outpatient (RCR) | payer OTHER | LOC: M OUTALCOH 12-14 14:00 | PROVIDERS: ATTEND Psychiatry & Neurology Psychiatry | DX: F10.20 Alcohol dependence, uncomplicated (principal); Z72.0 Tobacco use ==

== ENCOUNTER → 2021-12-30 | Outpatient (REF) | payer OTHER ==
[2021-12-30 17:54] LABS: PERCENT SATURATION 14.6 % (19.7-50.0)
== END ==
LOC: M LAB REF 16:41
PROVIDERS: ATTEND Internal Medicine Nephrology
DX: E61.1 Iron deficiency (principal); D63.1 Anemia in chronic kidney disease

== ENCOUNTER 2022-01-08 13:09 | Outpatient (CLI) | payer OTHER ==
[~2022-01-08] VITALS: Ht 177.8 cm; Wt 123.6 kg
[~2022-01-08 13:09] MED LIST changes: +ALBUTEROL SULFATE 2.5 MG/0.5 ML INH NEB SOLN INH PRN; +EPINEPHrine INJ 1 MG/ML 1ML AMP IM PRN; +FERRIC CARBOXYMALTOSE INJ 750 MG, VIAL MATE ADAPTER 1 EACH in NS 250 ML IV ONE; +NS 1,000 ML IV SCH; +diphenhydrAMINE 50MG/ML VIAL (J1200) IV PRN; +methylPREDNISolone 125MG 2ML VIAL IV PRN
[2022-01-08 13:15] VITALS: BP 163/82
[2022-01-08 15:15] VITALS: BP 178/84
== END 2022-01-08 15:15 | disposition home or self-care (01) ==
LOC: M INFU 13:09
PROVIDERS: ATTEND Internal Medicine Nephrology
DX: D61.1 Drug-induced aplastic anemia (principal)
CPT/HCPCS: 96365; 96402; J1439

== ENCOUNTER 2022-01-14 10:00 | Outpatient (RCR) | payer OTHER ==
[~2022-01-14 10:00] MED LIST changes: -ALBUTEROL SULFATE 2.5 MG/0.5 ML INH NEB SOLN INH PRN; -EPINEPHrine INJ 1 MG/ML 1ML AMP IM PRN; -FERRIC CARBOXYMALTOSE INJ 750 MG, VIAL MATE ADAPTER 1 EACH in NS 250 ML IV ONE; -NS 1,000 ML IV SCH; -diphenhydrAMINE 50MG/ML VIAL (J1200) IV PRN; -methylPREDNISolone 125MG 2ML VIAL IV PRN
== END 2022-01-16 ==
LOC: M OUTALCOH 10:00
PROVIDERS: ATTEND Psychiatry & Neurology Psychiatry
DX: F10.20 Alcohol dependence, uncomplicated (principal); Z72.0 Tobacco use

== ENCOUNTER 2022-01-18 11:11 | Outpatient (CLI) | payer OTHER ==
[~2022-01-18] VITALS: Ht 177.8 cm; Wt 123.6 kg
[~2022-01-18 11:11] MED LIST changes: +ALBUTEROL SULFATE 2.5 MG/0.5 ML INH NEB SOLN INH PRN; +EPINEPHrine INJ 1 MG/ML 1ML AMP IM PRN; +FERRIC CARBOXYMALTOSE INJ 750 MG, VIAL MATE ADAPTER 1 EACH in NS 250 ML IV ONE; +NS 1,000 ML IV SCH; +diphenhydrAMINE 50MG/ML VIAL (J1200) IV PRN; +methylPREDNISolone 125MG 2ML VIAL IV PRN
[2022-01-18 12:45] VITALS: BP 193/96
== END 2022-01-18 12:50 | disposition home or self-care (01) ==
LOC: M INFU 11:11
PROVIDERS: ATTEND Internal Medicine Nephrology
DX: D50.9 Iron deficiency anemia, unspecified (principal); Z91.013 Allergy to seafood
CPT/HCPCS: 96365; J1439

== ENCOUNTER → 2022-02-16 | Outpatient (RCR) | payer OTHER ==
[~2022-02-16] MED LIST changes: -ALBUTEROL SULFATE 2.5 MG/0.5 ML INH NEB SOLN INH PRN; -EPINEPHrine INJ 1 MG/ML 1ML AMP IM PRN; -FERRIC CARBOXYMALTOSE INJ 750 MG, VIAL MATE ADAPTER 1 EACH in NS 250 ML IV ONE; -NS 1,000 ML IV SCH; -diphenhydrAMINE 50MG/ML VIAL (J1200) IV PRN; -methylPREDNISolone 125MG 2ML VIAL IV PRN
== END ==
LOC: M OUTALCOH 01-28 13:06
PROVIDERS: ATTEND Psychiatry & Neurology Psychiatry
DX: F10.20 Alcohol dependence, uncomplicated (principal); Z72.0 Tobacco use

== ENCOUNTER 2022-02-25 09:01 | Outpatient (RCR) | payer OTHER | END 2022-03-18 | LOC: M OUTALCOH 09:01 | PROVIDERS: ATTEND Psychiatry & Neurology Psychiatry | DX: F10.20 Alcohol dependence, uncomplicated (principal); Z72.0 Tobacco use ==

== ENCOUNTER → 2023-05-24 | Outpatient (CLI) | payer OTHER | LOC: M PLARAD 07:39 | PROVIDERS: ATTEND Internal Medicine Pulmonary Disease | DX: R91.1 Solitary pulmonary nodule (principal) | CPT/HCPCS: 78815; A9552 ==

== ENCOUNTER 2023-06-22 06:07 | Day surgery (SDC) | payer OTHER ==
[~2023-06-22] VITALS: Ht 177.8 cm; Wt 117.9 kg
[~2023-06-22 06:07] MED LIST changes: +ADDE10CA3 PO; +AMLO1TAB25 PO; +FENO160T10 PO; +JARD1TAB3 PO; +OMEG10002 PO; +OMEP-173 PO; +SILD1TAB8 PO; +TRAZ-252 PO
[2023-06-22] MEDS ORDERED: LR 1,000 ML IV SCH (06:20)
[2023-06-22] MEDS ORDERED: BENA25CA4 PO (06:26)
[2023-06-22] MEDS: THROMBIN 5,000 UNITS VIAL As Ordered ONE (07:09)
[2023-06-22] MEDS: EPINEPHrine 1MG/10ML SYRINGE 1.5IN As Ordered ONE (07:10)
[2023-06-22] MEDS: LIDOCAINE 1% SDV 30ML VIAL As Ordered ONE (07:10)
[2023-06-22] MEDS ORDERED: LIDOCAINE 2% 100MG/5ML SDV (FOR ANES.) As Ordered ONE (07:17)
[2023-06-22] MEDS ORDERED: propofoL 200 MG/20 ML VIAL As Ordered ONE ×2 (07:17→08:00)
[2023-06-22] MEDS ORDERED: fentaNYL 100 MCG/2 ML INJECTION As Ordered ONE (07:17)
[2023-06-22] MEDS ORDERED: MIDAZOLAM INJ 2MG/2ML VIAL As Ordered ONE (07:17)
[2023-06-22] MEDS ORDERED: ROCURONIUM BROMIDE 50MG/5ML VIAL As Ordered ONE (07:17)
[2023-06-22] MEDS ORDERED: ONDANSETRON 4MG 2ML VIAL As Ordered ONE (07:46)
[2023-06-22] MEDS ORDERED: SUGAMMADEX SODIUM 500 MG/5 ML VIAL (BRIDION) As Ordered ONE (07:48)
[2023-06-22] MEDS: CETACAINE SPRAY 5GM As Ordered ONE (07:49)
[2023-06-22] MEDS ORDERED: ePHEDrine SULFATE 25 MG/5 ML(5MG/ML) SYRINGE As Ordered ONE (07:54)
[2023-06-22] MEDS ORDERED: HYDROMORPHONE HCL 0.5 MG/ 0.5 ML SYRINGE IV PRN (08:15)
[2023-06-22] MEDS ORDERED: oxyCODONE 5MG TAB PO PRN (08:15)
[2023-06-22] MEDS ORDERED: ONDANSETRON 4MG 2ML VIAL IV PRN (08:15)
[2023-06-22] MEDS ORDERED: fentaNYL 100 MCG/2 ML INJECTION IV PRN (08:15)
[2023-06-22] MEDS: LR 1,000 ML IV SCH (08:46)
[2023-06-22 09:55] VITALS: BP 146/69; TEMP 97.4; O2SAT 96
== END 2023-06-22 10:02 | disposition home or self-care (01) ==
LOC: M SDC 06:07
PROVIDERS: ATTEND Internal Medicine Pulmonary Disease
DX: C77.1 Secondary and unspecified malignant neoplasm of intrathoracic lymph nodes (principal); C80.1 Malignant (primary) neoplasm, unspecified; J42 Unspecified chronic bronchitis; E11.9 Type 2 diabetes mellitus without complications; G47.33 Obstructive sleep apnea (adult) (pediatric); Z85.528 Personal history of other malignant neoplasm of kidney; Z79.84 Long term (current) use of oral hypoglycemic drugs; Z79.899 Other long term (current) drug therapy; Z90.5 Acquired absence of kidney
CPT/HCPCS: 31652; 71045; 88173; 88305; J1100; J2250; J2405; J3010

== ENCOUNTER → 2023-07-21 | Outpatient (CLI) | payer OTHER ==
[~2023-07-21] MED LIST changes: +BENA25CA4 PO; -LUNE3TAB36 PO; +LUNE3TAB50 PO
== END ==
LOC: M ONCR 07:52
PROVIDERS: ATTEND General Practice
DX: C34.12 Malignant neoplasm of upper lobe, left bronchus or lung (principal); Z71.2 Person consulting for explanation of examination or test findings; F17.210 Nicotine dependence, cigarettes, uncomplicated; Z79.84 Long term (current) use of oral hypoglycemic drugs; Z79.899 Other long term (current) drug therapy; Z80.8 Family history of malignant neoplasm of other organs or systems; Z91.013 Allergy to seafood; Z91.02 Food additives allergy status; Z91.030 Bee allergy status; Z91.048 Other nonmedicinal substance allergy status; Z85.528 Personal history of other malignant neoplasm of kidney; Z90.5 Acquired absence of kidney

== ENCOUNTER → 2023-08-01 | Outpatient (CLI) | payer OTHER ==
[~2023-08-01] MED LIST changes: +LIDOCAINE 1% MDV 20ML VIAL As Ordered ONE; +LIDOCAINE W/EPINEPHRINE 1% 20ML VIAL As Ordered ONE; +MIDAZOLAM INJ 2MG/2ML VIAL As Ordered ONE; +ceFAZolin 2 GM/D5W 50 ML IV BAG As Ordered ONE; +fentaNYL 100 MCG/2 ML INJECTION As Ordered ONE
[2023-08-01 14:11] VITALS: TEMP 97.5
[2023-08-01 16:00] VITALS: BP 136/62; O2SAT 95
== END ==
LOC: M IRPRO 14:03
PROVIDERS: ATTEND Internal Medicine Medical Oncology
DX: C64.9 Malignant neoplasm of unspecified kidney, except renal pelvis (principal)
CPT/HCPCS: 36561; 99152; 99153; J0690; J2250; J3010

== ENCOUNTER → 2023-08-15 | Outpatient (CLI) | payer OTHER ==
[~2023-08-15] MED LIST changes: +ELIQ5TAB PO; +HYDR-3910; -LIDOCAINE 1% MDV 20ML VIAL As Ordered ONE; -LIDOCAINE W/EPINEPHRINE 1% 20ML VIAL As Ordered ONE; -MIDAZOLAM INJ 2MG/2ML VIAL As Ordered ONE; +PROHANCE 279.3MG/ML 15ML VIAL ONE; +PROHANCE 279.3MG/ML 5ML VIAL ONE; -ceFAZolin 2 GM/D5W 50 ML IV BAG As Ordered ONE; -fentaNYL 100 MCG/2 ML INJECTION As Ordered ONE
== END ==
LOC: M PLAIMG 08:44
PROVIDERS: ATTEND Internal Medicine Medical Oncology
DX: C64.9 Malignant neoplasm of unspecified kidney, except renal pelvis (principal)
CPT/HCPCS: 70553; A9576

== ENCOUNTER → 2023-08-16 | Outpatient (CLI) | payer OTHER ==
[~2023-08-16] MED LIST changes: -PROHANCE 279.3MG/ML 15ML VIAL ONE; -PROHANCE 279.3MG/ML 5ML VIAL ONE
== END ==
LOC: M RAD 07:14
PROVIDERS: ATTEND General Practice
DX: C34.12 Malignant neoplasm of upper lobe, left bronchus or lung (principal); I82.621 Acute embolism and thrombosis of deep veins of right upper extremity

== ENCOUNTER → 2023-08-18 | Outpatient (RCR) | payer MEDICAID, OTHER ==
[~2023-08-18] MED LIST changes: -HYDR-3910; +HYDR-3910 PO
== END ==
LOC: M ONCR 07-27 10:49
PROVIDERS: ATTEND General Practice
DX: Z51.0 Encounter for antineoplastic radiation therapy (principal); C34.12 Malignant neoplasm of upper lobe, left bronchus or lung

== ENCOUNTER → 2023-09-01 | Outpatient (CLI) | payer OTHER ==
[~2023-09-01] MED LIST changes: +PROHANCE 279.3MG/ML 15ML VIAL ONE; +PROHANCE 279.3MG/ML 5ML VIAL ONE
== END ==
LOC: M PLAIMG 09:45
PROVIDERS: ATTEND Internal Medicine Medical Oncology
DX: C34.90 Malignant neoplasm of unspecified part of unspecified bronchus or lung (principal); R94.02 Abnormal brain scan; R29.818 Other symptoms and signs involving the nervous system
CPT/HCPCS: 70546; A9576

== ENCOUNTER 2023-09-16 10:30 | Outpatient (RCR) | payer OTHER ==
[~2023-09-16 10:30] MED LIST changes: +ALBUTEROL SULFATE 2.5MG/0.5ML INH NEB SOLN As Ordered ONE; +EPINEPHrine INJ 1 MG/ML 1ML AMP As Ordered ONE; -PROHANCE 279.3MG/ML 15ML VIAL ONE; -PROHANCE 279.3MG/ML 5ML VIAL ONE; +diphenhydrAMINE 50MG/ML VIAL As Ordered ONE; +methylPREDNISolone 125MG 2ML VIAL As Ordered ONE
[2023-09-21] MEDS ORDERED: ELIQ5TAB PO (09:28)
== END 2023-09-18 ==
LOC: M ONCR 10:30
PROVIDERS: ATTEND General Practice
DX: Z51.0 Encounter for antineoplastic radiation therapy (principal); C34.12 Malignant neoplasm of upper lobe, left bronchus or lung

== ENCOUNTER 2023-10-10 10:27 | Outpatient (RCR) | payer OTHER, MEDICAID ==
[~2023-10-10 10:27] MED LIST changes: -ALBUTEROL SULFATE 2.5MG/0.5ML INH NEB SOLN As Ordered ONE; -EPINEPHrine INJ 1 MG/ML 1ML AMP As Ordered ONE; -diphenhydrAMINE 50MG/ML VIAL As Ordered ONE; -methylPREDNISolone 125MG 2ML VIAL As Ordered ONE
== END 2023-10-19 ==
LOC: M ONCR 10:27
PROVIDERS: ATTEND General Practice
DX: Z51.0 Encounter for antineoplastic radiation therapy (principal); C34.12 Malignant neoplasm of upper lobe, left bronchus or lung

== ENCOUNTER → 2023-10-21 | Outpatient (REF) | payer OTHER, MEDICAID ==
[2023-10-21 18:24] LABS: CREATININE FOR GFR 1.48 MG/DL (0.70-1.30); GLOMERULAR FILTRATION RATE 51.1 (>49); POTASSIUM SERUM 3.9 MMOL/L (3.5-5.1); PROSTATIC SPECIFIC AG MONITOR 0.83 NG/ML (< 4.00)
== END ==
LOC: M LAB REF 17:06
PROVIDERS: ATTEND Internal Medicine Nephrology
DX: N40.1 Benign prostatic hyperplasia with lower urinary tract symptoms (principal)

== ENCOUNTER → 2023-10-21 | Outpatient (REF) | payer OTHER, MEDICAID ==
[2023-10-21 18:53] LABS: HEMOGLOBIN A1c 6.9 % (4.0-6.0)
== END ==
LOC: M LAB REF 17:05
PROVIDERS: ATTEND Physician Assistant
DX: E11.65 Type 2 diabetes mellitus with hyperglycemia (principal)

== ENCOUNTER → 2023-11-15 | Outpatient (CLI) | payer OTHER ==
[~2023-11-15] MED LIST changes: -HYDR-3910 PO; +HYDR25TA87 PO
== END ==
LOC: M PLAIMG 08:59
PROVIDERS: ATTEND Nurse Practitioner
DX: C34.90 Malignant neoplasm of unspecified part of unspecified bronchus or lung (principal)

== ENCOUNTER → 2024-01-26 | Outpatient (CLI) | payer OTHER ==
[~2024-01-26] MED LIST changes: +AUGM250S13 PO; +PRED20TA PO
== END ==
LOC: M ONCR 08:15
PROVIDERS: ATTEND General Practice
DX: C34.12 Malignant neoplasm of upper lobe, left bronchus or lung (principal); J70.0 Acute pulmonary manifestations due to radiation; W88.8XXA Exposure to other ionizing radiation, initial encounter; C64.9 Malignant neoplasm of unspecified kidney, except renal pelvis; F17.210 Nicotine dependence, cigarettes, uncomplicated; Z71.2 Person consulting for explanation of examination or test findings; Z77.090 Contact with and (suspected) exposure to asbestos; Z79.01 Long term (current) use of anticoagulants; Z79.52 Long term (current) use of systemic steroids; Z79.620 Long term (current) use of immunosuppressive biologic; Z79.84 Long term (current) use of oral hypoglycemic drugs; Z79.899 Other long term (current) drug therapy; Z87.891 Personal history of nicotine dependence; Z91.013 Allergy to seafood; Z91.030 Bee allergy status; Z91.048 Other nonmedicinal substance allergy status; Z91.02 Food additives allergy status; Z92.21 Personal history of antineoplastic chemotherapy; Z92.3 Personal history of irradiation

== ENCOUNTER → 2024-02-02 | Outpatient (CLI) | payer OTHER | LOC: M PLARAD 07:52 | PROVIDERS: ATTEND Internal Medicine Hematology & Oncology | DX: C34.90 Malignant neoplasm of unspecified part of unspecified bronchus or lung (principal); C64.9 Malignant neoplasm of unspecified kidney, except renal pelvis ==

== ENCOUNTER → 2024-02-10 | Outpatient (CLI) | payer OTHER ==
[~2024-02-10] MED LIST changes: +AMLO1TAB25; +PRED1TABL PO; +READI-CAT 2 As Ordered ONE
== END ==
LOC: M RAD 09:10
PROVIDERS: ATTEND Internal Medicine Medical Oncology
DX: C34.90 Malignant neoplasm of unspecified part of unspecified bronchus or lung (principal); E04.1 Nontoxic single thyroid nodule

== ENCOUNTER → 2024-03-02 | Outpatient (CLI) | payer MEDICAID, OTHER ==
[~2024-03-02] MED LIST changes: -READI-CAT 2 As Ordered ONE
== END ==
LOC: M ONCR 08:26
PROVIDERS: ATTEND General Practice
DX: C34.12 Malignant neoplasm of upper lobe, left bronchus or lung (principal); F17.210 Nicotine dependence, cigarettes, uncomplicated; Z71.2 Person consulting for explanation of examination or test findings; Z77.090 Contact with and (suspected) exposure to asbestos; Z92.21 Personal history of antineoplastic chemotherapy; Z92.3 Personal history of irradiation; Z91.013 Allergy to seafood; Z91.030 Bee allergy status; Z91.048 Other nonmedicinal substance allergy status; Z91.02 Food additives allergy status; Z79.51 Long term (current) use of inhaled steroids; Z79.84 Long term (current) use of oral hypoglycemic drugs; Z79.899 Other long term (current) drug therapy; Z85.528 Personal history of other malignant neoplasm of kidney

== ENCOUNTER → 2024-03-14 | Outpatient (CLI) | payer OTHER ==
[~2024-03-14] MED LIST changes: +POTA-136
[2024-03-14 13:15] LABS: BASO # 0.1 10^3/uL (0.0-0.2); EOS # 0.1 10^3/uL (0.0-0.5); EOS % 0.8 % (0.0-3.0); HEMATOCRIT 44.2 % (42.0-52.0); HEMOGLOBIN 14.4 g/dl (13.5-17.5); LYMPH # 0.9 10^3/uL (1.5-5.0); LYMPH % 8.6 % (24.0-44.0); MEAN CORPUSCULAR HEMOGLOBIN 28.6 pg (27.0-33.0); MEAN CORPUSCULAR HGB CONC 32.6 g/dl (32.0-36.5); MEAN CORPUSCULAR VOLUME 87.9 fl (80.0-96.0); MONO # 1.1 10^3/uL (0.0-0.8); MONO % 10.8 % (2.0-8.0); NEUTROPHILS # 7.7 10^3/uL (1.5-8.5); NEUTROPHILS % 78.3 % (36.0-66.0); PLATELET COUNT, AUTOMATED 203 10^3/uL (150-450); RED BLOOD COUNT 5.03 10^6/uL (4.30-6.10); WHITE BLOOD COUNT 9.9 10^3/uL (4.0-10.0)
[2024-03-14 13:39] LABS: CALCIUM LEVEL 9.2 MG/DL (8.3-10.6); CREATININE FOR GFR 1.61 MG/DL (0.70-1.30); GLOMERULAR FILTRATION RATE 46.4 (>49); POTASSIUM SERUM 3.5 MMOL/L (3.5-5.1)
== END ==
LOC: M LAB 11:42
PROVIDERS: ATTEND Internal Medicine Cardiovascular Disease
DX: I49.49 Other premature depolarization (principal); R07.9 Chest pain, unspecified

== ENCOUNTER → 2024-03-20 | Outpatient (CLI) | payer OTHER ==
[2024-03-20 11:03] LABS: CREATININE FOR GFR 1.46 MG/DL (0.70-1.30); GLOMERULAR FILTRATION RATE 51.9 (>49)
== END ==
LOC: M LAB 09:47
PROVIDERS: ATTEND Internal Medicine Cardiovascular Disease
DX: I49.49 Other premature depolarization (principal)

== ENCOUNTER → 2024-04-04 | Outpatient (CLI) | payer MEDICAID, OTHER ==
[~2024-04-04] MED LIST changes: +AUGM500T34 PO; +BENZ200C70 PO; +DEBR6.5S4 OTIC; +MECL-86 PO
== END ==
LOC: M RAD 09:18
PROVIDERS: ATTEND General Practice
DX: C34.12 Malignant neoplasm of upper lobe, left bronchus or lung (principal)

== ENCOUNTER → 2024-04-04 | Outpatient (CLI) | payer OTHER ==
[~2024-04-04] MED LIST changes: +AZIT-12 PO; +PRED50TA PO
== END ==
LOC: M ONCR 08:27
PROVIDERS: ATTEND General Practice
DX: C34.12 Malignant neoplasm of upper lobe, left bronchus or lung (principal); Z71.2 Person consulting for explanation of examination or test findings; Z77.090 Contact with and (suspected) exposure to asbestos; Z79.620 Long term (current) use of immunosuppressive biologic; Z79.84 Long term (current) use of oral hypoglycemic drugs; Z79.899 Other long term (current) drug therapy; Z87.891 Personal history of nicotine dependence; Z91.013 Allergy to seafood; Z91.030 Bee allergy status; Z91.02 Food additives allergy status; Z91.048 Other nonmedicinal substance allergy status; Z92.21 Personal history of antineoplastic chemotherapy; Z92.3 Personal history of irradiation
CPT/HCPCS: 71046; G0463

== ENCOUNTER → 2024-05-07 | Outpatient (CLI) | payer OTHER | LOC: M RAD 16:35 | PROVIDERS: ATTEND Internal Medicine Medical Oncology | DX: C64.1 Malignant neoplasm of right kidney, except renal pelvis (principal); Z90.5 Acquired absence of kidney; R91.8 Other nonspecific abnormal finding of lung field ==

== ENCOUNTER → 2024-05-18 | Outpatient (CLI) | payer OTHER ==
[~2024-05-18] MED LIST changes: +PROHANCE 279.3MG/ML 15ML VIAL As Ordered ONE; +PROHANCE 279.3MG/ML 5ML VIAL As Ordered ONE
== END ==
LOC: M RAD 08:35
PROVIDERS: ATTEND General Practice
DX: C34.12 Malignant neoplasm of upper lobe, left bronchus or lung (principal)
CPT/HCPCS: 70553; A9576

== ENCOUNTER → 2024-05-22 | Outpatient (CLI) | payer OTHER ==
[~2024-05-22] MED LIST changes: +AMLO1TAB24 PO; +CEFD1CAP9 PO; +CHLO1TAB35 PO; +HYDR50TA47 PO; -PROHANCE 279.3MG/ML 15ML VIAL As Ordered ONE; -PROHANCE 279.3MG/ML 5ML VIAL As Ordered ONE
== END ==
LOC: M ONCR 09:19
PROVIDERS: ATTEND General Practice
DX: C79.31 Secondary malignant neoplasm of brain (principal); C34.12 Malignant neoplasm of upper lobe, left bronchus or lung; I67.9 Cerebrovascular disease, unspecified; Z85.528 Personal history of other malignant neoplasm of kidney; Z87.891 Personal history of nicotine dependence; Z79.01 Long term (current) use of anticoagulants; Z79.84 Long term (current) use of oral hypoglycemic drugs; Z79.899 Other long term (current) drug therapy; Z91.013 Allergy to seafood; Z91.030 Bee allergy status; Z91.048 Other nonmedicinal substance allergy status; Z91.02 Food additives allergy status; Z92.21 Personal history of antineoplastic chemotherapy; Z92.3 Personal history of irradiation

== ENCOUNTER 2024-06-09 12:25 | Inpatient (IN) | payer OTHER ==
[~2024-06-09] VITALS: Ht 177.8 cm; Wt 114.1 kg
[~2024-06-09 12:25] MED LIST changes: -AMLO1TAB24 PO; -CEFD1CAP9 PO; -CHLO1TAB35 PO; -HYDR50TA47 PO
[2024-06-09 13:40] LABS: BASO % 0.3 % (0.0-1.0); EOS % 0.1 % (0.0-3.0); HEMATOCRIT 34.8 % (42.0-52.0); HEMOGLOBIN 11.3 g/dl (13.5-17.5); LYMPH # 0.4 10^3/uL (1.5-5.0); LYMPH % 2.9 % (24.0-44.0); MEAN CORPUSCULAR HEMOGLOBIN 28.8 pg (27.0-33.0); MEAN CORPUSCULAR HGB CONC 32.5 g/dl (32.0-36.5); MEAN CORPUSCULAR VOLUME 88.5 fl (80.0-96.0); MONO # 0.3 10^3/uL (0.0-0.8); MONO % 2.2 % (2.0-8.0); NEUTROPHILS # 13.5 10^3/uL (1.5-8.5); NEUTROPHILS % 94.2 % (36.0-66.0); PLATELET COUNT, AUTOMATED 107 10^3/uL (150-450); RED BLOOD COUNT 3.93 10^6/uL (4.30-6.10); WHITE BLOOD COUNT 14.3 10^3/uL (4.0-10.0)
[2024-06-09 13:52] LABS: INR 1.22; PROTHROMBIN TIME 15.1 SECONDS (12.5-14.5)
[2024-06-09] MEDS: AZITHROMYCIN 250MG TABLET PO ONE (14:07)
[2024-06-09] MEDS: cefTRIAXone SOD 2 GM in D5W MINI-BAG PLUS 50 ML IV ONE (14:07)
[2024-06-09 14:11] LABS: ALBUMIN 3.9 G/DL (3.2-5.2); BILIRUBIN,DIRECT 0.2 MG/DL (<0.4); BILIRUBIN,TOTAL 0.6 MG/DL (0.3-1.2); CALCIUM LEVEL 9.1 MG/DL (8.3-10.6); CK-MB VALUE MASS 1.2 NG/ML (<3.6); CREATININE FOR GFR 1.84 MG/DL (0.70-1.30); GLOMERULAR FILTRATION RATE 39.6 (>49); MB/CK RELATIVE INDEX 2.14 (< OR =4); TOTAL PROTEIN 6.7 G/DL (5.7-8.2)
[2024-06-09 14:14] LABS: THYROID STIMULATING HORMONE 0.248 uIU/ML (0.55-4.78)
[2024-06-09 15:04] LABS: CK-MB VALUE MASS 1.2 NG/ML (<3.6)
[2024-06-09 15:06] LABS: MB/CK RELATIVE INDEX 2.4 (< OR =4)
[2024-06-09] MEDS ORDERED: HYDR50TA47 PO (15:32)
[2024-06-09] MEDS ORDERED: CHLO1TAB35 PO (15:32)
[2024-06-09] MEDS ORDERED: ELIQ5TAB PO (15:32)
[2024-06-09] MEDS ORDERED: AMLO1TAB24 PO (15:32)
[2024-06-09] MEDS ORDERED: HOME MED LIST COMPLETE! XX SCH (15:35)
[2024-06-09 17:26] LABS: PROCALCITONIN 0.16 ng/ml
[2024-06-09 17:52] VITALS: BP 122/52; TEMP 97.5; O2SAT 96
[2024-06-09] MEDS ORDERED: traZODone 100 MG TAB PO PRN (18:55)
[2024-06-09 20:21] VITALS: BP 121/58; TEMP 97; O2SAT 96
[2024-06-09] MEDS: TOPIRAMATE (TopAMAX) 25 MG TAB PO SCH (20:45)
[2024-06-09] MEDS: OMEPRAZOLE 20MG CAP PO SCH (20:45)
[2024-06-09] MEDS: **hydrALAZINE** 50 MG TAB PO SCH (20:46)
[2024-06-09] MEDS ORDERED: GLUCAGON INJ 1MG VIAL SC PRN (21:45)
[2024-06-09] MEDS ORDERED: DEXTROSE 50% 50ML SYRINGE IV PRN (21:45)
[2024-06-09] MEDS ORDERED: GLUCOSE 4 GM CHEW PO PRN (21:45)
[2024-06-09] MEDS: APIXABAN 5 MG TAB (ELIQUIS) PO SCH (21:50)
[2024-06-09] MEDS: CARBAMIDE PEROXIDE 6.5% OTIC SOLN 15ML AU SCH (23:24)
[2024-06-10] VITALS (9 sets, daily range): BP systolic 121–157; BP diastolic 53–68; TEMP 97.1–97.7; O2SAT 92–100
[2024-06-10] MEDS: SODIUM CHLORIDE HYPERTONIC 3% 4ML NEB SOL INH SCH (08:00)
[2024-06-10] MEDS: INSULIN LISPRO (NovoLOG) PER UNIT SC SCH (08:37)
[2024-06-10] MEDS: amLODIPine 5 MG TAB PO SCH (08:38)
[2024-06-10] MEDS: AZITHROMYCIN 250MG TABLET PO SCH (08:39)
[2024-06-10] MEDS: SIMVASTATIN 40 MG TAB PO SCH (08:39)
[2024-06-10] MEDS ORDERED: predniSONE 50 MG TAB PO SCH (09:00)
[2024-06-10] MEDS: BENZONATATE 100MG CAPSULE PO PRN (10:30)
[2024-06-10] MEDS ORDERED: methylPREDNISolone 125MG 2ML VIAL As Ordered ONE (13:10)
[2024-06-10] MEDS: methylPREDNISolone 125MG 2ML VIAL IV ONE (13:32)
[2024-06-10] MEDS: cefTRIAXone SOD 2 GM in D5W MINI-BAG PLUS 50 ML IV SCH (14:38)
[2024-06-10] MEDS: NORCO, ANEXSIA 5/325MG TABLET (HYDROcodone/ACETAMINOPHEN) PO PRN (16:51)
[2024-06-10] MEDS: IPRATROPIUM 0.5MG/ALBUTEROL 2.5MG INH SOL UD 3ML (DUONEB) NEB PRN (19:07)
[2024-06-11 03:48] VITALS: BP 140/61; TEMP 97.5; O2SAT 92
[2024-06-11 06:59] LABS: HEMATOCRIT 34.5 % (42.0-52.0); MEAN CORPUSCULAR HEMOGLOBIN 28.1 pg (27.0-33.0); MEAN CORPUSCULAR HGB CONC 31.9 g/dl (32.0-36.5); PLATELET COUNT, AUTOMATED 103 10^3/uL (150-450); RED BLOOD COUNT 3.92 10^6/uL (4.30-6.10); WHITE BLOOD COUNT 11.1 10^3/uL (4.0-10.0)
[2024-06-11 07:19] LABS: CALCIUM LEVEL 9.3 MG/DL (8.3-10.6); CREATININE FOR GFR 1.83 MG/DL (0.70-1.30); GLOMERULAR FILTRATION RATE 39.9 (>49); MAGNESIUM LEVEL 2.3 MG/DL (1.8-2.4); POTASSIUM SERUM 3.5 MMOL/L (3.5-5.1)
[2024-06-11 08:00] VITALS: BP 139/55; TEMP 97.3; O2SAT 94
[2024-06-11 12:00] VITALS: BP 156/59; TEMP 97.3; O2SAT 95
[2024-06-11 12:44] VITALS: BP 145/74; TEMP 97.3
[2024-06-11 19:59] VITALS: BP 148/67; TEMP 97.7; O2SAT 93
[2024-06-11 23:58] VITALS: BP 139/65; TEMP 97.5; O2SAT 93
[2024-06-12 03:33] VITALS: BP 117/48; TEMP 97.7; O2SAT 92
[2024-06-12] MEDS: carisoprodoL 350 MG TAB PO PRN (05:38)
[2024-06-12 07:11] LABS: CREATININE FOR GFR 1.89 MG/DL (0.70-1.30); GLOMERULAR FILTRATION RATE 38.4 (>49); MAGNESIUM LEVEL 2.2 MG/DL (1.8-2.4); POTASSIUM SERUM 3.3 MMOL/L (3.5-5.1)
[2024-06-12 07:21] LABS: HEMATOCRIT 34.7 % (42.0-52.0); HEMOGLOBIN 10.9 g/dl (13.5-17.5); MEAN CORPUSCULAR HEMOGLOBIN 27.8 pg (27.0-33.0); MEAN CORPUSCULAR HGB CONC 31.4 g/dl (32.0-36.5); MEAN CORPUSCULAR VOLUME 88.5 fl (80.0-96.0); PLATELET COUNT, AUTOMATED 102 10^3/uL (150-450); RED BLOOD COUNT 3.92 10^6/uL (4.30-6.10)
[2024-06-12] MEDS: MIRALAX *UNIT DOSE* 17GM PACKET PO PRN (09:42)
[2024-06-12] MEDS: POTASSIUM CHLORIDE 10MEQ SR TABLET PO SCH (09:43)
[2024-06-12 11:00] VITALS: BP 135/67
[2024-06-12 12:00] VITALS: BP 134/55; TEMP 97.5; O2SAT 90
[2024-06-12] MEDS: ACETAMINOPHEN 500 MG TAB PO PRN (13:13)
[2024-06-12] MEDS ORDERED: CEFD1CAP9 PO (13:42)
[2024-06-12 20:54] VITALS: BP 129/83; TEMP 97.5; O2SAT 92
[2024-06-12 23:58] VITALS: BP 121/61; TEMP 97.2; O2SAT 94
[2024-06-13 04:55] VITALS: BP 172/81; TEMP 97.3; O2SAT 93
[2024-06-13 07:32] LABS: HEMATOCRIT 37.3 % (42.0-52.0); HEMOGLOBIN 11.7 g/dl (13.5-17.5); MEAN CORPUSCULAR HEMOGLOBIN 27.5 pg (27.0-33.0); MEAN CORPUSCULAR HGB CONC 31.4 g/dl (32.0-36.5); MEAN CORPUSCULAR VOLUME 87.8 fl (80.0-96.0); RED BLOOD COUNT 4.25 10^6/uL (4.30-6.10); WHITE BLOOD COUNT 10.3 10^3/uL (4.0-10.0)
[2024-06-13 07:53] LABS: PLATELET COUNT, AUTOMATED 86 10^3/uL (150-450)
[2024-06-13 07:56] LABS: CALCIUM LEVEL 10.1 MG/DL (8.3-10.6); CREATININE FOR GFR 1.85 MG/DL (0.70-1.30); GLOMERULAR FILTRATION RATE 39.4 (>49); MAGNESIUM LEVEL 2.3 MG/DL (1.8-2.4); POTASSIUM SERUM 3.9 MMOL/L (3.5-5.1)
[2024-06-13 08:34] VITALS: BP 168/83
[2024-06-13 12:00] VITALS: BP 156/73; TEMP 97.5; O2SAT 91
[2024-06-13] MEDS: LORazepam 0.5 MG TAB PO ONE (13:01)
[2024-06-13] MEDS ORDERED: PRED20TA PO (14:35)
== END 2024-06-13 15:35 | disposition home or self-care (01) | DRG 194 ==
LOC: M ED 12:25 → M ED INP 15:55 → M MS5PR 17:37
PROVIDERS: ADMIT Student in an Organized Health Care Education/Training Program; ATTEND Hospitalist
DX: J18.9 Pneumonia, unspecified organism (principal); C79.31 Secondary malignant neoplasm of brain; D84.9 Immunodeficiency, unspecified; C34.92 Malignant neoplasm of unspecified part of left bronchus or lung; K21.9 Gastro-esophageal reflux disease without esophagitis; N18.9 Chronic kidney disease, unspecified; E11.22 Type 2 diabetes mellitus with diabetic chronic kidney disease; M19.90 Unspecified osteoarthritis, unspecified site; I12.9 Hypertensive chronic kidney disease with stage 1 through stage 4 chronic kidney disease, or unspecified chronic kidney disease; Z86.718 Personal history of other venous thrombosis and embolism; E66.9 Obesity, unspecified; E04.1 Nontoxic single thyroid nodule; Z91.013 Allergy to seafood; Z91.030 Bee allergy status; Z88.8 Allergy status to other drugs, medicaments and biological substances; Z79.899 Other long term (current) drug therapy; Z87.891 Personal history of nicotine dependence

== ENCOUNTER 2024-06-14 11:11 | Outpatient (RCR) | payer OTHER ==
[~2024-06-14 11:11] MED LIST changes: +AMLO1TAB24 PO; +CEFD1CAP9 PO; +CHLO1TAB35 PO; +HYDR50TA47 PO; -POTA-136; +POTA-136 PO
[2024-06-17] MEDS ORDERED: ASPI325T57 PO (10:46)
[2024-06-17] MEDS ORDERED: PRED20TA PO (10:46)
[2024-06-17] MEDS ORDERED: CEFD300CAP PO (10:46)
[2024-06-17] MEDS ORDERED: DEBR6.5S4 OTIC (10:46)
== END 2024-06-18 ==
LOC: M ONCR 11:11
PROVIDERS: ATTEND General Practice
DX: Z51.0 Encounter for antineoplastic radiation therapy (principal); C34.12 Malignant neoplasm of upper lobe, left bronchus or lung

== ENCOUNTER 2024-06-17 06:49 | Inpatient (IN) | payer OTHER ==
[2024-06-17] VITALS (9 sets, daily range): BP systolic 148–198; BP diastolic 64–137; TEMP 98–98.9; O2SAT 83–99
[~2024-06-17] VITALS: Ht 177.8 cm; Wt 118.9 kg
[2024-06-17 08:01] LABS: ALBUMIN 3.6 G/DL (3.2-5.2); BASO # 0.1 10^3/uL (0.0-0.2); BASO % 0.5 % (0.0-1.0); BILIRUBIN,DIRECT 0.1 MG/DL (<0.4); BILIRUBIN,TOTAL 0.3 MG/DL (0.3-1.2); CALCIUM LEVEL 9.2 MG/DL (8.3-10.6); CREATININE FOR GFR 1.96 MG/DL (0.70-1.30); EOS # 0.1 10^3/uL (0.0-0.5); EOS % 0.6 % (0.0-3.0); GLOMERULAR FILTRATION RATE 36.8 (>49); HEMATOCRIT 32.1 % (42.0-52.0); HEMOGLOBIN 10.2 g/dl (13.5-17.5); LYMPH # 0.5 10^3/uL (1.5-5.0); LYMPH % 3.8 % (24.0-44.0); MEAN CORPUSCULAR HEMOGLOBIN 28.3 pg (27.0-33.0); MEAN CORPUSCULAR HGB CONC 31.8 g/dl (32.0-36.5); MEAN CORPUSCULAR VOLUME 88.9 fl (80.0-96.0); MONO # 0.9 10^3/uL (0.0-0.8); MONO % 6.1 % (2.0-8.0); NEUTROPHILS # 12.7 10^3/uL (1.5-8.5); NEUTROPHILS % 88.4 % (36.0-66.0); POTASSIUM SERUM 3.7 MMOL/L (3.5-5.1); RED BLOOD COUNT 3.61 10^6/uL (4.30-6.10); TOTAL PROTEIN 6.5 G/DL (5.7-8.2); WHITE BLOOD COUNT 14.3 10^3/uL (4.0-10.0)
[2024-06-17 08:02] LABS: PLATELET COUNT, AUTOMATED 83 10^3/uL (150-450)
[2024-06-17 08:12] LABS: INR 1.16; PARTIAL THROMBOPLASTIN TIME 24.7 SECONDS (24.8-34.2); PROTHROMBIN TIME 14.4 SECONDS (12.5-14.5)
[2024-06-17] MEDS: amLODIPine 5 MG TAB PO ONE (09:24)
[2024-06-17] MEDS ORDERED: GLUCAGON INJ 1MG VIAL SC PRN ×2 (10:25→22:25)
[2024-06-17] MEDS ORDERED: DEXTROSE 50% 50ML SYRINGE IV PRN ×2 (10:25→22:25)
[2024-06-17] MEDS ORDERED: GLUCOSE 4 GM CHEW PO PRN ×2 (10:25→22:25)
[2024-06-17] MEDS: PIPERACILLIN/TAZOBACTAM SOD 4.5 GM in D5W MINI-BAG PLUS 50 ML IV SCH (10:32)
[2024-06-17] MEDS ORDERED: CEFD300CAP PO (10:46)
[2024-06-17] MEDS ORDERED: ASPI325T57 PO (10:46)
[2024-06-17] MEDS ORDERED: PRED20TA PO (10:46)
[2024-06-17] MEDS ORDERED: DEBR6.5S4 OTIC (10:46)
[2024-06-17] MEDS ORDERED: HOME MED LIST COMPLETE! XX SCH (10:50)
[2024-06-17 10:56] LABS: PROCALCITONIN 0.21 ng/ml
[2024-06-17] MEDS: DOXYCYCLINE HYCLATE 100 MG in D5W MINI-BAG PLUS 100 ML IV SCH (11:57)
[2024-06-17] MEDS: INSULIN LISPRO (NovoLOG) PER UNIT SC SCH ×2 (12:56→21:00)
[2024-06-17] MEDS ORDERED: MECLIZINE 25 MG TABLET PO PRN (15:10)
[2024-06-17] MEDS ORDERED: carisoprodoL 350 MG TAB PO PRN (15:10)
[2024-06-17] MEDS ORDERED: NORCO, ANEXSIA 5/325MG TABLET (HYDROcodone/ACETAMINOPHEN) PO PRN (15:10)
[2024-06-17] MEDS ORDERED: traZODone 50 MG TAB PO PRN (15:10)
[2024-06-17] MEDS: ASPIRIN 81MG CHEW TABLET PEG SCH (16:35)
[2024-06-17] MEDS: **hydrALAZINE** 50 MG TAB PO SCH (16:36)
[2024-06-17] MEDS ORDERED: TOPIRAMATE (TopAMAX) 25 MG TAB PO SCH (21:00)
[2024-06-17] MEDS ORDERED: OMEPRAZOLE 20MG CAP PO SCH (21:00)
[2024-06-17] MEDS ORDERED: FENOFIBRATE 145MG TABLET (TRICOR) PO SCH (21:00)
[2024-06-17 22:11] LABS: BASO # 0.1 10^3/uL (0.0-0.2); BASO % 0.5 % (0.0-1.0); EOS # 0.2 10^3/uL (0.0-0.5); EOS % 1.3 % (0.0-3.0); HEMATOCRIT 32.3 % (42.0-52.0); HEMOGLOBIN 10.3 g/dl (13.5-17.5); LYMPH # 1.9 10^3/uL (1.5-5.0); LYMPH % 14.5 % (24.0-44.0); MEAN CORPUSCULAR HEMOGLOBIN 27.8 pg (27.0-33.0); MEAN CORPUSCULAR HGB CONC 31.9 g/dl (32.0-36.5); MEAN CORPUSCULAR VOLUME 87.3 fl (80.0-96.0); MONO # 1.4 10^3/uL (0.0-0.8); MONO % 10.6 % (2.0-8.0); NEUTROPHILS # 9.3 10^3/uL (1.5-8.5); NEUTROPHILS % 72.6 % (36.0-66.0); WHITE BLOOD COUNT 12.8 10^3/uL (4.0-10.0)
[2024-06-17 22:16] LABS: PLATELET COUNT, AUTOMATED 84 10^3/uL (150-450)
[2024-06-17 22:20] LABS: INR 1.17; PROTHROMBIN TIME 14.6 SECONDS (12.5-14.5)
[2024-06-17] MEDS: IPRATROPIUM 0.5MG/ALBUTEROL 2.5MG INH SOL UD 3ML (DUONEB) NEB ONE (22:20)
[2024-06-17 22:39] LABS: POTASSIUM SERUM 3.5 MMOL/L (3.5-5.1)
[2024-06-17] MEDS: CARBAMIDE PEROXIDE 6.5% OTIC SOLN 15ML AU SCH (22:44)
[2024-06-17] MEDS: ASPIRIN 300 MG SUPP PR ONE (22:44)
[2024-06-17] MEDS ORDERED: LR 1,000 ML IV ONE (22:50)
[2024-06-17] MEDS: LR 1,000 ML IV ONE (23:11)
[2024-06-17] MEDS: diphenhydrAMINE 50MG/ML VIAL IV ONE (23:38)
[2024-06-17] MEDS: methylPREDNISolone 40MG 1ML VIAL IV ONE (23:38)
[2024-06-18] VITALS: BP 175/85; TEMP 99.1; O2SAT 94
[2024-06-18] MEDS ORDERED: INSULIN LISPRO (NovoLOG) PER UNIT SC SCH
[2024-06-18 00:10] LABS: HEMOGLOBIN A1c 6.6 % (4.0-6.0)
[2024-06-18] MEDS ORDERED: IPRATROPIUM 0.5MG/ALBUTEROL 2.5MG INH SOL UD 3ML (DUONEB) NEB SCH (02:00)
[2024-06-18] MEDS ORDERED: SIMVASTATIN 40 MG TAB PO SCH (09:00)
[2024-06-18] MEDS ORDERED: PRAVASTATIN 20 MG TAB PO SCH (09:00)
[2024-06-18] MEDS ORDERED: amLODIPine 5 MG TAB PO SCH (09:00)
== END 2024-06-18 01:31 | disposition short-term general hospital (02) | DRG 178 ==
LOC: M ED 06:49 → M ED INP 09:56 → M PCU 10:58 → UNDODISIN 06-18 01:33
PROVIDERS: ADMIT Internal Medicine; ATTEND Internal Medicine
DX: J15.69 Pneumonia due to other Gram-negative bacteria (principal); C34.90 Malignant neoplasm of unspecified part of unspecified bronchus or lung; R04.2 Hemoptysis; C79.31 Secondary malignant neoplasm of brain; D69.6 Thrombocytopenia, unspecified; N18.9 Chronic kidney disease, unspecified; Z86.718 Personal history of other venous thrombosis and embolism; Z91.013 Allergy to seafood; Z91.030 Bee allergy status; Z88.8 Allergy status to other drugs, medicaments and biological substances; Z79.899 Other long term (current) drug therapy; E11.9 Type 2 diabetes mellitus without complications; I12.9 Hypertensive chronic kidney disease with stage 1 through stage 4 chronic kidney disease, or unspecified chronic kidney disease; Z86.73 Personal history of transient ischemic attack (TIA), and cerebral infarction without residual deficits; E66.9 Obesity, unspecified; Z87.891 Personal history of nicotine dependence; G89.3 Neoplasm related pain (acute) (chronic); K21.9 Gastro-esophageal reflux disease without esophagitis; R51.9 Headache, unspecified; F39 Unspecified mood [affective] disorder